=== PATIENT | female | born 1960 | race Caucasian/White ===

== ENCOUNTER 2020-09-03 08:39 | Outpatient (CLI) | payer OTHER, SELFPAY ==
--- NOTE | ~2020-09-03 | US_ITS ---
US retroperitoneal comp 09/03/2020 09:20 Procedure: Realtime transabdominal ultrasound of the kidneys and bladder. Indication: Chronic cystitis with hematuria Comparison: No prior studies for comparison. Findings: Renal echotexture is normal bilaterally without hydronephrosis, contour deforming mass or r enal calculus. The right kidney measures 11 cm and left kidney measures 10.8 cm. There is mild bladde r wall thickening measuring 4.5 mm. No focal bladder mass identified. Impression: 1: Mild bladder wall thickening, compatible with cystitis. Correlate clinically correlate. Reviewed, dictated and finalized at location B. Impression: 1: Mild bladder wall thickening, compatible with cystitis. Correlate clinically correlate.
== END 2020-09-03 08:40 | disposition home or self-care (01) ==
PROVIDERS: PCP Internal Medicine; Visit Provider Nurse Practitioner Family
DX: N30.21 Other chronic cystitis with hematuria (principal)
CPT/HCPCS: 76770

== ENCOUNTER 2020-09-30 10:07 | Outpatient (CLI) | payer OTHER, SELFPAY ==
--- NOTE | ~2020-09-30 | XR_ITS ---
XR chest 2V 09/30/2020 10:35 Indication: Rheumatoid arthritis Procedure: PA and lateral views of the chest Comparison: 01/20/2018 Findings: Heart size normal. There are coarse interstitial changes of the lung periphery with basilar predominance, likely pulmonary fibrosis. Heart size normal. No pleural effusion or pneumothorax. Impression: 1: Progression of coarse bilateral interstitial infiltrates peripherally, likely pulmonary fibrosis. Cannot exclude superimposed pneumonia. Reviewed, dictated and finalized at location B. Impression: 1: Progression of coarse bilateral interstitial infiltrates peripherally, likel y pulmonary fibrosis. Cannot exclude superimposed pneumonia.
--- NOTE | ~2020-09-30 | XR_ITS ---
EXAMINATION: XR foot LT 2V EXAM DATE: 09/30/2020 10:35 INDICATION: Seropositive rheumatoid arthritis. Bilateral foot pain. TECHNIQUE: Frontal and lateral projections of the left foot. Correlation is made to contralateral fo ot same date. FINDINGS: There are left foot no bony erosions identified. There is old 3rd proximal phalangeal frac ture. There are no acute small inferior calcaneal spur. fractures or dislocations identified. There is no subcutaneous gas. The soft tissue is unremarkable. There are no radiopaque foreign bodies. IMPRESSION: Chronic left foot findings as above. No erosions. Reviewed, dictated and finalized at location A.
--- NOTE | ~2020-09-30 | XR_ITS ---
EXAMINATION: XR hand LT 2V EXAM DATE: 09/30/2020 10:35 INDICATION: Seropositive rheumatoid arthritis. Bilateral hand pain. TECHNIQUE: Frontal and lateral projections of the left hand. Correlation is made to contralateral adamson nd same date FINDINGS: There are no bony erosions identified. There are no acute left hand fractures or dislocati ons identified. There is no subcutaneous gas. The soft tissue is unremarkable. There are no radio paque foreign bodies. Mild triscaphe and 1st carpometacarpal joint, and polyarticular interphalangea l arthritis most likely primary osteoarthritis. Sequela from prior ulnar styloid avulsion fractures. Ulnar minus variance. IMPRESSION: 1. No left hand erosions. 2. Polyarticular osteoarthritis. 3. Ulnar minus variance. 4. Old ulnar styloid avulsion. Reviewed, dictated and finalized at location A.
--- NOTE | ~2020-09-30 | XR_ITS ---
EXAMINATION: XR hand RT 2V EXAM DATE: 09/30/2020 10:35 INDICATION: Seropositive rheumatoid arthritis. Bilateral hand pain. TECHNIQUE: Frontal and lateral projections of the right hand. Correlation is made to contralateral h and same date. FINDINGS: There are no bony erosions identified. Mild scattered polyarticular interphalangeal arthri tis, most likely primary osteoarthritis. There are no acute right hand fractures or dislocations iden tified. There is no subcutaneous gas. The soft tissue is unremarkable. There are no radiopaque fo reign bodies. Ulnar minus variance. IMPRESSION: 1. No right hand erosions. 2. Mild osteoarthritis. 3. Ulnar minus variance. Reviewed, dictated and finalized at location A.
--- NOTE | ~2020-09-30 | XR_ITS ---
EXAMINATION: XR foot RT 2V EXAM DATE: 09/30/2020 10:35 INDICATION: Seropositive rheumatoid arthritis . Bilateral foot pain. TECHNIQUE: Frontal and lateral projections of the right foot. Correlation is made to contralateral f oot same date. FINDINGS: There are right foot no bony erosions identified. There are no acute fractures identified. Nonspecific soft tissue prominence over the 1st interphalangeal joint without any underlying pressur e erosion. Joint spaces appear uniform and symmetric to contralateral side. Small calcaneal spur infe riorly. No radiopaque foreign bodies identified. IMPRESSION: Nonspecific soft tissue prominence over right 1st interphalangeal joint without underlyin g erosion. Reviewed, dictated and finalized at location A. IMPRESSION: Nonspecific soft tissue prominence over right 1st interphalangeal j oint without underlying erosion.
== END 2020-09-30 10:08 ==
PROVIDERS: Visit Provider Physician Assistant
DX: M05.9 Rheumatoid arthritis with rheumatoid factor, unspecified (principal); M25.50 Pain in unspecified joint; R53.83 Other fatigue; M79.89 Other specified soft tissue disorders; M19.042 Primary osteoarthritis, left hand; M19.041 Primary osteoarthritis, right hand
CPT/HCPCS: 71046; 73120; 73620

== ENCOUNTER 2021-07-06 11:00 | Outpatient (RCR) | payer OTHER, SELFPAY ==
--- NOTE | 2021-06-11 12:27 | PTOPEVAL ---
Thank you for referring Kathya Murphy to [facility].? The patient is scheduled to be seen for therapy?2 x/week for 5 weeks. Please review, sign, date and return this plan of care VIOLET. I agree with and certify that the following plan of care is medically necessary. Referring Physician Date Attending Provider: Bennie Platt, PA Diagnosis right knee and hip pain Onset 1 month Subjective Information Report she has increased knee Query Text:As Reported By Patient/ and hip pain. Reports popping Family of the right knee with steps. She reports pain with squating, steps, prolonged standing or sitting, walking or content specialist. C/o ache pain of the right knee and hip region with a pulling in the post knee region. She does use a cane as needed. Does not perform a fitness program Pain Assessment Self Report Pain Assessment Right Knee(s) Reported Pain Level 9 Pain Description Aching,Pulling Pain Frequency Continuous Lowest Pain Intensity 6 Greatest Pain Intensity 10 Pain Aggravating Factors ADL's,Bending,Exercise/ Activity,Lifting,Prolonged Position,Stair Climbing, Walking,Weight Bearing/ Standing Right Hip(s) Reported Pain Level 8 Pain Description Aching Lowest Pain Intensity 5 Greatest Pain Intensity 10 Pain Aggravating Factors ADL's,Bending,Exercise/ Activity,Prolonged Position, Stair Climbing,Walking,Weight Bearing/Standing Lower Extremity Range of Motion Knee Range of Motion Left Knee Flexion Range of Motion - Active 120 Knee Extension Range of Motion - Active -6 Right Knee Flexion Range of Motion - Active 100 Knee Flexion Range of Motion - Passive 100 Knee Extension Range of Motion - Active -20 Knee Range of Motion Limitations Contracture,Pain,Soft Tissue Restriction Lower Extremity Muscle Strength Testing Hip Strength Left Hip Flexion Strength 4+ Good + Hip Extension Strength 4- Good - Hip Abduction Strength 3- Fair - Right Hip Flexion Strength 4- Good - Hip Extension Strength 3- Fair - Hip Abduction Strength 3- Fair - Knee Strength Left Knee Flexion Strength 4- Good - Knee Extension S
--- NOTE | 2021-06-25 11:05 | PCPTNOTE ---
Patient called & cancelled scheduled appointment this date, no reason given.
--- NOTE | 2021-07-14 07:43 | PCPTNOTE ---
Patient called & cancelled scheduled appointment this date due to does not feel therapy is helping. Will DC skilled therapy services.
--- NOTE | 2021-07-14 08:05 | PCPTNOTE ---
Admitting Provider: Attending Provider: Bennie Platt, PA Patient:Kathya Murphy Date of :1960 Physical Therapy Discharge Note Patient called to cancel her remaining therapy visits due to does not feel therapy services are helping her pain and symptoms. Patient?s initial visit was on 06/11/2021 and she had a total of 7 visits. The goals have been not met at this time. Thank you for referring this patient to [facility]. Please review, sign, date and return this discharge summary VIOLET. I have been updated about the patient's current status and I agree with discharge from the above service at this time. Referring Physician Date
== END 2021-07-14 09:20 | disposition home or self-care (01) ==
LOC: ANHPT 11:00
PROVIDERS: PCP Internal Medicine; Visit Provider Physician Assistant
DX: M25.561 Pain in right knee (principal); M25.559 Pain in unspecified hip; G89.29 Other chronic pain
CPT/HCPCS: 97014; 97110; 97140; 97162; G0283

== ENCOUNTER 2021-08-10 12:45 | Outpatient (CLI) | payer OTHER, SELFPAY ==
--- NOTE | ~2021-08-10 | MR_ITS ---
EXAMINATION: MR knee RT wo con DATE: 08/10/2021 13:45 INDICATION: Seropositive rheumatoid arthritis TECHNIQUE: Magnetic resonance imaging (MRI) of the right knee was performed without intravenous contr ast. Sequences included coronal PD-weighted FSE, coronal PD-weighted FS FSE, sagittal T2-weighted FS E, sagittal PD-weighted FS FSE and axial PD weighted fat saturated FSE. COMPARISON: None. FINDINGS: Evaluation is mildly limited by motion artifact or blurring to some degree on multiple sequences incl uding several repeated sequences. Medial compartment: Small tear of indeterminate morphology along the inner free edge of the posterior horn of the medial meniscus. Chondral ulceration involving greater than 50% the cartilage thickness pulmonary the centra l portion of the anterior and posterior weightbearing medial femoral condyle. Less severe partial thi ckness cartilage loss involving less than 50% the cartilage thickness at the anterior aspect of the m edial tibial plateau. Lateral compartment: Complex tear of the lateral meniscus extending from the anterior to posterior horn. Full/near full-th ickness chondral ulceration involving significant portion of the central to posterior weightbearing l ateral femoral condyle with subtle subchondral osteophyte at the central weightbearing lateral femora l condyle and more diffuse mild edema-like marrow signal changes. Additional full/near full-thickness chondral ulceration with both low signal intensity likely sclerotic eburnation along the central to posterior lateral tibial plateau. Patellofemoral compartment: Extensive partial-thickness partial-thickness cartilage loss with scattered chondral surface irregula rity throughout the patella and trochlea most prominent at the lateral facet and lateral margin of th e lateral trochlea where it involves greater than 50% the cartilage thickness. There is deep chondral fissuring without degenerative subchondral changes at the patellar apical ridge. Ligaments and tendons: Anterior cruciate ligament tear which follows a shallower coarse than Blumensaat line with amorphous increased signal at the proximal aspect of the ligament and small amount of heterotopic ossification at its femoral footplate. The posterior cruciate ligament is normal. The medial collateral ligament a nd fibular collateral ligament complex are normal. Mild tendinopathy without discrete tear at the dis taran quadriceps and distal patellar tendons. The visualized medial and lateral hamstring tendons as we ll as the iliotibial band are normal. Fluid: Moderate-sized right knee joint effusion. No loose osteochondral bodies identified. Osseous/other: No fracture or pathologic marrow replacing process. IMPRESSION: 1. Anterior cruciate ligament tear. 2. Extensive complex tear. The posterior horn of the lateral meniscus. 3. Small tear of indeterminate morphology along the inner free edge of the posterior horn of the medi al meniscus. 4. Lateral compartment predominant tricompartmental osteoarthritis which is of moderate severity with extensive high-grade chondromalacia. 5. Mild disc quadriceps and distal patellar tendinopathy without discrete tear. 5. Moderate-sized right knee joint effusion. Reviewed, dictated and finalized at location A. 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 Anterior cruciate ligament tear. 2. Extensive complex tear. The posterior horn of the lateral meniscus. 3. Small tear of indeterminate morphology along the inner free edge of the post erior horn of the medial meniscus. 4. Lateral compartment predominant tricompartmental osteoarthritis which is of moderate severity with extensive high-grade chondromalacia. 5. Mild disc quadriceps and distal patellar tendinopathy without discrete tear.
== END 2021-08-10 12:46 | disposition home or self-care (01) ==
LOC: ANHIMG 12:49
PROVIDERS: PCP Internal Medicine; Visit Provider Internal Medicine
DX: M25.461 Effusion, right knee (principal); M17.11 Unilateral primary osteoarthritis, right knee; S83.271A Complex tear of lateral meniscus, current injury, right knee, initial encounter; X58.XXXA Exposure to other specified factors, initial encounter
CPT/HCPCS: 73721

== ENCOUNTER 2021-09-15 08:41 | Outpatient (CLI) | payer OTHER, SELFPAY ==
--- NOTE | ~2021-09-15 | XR_ITS ---
EXAMINATION: XR knee RT min 4V DATE: 09/15/2021 09:18 INDICATION: Right knee pain TECHNIQUE: Four views of the right knee were obtained on five radiographs. COMPARISON: None. FINDINGS: There is no fracture. There is severe joint space narrowing in the lateral compartment and moderate narrowing in the patellofemoral and medial compartments. There is a small knee joint effusio n. Soft tissues are unremarkable. IMPRESSION: 1. Tricompartmental osteoarthritis, severe in the lateral compartment. Reviewed, dictated and finalized at location A.
== END 2021-09-15 08:42 | disposition home or self-care (01) ==
LOC: CHSIMG 08:43
PROVIDERS: PCP Internal Medicine; Visit Provider Orthopaedic Surgery
DX: M25.561 Pain in right knee (principal)
CPT/HCPCS: 73564

== ENCOUNTER 2021-11-03 07:47 | Outpatient (CLI) | payer OTHER, SELFPAY ==
[2021-11-03 08:46] LABS: Urine Cotinine NEGATIVE
[2021-11-03 09:45] LABS: Hemoglobin A1C 7.8 % (<5.7)
== END 2021-11-03 07:48 | disposition home or self-care (01) ==
PROVIDERS: PCP Internal Medicine; Visit Provider Orthopaedic Surgery
DX: Z01.818 Encounter for other preprocedural examination (principal)
CPT/HCPCS: 80307; 83036

== ENCOUNTER 2021-11-20 13:29 | Outpatient (CLI) | payer OTHER, SELFPAY ==
--- NOTE | 2021-11-20 14:44 | ECG_ITS ---
Measurements Intervals [place] Rate: 69 P: 18 MO: 153 QRS: -14 QRSD: 149 T: 30 QT: 423 QTc: 456 Interpretive Statements SINUS RHYTHM LEFT BUNDLE BRANCH BLOCK [120+ ms QRS DURATION, 80+ ms Q/S IN V1/V2, 85+ ms R IN I/aVL/V5/V6] ABNORMAL ECG NO PREVIOUS ECG AVAILABLE FOR COMPARISON Electronically Signed On 11-21-2021 11:16:08 CDT by Gary Hartmann M.D.
[2021-11-20 15:11] LABS: Basophils Absolute Auto 0.1 K/mm3 (0.0-0.1); Basophils Percent Auto 0.7 % (0.2-1.2); Eosinophils Absolute Auto 0.2 K/mm3 (0-0.3); Eosinophils Percent Auto 1.3 % (0-4.4); Hematocrit 39.6 % (37.0-47.0); Immature Granulocyte Absolute 0.08 K/mm3 (0.00-0.031); Immature Granulocyte Percent A 0.7 % (0-0.5); Lymphocytes Percent Auto 18.5 % (18.3-44.2); Mean Corpuscular HGB Conc 32.8 g/dl (32-36); Mean Corpuscular Hemoglobin 33.3 pg (26-34); Mean Corpuscular Volume 101.5 fl (80-100); Mean Platelet Volume 9.9 fl (7.4-10.4); Monocytes Absolute Auto 0.9 K/mm3 (0.1-0.6); Monocytes Percent Auto 7.8 % (2.6-8.5); Neutrophils Absolute Auto 8.5 K/mm3 (1.3-6.7); Nucleated Red Blood Cells Absolute Auto 0.1 K/mm3 (0.0-0.012); Nucleated Red Blood Cells Perc 0.5 % (0.0-0.2); Platelet Count Result 421 k/mm3 (150-375); Red Cell Distribution Width 16.3 % (11.5-14.5); White Blood Count 11.9 K/mm3 (4.5-10.0)
[2021-11-20 15:12] LABS: Add Urine Microscopic? YES; Appearance Urine Slightly Cloudy (Clear); Bilirubin Urine 1+ (Negative); Blood Urine Negative (Negative); Color Urine Yellow (Yellow); Glucose Urine UA Negative (Negative); Ketones Urine Trace mg/dL (Negative); Leukocyte Esterase Ur 2+ LEU/UL (Negative); Nitrate Urine Negative (Negative); Protein Urine Trace mg/dL (Negative); Specific Grav Ur 1.025 (1.001-1.035); Urobilinogen Urine 0.2 mg/dL (<2.0); pH Urine 5.5 (5.0-9.0)
[2021-11-20 15:18] LABS: Amorphous Sediment Urine Few; Bacteria Urine Trace /hpf; Mucus Urine Rare /lpf; RBC Urine 21-50 /hpf (0-2); Squamous Epithelial Cell Urine Moderate /hpf (Few); WBC Urine 31-50 /hpf
[2021-11-20 15:21] LABS: Prothrombin Time 13.2 Seconds (11.1-14.7)
[2021-11-20 15:22] LABS: Partial Thromboplastin Time 28.8 SECONDS (22.3-36.8)
[2021-11-20 15:39] LABS: Albumin Level 4.4 g/dL (3.5-5.1); Anion Gap 8 mmol/L (8-16); Blood Urea Nitrogen 29 mg/dL (7-17); Calcium 9.1 mg/dL (8.4-10.2); Carbon Dioxide 28 mmol/L (22-30); Chloride 101 mmol/L (98-107); Estimated Glomerular Filt Rate 41; Glucose 103 mg/dL (65-110); Potassium 5.3 mmol/L (3.4-5.0); Sodium 137 mmol/L (137-145)
== END 2021-11-20 13:30 | disposition home or self-care (01) ==
PROVIDERS: PCP Internal Medicine; Visit Provider Orthopaedic Surgery
DX: M17.11 Unilateral primary osteoarthritis, right knee (principal); Z01.818 Encounter for other preprocedural examination; I44.7 Left bundle-branch block, unspecified
CPT/HCPCS: 36415; 80048; 81001; 82040; 85025; 85610; 85730; 86850; 86900; 86901; 87081; 87086; 93005

== ENCOUNTER 2021-12-11 12:29 | Outpatient (CLI) | payer OTHER, SELFPAY ==
--- NOTE | 2021-12-11 12:43 | ECHO_ITS ---
Patient Info Name: Kathya Murphy Age: 61 years : 1960 Gender: Female Ht: 69 in Wt: 260 lbs BSA: 2.45 m2 HR: 69 bpm BP: 147 / 68 mmHg Technical Quality: Good Exam Date: 12/11/2021 1:16 PM Exam Location: [facility] Pulmonary Patient Status: Outpatient Admit Date: 12/11/2021 Staff Ordering Physician: Mahendra Ledesma DO Director Selection And Administration: Lavonne Galeana RDCS Attending Provider: Mahendra Ledesma DO Referring Physician: Baltazar DEY; Exam Type: CA echo doppler color flow Study Info Indications R06.00 - Dyspnea, unspecified Complete two-dimensional, color flow and Doppler transthoracic echocardiogram is performed. Summary 1. Complete two-dimensional, color flow and Doppler transthoracic echocardiogram is performed. 2. Left ventricular chamber dimension is normal. 3. Left ventricular systolic function is normal, estimated at 60-65%. 4. There is mildly increased left ventricular wall thickness. 5. The left ventricular diastolic function is grade I diastolic dysfunction. 6. E/e' 18 is elevated. 7. Moderate right ventricular hypertrophy. 8. Left atrial chamber dimension is mildly enlarged. 9. No pulmonary hypertension, estimated pulmonary arterial systolic pressure is 37 mmHg. Left Ventricle E/e' 18 is elevated. Left ventricular chamber dimension is normal. Left ventricular systolic function is normal, estimated at 60-65%. There is mildly increased left ventricular wall thickness. The left ventricular diastolic function is grade I diastolic dysfunction. Right Ventricle Right ventricular systolic function is normal and with normal TAPSE 2.1 cm. Moderate right ventricular hypertrophy. Right ventricular chamber dimension is normal. Left Atria Left atrial chamber dimension is mildly enlarged. Right Atria Right atrial chamber dimension is normal. Aortic Valve The aortic valve is trileaflet. There is no aortic valve stenosis. There is no aortic valve regurgitation. Pulmonic Valve There is no pulmonic regurgitation. Mitral Valve There is no mitral valve stenosis. There is no mitral valve regurgitation. Tricuspid Valve There is no tricuspid valve regurgitation. No pulmonary hypertension, estimated pulmonary arterial systolic pressure is 37 mmHg. Pericardium/Pleural There is no pericardial effusion. Inferior Vena Cava Normal inferior vena cava with >50% collapse upon inspiration consistent with normal right atrial pressure, 5 mmHg. Aorta The aortic root size at the sinus of Valsalva is normal. Left Ventricular Outflow Tract Name Value Normal LVOT 2D LVOT Diameter 2.0 cm LVOT Doppler LVOT Peak Gradient 7 mmHg LVOT Mean Gradient 4 mmHg LVOT VTI 23 cm LVOT VTI/AV VTI Ratio 0.8 LVOT Stroke Volume 69 ml LVOT CO 16.4 l/min LVOT CI 6.7 l/min/m2 Pulmonic Valve Name Value
== END 2021-12-11 12:30 | disposition home or self-care (01) ==
LOC: ANHCARD 12:31
PROVIDERS: PCP Internal Medicine; Visit Provider Internal Medicine Cardiovascular Disease
DX: R06.00 Dyspnea, unspecified (principal)
CPT/HCPCS: 93306

== ENCOUNTER 2021-12-16 10:08 | Outpatient (CLI) | payer OTHER, SELFPAY ==
--- NOTE | 2021-12-16 | EST_ITS ---
Patient Info Name: Kathya Murphy Age: 61 years : 1960 Gender: Female Ht: 69 in Wt: 260 lbs BSA: 2.45 m2 HR: 75 bpm BP: 181 / 83 mmHg Heart Rhythm: Left Bundle Branch Block Exam Date: 12/16/2021 10:55 AM Exam Location: [facility] Stress Patient Status: Outpatient Admit Date: 12/16/2021 Staff Ordering Physician: Mahendra Ledesma DO Attending Provider: Mahendra Ledesma DO Exercise Technologist: Venita Tariq CT Exam Type: CA stress justice w NM Study Info Indications Z01.810 - Encounter for preprocedural cardiovascular examination R06.09 - Other forms of dyspnea A regadenoson stress test was performed. Summary 1. 1. Inconclusive lexiscan stress test for ischemic ST changes by ECG criteria due to baseline LBBB. 2. 2. Baseline hypertension. 3. 3. Nuclear scan to follow and will be reported separately. Please correlate with it. 4. 4. Patient informed of the above results. Protocol: Lexiscan Stress ECG Details Stage: REST Duration (min): 9 min : 18 sec HR (bpm): 77 SBP (mmHg): 214 DBP (mmHg): 99 Stage: REST Duration (min): 11 min : 58 sec HR (bpm): 79 SBP (mmHg): 181 DBP (mmHg): 83 Stage: REST Duration (min): 13 min : 9 sec HR (bpm): 76 SBP (mmHg): 181 DBP (mmHg): 83 Stage: STAGE 1 Duration (min): 0 min : 59 sec HR (bpm): 113 SBP (mmHg): 181 DBP (mmHg): 83 Stage: RECOVERY Duration (min): 1 min : 0 sec HR (bpm): 103 SBP (mmHg): 147 DBP (mmHg): 103 Stage: RECOVERY Duration (min): 2 min : 0 sec HR (bpm): 92 SBP (mmHg): 147 DBP (mmHg): 103 Stage: RECOVERY Duration (min): 3 min : 0 sec HR (bpm): 92 SBP (mmHg): 147 DBP (mmHg): 103 Stage: RECOVERY Duration (min): 4 min : 0 sec HR (bpm): 92 SBP (mmHg): 147 DBP (mmHg): 103 Stage: RECOVERY Duration (min): 4 min : 19 sec HR (bpm): 87 SBP (mmHg): 198 DBP (mmHg): 87 Rest HR: 76 bpm Peak HR: 115 bpm Rest Sys BP: 181 mmHg Peak Sys BP: 198 mmHg Max Pred HR: 157 bpm % Max Pred HR: 73 % Target HR: 133 bpm Max RPP: 22,770 bpm*mmHg Termination Reason: Completed protocol Cardiac Symptoms: Shortness of breath Total Time: 1 min : 0 sec Rest Jj BP: 83 mmHg Peak Jj BP: 87 mmHg Total Dose: 0.4 mg Resting ECG Sinus rhythm, LBBB. Stress ECG No ST changes. Arrhythmias None. Report Signatures
--- NOTE | ~2021-12-16 | NM_ITS ---
EXAMINATION: NM justice stress w perfusion DATE: 12/16/2021 12:44 INDICATION: Dyspnea on exertion. TECHNIQUE: Rest images were obtained following intravenous administration of 10.3 mCi Tc99m tetrofosm in (Myoview). The patient was infused intravenously with Lexiscan (regadenoson). Then, 32.7 mCi Tc99m tetrofosmin (Myoview) was administered intravenously, and supine and prone stress images were obtain ed. Data was reconstructed into short axis and horizontal and vertical long axis SPECT images. Gated SPECT images were also obtained. COMPARISON: None. FINDINGS: There is no definite reversible or fixed perfusion abnormality to suggest ischemia or infar ction. There is global hypokinesis. Left ventricular ejection fraction measures 36%. IMPRESSION: 1. No definite ischemia or infarct. 2. Global hypokinesis with left ventricular ejection fraction measuring 36%. Reviewed, dictated and finalized at location A.
== END 2021-12-16 10:09 | disposition home or self-care (01) ==
LOC: ANHCARD 10:08
PROVIDERS: PCP Internal Medicine; Visit Provider Internal Medicine Cardiovascular Disease
DX: R06.00 Dyspnea, unspecified (principal); I51.89 Other ill-defined heart diseases
CPT/HCPCS: 78452; 93017; A9502; J2785

== ENCOUNTER 2021-12-23 00:37 | Day surgery (SDC) | payer OTHER, SELFPAY ==
[2021-11-20 14:03] VITALS: BMI 38.2
--- NOTE | 2021-11-20 14:26 | PC.NURSE ---
Addendum entered by Brenna Oneill RN 11/20/21 14:33: ASPIRIN PER DR GAINES-PATIENT TO CALL Original Note: Report to the Outpatient Waiting Room, entrance under the green pavilion located off [address], at time _0900 on date _12/02/21 . OR Time: __1100 . - You and your visitor will be asked a series of questions to screen for COVID 19 for your protection. - Only one visitor is allowed at this time. - The patient visitor is requested to leave or wait in car when not with patient. - A mask is required within the hospital. Patients may have clear liquids (water, carbonated beverages, clear teas, apple juice) until 3 hours prior to surgery with a maximum of 20 ounces. - No food from midnight until time of surgery - Infants may have breast milk until 4 hours before surgery, infant formula 6 hours prior to surgery. - Children will be allowed to drink immediately following surgery. If applicable, please bring a bottle or sippy cup to assist with drinking. Juice, water, soda, and popsicles are readily available. For infants on formula, please bring formula the day of surgery. Pacifiers are allowed. Take the following medications with a SIP of water the morning of surgery: __OXYCODONE IF NEEDED FOR PAIN Medications to discontinue per physician __PT STATES AZATHIOPRINE INST. TO HOLD 11/17/[address] GAINES Date to take last dose___11/17/21 Please no make-up, nail yi, hairspray, perfume, deodorant, or body powder the day of surgery. No jewelry (including any body piercings) or valuables the day of surgery, leave them at home. Please take a shower or bath the night before, or the morning of, surgery with an antibacterial soap. Wear comfortable, loose fitting clothing. Children are encouraged to wear pajamas. - Jewelry must be removed prior to entering the operating room. Rings and piercings that are not removed may be cut off. - The hospital will not accept responsibility for valuables. - Please leave all valuables, including medications, at home the day of surgery. If you are going home after surgery, a licensed charter and tour bus driver must drive you home. - NO public transportation without another adult. - We recommend that an adult stay with you for 24 hours following discharge. - We also recommend that you do not drive, make important decision, drink alcoholic beverages, or take any drugs that were not prescribed by your health care provider for at least 24 hours after your discharge time. For Pediatric surgeries, we recommend two adults accompany the child home (only one inside the building at this time). Follow any additional instructions given to you from your surgeon. If you or anyone in your household have experienced Covid symptoms in the past week, please notify your surgeon or the nurse liaison at the phone number below for possible testing. VERBAL AND WRITTEN instructions given to _PATIENT and asked if any additional questions and then verbalized understanding. Patient advised to call surgeon office or pre surgery nurse liaison [phone] if any additional questions.
[2021-11-20 14:43] VITALS: BP 110/57; PULSE 72; RESP 18; TEMP 36.5; O2SAT 98
--- NOTE | 2021-12-16 13:01 | PC.NURSE ---
Report to the Outpatient Waiting Room, entrance under the green pavilion located off [facility], at time _0830 on date _12/23/21 . OR Time: 1030 . - You and your visitor will be asked a series of questions to screen for COVID 19 for your protection. - Only one visitor is allowed at this time. - The patient visitor is requested to leave or wait in car when not with patient. - A mask is required within the hospital. Patients may have clear liquids (water, carbonated beverages, clear teas, apple juice) until 3 hours prior to surgery with a maximum of 20 ounces. - No food from midnight until time of surgery - Infants may have breast milk until 4 hours before surgery, infant formula 6 hours prior to surgery. - Children will be allowed to drink immediately following surgery. If applicable, please bring a bottle or sippy cup to assist with drinking. Juice, water, soda, and popsicles are readily available. For infants on formula, please bring formula the day of surgery. Pacifiers are allowed. Take the following medications with a SIP of water the morning of surgery: __OXYCODONE IF NEEDED FRO PAIN Medications to discontinue per physician __PT STATES AZATHIOPRINE INST. TO HOLD _7 DAYS PRE OP_PER DR GAINES Date to take last dose___12/15/21 Please no make-up, nail czech, hairspray, perfume, deodorant, or body powder the day of surgery. No jewelry (including any body piercings) or valuables the day of surgery, leave them at home. Please take a shower or bath the night before, or the morning of, surgery with an antibacterial soap. Wear comfortable, loose fitting clothing. Children are encouraged to wear pajamas. - Jewelry must be removed prior to entering the operating room. Rings and piercings that are not removed may be cut off. - The hospital will not accept responsibility for valuables. - Please leave all valuables, including medications, at home the day of surgery. If you are going home after surgery, a licensed boat driver must drive you home. - NO public transportation without another adult. - We recommend that an adult stay with you for 24 hours following discharge. - We also recommend that you do not drive, make important decision, drink alcoholic beverages, or take any drugs that were not prescribed by your health care provider for at least 24 hours after your discharge time. For Pediatric surgeries, we recommend two adults accompany the child home (only one inside the building at this time). Follow any additional instructions given to you from your surgeon. If you or anyone in your household have experienced Covid symptoms in the past week, please notify your surgeon or the nurse liaison at the phone number below for possible testing. Telephone instructions given to __PATIENT and asked if any additional questions and then verbalized understanding. Patient advised to call surgeon office or pre surgery nurse liaison [phone] if any additional questions.
--- NOTE | 2021-12-16 13:22 | PC.NURSE ---
11-20-21 EKG NEW LBBB.SAW DR RUBIO STRESS TEST 12/16/21 . CLEARED FOR SURGERY. STATES NO OTHER CHANGE IN HEALTH HX SINCE LAST INTERVIEW ON 11/20/21
--- NOTE | 2021-12-22 13:45 | WPDANESPNB ---
Anes - Peripheral Nerve Block Date/Time: 12/22/21 13:45 I have discussed with the patient/family/POA the placement of a peripheral nerve block for post-operative pain management, including associated risks, benefits, complications, and side effects. Alternative methods of post-operative analgesia were detailed. Questions were solicited and answers provided to the satisfaction of the patient/family/POA. Time-Out: A pre-procedural Time-Out was completed immediately before starting the procedure and confirmed: Patient Identification, Site, Procedure, Patient Position and the Availability of Requisite Equipment. Clinical Indications: Acute post-operative pain management requested by the operative surgeon. Nerve Block Insertion Note Anes-nerve block: adductor canal right Patient position: supine Skin prep: chlorhexidine Needle: 22 gauge, stimulating, insulated echogenic needle. Needle length: 80 mm Technique: ultrasound Technique comment: in plane Injectate: bupivacaine 0.5% with epi 5 mcg/ml (30cc) Observations: tolerated well Complications: none Procedure start time:: 940 Procedure end time:: 945
--- NOTE | 2021-12-22 13:45 | WPDANESEPPF ---
Anes - Initial Pre Proc Eval Procedure: Operation Date: 12/23/21 10:30 Proposed Procedures p Right Total Knee Arthroplasty - Edward Allison MD Date/Time: 12/22/21 13:45 Surgeon: Edward Allison MD Pre Op Diagnosis: Rt Knee DJD Patient Data Age: 61 Gender: F Height: 1.75 m Weight: 117.5 kg Last Vital Signs Temp 36.5 C 11/20/21 14:43 Pulse 72 11/20/21 14:43 Resp 18 11/20/21 14:43 BP 110/57 L 11/20/21 14:43 Pulse Ox 98 11/20/21 14:43 O2 Del Method Room Air 11/20/21 14:43 Allergies Allergy/AdvReac Type Severity Reaction Status Date / Time Sulfa (Sulfonamide Allergy Intermediate Hives Verified 12/23/21 09:01 Antibiotics) morphine AdvReac Intermediate Headache Verified 12/23/21 09:01 Home Medications Medication Instructions Recorded Confirmed Type acetaminophen 500 mg capsule 1,000 mg PO BID PRN Pain 09/25/21 12/23/21 History aspirin 81 mg capsule 81 mg PO DAILY 09/25/21 12/23/21 History atorvastatin 40 mg tablet 40 mg PO DAILY 09/25/21 12/23/21 History azathioprine 50 mg tablet 50 mg PO BID 09/25/21 12/23/21 History insulin glargine 100 unit/mL (3 32 unit subcut QPM 09/25/21 12/23/21 History mL) subcutaneous pen (Lantus Solostar U-100 Insulin) lisinopril 20 1 tablet PO DAILY 09/25/21 12/23/21 History mg-hydrochlorothiazide 25 mg tablet metformin 500 mg tablet,extended 1,500 mg PO DAILY 09/25/21 12/23/21 History release 24 hr oxycodone 5 mg tablet 5 mg PO Q8H PRN Pain 09/25/21 12/23/21 History pramipexole 0.25 mg tablet 0.25 mg PO TID RLS 09/25/21 12/23/21 History ropinirole 4 mg tablet 4 mg PO QHS RLS 09/25/21 12/23/21 History trimethoprim 100 mg tablet 100 mg PO DAILY 09/25/21 12/23/21 History insulin aspart U-100 100 unit/mL 10 ea subcut PRN PRN SLIDING SCALE 11/20/21 12/23/21 History (3 mL) subcutaneous pen (Novolog Flexpen U-100 Insulin aspart) Patient hx anesthesia problems: none Family hx anesthesia problems: none Results Review: All pre-operative results and documents have been reviewed as part of the pre-operative evaluation. [facility] Past Medical History Medical History (Updated 12/23/21 @ 09:18 by Sonny Martinez MD) Chronic narcotic use CKD (chronic kidney disease) stage 3, GFR 30-59 ml/min COPD (chronic obstructive pulmonary disease) Decreased GFR History of GFR of 42 Recent GFR of 62 Diabetes BALBUENA (dyspnea on exertion) Dyslipidemia Former smoker Hypertension Left bundle branch block Followed by cardiology Obesity PATO (obstructive sleep apnea) Preop cardiovascular exam Rheumatoid aortitis Right knee DJD TIA (transient ischemic attack) Surgical History Surgical History Hx of arthroscopy of left knee 2008 Social History Social History Smoking packs per day: 1.5 Smoking cigarettes per day: 30.0 Years smoked: 50 Smoking pack-years: 75.00 Smoking status: Former smoker Tobacco type: cigarettes Smoking end date: 10/02/21 Additional smoking assessment comments: DENIES ANY FORM OF TOBACCO USE Alcohol intake: never Substance use: never Living arrangements: with family Gender identity (if verbalized by the patient): Female Spiritual care concerns: No Anes - Eval Final PreProcedure Day of Procedure 12/22/21 13:45 Patient weight: obese Heart: regular rate and rhythm Lungs: clear to auscultation and normal air movement Airway: Mallampati scale class II Neurological: alert and oriented Last oral intake: >/= 8 hours ASA classification: III Emergent: no Anesthetic plan: proceed Anesthesia type and monitoring: general LMA Results Review: All pre-operative results and documents have been reviewed as part of the pre-operative evaluation. Informed Consent: The patient's anesthetic plan and its attendant risks and benefits were discussed with the patient/family/POA. Questions were solicited and
[2021-12-23] VITALS (15 sets, daily range): BP systolic 122–167; BP diastolic 57–85; PULSE 68–107; RESP 12–20; TEMP 36.4–36.7; O2SAT 95–99
--- NOTE | ~2021-12-23 | XR_ITS ---
EXAMINATION: XR knee RT 2V DATE: 12/23/2021 12:48 INDICATION: Right knee arthroplasty. Postop. TECHNIQUE: 2 views of right knee were obtained. COMPARISON: Right knee radiographs 09/15/2021 FINDINGS: There is a total right knee arthroplasty without patellar resurfacing in near-anatomic alig nment. No fracture. There is gas in the knee joint and soft tissues, consistent with recent surgery. Anterior skin iftikhar are noted. IMPRESSION: 1. Total right knee arthroplasty in near-anatomic alignment. Reviewed, dictated and finalized at location A.
--- NOTE | 2021-12-23 07:06 | WPDHPUPDATE1 ---
History and Physical Update Update Date/Time: 12/23/21 07:06 History and Physical has been reviewed, including an updated exam of the patient. There are NO changes in the patient's condition. Risks, benefits, and alternatives have been discussed and questions answered. Patient agrees to proceed with procedure.
[2021-12-23] MEDS: ACETAMINOPHEN 500 MG TABLET 1000 MG PO (08:59)
[2021-12-23] MEDS: LACTATED RINGERS 1,000 ML 30 ML IV CONT ×2 (09:14→12:37)
[2021-12-23 09:17] LABS: Glucose Point of Care 152 mg/dl (65-105)
[2021-12-23] MEDS: TRANEXAMIC ACID 1,000MG/ISO100 1,000 MG/100 ML BAG 200 MG IVPB (09:45)
[2021-12-23] MEDS: ceFAZolin 2 GM/D5W 50 ML 2 GM/50 ML BAG IVPB ×2 (09:59→17:22)
[2021-12-23] MEDS: TRANEXAMIC ACID 1,000 MG/10 ML AMPUL 1000 MG IV PUSH (11:48)
[2021-12-23] MEDS: fentaNYL CITRATE INJ (*CRX) 100 MCG/2 ML VIAL 25 MCG IV PUSH ×8 (12:48→13:16)
--- NOTE | 2021-12-23 12:53 | W.PM.PROC2 ---
Procedure Note - Detailed Date of Procedure 12/23/21 Pre-op Diagnosis Rt Knee DJD Post-op Diagnosis Same Procedure Performed R TKA Surgeon Edward Allison MD Anesthesia General Description of Procedure THE RIGHT KNEE WAS PREPPED AND DRAPED IN THE STERILE FASHION. THERE WAS A 15 DEGREE FLEXION CONTRACTURE WITH A VALGUS DEFORMITY. A MIDLINE SKIN INCISION WAS MADE. A MEDIAL PARAPATELLAR ARTHROTOMY WAS MADE. THE PATELLA WAS EVERTED. THERE WAS TRICOMPARTMENT DJD. THERE WAS MINIMAL PATELLA DJD. AN INTRAMEDULLARY JEANIE WAS PLACED IN THE FEMUR. A DISTAL FEMORAL CUT WAS MADE IN 5 DEGREES OF VALGUS REMOVING APPROXIMATELY 11 MM OF BONE FROM THE DISTAL FEMUR. THE FEMUR WAS SIZED TO 70. A 70 FEMORAL CUTTING BLOCK WAS PLACED IN 3 DEGREES OF EXTERNAL ROTATION AND IN ALIGNMENT WITH RACHEL'S LINE AND THE TRANSEPICONDYLAR AXIS. ANTERIOR POSTERIOR AND CHAMFER CUTS WERE MADE. THE CUTS WERE EXCELLENT. NEXT AN INTRAMEDULLARY CUTTING GUIDE WAS PLACED IN THE TIBIA. A TRANS TIBIAL CUT WAS MADE ALONG THE LONG AXIS OF THE TIBIA. APPROXIMATELY 10 MM OF BONE WAS REMOVED FROM THE HIGH SIDE OF THE TIBIA. THE TIBIA WAS THEN PLANED TO A SMOOTH SURFACE. POSTERIOR FEMORAL OSTEOPHYTES WERE REMOVED FROM THE FEMORAL CONDYLES. A 79 TIBIAL TRIAL WAS PLACED IN ALIGNMENT WITH THE 1/3 MEDIAL ASPECT OF THE TIBIAL TUBERCLE. THEN A 70 FEMORAL TRIAL COMPONENT WAS PLACED. BOTH HAD EXCELLENT FITS. EVENTUALLY A 10 MM POLYETHYLENE TRIAL COMPONENT WAS PLACED. THE KNEE WAS TAKEN THROUGH A RANGE OF MOTION. THE KNEE CAME OUT TO FULL EXTENSION. THERE WAS NO ABNORMAL TILT TO THE PATELLA. THERE WAS GOOD A/P AND VARUS/VALGUS STABILITY. THERE WAS NO EXCESSIVE ROLL BACK WITH FLEXION. THE TRIAL COMPONENTS WERE REMOVED. THEN A 70 FEMORAL COMPONENT AND 79 TIBIAL COMPONENT WITH A 10 POLYETHYLENE COMPONENT WERE CEMENTED INTO PLACE. ONCE THE CEMENT WAS HARD THE KNEE WAS TAKEN THROUGH A ROM AGAIN AND FOUND TO BE STABLE WITH NO PATELLA TILT NO EXCESSIVE ROLL BACK WITH FLEXION AND GOOD STABILITY WITH COMPLETE AND FULL EXTENSION. THE KNEE WAS IRRIGATED WITH STERILE BETADINE AND WATER FOR ABOUT 3 MINUTES. THE BLEEDERS WERE CAUTERIZED. THE ARTHROTOMY WAS REPAIRED WITH NUMBER 1 VICRYL. THE SUB CUTANEOUS LAYER WITH 2-0 VICRYL AND THE SKIN WITH APRYL. THE WOUND WAS WASHED AND A STERILE DRESSING WAS APPLIED. PATIENT WAS EXTUBATED. Estimated Blood Loss -100.0 Pathology None sent Complications No immediate complications Condition Stable Disposition PACU
[2021-12-23 13:17] LABS: Glucose Point of Care 157 mg/dl (65-105)
--- NOTE | 2021-12-23 14:05 | SUR.PHASEI ---
PATIENT IS STABLE FOR TRANSFER TO MEDICAL FLOOR. ROOM UNAVAILABLE AT THIS TIME. HOLDING PATIENT IN RECOVERY.
[2021-12-23] MEDS: oxyCODONE HCL (*CRX) 5 MG TAB IR PO (14:37)
--- NOTE | 2021-12-23 15:00 | ADMGEN ---
This patient, Kathya Murphy, was admitted to 2 Medical Room 240-. Patient/family oriented to hospital policies and general routines including ID bracelet, bed and alarms, visiting hours, pain management, procedures, bathroom and other care routines, personal items, smoking policy, room service/diet, and visiting hours. Information on how to activate the Rapid Response Team has been discussed. Patient/Family are encouraged to report perceived risks to care and to ask questions if they do not understand what they are told or what they should do.
[2021-12-23] MEDS: SODIUM CHLORIDE 0.9% IV 1,000 ML 125 ML IV CONT (15:27)
[2021-12-23] MEDS: oxyCODONE/ACETAMINOPHEN (*CRX) 5-325 MG TABLET 2 TABLET PO ×2 (16:27→22:43)
[2021-12-23] MEDS: SENNA/DOCUSATE SODIUM TABLET 2 TAB PO (16:38)
[2021-12-23] MEDS: KETOROLAC 15 MG/ML VIAL (*BKC) IV PUSH (17:12)
[2021-12-23] MEDS: INSULIN GLARGINE (*BKC) 100 UNITS/ML 32 UNITS SUB-Q (17:17)
[2021-12-23] MEDS: PRAMIPEXOLE 0.25 MG TABLET PO ×2 (17:21→21:29)
[2021-12-23 17:33] LABS: Glucose Point of Care 283 mg/dl (65-105)
[2021-12-23] MEDS: INSULIN ASPART (*BKC) 100 UNITS/ML SUB-Q (18:17)
--- NOTE | 2021-12-23 19:30 | PM.IMCN ---
Assessment and Plan Assessment and plan (1) Status post right knee replacement: Code(s): Z96.651 - Presence of right artificial knee joint Status: Acute Assessment and Plan: POD 0 Post op care per ortho Pain medications: Oxycodone 5/325mg 1 tab PO Q4H or 2 tabs Q6H PRN Cefazolin X3 bags Bowel: Miralax and Senna Ice pack DVT aspirin 650mg PO daily PT/OT (2) PATO (obstructive sleep apnea): Code(s): G47.33 - Obstructive sleep apnea (adult) (pediatric) Status: Acute Assessment and Plan: continue CPAP or BiPAP per home settings (3) Diabetes: Code(s): E11.9 - Type 2 diabetes mellitus without complications Status: Acute Assessment and Plan: current glucose 283 continue home insulin insulin sliding scale. A1c in the a.m. trend glucose adjust therapy as indicated hypoglycemia protocol Accu-Chek AC and HS (4) Hypertension: Code(s): I10 - Essential (primary) hypertension Status: Acute Assessment and Plan: Current BP 122/67 Continue Home lisinopril 20 mg, hydrochlorothiazide 25 mg Trend Blood pressure Adjust therapy as indicated (5) Dyslipidemia: Code(s): E78.5 - Hyperlipidemia, unspecified Status: Acute Assessment and Plan: continue home atorvastatin 40 mg p.o. daily Plan thank for allowing us to participate with this case please call with any questions HPI Data of Consult Consult date: 12/23/21 Requesting Physician: Edward Allison MD Primary Care Provider: Michelle Marin, Consult Narrative Reason for consult: Medical management Narrative: Kathya Murphy is a 61 year old female with a past medical history of DM, Restless leg syndrome, HTN who is here for an elective total knee surgery with Dr. Rodriguez on 12/23/21. She is doing ok today. She stated that she had been very hungry. She does have some current pain of a 3/10. She has been up one time to go to the bathroom. She denies any nausea, vomiting, chest pain, shortness of breath, diarrhea, constipation, visual changes, hearing changes, and numbness and tingling. She does take chronic pain medications for restless leg syndrome. Glucose is also a hot topic as she does not really check her glucose often nor does she know what her sliding scale is. Hospitalist is consulting for medical management Review of Systems Review of Systems: All systems reviewed & are unremarkable except as noted in HPI and below PMFSH Past Medical History Medical History Chronic narcotic use CKD (chronic kidney disease) stage 3, GFR 30-59 ml/min COPD (chronic obstructive pulmonary disease) Decreased GFR History of GFR of 42 Recent GFR of 62 Diabetes BALBUENA (dyspnea on exertion) Dyslipidemia Former smoker Hypertension Left bundle branch block Followed by cardiology Obesity PATO (obstructive sleep apnea) Preop cardiovascular exam Rheumatoid aortitis Right knee DJD TIA (transient ischemic attack) Surgical History Surgical History Hx of arthroscopy of left knee 2008 Social History Social History (Updated 12/23/21 @ 21:13 by JACQUELYN Castañeda) Social History: Polo her is her surrogate, she has 2 kids one daughter and one son. She does live in a house that is one story, however there are 5 steps to get into the house. 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
[2021-12-23] MEDS: oxyCODONE/ACETAMINOPHEN (*CRX) 5-325 MG TABLET 1 TABLET PO (21:15)
[2021-12-23] MEDS: rOPINIRole HCL 1 MG TABLET 4 MG PO (21:30)
[2021-12-23 21:55] LABS: Glucose Point of Care 263 mg/dl (65-105)
[2021-12-24 00:38] VITALS: BP 116/52; PULSE 80; RESP 16; TEMP 36.6; O2SAT 98
[2021-12-24] MEDS: KETOROLAC 15 MG/ML VIAL (*BKC) IV PUSH ×3 (01:08→11:43)
[2021-12-24] MEDS: ceFAZolin 2 GM/D5W 50 ML 2 GM/50 ML BAG IVPB ×2 (01:09→09:06)
[2021-12-24 04:38] VITALS: BP 101/50; PULSE 74; RESP 16; TEMP 36.5; O2SAT 97
[2021-12-24 05:28] LABS: Basophils Absolute Auto 0.1 K/mm3 (0.0-0.1); Basophils Percent Auto 0.4 % (0.2-1.2); Eosinophils Percent Auto 0.1 % (0-4.4); Hematocrit 29.7 % (37.0-47.0); Hemoglobin 9.7 g/dL (12.0-15.0); Immature Granulocyte Absolute 0.09 K/mm3 (0.00-0.031); Immature Granulocyte Percent A 0.6 % (0-0.5); Lymphocytes Absolute Auto 1.45 K/mm3 (0.9-3.2); Lymphocytes Percent Auto 9.1 % (18.3-44.2); Mean Corpuscular HGB Conc 32.7 g/dl (32-36); Mean Corpuscular Hemoglobin 32.7 pg (26-34); Mean Platelet Volume 10.6 fl (7.4-10.4); Monocytes Absolute Auto 1.4 K/mm3 (0.1-0.6); Monocytes Percent Auto 8.7 % (2.6-8.5); Neutrophils Absolute Auto 12.9 K/mm3 (1.3-6.7); Neutrophils Percent Auto 81.1 % (45.5-73.1); Platelet Count Result 286 k/mm3 (150-375); Red Blood Count 2.97 M/mm3 (4.2-5.4); Red Cell Distribution Width 15.4 % (11.5-14.5); White Blood Count 15.9 K/mm3 (4.5-10.0)
[2021-12-24 05:39] LABS: Anion Gap 4 mmol/L (8-16); Blood Urea Nitrogen 30 mg/dL (7-17); Calcium 8.1 mg/dL (8.4-10.2); Carbon Dioxide 28 mmol/L (22-30); Chloride 101 mmol/L (98-107); Estimated CRCL calculation 64 ml/min; Estimated Glomerular Filt Rate 50; Glucose 194 mg/dL (65-110); Potassium 4.7 mmol/L (3.4-5.0); Sodium 133 mmol/L (137-145)
[2021-12-24 05:53] LABS: Hemoglobin A1C 7.3 % (<5.7)
--- NOTE | 2021-12-24 06:47 | P.PNIM_ITS ---
Progress Note: A&P Assessment and Plan (1) Status post right knee replacement: Code(s): Z96.651 - Presence of right artificial knee joint <Verna Jansen PA-C - Last Filed: 12/24/21 14:30> Status: Acute <Verna Jansen PA-C - Last Filed: 12/24/21 14:30> Assessment and Plan: * POD 1 * WBC 15.9, likely postoperative will trend * Patient BUN up slightly, mildly hyponatremic. Will give 500mL IV fluids over 5 hrs, encourage oral rehydration upon discharge with repeat BMP in 2 days to re-check. * Post op care per ortho to include pain medication and DVT prophylaxis. * Pain medications: Oxycodone 5/325mg 1 tab PO Q4H or 2 tabs Q6H PRN * Cefazolin X3 bags * Bowel: Miralax and Senna * Ice pack * PT/OT <Verna Jansen PA-C - Last Filed: 12/24/21 14:30> (2) PATO (obstructive sleep apnea): Code(s): G47.33 - Obstructive sleep apnea (adult) (pediatric) <Verna Jansen PA-C - Last Filed: 12/24/21 14:30> Status: Acute <Verna Jansen PA-C - Last Filed: 12/24/21 14:30> Assessment and Plan: * continue CPAP or BiPAP per home settings <Verna Jansen PA-C - Last Filed: 12/24/21 14:30> (3) Diabetes: Code(s): E11.9 - Type 2 diabetes mellitus without complications <Verna Jansen PA-C - Last Filed: 12/24/21 14:30> Status: Acute <Verna Jansen PA-C - Last Filed: 12/24/21 14:30> Assessment and Plan: * current glucose 193 * A1C 7.3- pt likely subtherapeutic at home insulin dosing. * insulin sliding scale * adjust therapy as indicated * hypoglycemia protocol * Accu-Chek AC and HS * Will have patient follow up with PCP to adjust basal and mealtime insulin dosing for her blood sugars. <Venra Jansen PA-C - Last Filed: 12/24/21 14:30> (4) Hypertension: Code(s): I10 - Essential (primary) hypertension <Verna Jansen PA-C - Last Filed: 12/24/21 14:30> Status: Acute <Verna Jansen PA-C - Last Filed: 12/24/21 14:30> Assessment and Plan: * Current BP 101/50 * Continue Home lisinopril 20 mg, hydrochlorothiazide 25 mg * Trend Blood pressure * Adjust therapy as indicated <Verna Jansen PA-C - Last Filed: 12/24/21 14:30> (5) Dyslipidemia: Code(s): E78.5 - Hyperlipidemia, unspecified <Verna Jansen PA-C - Last Filed: 12/24/21 14:30> Status: Acute <Verna Jansen PA-C - Last Filed: 12/24/21 14:30> Assessment and Plan: * continue home atorvastatin 40 mg p.o. daily <Verna Jansen PA-C - Last Filed: 12/24/21 14:30> Assessment and Plan: thank for allowing us to participate with this case please call with any questions <Verna Jansen PA-C - Last Filed: 12/24/21 14:30> Subjective Date/time seen: 12/24/21 06:47 Patient feeling good today. She is tolerating her PT well and her pain is well controlled. She denies chest pain, shortness of breath, nausea, vomiting, loose stools. She is tolerating her meals and drinking. She denies calf pain or severe lower extremity swelling. She will be discharged today by orthopedics. <Verna Jansen PA-C - Last Filed: 12/24/21 14:30> Review of Systems Review of Systems: All systems reviewed & are unremarkable except as noted in HPI and below <Verna Jansen PA-C - Last Filed: 12/24/21 14:30> Exam Narrative: GENERAL APPEARANCE: Alert and oriented x 3, in no apparent distress. HEENT: PERRL, EOMI. Sclerae anicteric. Tommy
--- NOTE | 2021-12-24 06:47 | PM.IMPN ---
Progress Note: A&P Assessment and Plan (1) Status post right knee replacement: Code(s): Z96.651 - Presence of right artificial knee joint <Verna Jansen PA-C - Last Filed: 12/24/21 14:30> Status: Acute <Verna Jansen PA-C - Last Filed: 12/24/21 14:30> Assessment and Plan: POD 1 WBC 15.9, likely postoperative will trend Patient BUN up slightly, mildly hyponatremic. Will give 500mL IV fluids over 5 hrs, encourage oral rehydration upon discharge with repeat BMP in 2 days to re-check. Post op care per ortho to include pain medication and DVT prophylaxis. Pain medications: Oxycodone 5/325mg 1 tab PO Q4H or 2 tabs Q6H PRN Cefazolin X3 bags Bowel: Miralax and Senna Ice pack PT/OT <Verna Jansen PA-C - Last Filed: 12/24/21 14:30> (2) PATO (obstructive sleep apnea): Code(s): G47.33 - Obstructive sleep apnea (adult) (pediatric) <Verna Jansen PA-C - Last Filed: 12/24/21 14:30> Status: Acute <Verna Jansen PA-C - Last Filed: 12/24/21 14:30> Assessment and Plan: continue CPAP or BiPAP per home settings <Verna Jansen PA-C - Last Filed: 12/24/21 14:30> (3) Diabetes: Code(s): E11.9 - Type 2 diabetes mellitus without complications <Verna Jansen PA-C - Last Filed: 12/24/21 14:30> Status: Acute <Verna Jansen PA-C - Last Filed: 12/24/21 14:30> Assessment and Plan: current glucose 193 A1C 7.3- pt likely subtherapeutic at home insulin dosing. insulin sliding scale adjust therapy as indicated hypoglycemia protocol Accu-Chek AC and HS Will have patient follow up with PCP to adjust basal and mealtime insulin dosing for her blood sugars. <Verna Jansen PA-C - Last Filed: 12/24/21 14:30> (4) Hypertension: Code(s): I10 - Essential (primary) hypertension <Verna Carly Jansen PA-C - Last Filed: 12/24/21 14:30> Status: Acute <Verna Carroll PENNY Jansen - Last Filed: 12/24/21 14:30> Assessment and Plan: Current BP 101/50 Continue Home lisinopril 20 mg, hydrochlorothiazide 25 mg Trend Blood pressure Adjust therapy as indicated <Verna Jansen PA-C - Last Filed: 12/24/21 14:30> (5) Dyslipidemia: Code(s): E78.5 - Hyperlipidemia, unspecified <Verna Carly Jansen PA-C - Last Filed: 12/24/21 14:30> Status: Acute <Verna Carly Jansen PA-C - Last Filed: 12/24/21 14:30> Assessment and Plan: continue home atorvastatin 40 mg p.o. daily <Verna Carly Jansen PA-C - Last Filed: 12/24/21 14:30> Assessment and Plan: thank for allowing us to participate with this case please call with any questions <Verna Jansen PA-C - Last Filed: 12/24/21 14:30> Subjective Date/time seen: 12/24/21 06:47 Patient feeling good today. She is tolerating her PT well and her pain is well controlled. She denies chest pain, shortness of breath, nausea, vomiting, loose stools. She is tolerating her meals and drinking. She denies calf pain or severe lower extremity swelling. She will be discharged today by orthopedics. <Verna Jansen PA-C - Last Filed: 12/24/21 14:30> Review of Systems Review of Systems: All systems reviewed & are unremarkable except as noted in HPI and below <Verna Jansen PA-C - Last Filed: 12/24/21 14:30> Exam Narrative: GENERAL APPEARANCE: Alert and oriented x 3, in no apparent distress. HEENT: PERRL, EOMI. Sclerae anicteric. Moist mucous membranes. NECK: Supple. No JVD or obvious carotid bruits. RESPIRATORY: Respirations are nonlabored. Breath sounds are equal and clear bilaterally. No wheezes, Rhonchi, or rales. CARDIOVASCULAR: Regular rate and rhythm with normal S1-S2. No murmurs, gallops, or rubs. GASTROINTESTINAL: Soft, flat, and benign. No mass, tenderness, guarding, or rebound. No organomegaly or hernia. Bowel sounds are present. SKIN: Warm, dry, well perfused. Good turg
[2021-12-24 07:31] LABS: Glucose Point of Care 188 mg/dl (65-105)
[2021-12-24] MEDS: SODIUM CHLORIDE 0.9% IV 500 ML 100 ML IV CONT (07:55)
[2021-12-24] MEDS: metFORMIN HCL XR 500 MG TAB.SR.24H 1500 MG PO (08:00)
[2021-12-24] MEDS: hydroCHLOROthiazide 25 MG TABLET PO (08:01)
[2021-12-24] MEDS: ATORVASTATIN 40 MG TABLET PO (08:01)
[2021-12-24] MEDS: SENNA/DOCUSATE SODIUM TABLET 2 TAB PO (08:01)
[2021-12-24] MEDS: ASPIRIN 325 MG ENTERIC TABLET 650 MG PO (08:01)
[2021-12-24 08:10] LABS: Sodium Urine Random 23 meq/L
[2021-12-24] MEDS: polyethylene glycoL 3350 17 GM POWD.PACK PO (08:10)
[2021-12-24] MEDS: oxyCODONE/ACETAMINOPHEN (*CRX) 5-325 MG TABLET 1 TABLET PO (08:15)
[2021-12-24 08:38] VITALS: BP 121/47; PULSE 73; RESP 14; TEMP 36.7; O2SAT 100
[2021-12-24] MEDS: lisinopriL 20 MG TABLET PO (09:05)
[2021-12-24] MEDS: diazePAM (*CRX) 5 MG TABLET PO (09:56)
[2021-12-24 11:33] LABS: Glucose Point of Care 216 mg/dl (65-105)
[2021-12-24] MEDS: INSULIN ASPART (*BKC) 100 UNITS/ML SUB-Q (11:41)
[2021-12-24] MEDS: PRAMIPEXOLE 0.25 MG TABLET PO (11:44)
[2021-12-24] MEDS: oxyCODONE/ACETAMINOPHEN (*CRX) 5-325 MG TABLET 2 TABLET PO (11:48)
--- NOTE | 2021-12-24 12:32 | PM.PNORT ---
Progress Note: A&P Assessment and Plan (1) Status post right knee replacement: Code(s): Z96.651 - Presence of right artificial knee joint Status: Acute Assessment and Plan: POD #1 : Right TKA Continue PT/OT. WBAT. Walker. HIGH FALL RISK. Continue pain control. Ice Knee. Protect skin. DVT prophylaxis with Aspirin. SCDs. Incentive Spirometry Use reviewed. Monitor Dressing. Change prior to discharge. Bowel Regimen. Dispo: Home with Home Health pending progress with PT/OT (2) Chronic narcotic use: Code(s): F11.90 - Opioid use, unspecified, uncomplicated Status: Acute Assessment and Plan: Patient chronically on oxycodone 5mg PO Q8H. We have instructed patient to hold this medication. She will go home with Percocet Q4H. She may then transition back to home dose of oxycodone when pain allows. Subjective Subjective Date/Time Seen: 12/24/21 12:32 Post Op day: 1 Principal diagnosis: Right Knee DJD Interval history: POD #1: Right TKA Patient working well with PT/OT. Pain well controlled. Ready for discharge. Review of Systems Review of Systems: All systems reviewed & are unremarkable except as noted in HPI and below Constitutional: Constitutional: Denies fever(s) and Denies headache(s) ENT: Denies headache(s) Cardiovascular: Cardiovascular: Denies chest pain, Denies diaphoresis, Denies palpitations and Denies dyspnea Respiratory: Respiratory: Denies dyspnea Gastrointestinal: Gastrointestinal: Denies abdominal pain, Denies constipation, Denies nausea and Denies vomiting Genitourinary: Genitourinary: Reports nocturia and Denies dysuria Musculoskeletal: Musculoskeletal: Reports arthralgias (Right Knee ) and Reports joint swelling (Right Knee ) Neurologic: Denies headache(s) Endocrine: Endocrine: Denies palpitations Exam Const: General: comfortable and no acute distress Resp: Effort & Inspection: normal respiratory effort Cardio: Rate: regular rate Rhythm: regular rhythm GI: GI Palp: Yes Soft to palpation, No Tenderness to palpation present (GI) and No Guarding due to palpation present (GI) Skin: Wounds: wounds noted Other: Incision c/d/i. No surrounding redness/warmth. No hematoma. Mild ecchymosis. No wound dehiscence Neuro: Cognition (Neuro): normal cognition Other: NV intact aside from block. Moves toes. Sensation intact to light touch. +ankle dorsiflexion/plantarflexion. Extrem: Right lower extremity: normal to inspection, knee Details: tenderness (diffuse, mild ) Location: of the patella, swelling (diffuse, consistent with surgical intervention ), abnormal ROM Details: pain with active ROM during, pain with passive ROM during and with range as follows (limited due to recent surgical intervention ); able to extend lower leg actively and ecchymosis (mild ), lower leg (Negative Eliza's Sign ) Details: normal to inspection; no erythema and no tenderness, ankle (+ankle dorsiflexion/plantarflexion ) Details: normal to inspection, no edema and normal ROM; no tenderness, no swelling and no ecchymosis and foot Details: normal capillary refill, normal to inspection, vascular exam Details: dorsalis pedis pulse present and motor-sensory exam Details: light-touch normal; no tenderness Left lower extremity: normal to inspection Psych: Mental Status: mental status grossly normal Objective Data Vital Signs Vital Signs: Vital Signs - 24 hr 12/23/21 12:37 12/23/21 12:50 12/23/21 13:05 Temperature 36.7 C Pulse Rate 107 H 95 90 Respiratory Rate 14 16 12 Blood Pressure 155/85 H 167/75 H 158/71 H Pulse Oximetry 98 99 99 Oxygen Delivery Simple Face Mask Simple Face Mask Simple Face Mask Oxygen Flow Rate 10 10 10 12/23/21 13:20 12/23/21 13:35 12/23/21 13:50 Temperature Pulse Rate 94 92 92 Respiratory Rate 16 16 16 Blood Pressure 146/75 H 153/76 H 146/65 H Pulse Oximetry 96 95 95 Oxygen Delivery Room Air Room Air Room Air Oxygen Flow Rate 12/23/21
--- NOTE | 2021-12-24 12:44 | PM.DS ---
DS: Admitting Diagnosis Discharge Date 12/24/21 Admitting Diagnosis Right TKA DS: Discharge Diagnosis Discharge Diagnosis (1) Status post right knee replacement: Code(s): Z96.651 - Presence of right artificial knee joint Status: Acute Assessment and Plan: POD #1 : Right TKA Continue PT/OT. WBAT. Walker. HIGH FALL RISK. Continue pain control. Ice Knee. Protect skin. DVT prophylaxis with Aspirin. SCDs. Incentive Spirometry Use reviewed. Monitor Dressing. Change prior to discharge. Bowel Regimen. Dispo: Home with Home Health pending progress with PT/OT (2) Chronic narcotic use: Code(s): F11.90 - Opioid use, unspecified, uncomplicated Status: Acute Assessment and Plan: Patient chronically on oxycodone 5mg PO Q8H. We have instructed patient to hold this medication. She will go home with Percocet Q4H. She may then transition back to home dose of oxycodone when pain allows. DS: Summary Hospital Course Reason for hospitalization: Right TKA Hospital Course: 61 year old female admitted s/p right TKA for postoperative medical management, pain control and mobilization with physical and occupational therapy. Patient progressed well on POD #1. She was cleared by PT and OT to be discharged home. She will be discharged home with home health at this time. She will follow up in the outpatient orthopedic clinic in 3 weeks as scheduled. Status at Discharge Functional status at discharge: uses cane/walker Overall status at discharge: patient is progressing back to baseline Time Spent with Patient Time attestation: Total time spent providing and/or coordinating discharge services: Exam Const: General: comfortable and no acute distress Resp: Effort & Inspection: normal respiratory effort Cardio: Rate: regular rate Rhythm: regular rhythm Skin: Wounds: wounds noted Other: Incision c/d/i. No surrounding redness/warmth. No hematoma. Mild ecchymosis. No wound dehiscence Neuro: Cognition (Neuro): normal cognition Other: NV intact aside from block. Moves toes. Sensation intact to light touch. +ankle dorsiflexion/plantarflexion. Extrem: Right lower extremity: normal to inspection, knee Details: tenderness (diffuse, mild ) Location: of the patella, swelling (diffuse, consistent with surgical intervention ), abnormal ROM Details: pain with active ROM during, pain with passive ROM during and with range as follows (limited due to recent surgical intervention ); able to extend lower leg actively and ecchymosis (mild ), lower leg (Negative Eliza's Sign ) Details: normal to inspection; no erythema and no tenderness, ankle (+ankle dorsiflexion/plantarflexion ) Details: normal to inspection, no edema and normal ROM; no tenderness, no swelling and no ecchymosis and foot Details: normal capillary refill, normal to inspection, vascular exam Details: dorsalis pedis pulse present and motor-sensory exam Details: light-touch normal; no tenderness Left lower extremity: normal to inspection Psych: Mental Status: mental status grossly normal DS: Data Data Completed and Pending Labs on day of discharge: Labs from last 24 hours 12/24/21 12/24/21 12/24/21 11:23 07:47 07:27 WBC RBC Hgb Hct MCV MCH MCHC RDW Plt Count MPV Immature Gran % (Auto) Neut % (Auto) Lymph % (Auto) [place] % (Auto) Eos % (Auto) Baso % (Auto) Lymph # (Auto) [place] # (Auto) Eos # (Auto) Baso # (Auto) Abs Immat Gran (auto) Absolute Neuts (auto) Absolute Nucleated RBC Nucleated RBC % Sodium Potassium Chloride Carbon Dioxide Anion Gap BUN Creatinine Estim Creat Clear Calc Estimated GFR Glucose POC Capillary Glucose 216 H 188 H Hemoglobin A1c Calcium Ur Random Sodium 23 12/24/21 12/24/21 12/24/21 04:54 04:54 04:54 WBC 15.9 H RBC 2.97 L Hgb 9.7 L D Hct 29.7 L MCV 100.0 MCH 32.7 MCHC
[2021-12-24 13:23] LABS: Sodium 132 mmol/L (137-145)
== END 2021-12-24 14:55 | disposition home health service (06) ==
LOC: ANHSURGERY 08:28 → ANH2MED 15:04
PROVIDERS: Nurse Practitioner; Student in an Organized Health Care Education/Training Program; PCP Internal Medicine; Visit Provider Orthopaedic Surgery
PROC: (CPT 27447; principal; 2021-12-23 10:30)
DX: M17.11 Unilateral primary osteoarthritis, right knee (principal); G89.18 Other acute postprocedural pain; I12.9 Hypertensive chronic kidney disease with stage 1 through stage 4 chronic kidney disease, or unspecified chronic kidney disease; E11.22 Type 2 diabetes mellitus with diabetic chronic kidney disease; N18.30 Chronic kidney disease, stage 3 unspecified; J44.9 Chronic obstructive pulmonary disease, unspecified; E78.5 Hyperlipidemia, unspecified; G47.33 Obstructive sleep apnea (adult) (pediatric); I44.7 Left bundle-branch block, unspecified; M06.9 Rheumatoid arthritis, unspecified; F11.90 Opioid use, unspecified, uncomplicated; E66.9 Obesity, unspecified; Z68.38 Body mass index [BMI] 38.0-38.9, adult; Z86.73 Personal history of transient ischemic attack (TIA), and cerebral infarction without residual deficits; Z79.82 Long term (current) use of aspirin; Z79.4 Long term (current) use of insulin; Z79.84 Long term (current) use of oral hypoglycemic drugs; Z87.891 Personal history of nicotine dependence
CPT/HCPCS: 27447; 64447; 36415; 73560; 80048; 82948; 83036; 84295; 84300; 85025; 86850; 86900; 86901; 97110; 97161; 97165; A9270; C1713; C1776; J0171; J0690; J1100; J1170; J1815; J1885; J2250; J2405; J2704; J2795; J3010; J7030; J7040; J7120

== ENCOUNTER 2021-12-30 13:24 | Outpatient (NON) | payer OTHER, SELFPAY ==
[2021-12-30 13:54] LABS: Anion Gap 7 mmol/L (8-16); Blood Urea Nitrogen 24 mg/dL (7-17); Calcium 8.4 mg/dL (8.4-10.2); Carbon Dioxide 31 mmol/L (22-30); Chloride 99 mmol/L (98-107); Estimated Glomerular Filt Rate 50; Glucose 143 mg/dL (65-110); Potassium 5.6 mmol/L (3.4-5.0); Sodium 137 mmol/L (137-145)
== END 2021-12-30 13:25 | disposition home or self-care (01) ==
LOC: HOME HLTH 13:27
PROVIDERS: PCP Internal Medicine; Visit Provider Student in an Organized Health Care Education/Training Program
DX: Z96.651 Presence of right artificial knee joint (principal)
CPT/HCPCS: 80048

== ENCOUNTER 2022-02-09 17:00 | Outpatient (RCR) | payer OTHER, SELFPAY ==
--- NOTE | 2022-01-28 15:54 | PTOPEVAL ---
Thank you for referring Kathya Murphy to [facility], s/p R TKR.? She is scheduled to be seen for therapy? 1 x/week for 5 weeks. Please review, sign, date and return this plan of care VIOLET. I agree with and certify that the following plan of care is medically necessary. Referring Physician Date Attending Provider: Edward Allison MD Past Medical History Source of Past Medical History Recalled from Previous Visit, Confirmed with Patient/Family Neurological History Hx Other Neurological Disorders Yes: RESTLESS LEG SYNDROME Cardiovascular History Hx Hypercholesterolemia Yes: meds Respiratory History Hx Sleep Apnea Yes: USES CPAP Gastrointestinal History Hx Cholecystectomy Yes: 2000 Hx Other Gastrointestinal Disorders Yes: SPLENECTOMY 2003 Genitourinary History Hx Genitourinary Disorders No Significant History Musculoskeletal History Hx Arthritis Yes: RA- hands and all over Hx Back Pain Yes: CHRONIC BACK PAIN Hx Orthopedic Surgery Yes: LT KNEE SCOPE Hx Other Musculoskeletal Disorders Yes Hematological History Hx Hematological Disorders No Significant History Endocrine History Hx Diabetes Yes: meds control HEENT History Hx Cataracts Yes: BILAT REMOVED Hx Sinus Problems Yes: SINUS POLYPS REMOVED Hx Other HEENT Disorders Yes: READING GLASSES.DEAF LEFT EAR Integumentary History Hx Skin Disorders No Significant History Psychosocial History Hx Psychiatric Disorders No Significant History Pain History Has Past Pain Affected Your Daily Life Yes: BACK AND RLS History of Long-Term Prescription Pain Yes: OXYCODONE SINCE 2019 Medication Use (Opiates) Anesthesia History Hx Post-Op Nausea/Vomiting Yes Evaluation Information Diagnosis R TKR Onset 12-23-21 Subjective Information completed [facility]; have HEP of Query Text:As Reported By Patient/ supine and sitting exercises- Family continue to work on; Prior Level of Function Activity Level (Last 3 Months) Occupation not working outside home Home Setting Home Type House Environmental Barriers Stairs, Greater than 4 Mobility Assistive Devices (Used Last 3 None,Cane,Walker, Wheeled Months) Comments Additional Prior Level of Function 5 entry steps into home B rails; Comments indep with bathing, dressing, light home tasks; use cane or no device in home; cane when outside; Pain Assessment Pain Scale Pain Scale Used Numeric (1 - 10) Self Report Pain Assessment Right Knee(s) Pain Description Sharp,Soreness,Tightness Pain Frequency
--- NOTE | 2022-02-01 07:35 | PCPTNOTE ---
Patient called & rescheduled today's appointment due to fear of possible infection into surgery knee and wants to see MD for further evaluation.
--- NOTE | 2022-02-22 08:40 | PCPTNOTE ---
PHYSICAL THERAPY DISCHARGE 12-22-21 Attending Provider: Edward Allison MD Patient:Kathya Murphy Date of :1960 Kathya called today and canceled her therapy due to having other health things going on right now, therefore she will be discharged at this time. The goals were not addressed. Thank you for referring Ms. Murphy to [facility].
--- NOTE | 2022-02-22 10:33 | PCPTNOTE ---
Patient called & cancelled scheduled appointment this date due to health issues.
== END 2022-02-22 10:55 | disposition home or self-care (01) ==
LOC: ANHPT 17:00
PROVIDERS: PCP Internal Medicine; Visit Provider Orthopaedic Surgery
DX: Z47.1 Aftercare following joint replacement surgery (principal); Z96.651 Presence of right artificial knee joint
CPT/HCPCS: 97014; 97110; 97161; 97530; G0283

== ENCOUNTER 2022-10-21 15:15 | Emergency (ER) | payer OTHER, SELFPAY ==
--- NOTE | ~2022-10-21 | XR_ITS ---
EXAMINATION: XR foot LT min 3V DATE: 10/21/2022 16:17 INDICATION: Left foot pain. TECHNIQUE: 4 views of left foot were obtained. COMPARISON: Left foot radiographs 09/30/2020 FINDINGS: Bone alignment is normal. No fracture. There is moderate osteoarthritis of talonavicular joycelyn int. There is mild osteoarthritis of some of the midfoot joints and interphalangeal joints and first metatarsophalangeal joint. There are enthesophytes at the posterior and plantar aspects of calcaneal tuberosity. IMPRESSION: 1. Polyarticular osteoarthritis. Reviewed, dictated and finalized at location A.
--- NOTE | 2022-10-21 15:21 | ED.LOWEXIN ---
HPI - Extremity Injury (Lower) General Chief Complaint: Extremity Injury, Lower Stated Complaint: Left Foot Pain Time Seen by Provider: 10/21/22 15:21 Source: patient Mode of arrival: ambulatory Limitations: no limitations History of Present Illness HPI Narrative: Patient is a 62-year-old female who presents with left top of foot pain that started today. Patient states she had a Doppler on right leg this morning and left foot pain started after that. Denies any injury to foot. History of rheumatoid arthritis, diabetes. Denies any swelling or wound to foot. Denies any fever, chills, nausea, vomiting, diarrhea. Related Data Home Medications Medication Instructions Recorded Confirmed acetaminophen 500 mg capsule 1,000 mg PO BID PRN Pain 09/25/21 10/21/22 aspirin 81 mg capsule 81 mg PO DAILY 09/25/21 10/21/22 atorvastatin 40 mg tablet 40 mg PO DAILY 09/25/21 10/21/22 azathioprine 50 mg tablet 50 mg PO BID 09/25/21 10/21/22 insulin glargine 100 unit/mL (3 32 unit subcut QPM 09/25/21 10/21/22 mL) subcutaneous pen (Lantus Solostar U-100 Insulin) metformin 500 mg tablet,extended 1,500 mg PO DAILY 09/25/21 10/21/22 release 24 hr oxycodone 5 mg tablet 5 mg PO Q8H PRN Pain 09/25/21 10/21/22 ropinirole 4 mg tablet 4 mg PO QHS RLS 09/25/21 10/21/22 trimethoprim 100 mg tablet 100 mg PO DAILY 09/25/21 10/21/22 insulin aspart U-100 100 unit/mL 10 ea subcut PRN PRN SLIDING SCALE 11/20/21 10/21/22 (3 mL) subcutaneous pen (Novolog FlexPen U-100 Insulin aspart) hydrochlorothiazide 25 mg tablet 25 mg PO DAILY 05/21/22 10/21/22 pramipexole 0.75 mg tablet 0.75 mg PO TID 05/21/22 10/21/22 amoxicillin 875 mg-potassium 1 tablet PO BID 10/21/22 10/21/22 clavulanate 125 mg tablet insulin glargine U-300 conc 300 35 unit subcut BID 10/21/22 10/21/22 unit/mL (1.5 mL) subcutaneous pen (Toujeo SoloStar U-300 Insulin) Allergies Allergy/AdvReac Type Severity Reaction Status Date / Time Sulfa (Sulfonamide Allergy Intermediate Hives Verified 10/21/22 15:16 Antibiotics) morphine AdvReac Intermediate Headache Verified 10/21/22 15:16 Review of Systems Review of Systems: All systems reviewed & are unremarkable except as noted in HPI and below Constitutional: Constitutional: Denies body ache(s), Denies chills, Denies fatigue, Denies fever(s), Denies headache(s), Denies malaise and Denies weakness Eyes: Eyes: Denies blurry vision, Denies irritation and Denies loss of vision ENT: Denies otalgia, Denies headache(s), Denies nasal discharge, Denies sinus pain and Denies sore throat Cardiovascular: Cardiovascular: Denies chest pain, Denies irregular heart rhythm and Denies dyspnea Respiratory: Respiratory: Denies dyspnea Gastrointestinal: Gastrointestinal: Denies abdominal pain, Denies melena, Denies hematochezia, Denies diarrhea, Denies nausea and Denies vomiting Musculoskeletal: Musculoskeletal: Denies back pain, Denies myalgias and Reports arthralgias Integumentary/Breasts: Skin/Breast: Denies pruritus and Denies rash Neurologic: Denies headache(s), Denies loss of vision and Denies weakness Psychiatric: Psychiatric: Reports no additional psychiatric complaints Endocrine: Endocrine: Denies fatigue [facility] Past Medical History Medical History Chronic narcotic use CKD (chronic kidney disease) stage 3, GFR 30-59 ml/min COPD (chronic obstructive pulmonary disease) Decreased GFR History of GFR of 42 Recent GFR of 62 Diabetes [place] (dyspnea on exertion) Dyslipidemia Former smoker Hypertension Left bundle branch block Followed by cardiology Obesity PATO (obstructive sleep apnea) Preop cardiovascular exam Rheumatoid aortitis Right knee DJD TIA (transient ischemic attack) Surgical History Surgical History Hx of arthroscopy of left knee 2008 Social History Social History (Reviewed 08/19/22 @ 14:43 by Mili
[2022-10-21 15:26] VITALS: BP 141/65; PULSE 96; RESP 18; TEMP 36.9; O2SAT 96
== END 2022-10-21 16:36 | disposition home or self-care (01) ==
PROVIDERS: Emergency Provider Nurse Practitioner Family; PCP Internal Medicine
DX: M19.072 Primary osteoarthritis, left ankle and foot (principal); Z87.891 Personal history of nicotine dependence; I12.9 Hypertensive chronic kidney disease with stage 1 through stage 4 chronic kidney disease, or unspecified chronic kidney disease; E11.22 Type 2 diabetes mellitus with diabetic chronic kidney disease; N18.30 Chronic kidney disease, stage 3 unspecified; Z79.4 Long term (current) use of insulin; J44.9 Chronic obstructive pulmonary disease, unspecified; E78.5 Hyperlipidemia, unspecified; M06.9 Rheumatoid arthritis, unspecified; Z86.73 Personal history of transient ischemic attack (TIA), and cerebral infarction without residual deficits
CPT/HCPCS: 73630; 99213; G0463

== ENCOUNTER 2023-07-01 11:32 | Outpatient (CLI) | payer OTHER, SELFPAY ==
--- NOTE | ~2023-07-01 | XR_ITS ---
Right elbow Technique: AP and lateral views were obtained. Clinical History: Pain Findings: No acute fracture or dislocation is seen. Osseous alignment is anatomic. Joint spaces are p reserved. There is no displacement of the fat pads, and soft tissues are unremarkable. Impression: Unremarkable radiographs. Reviewed, dictated and finalized at location . RTAINMENT MUSICIAN Impression: Unremarkable radiographs.
--- NOTE | ~2023-07-01 | XR_ITS ---
AP and lateral views of the right hip Clinical history: Pain Findings: No acute fracture or dislocation is seen. Osseous alignment is anatomic. There is mild dege nerative change of the right hip joint. Soft tissues are unremarkable. Impression: Mild degenerative change of the right hip joint. Reviewed, dictated and finalized at location . TING SUPERVISOR Impression: Mild degenerative change of the right hip joint.
== END 2023-07-01 11:33 | disposition home or self-care (01) ==
PROVIDERS: PCP Internal Medicine; Visit Provider Physician Assistant
DX: M25.521 Pain in right elbow (principal); M16.11 Unilateral primary osteoarthritis, right hip
CPT/HCPCS: 73070; 73502

== ENCOUNTER 2023-10-18 08:15 | Outpatient (RCR) | payer OTHER, SELFPAY ==
[2023-09-29 08:08] VITALS: BMI 41.8
[2023-09-29 08:13] VITALS: BMI 41.8
== END 2023-11-07 09:25 | disposition home or self-care (01) ==
LOC: ANHDMC 08:15
PROVIDERS: PCP Internal Medicine; Visit Provider Internal Medicine
DX: E11.65 Type 2 diabetes mellitus with hyperglycemia (principal); E78.5 Hyperlipidemia, unspecified; E66.9 Obesity, unspecified; N18.30 Chronic kidney disease, stage 3 unspecified; I12.9 Hypertensive chronic kidney disease with stage 1 through stage 4 chronic kidney disease, or unspecified chronic kidney disease; I01.1 Acute rheumatic endocarditis; Z71.89 Other specified counseling; Z71.3 Dietary counseling and surveillance
CPT/HCPCS: 97802; G0108

== ENCOUNTER 2023-11-08 07:57 | Outpatient (RCR) | payer OTHER, SELFPAY ==
[2023-11-08 08:09] VITALS: BMI 41.5
[2023-11-08 09:03] VITALS: BMI 41.5
== END 2024-01-23 11:20 | disposition home or self-care (01) ==
LOC: ANHDMC 07:57
PROVIDERS: PCP Internal Medicine; Visit Provider Internal Medicine
DX: E11.65 Type 2 diabetes mellitus with hyperglycemia (principal); I10 Essential (primary) hypertension; I01.1 Acute rheumatic endocarditis; E78.5 Hyperlipidemia, unspecified; E66.9 Obesity, unspecified; Z71.3 Dietary counseling and surveillance
CPT/HCPCS: 97803

== ENCOUNTER 2024-07-10 15:09 | Inpatient (IN) | payer OTHER, SELFPAY ==
[2024-07-10] VITALS (61 sets, daily range): BP systolic 52–91; BP diastolic 39–70; PULSE 98–145; RESP 15–42; TEMP 36.4–37; O2SAT 94–100
--- NOTE | ~2024-07-10 | XR_ITS ---
1: Multi used to redirect the CHEST RADIOGRAPH CLINICAL HISTORY: line placement . COMPARISON: Dr. Caro TECHNIQUE: Single portable view of the chest. FINDINGS The cardiomediastinal silhouette is unremarkable. Interval placement of a central venous catheter extending cranially off the submitted image. Coarse interstitial lung markings are otherwise detected. Blunting of the left costophrenic sulcus suggesting a small left-sided pleural effusion. IMPRESSION: Central venous catheter extending cranially, off the submitted image. These findings were given to Amberly Kapoor at 6:45pm on 07/10/2024 Reviewed, dictated and finalized at location A. OPERATOR
--- NOTE | ~2024-07-10 | XR_ITS ---
Portable chest x-ray Comparison: 07/11/2024 Clinical History: Respiratory failure Findings: Endotracheal tube and NG tube are in satisfactory position. There is diffuse chronic inter stitial disease. There is retrocardiac airspace consolidation with mild central congestive change. C ardiomediastinal silhouette is stable. Bones and soft tissues are unremarkable. Impression: Diffuse chronic interstitial disease. Left basilar consolidation could represent atelectasis versus pneumonia. Support tubes, as above. Reviewed, dictated and finalized at location . DEADENER Impression: Diffuse chronic interstitial disease. Left basilar consolidation could represent atelectasis versus pneumonia. Support tubes, as above.
--- NOTE | ~2024-07-10 | XR_ITS ---
Upright portable view of the abdomen Clinical history: NG tube placement Findings: NG tube is in satisfactory position. Bowel gas pattern is nonspecific. No evidence for obst ruction or free air. No abnormal mass lesion or calcification is seen. Osseous structures are intact. Impression: NG tube in satisfactory position. Reviewed, dictated and finalized at [facility]. DING ADMIN Impression: NG tube in satisfactory position.
--- NOTE | ~2024-07-10 | CT_ITS ---
EXAMINATION: CTA abdomen pelvis DATE: 07/10/2024 16:20 INDICATION: Gastrointestinal bleed TECHNIQUE: Computed tomographic angiography (CTA) of the abdomen and pelvis was performed with 100 mL Omnipaque-350 intravenous contrast. Additional 3D reconstructions utilizing rotating maximum intensi ty projection (MIP) were performed. Automated exposure control and iterative reconstruction technique were employed. The dose-length product was 1534.99 mGy-cm. COMPARISON: None FINDINGS: Peripheral irregular septal line thickening with honeycombing in the lower lungs consistent with usua l interstitial pneumonia (UIP) pattern chronic interstitial lung disease. Incompletely visualized 1.3 cm nodular opacity in the right lower lobe. There a couple additional subcentimeter pulmonary nodule s along the pleura of the right lower lobe and in the lingula . Heart size is normal. There is lipoma tous hypertrophy atrial septum. No pericardial or pleural effusion. 1.6 x 1.3 cm right hilar lymph no de. Cholecystectomy clips the gallbladder fossa. 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 1.4 cm cystic lesion at the tail of the pancreas. Gas and minimal amount of de bris within a duodenal diverticulum along the posterior margin of the head of the pancreas. Liver, bi lateral adrenal glands and kidneys are normal. Supraumbilical midline surgical scar with a few small fat-containing ventral hernias. Bladder is normal. The uterus is not identified and has likely been s urgically resected. Normal appendix. No abnormal bowel wall thickening or obstruction. There is a sma ll focus of high attenuation a loop of likely jejunum in the left abdomen suspicious for active extra vasation. No free intraperitoneal gas or fluid. No pathologically enlarged abdominal or pelvic lympha denopathy. There is calcified atherosclerosis without hemodynamic significant stenosis of the normal caliber aorta and many of the other arteries. Severe lumbar and lower thoracic spondylosis. IMPRESSION: 1. Gastrointestinal bleed with small focus of active intraluminal contrast extravasation within a loo p of jejunum in the left abdomen. 2. UIP pattern chronic interstitial lung disease at the lung bases with a few nodular opacities in th e visualized lower lungs including incompletely visualized 1.3 cm nodule in the right lower lobe. Rec ommend further evaluation with dedicated chest CT when clinically appropriate. 3. Indeterminate 1.4 cm cystic lesion at the tail of the pancreas. The differential diagnosis include s pseudocyst, intraductal papillary mucinous neoplasm (IPMN), mucinous cystic neoplasm (MCN), and the less common serous cystadenoma and neuroendocrine tumor. Correlate for history of pancreatitis and r ecommend further evaluation with pre and postcontrast MRI. Reviewed, dictated and finalized at location A. CUP FILLER IMPRESSION: 1. Gastrointestinal bleed with small focus of active intraluminal contrast extr avasation within a loop of jejunum in the left abdomen. 2. UIP pattern chronic interstitial lung disease at the lung bases with a few n odular opacities in the visualized lower lungs including incompletely visualize d 1.3 cm nodule in the right lower lobe. Recommend further evaluation with dedi cated chest CT when clinically appropriate. 3. Indeterminate 1.4 cm cystic lesion at the tail of the pancreas. The differen tial diagnosis includes pseudocyst, intraductal papillary mucinous neoplasm (IP MN), mucinous cystic neoplasm (MCN), and the less common serous cystadenoma and neuroendocrine tumor. Correlate for history of pancreatitis and recommend furt her evaluation with pre and postcontrast MRI.
--- NOTE | ~2024-07-10 | XR_ITS ---
Portable chest x-ray Comparison: 07/11/2024 at 1:34 AM Clinical History: Tube placement Findings: Endotracheal tube and NG tube are in satisfactory positions. Probable diffuse chronic inte rstitial disease. Possible minimal centimeters change. There is mild bibasilar haziness. Cardiomedia stinal silhouette is stable. Bones and soft tissues are unremarkable. Impression: Support tubes in place, as above. Diffuse chronic interstitial disease. Mild left basilar haziness, nonspecific. Reviewed, dictated and finalized at location . 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 Diffuse chronic interstitial disease. Mild left basilar haziness, nonspecific.
--- NOTE | ~2024-07-10 | XR_ITS ---
Portable chest x-ray Comparison: 07/10/2024 Clinical History: Shortness of breath Findings: Chronic interstitial disease is present. No acute pulmonary abnormality seen. Cardiomedia stinal silhouette is stable. Bones and soft tissues are unremarkable. Impression: Chronic interstitial pulmonary disease. Reviewed, dictated and finalized at [facility]. AURANT SHIFT LEADER Impression: Chronic interstitial pulmonary disease.
[2024-07-10 15:17] LABS: Glucose Point of Care 354 mg/dl (65-105)
[2024-07-10] MEDS: SODIUM CHLORIDE 0.9% IV 1,000 ML 999 ML IV CONT ×2 (15:34→16:49)
[2024-07-10 15:36] LABS: Basophils Percent Auto 0.2 % (0.2-1.2); Eosinophils Absolute Auto 0.1 K/mm3 (0-0.3); Eosinophils Percent Auto 0.8 % (0-4.4); Hematocrit 21.7 % (37.0-47.0); Hemoglobin 7.4 g/dL (12.0-15.0); Immature Granulocyte Absolute 0.43 K/mm3 (0.00-0.031); Immature Granulocyte Percent A 4.8 % (0-0.5); Lymphocytes Absolute Auto 1.35 K/mm3 (0.9-3.2); Lymphocytes Percent Auto 15.1 % (18.3-44.2); Mean Corpuscular HGB Conc 34.1 g/dl (32-36); Mean Corpuscular Hemoglobin 39.2 pg (26-34); Mean Corpuscular Volume 114.8 fl (80-100); Mean Platelet Volume 11.5 fl (7.4-10.4); Monocytes Absolute Auto 0.3 K/mm3 (0.1-0.6); Monocytes Percent Auto 3.5 % (2.6-8.5); Neutrophils Absolute Auto 6.8 K/mm3 (1.3-6.7); Neutrophils Percent Auto 75.6 % (45.5-73.1); Nucleated Red Blood Cells Perc 0.8 % (0.0-0.2); Platelet Count Result 244 k/mm3 (150-375); Red Blood Count 1.89 M/mm3 (4.2-5.4); Red Cell Distribution Width 17.4 % (11.5-14.5); White Blood Count 8.9 K/mm3 (4.5-10.0)
[2024-07-10 15:48] LABS: INR 1.2; Prothrombin Time 15.5 Seconds (11.1-14.7)
[2024-07-10 15:49] LABS: Partial Thromboplastin Time 26.2 Seconds (22.3-36.8)
[2024-07-10 15:52] LABS: Alanine Aminotransferase 43 U/L (6-35); Albumin Level 2.1 g/dL (3.5-5.1); Alkaline Phosphatase 92 U/L (38-126); Anion Gap 8 mmol/L (4-12); Aspartate Amino Transferase 48 U/L (14-36); Bilirubin,Total 1.2 mg/dL (0.2-1.3); Blood Urea Nitrogen 23 mg/dL (7-17); Calcium 7.2 mg/dL (8.4-10.2); Carbon Dioxide 29 mmol/L (22-30); Chloride 93 mmol/L (98-107); Estimated CRCL calculation 84 ml/min; Estimated Glomerular Filt Rate > 60; Glucose 320 mg/dL (65-110); Potassium 3.9 mmol/L (3.4-5.0); Sodium 130 mmol/L (137-145)
[2024-07-10 15:57] LABS: Anisocytosis 1+; Hypochromasia 1+; Macrocytosis 1+ (NORMAL); Platelet Estimate Adequate (Adequate)
[2024-07-10 15:58] LABS: Burr Cells 1+; Schistocytes None Seen
[2024-07-10 16:00] LABS: Lactic Acid Reflex 6.7 mmol/L (0.7-2.0)
--- NOTE | 2024-07-10 16:00 | PC.NURSE ---
Pt recieved the entire 1L of normal saline started by EMS
--- OUTSIDE RECORDS SUMMARY | 2024-07-10 16:35 | XMS_ITS | Clinical Summary ---
Author Organization [facility] [address] [facility] Address [address] [place] [id number] Care Team Providers Care Knowledge Management Consultant Name Role Phone Karl Sung MD Unavailable [phone] Edward Allison MD Unavailable [phone] Kam Varghese MD Unavailable Kam Varghese MD Primary Care Provider [phone] Marjorie Jacobo MD Unavailable [phone] Allergies Active Allergy Reactions Criticality Noted Date Comments Canagliflozin Unknown,Stomach upset Low 05/04/2018 Morphine Morphine Headache Low 09/24/2020 Sitagliptin Other (See comments) Low 03/26/2022 pancreatitis Sitagliptin Phosphate Unknown 05/27/2020 Sulfa (Sulfonamide Antibiotics) Sulfa (Sulfonamide Antibiotics) Hives Medium 09/24/2020 Sulfamethoxazole-Trimethop rim Medications metFORMIN XR (GLUCOPHAGE XR) 500 mg 24 hr tablet TAKE 3 TABLETS BY MOUTH IN THE MORNING 07/24/19 21 Active trimethoprim (TRIMPEX) 100 mg tablet 09/19/19 21 Active BD Ultra-Fine Short Pen Needle 31 gauge x 16 needle 12/23/19 21 Active BD Insulin Syringe Ultra-Fine 1 mL 31 gauge x 10/19 syringe USE 1 SYRINGE TO INJECT UP TO FOUR TIMES DAILY 12/20/19 21 Active NovoLOG 100 unit/mL (3 mL) pen for injection INJECT THREE TIMES A DAY PER SCALE, MAX DAILY DOSE IS 40 UNITS 12/19/19 21 Active aspirin 81 mg enteric coated tablet Take 1 tablet (81 mg total) by mouth daily Active acetaminophen (TYLENOL) 500 mg tablet Take 1 tablet (500 mg total) by mouth every 6 (six) hours as needed for pain Active insulin syringe,safetyneed le (Easy Touch FlipLock Insulin) 1 mL 30 gauge x 5/16 syringe use 1 syringe to inject up to four times daily DX E11.65 12/17/19 21 Active rOPINIRole (REQUIP) 4 mg tabletIndications: Restless leg syndrome Take 1 tablet (4 mg total) by mouth nightly at bedtime 90 tablet 3 02/10/20 22 Active hydroCHLOROthiazid e (HYDRODIURIL) 25 mg tablet Take 1 tablet (25 mg total) by mouth daily Active FreeStyle Michael 2 Sensor kit APPLY 1 SENSOR TO BACK OF EITHER ARM ONCE EVERY 2 WEEKS TO CHECK BLOOD SUGAR 4 TIMES DAILY 04/01/20 22 Active fluticasone propionate (Flonase Allergy Relief) 50 mcg/actuation nasal spray Administer 1 spray into each nostril 2 (two) times a day 1 each 3 04/19/20 22 Active amLODIPine (NORVASC) 10 mg tablet 07/12/19 23 Active blood glucose diagnostic strip Use 1 strip three times daily 09/26/19 20 Active blood-glucose meter kit Glucose testing 3 times daily 05/24/20 19 Active pramipexole (MIRAPEX) 0.5 mg tablet Take 1 tablet (0.5 mg total) by mouth 3 (three) times a day 10/06/19 23 Active furosemide (LASIX) 20 mg tablet TAKE ONE TABLET ONCE DAILY FOR 7 DAYS 02/12/20 23 Active potassium chloride ER 10 mEq CR capsule TAKE ONE TABLET ONCE A DAY FOR 7 DAYS 02/12/20 23 Active Spiriva with HandiHaler 18 mcg per inhalation capsule Place 1 puff (1 capsule total) into inhaler and inhale daily 90 capsule 3 05/16/20 23 Active atorvastatin (LIPITOR) 20 mg tablet 07/07/19 24 Active albuterol HFA (Ventolin HFA) 90 mcg/actuation inhaler Inhale 2 puffs every 6 (six) hours as needed for wheezing 1 each 3 07/12/19 24 Active predniSONE (DELTASONE) 5 mg tablet Take 4 tabs PO daily x3 days, then taper by 1 tablet every 3 days till off 30 tablet 10/03/19 24 Active ondansetron ODT (ZOFRAN-ODT) 4 mg disintegrating tablet DISSOLVE 1 TABLET ON THE TONGUE EVERY 6 HOURS NEEDED 08/14/[address] (PROTONIX) 40 mg EC tablet Take 1 tablet (40 mg total) by mouth daily 11/01/19 24 Active TOUJEO 300 unit/mL (1.5 mL) pen for injection INJECT 45 UNITS SUBCUTANEOUSLY TWICE DAILY 10/26/19 24 Active upadacitinib (Rinvoq) 15 mg tablet extended release 24 hrIndications:Rheu matoid Arthritis Take 15 mg by mouth daily 90 tablet 03/12/20 24 Active folic acid (FOLVITE) 1 mg tablet Take 1 tablet (1 mg total) by mouth daily 30 tablet 3 04/10/20 24 025 Active azaTHIOprine (IMURAN) 50 mg tabletIndications: Rheumatoid arthritis of multiple sites without rheumatoid factor (CMS/HCC) (HCC) TAKE 3 TABLETS BY MOUTH EVERY MORNING TAKE 2 TABLETS EVERY EVENING 450 tablet 04/30/20 24 Active tiotropium (SPIRIVA) 18 mcg per inhalation capsule Place 1 puff (1 capsule total) into inhaler and inhale daily 90 capsule 3 05/21/20 24 Active Active Problems Problem Noted Date Diagnosed Date Elevated LFTs 12/23/2023 Assessment & Plan (12/23/2023 10:19 AM CDT): Previous labs have displayed elevated LFTs. Denies alcohol consumption. Concern for OVALLES. Would consider liver ultrasound if this progresses, although would follow this with PCP. Right elbow pain 07/20/2023 Assessment & Plan (09/23/2023 11:12 AM CDT): Right elbow x-ray 07/01/2023: WNL Since last visit, completed physical therapy for persistent right elbow pain locally over the antecubital fossa. Notes full resolution of elbow complaints with physical therapy. Denies significant joint complaints at today's visit. Assessment & Plan (07/20/2023 10:45 AM PRICING COORDINATOR): Right elbow x-ray 07/01/2023: WNL Since last visit, has continued to have discomfort over the right elbow. Denies significant benefit with the Kenalog IM injection. Localizes her pain over the antecubital fossa with TTP over this region. No discomfort over the medial or lateral epicondyle. Is scheduled to begin physical therapy. If pain persists, will need to obtain an in elbow MRI for further evaluation. Pain of right hip 06/22/2023 Assessment & Plan (07/20/2023 10:42 AM PRICING COORDINATOR): Right hip x-ray 07/01/2023: Mild right hip OA Right hip pain resolve with Kenalog IM injection given at last visit. Assessment & Plan (06/22/2023 10:35 AM PRICING COORDINATOR): While on prednisone taper 2 weeks ago, she developed pain in the right/groin that radiates into the right buttock. Symptoms have resolved. Given order for right hip x-ray to evaluate further, if symptoms recur. Has full range motion on exam without pain elicited. 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 01/24/2023 Assessment & Plan (12/23/2023 10:18 AM CDT): DEXA 03/28/2023: L-spine-0.2, left femoral neck-1.1, right total hip-0.3; FRAX 9.1/1.2 Assessment & Plan (09/23/2023 11:12 AM CDT): DEXA 03/28/2023: L-spine-0.2, left femoral neck-1.1, right total hip-0.3; FRAX 9.1/1.2 Assessment & Plan (07/20/2023 10:42 AM PRICING COORDINATOR): DEXA 03/28/2023: L-spine-0.2, left femoral neck-1.1, right total hip-0.3; FRAX 9.1/1.2 Assessment & Plan (06/22/2023 9:49 AM PRICING COORDINATOR): DEXA 03/28/2023: L-spine-0.2, left femoral neck-1.1, right total hip-0.3; FRAX 9.1/1.2 Assessment & Plan (03/21/2023 3:23 PM CDT): Given frequent steroid requirements along with her history of RA and recent distal fibula fracture, she was given orders for DEXA at last visit. Is scheduled for this in the next 2 weeks. Assessment & Plan (01/24/2023 9:58 AM CDT): Given frequent steroid requirements along with her history of RA and recent distal fibula fracture, would like to evaluate further with updated DEXA BMI 40.0-44.9, adult 07/27/2022 Primary osteoarthritis involving multiple joints 02/25/2022 Chronic left shoulder pain 02/25/2022 Assessment & Plan (02/25/2022 12:39 PM CDT): XR L shoulder 2018: irregularity involving the tip of the acromion, possibly representing fracture of the patient has point tenderness in this region. This could also represent summation artifact. Findings which can be seen with calcific tendinitis at the rotator cuff Since last visit, has noted increased shoulder pain. Has pain elicited with resisted shoulder abduction. Previous x-ray left shoulder 2018, as above, did display findings concerning for calcific tendinitis. She defers PT at this time. Will avoid NSAIDs due to renal insufficiency. Reconsider PT if symptoms worsen. Restrictive lung disease 09/29/2021 Obstructive sleep apnea 09/29/2021 BMI 39.0-39.9,adult 09/29/2021 Recurrent major depression in partial remission 09/08/2021 Type 2 diabetes mellitus wit hout complication, without long-term current use of insulin ([facility]) 08/25/2021 Urinary tract infection without hematuria 2021 Migraine without status migrainosus, not intract able 08/25/2021 Chronic pain of right knee 05/20/2021 Overview (08/25/2021): X-ray right knee 05/27/2021: Mild to moderate lateral predominant tricompartmental OA with a small effusion Right knee MRI without contrast 08/10/2021: Anterior cruciate ligament tear. Extensive complex tear of the posterior horn of the lateral meniscus. small tear of indeterminate morphology along the inner free edge of the posterior horn of the medial meniscus. Lateral compartment predominant tricompartmental OA with moderate severity with extensive high-grade chondromalacia. Mild disc quadriceps and distal patellar tendinopathy without discrete tear. Moderate sized right knee joint effusion Assessment & Plan (05/13/2022 10:20 AM PRICING COORDINATOR): X-ray right knee 05/27/2021: Mild to moderate lateral predominant tricompartmental OA with a small effusion Right knee MRI without contrast 08/10/2021: Anterior cruciate ligament tear. Extensive complex tear of the posterior horn of the lateral meniscus. small tear of indeterminate morphology along the inner free edge of the posterior horn of the medial meniscus. Lateral compartment predominant tricompartmental OA with moderate severity with extensive high-grade chondromalacia. Mild disc quadriceps and distal patellar tendinopathy without discrete tear. Moderate sized right knee joint effusion Status post right TKA. Knee is doing well at this time. Assessment & Plan (02/25/2022 10:21 AM CDT): X-ray right knee 05/27/2021: Mild to moderate lateral predominant tricompartmental OA with a small effusion Right knee MRI without contrast 08/10/2021: Anterior cruciate ligament tear. Extensive complex tear of the posterior horn of the lateral meniscus. small tear of indeterminate morphology along the inner free edge of the posterior horn of the medial meniscus. Lateral compartment predominant tricompartmental OA with moderate severity with extensive high-grade chondromalacia. Mild disc quadriceps and distal patellar tendinopathy without discrete tear. Moderate sized right knee joint effusion Status post right TKA. Knee is doing well at this time. Assessment & Plan (11/26/2021 10:25 AM CDT): X-ray right knee 05/27/2021: Mild to moderate lateral predominant tricompartmental OA with a small effusion Right knee MRI without contrast 08/10/2021: Anterior cruciate ligament tear. Extensive complex tear of the posterior horn of the lateral meniscus. small tear of indeterminate morphology along the inner free edge of the posterior horn of the medial meniscus. Lateral compartment predominant tricompartmental OA with moderate severity with extensive high-grade chondromalacia. Mild disc quadriceps and distal patellar tendinopathy without discrete tear. Moderate sized right knee joint effusion Minimal to no benefit with the Kenalog intra-articular right knee injection given at last visit. Previously went to PT which worsened symptoms. Is in the process of scheduling R TKA. Assessment & Plan (08/25/2021 9:46 AM CDT): X-ray right knee 05/27/2021: Mild to moderate lateral predominant tricompartmental OA with a small effusion Minimal to no benefit with the Kenalog intra-articular right knee injection given at last visit. One to PT which worsened symptoms. Had MRI of the right knee that displayed medial/lateral meniscal and ACL tear, per her report, although not available for review. Will track down these records. Is scheduled to see the Orthopedics. Assessment & Plan (07/13/2021 1:46 PM PRICING COORDINATOR): X-ray right knee 05/27/2021: Mild to moderate lateral predominant tricompartmental OA with a small effusion Primary complaint today is persistent right knee pain localized primarily over the lateral aspect. Suspect more likely osteoarthritis. No benefit and possibly worsened symptoms with physical therapy. After informed consent, Dr. Sung injected 40 mg of kenalog into the R knee joint. She tolerated the procedure well. If symptoms persist, would consider evaluation with orthopedics. Assessment & Plan (05/20/2021 2:08 PM PRICING COORDINATOR): XR R knee 2017: moderate multicompartment osteoarthritis Primary complaint today is significant right knee pain worsened with ambulating stairs. Suspect degenerative arthritis contributing significantly to her right knee complaints. Will obtain updated imaging and sent to physical therapy. Could consider a right knee intra-articular steroid injection under ultrasound if symptoms persist, which was discussed today. Greater trochanteric pain syndrome 05/20/2021 Assessment & Plan (05/20/2021 2:09 PM PRICING COORDINATOR): Has pain and tenderness over the right greater trochanter. Suspect that her antalgic gait secondary to right knee pain may be contributing to these symptoms. Will send PT. Other hypersomnia 05/18/2021 Multiple pulmonary nodules 05/18/2021 Mediastinal lymphadenopathy 05/18/2021 Encounter for long-term (current) use of medicat ions 03/04/2021 Assessment & Plan (06/22/2024 11:13 AM PRICING COORDINATOR): Negative QuantiFERON 09/2021 Hepatitis-B/C 09/2020 WNL Assessment & Plan (03/23/2024 3:53 PM CDT): Negative QuantiFERON 09/2021 Hepatitis-B/C 09/2020 WNL Assessment & Plan (12/23/2023 10:17 AM CDT): Negative QuantiFERON 09/2021 Hepatitis-B/C 09/2020 WNL Assessment & Plan (07/20/2023 10:42 AM PRICING COORDINATOR): Negative QuantiFERON 09/2021 Hepatitis-B/C 09/2020 WNL Assessment & Plan (06/22/2023 10:34 AM PRICING COORDINATOR): Negative QuantiFERON 09/2021 Hepatitis-B/C 09/2020 WNL Assessment & Plan (03/21/2023 3:24 PM CDT): Negative QuantiFERON 09/2021 Hepatitis-B/C 09/2020 WNL Assessment & Plan (01/24/2023 9:56 AM CDT): Negative QuantiFERON 09/29/2021 Negative hepatitis panel 09/25/2020 Assessment & Plan (11/19/2022 12:58 PM CDT): Negative QuantiFERON 09/29/2021 Negative hepatitis panel 09/25/2020 Assessment & Plan (10/21/2022 9:08 AM CDT): Negative QuantiFERON 09/29/2021 Negative hepatitis panel 09/25/2020 Assessment & Plan (07/22/2022 9:54 AM PRICING COORDINATOR): Negative QuantiFERON 09/29/2021 Negative hepatitis panel 09/25/2020 Assessment & Plan (05/13/2022 10:20 AM PRICING COORDINATOR): Negative QuantiFERON 09/29/2021 Negative hepatitis panel 09/25/2020 Assessment & Plan (02/25/2022 12:36 PM CDT): Negative QuantiFERON 09/29/2021 Negative hepatitis panel 09/25/2020 Assessment & Plan (08/25/2021 9:47 AM CDT): Recommended COVID-19 booster vaccine. Assessment & Plan (03/04/2021 1:25 PM CDT): Recommended COVID-19 booster vaccine. Restless leg syndrome 12/30/2020 Assessment & Plan (12/30/2020 3:20 PM CDT): Patient is a former patient at [facility] being treated for restless leg syndrome of combination ropinirole and pramipexole. She is in need of refill of medication at this time. Both medications have been refilled as previously prescribed and a formal medical request for medical records from [facility] will be placed. She will follow up with Neurology office in 1 year. Pulmonary fibrosis ([facility]) 12/19/2020 Chronic cough 12/19/2020 Shortness of breath 12/19/2020 Nicotine dependence 12/19/2020 Non-seasonal allergic rhinitis due to pollen Sleep disorder 12/19/2020 Overweight 12/19/2020 Rheumatoid arthritis involvi ng multiple sites with positive rheumatoid factor ([facility]) 09/25/2020 Overview (11/04/2020): [place]ise 10/02/2020: Positive rheumatoid factor IgM >200, positive rheumatoid factor IgA 140, positive CCP 36 1) US Right Hand/Wrist 10/03/20Effusion of the 4th extensor compartment 2) Grade 1 power Doppler of the mid carpal recess 3) Moderate synovial thickening of the 2nd MCPJ with grade 1 power Doppler and erosion of the 2nd metacarpal head 4) Moderate synovial thickening of the 4th MCPJ 5) Severe synovial thickening of the 3rd MCPJ and 2nd and 3rd PIPJ 6) Spurring of the 2nd and 5th proximal phalanx at the MCPJ X-ray 09/30/2020: Right foot: Nonspecific soft tissue prominence over right 1st IP joint without underlying erosion Left foot: old 3rd proximal phalangeal fracture, otherwise unremarkable Left hand: Polyarticular OA, ulnar minus variance, old ulnar styloid avulsion. No erosions right hand: Mild scattered polyarticular OA, ulnar minus variance. No right hand erosions CXR: Progression of course bilateral interstitial infiltrates peripherally, likely pulmonary fibrosis PMHx: HLD, RLS, Diabetes, Migraines, hearing loss, tobacco abuse (7-9 pks / week) TxHx: AZA, MTX (hairloss), HCQ (nightmares), Humira (UTI's but continued despite stoping), Mobic, Oxycodone, Flexeril, prednisone (tries to avoid) [place] [facility] rheum Dr. Edmondson 03/26/20: Seropositive RA w/ hx of splenectomy for ITP (2003); ongoing pain in her hands and hips, R shoulder discomfort. AM stiff 1-2 hours. Currently on AZA 150/100, Mobic 15 every few weeks, Tylenol 1g BID, and Tumeric which she feels helps. Seeing urology (Dr. Velez) and ID (Dr Pablo) for chronic UTI currently on PO antibiotics. 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 Fracture of the distal end of the third proximal phalanx there is slight displacement similar to the prior exam. No significant callus formation identified. No new fractures are seen. There is a plantar calcaneal spur. PFT 10/2019: FVC 79 %, FEV1 79 %, FEV1/FVC78 %. DLCO 73% CT Chest 10/2019: Unchanged scattered pulmonary nodules (6mm RML, 5mm RLL, 7 mm RLL, 6 mm RLL, 9 mm RLL, 7mm RLL, 9mm Lingula) Stable enlarged mediastinal lymphnodes largest 12mm unchanged since 2018. Resolution of the previously described groundglass opacities within the upper lobes. Fibrotic changes peripherally with a basilar prominence consistent with pulmonary fibrosis. Hepatic steatosis. US renal 2019: Normal kidneys, large post void residual Echo 2018: EF 60%, grade 1 DD, RA/LA normal, no shunt, PASP not able to be estimated XR L shoulder 2018: irregularity involving the tip of the acromion, possibly representing fracture of the patient has point tenderness in this region. This could also represent summation artifact. Findings which can be seen with calcific tendinitis at the rotator cuff XR R shoulder 2018: Normal XR hands 2018: Old un-united ulnar styloid process fracture otherwise unremarkable XR R knee 2017: moderate multicompartment osteoarthritis Assessment & Plan (06/22/2024 11:13 AM PRICING COORDINATOR): CDAI 7. Overall, Regina has done fairly well since last visit. Has some residual chronic discomfort and stiffness throughout the joints of the hands of the left ankle, as discussed above. A.m. stiffness in the left ankle for 30-60 minutes. Few tender and swollen joints, as above. Has remained low disease activity per CDAI. Recommended will OTC Voltaren gel and Tylenol Arthritis p.r.n. if and when joints are more bothersome. Otherwise, will continue Rinvoq 15 mg daily and azathioprine 150 mg q.a.m. with 100 mg q.p.m.. Routine labs today. Follow-up 3 months. Sooner if needed. Assessment & Plan (03/23/2024 3:53 PM CDT): CDAI 2. Overall, Regina has continued to do very well since last visit. Had elevated liver enzymes after last visit and had liver ultrasound and CT scan. Liver ultrasound noted findings consistent with OVALLES. Denies significant peripheral joint complaints at this time. At present, will continue Rinvoq 15 mg daily and azathioprine 150 mg q.a.m. 100 mg q.p.m.. Routine labs today. If LFTs remain elevated, may need to consider reducing/discontinuation of azathioprine. Follow up 3 months. Sooner if needed. Assessment & Plan (12/23/2023 10:17 AM CDT): CDAI 5. Overall, has done very well since last visit without significant joint complaints. No flares since last visit. Minimal synovitis. Appears well managed. Will continue Rinvoq 15 mg daily and azathioprine 150 mg Qa.m., 100 mg q.p.m.. Routine labs today. Follow-up 3 months. Sooner if needed. Assessment & Plan (09/23/2023 11:12 AM CDT): CDAI 7. Overall, Regina has done very well since last visit with minimal complaints. Denies significant peripheral joint pain and or prolonged a.m. stiffness. No flares last visit. Minimal synovitis on exam. Appears adequately managed. Will continue Rinvoq 15 mg daily and azathioprine 150 mg q.a.m./100 mg q.p.m.. Routine labs today. Follow-up 3 months. Sooner if needed. Assessment & Plan (07/20/2023 10:41 AM PRICING COORDINATOR): CDAI 12. At last visit, we did give Kash a Kenalog IM injection due to pain in the right elbow. Unfortunately, she had no benefit and we did obtain a right elbow x-ray that was unrevealing. She is scheduled to begin physical therapy for her right elbow. Given her lack of response to Kenalog IM injection, I am skeptical that her RA is the cause for elbow discomfort. Denies significant peripheral joint pain in the hands and/or feet. Denies prolonged a.m. stiffness. Minimal synovitis on exam. Recent labs reviewed. Given elevated LFTs, would like to recheck hepatic function panel along with inflammatory markers in 2-4 weeks. Otherwise, will continue Rinvoq 15 mg daily and azathioprine 150 mg q.a.m./100 mg q.p.m.. Routine labs today. Follow-up 2 months. Sooner if needed. Assessment & Plan (06/22/2023 10:35 AM PRICING COORDINATOR): CDAI 17. Regina had noted joint benefit since beginning the Rinvoq. Unfortunately, did experience a flare few weeks prior with increased discomfort and mild swelling predominantly in the left wrists. Had significant pain with movement of the wrist. She was prescribed a prednisone taper with improvement in the symptoms. Unfortunately, over the last month, has had a stabbing pain in the right anterior elbow, which can radiate up and down the arm intermittently. No significant benefit the elbow pain with the prednisone taper. Has TTP over the right anterior elbow. Has scattered swelling and tenderness, as above. Would like to trial a Kenalog IM injection for diagnostic and therapeutic purposes regarding her right elbow better assess if this may be related to her underlying RA. Due to burden of disease, will administer kenalog 100 mg IM injection, in office, today. Patient was advised of the potential side effects of the medication, including but not limited to increased blood sugar, weight gain, avascular necrosis, glaucoma, cataracts, and/or osteoporosis. Have advised to monitor carbohydrate intake closely over the next 2 weeks. If right elbow symptoms persist, will proceed with right elbow x-ray given today. Depending on findings, would consider a right elbow MRI at that point. Otherwise, will continue Rinvoq 15 mg daily and azathioprine 150 mg q.a.m./100 mg q.p.m.. Routine labs today. Follow-up 4 weeks. Sooner if needed. Discussed with Dr. Sung. Assessment & Plan (03/21/2023 3:22 PM CDT): CDAI 16. Since last visit, has begun Rinvoq x3 weeks and tolerated this well. Denies any flares since beginning Rinvoq. She did experience to flares prior to starting Rinvoq requiring prednisone tapers, which resolved her flares. Has mild residual discomfort in the right hand and right elbow with a.m. stiffness for 20-30 minutes. Will allow more time for Rinvoq to take effect. Will monitor patient on Rinvoq and azathioprine. At this time, will continue Rinvoq 15 mg daily and azathioprine 150 mg q.p.m./100 mg q.p.m.. Routine labs today. Follow-up 3 months. Sooner if needed. Discussed with Dr. Sung Assessment & Plan (01/24/2023 9:56 AM CDT): CDAI 15. Regina did not begin Orencia discussed at last, she did not complete patient assistance paperwork stating that she would not qualify. Has remained on Humira and azathioprine. Unfortunately, has had 2 additional flares requiring steroid tapers. At present, has some residual pain/stiffness in the hands with a.m. stiffness for 30-60 minutes. Scattered swelling and tenderness, as above. Given moderate CDAI and recurrent flares, does not appear adequately controlled. Will stop Humira and look into approval for Rinvoq. Discussed potential side effects of the medication, including but not limited to increased risk of infection, blood clots, headache, diarrhea, bowel perforation, and/or lymphoma risk. Denies any clotting history. Otherwise, will maintain on azathioprine 150 mg q.a.m./100 mg q.p.m.. Routine labs today. Follow-up 2 months. Sooner if needed. Discussed with Dr. Sung. Assessment & Plan (11/19/2022 12:58 PM CDT): CDAI 28. Returns due to flare of joint symptoms. Few weeks prior, developed a flare in the right hand 1st MCP joint requiring a prednisone taper with resolution of symptoms. Over the past few days, has developed flare in the right elbow with severe limitations in her elbow mobility at today's visit. Has begun prednisone 20 mg daily x2 days. Due to burden of disease, will administer kenalog 100 mg IM injection, in office, today. Will reduce prednisone to 15 mg daily x3 days, 10 mg daily x3 days, 5 mg daily x3 days and stop. Patient was advised of the potential side effects of the medication, including but not limited to increased blood sugar, weight gain, avascular necrosis, glaucoma, cataracts, and/or osteoporosis. Given her current flares, does not appear adequately controlled. Will stop Humira and look into approval for Orencia weekly subcutaneous injections. Otherwise, will continue azathioprine 150/100 mg daily. Routine labs today. Follow-up 3 months. Sooner if needed. Assessment & Plan (10/21/2022 9:08 AM CDT): CDAI 7. Overall, she has done very well since last visit. Has occasional flares with mild increased discomfort in the right 1st MCP joint that will last for 2 days and self resolve. No significant peripheral joint symptoms at present. Overall, she feels that symptoms are very well managed on current treatment regimen. Will continue azathioprine 150/100 mg daily and Humira. Have advised to hold these medications at this time until completed antibiotics and resolution of cellulitis. Otherwise, will obtain routine labs today. Follow-up 3 months. Sooner if needed. In the past, have discussed making a change from Humira to Orencia weekly subcutaneous injections. She has deferred, she felt that she was well managed on Humira. Could reconsider if symptoms progress. Given her ILD and smoking history, have reached out to Dr. Jacobo, pulmonology. He was okay with us using Orencia in her case. Assessment & Plan (07/22/2022 10:28 AM PRICING COORDINATOR): CDAI 16. With past 6 weeks, has developed episodic pain, stiffness, swelling in the hands/wrists predominantly and lesser degree in the elbows and shoulders. A.m. stiffness for 45-60 minutes. Symptoms have improved over the past 2 days and has fairly minimal joint complaints at today's visit. With that said, she continues to have scattered swelling and tenderness on exam with a moderate CDAI. Given these findings, I did recommend make a change from Humira to Orencia weekly subcutaneous injections. She defers at this time, as would like to maintain on Humira. Given her ILD and smoking history, have reached out to Dr. Jacobo, pulmonology. He was okay with us using Orencia in her case. Will reconsider Orencia injections, if symptoms persist or worsen. Otherwise, will continue azathioprine 150/100 mg daily and humira. Routine labs today. Follow-up 2 months. Sooner if needed. Seen with Dr. Sung. Assessment & Plan (05/13/2022 10:20 AM PRICING COORDINATOR): CDAI 32. Has begun Humira and tolerated this well. Has noted some improvement in her joint symptoms to this point. She did recently experienced a flare with increased pain in the left shoulder along with residual discomfort in the bilateral hands. Flare has resolved with some residual discomfort in these joints. Has active swelling and tenderness, as above. Not adequately controlled, although would like to allow Humira more time to take effect. Will continue azathioprine 150/100 mg daily with Humira q.2 weeks subcutaneous injections. Routine labs today. Follow-up 2 months. Sooner if needed. Assessment & Plan (02/25/2022 12:34 PM CDT): CDAI 34.Joints doing poorly at this time with chronic discomfort in the bilateral hands, left elbow, left shoulder. Scattered tender and swollen joints, as above. Had previously discussed switching her from Humira to Orencia due to chronic UTIs thought to be exacerbated by Humira. Does have a history of interstitial lung disease and is a current 50 pack-year smoker, so would like to avoid Orencia due to concerns for COPD. Regina is to speak with pulmonology at her next visit to determine if there is any concern for COPD in addition to ILD. Continues to have chronic UTI on daily antibiotics following with Urology. Difficult to say if UTIs were truly worsened while on Humira. She was willing to reconsider humira for this reason. Will continue azathioprine 150/100 mg daily. Will restart Humira q.2 weeks subcutaneous injections. Patient advised of the side effects of the medication, including but not limited to increase risk of infection, rash, injection site reaction. Routine labs today. Follow-up 2 months. Sooner if needed. Seen with Dr. Sung. Assessment & Plan (11/26/2021 10:24 AM CDT): CDAI 34. Has been off azathioprine since 11/17 in anticipation for right TKA that was scheduled for 629. Unfortunately, this is delayed due to recent abnormal EKG (LBB) and mild renal insufficiency. Has been advised that she needs to obtain clearance from Cardiology and Nephrology, so is scheduling this. Has had some increased discomfort with pain, stiffness in the bilateral hands. Active synovitis on exam, as above. Have noted that she can resume azathioprine depending on when surgery is rescheduled for, as will need to hold azathioprine for 2 weeks pre/post surgery. Otherwise, after surgery, can resume azathioprine 150/100 mg. Had previously discussed addition of Orencia, which deferred. Could reconsider in the future if peripheral joint complaints persist. Have advised to discuss with pulmonology to ensure that she has no history of COPD, which would inhibit our use of orencia in the future. Will track down recent labs from [facility]. Depending on results obtained, will obtain labs of our own. Follow-up 3 months. Sooner if needed. Assessment & Plan (08/25/2021 9:45 AM CDT): CDAI 18. Regina continues to experience chronic pain, stiffness bilateral hands with a.m. stiffness for 60 minutes. Synovitis persist on exam. Did not proceed with Orencia discussed at last visit, she notes she contacted her insurance and was advised that it was not covered under her insurance plan. Discussed looking into approval this and considering alternative biologics, which would up be offered through patient assistance programs. She continues to defer these options. For this reason, will need to maintain on azathioprine 150/100 mg. Has only required meloxicam on 2 separate occasions since last visit and anticipates stopping this. Obtain routine labs today. Follow-up 3 months. Sooner if needed. Seen with Dr. Sung. Assessment & Plan (07/13/2021 1:45 PM PRICING COORDINATOR): CDAI 39. Primary complaint today is right knee pain, suspect more likely osteoarthritis. With that said, continues to have pain in the bilateral hands with a.m. stiffness for 30-60 minutes. Synovitis does persist on exam. Not adequately controlled. We were avoiding biologics due to concerns for chronic UTI. With that said, she notes the most recent urinalysis did not display evidence for active UTI and is on chronic antibiotics. Given her poorly controlled RA, discussed additional treatment with Orencia. Gave her a handout discussing the medication and she is going to contact us if she is ready to begin. Patient advised of the side effects of the medication, including but not limited to increased risk of infection, injection site reaction, and/or new rash. Given her chronic smoking history and history of ILD, will need to monitor for exacerbation of cough/SOB symptoms on Orencia, although most recent studies did not show evidence for worsened COPD on orencia. Otherwise, will continue azathioprine 150/100 mg and meloxicam 15 mg daily p.r.n., which does require most days. Routine labs today. Follow-up 6 weeks. Sooner if needed. Seen with Dr. Sung. Assessment & Plan (05/20/2021 2:07 PM PRICING COORDINATOR): CDAI 19. Regina does continue to note some joint pain, stiffness, swelling in the bilateral hands, R knee, and lesser degree in the R shoulder, R elbow, ankles. She does feel that symptoms remain manageable and is not interested in in any additional medication options at this time. Does continue to have synovitis exam and moderate activity per cdai. With that said, given her chronic UTI history, do feel that is reasonable to maintain on current treatment regimen at present. Will need to be cautious with biologics. If symptoms do worsen, would consider Orencia due to lower infectious risk, which was again discussed today and she defers. At present, will continue azathioprine 150/100 mg and Mobic 15 mg daily p.r.n., which does require most days. Reviewed cbc. Will track down recent CMP. If received, she can hold on labs and recheck at next visit. Follow-up 3 months. Sooner if needed. Assessment & Plan (03/04/2021 3:30 PM CDT): CDAI 16. Regina does continue to note some joint pain, stiffness, swelling in the bilateral hands>>ankles. With that said, she does feel that symptoms are manageable and is not interested in in any additional medication options at this time. Does continue to have synovitis exam, although this is stable. Given her chronic UTI history, do feel that is reasonable to maintain on current treatment regimen at present. Will need to be cautious with biologics. If symptoms do worsen, would consider Orencia due to lower infectious risk, which has been previously discussed. At present, will continue azathioprine 150/100 mg and Mobic 15 mg daily p.r.n., which does require most days. Recent CMP reviewed. Obtain routine labs today. Follow- up 3 months. Sooner if needed. Assessment & Plan (11/04/2020 4:03 PM CDT): 60 yoF with a history of seropositive rheumatoid arthritis prior seen by Dr. Sung. Notes persistent joint pain, stiffness, swelling in the agnieszka hands and lesser degree ankles, which has worsened over the past two months. Currently treated with aza 150/100 and mobic 15 mg daily prn. She has been off biologic medications due to recurrent UTI's, which she is following with urology and remains on antibiotics. Notes chronic sob with history of ILD (current smoker). Synovitis is present on exam. Will further evaluate with appropriate serologies, radiographs, R hand US. Unfortunately, will need to use caution with biologics given her UTI history. She could not tolerate leflunomide began at last visit. Further labs 09/2020 displayed high positive rheumatoid factor and positive CCP antibody. Right hand/wrist ultrasound revealed power Doppler, effusion, synovial thickening across several joints. Chest x-ray 09/2020 displayed progression of course bilateral interstitial infiltrates peripherally. Symptoms serologies, ultrasound findings support seropositive rheumatoid arthritis diagnosis with ILD. Additional DMARD options have been exhausted and need to use caution with biologics due to on chronic antibiotics per Urology for recurrent UTIs. Ideally, would like to use Orencia due to lower infectious risk, although would likely avoid in the presence of COPD. Advised her follow-up with pulmonology to further evaluate her ILD and ensure no evidence for COPD. Depending on pulmonology workup, could consider Orencia at that point. Otherwise, would consider luke inhibitor. At present, will continue azathioprine 150/100 and Mobic 15 mg daily p.r.n.. Follow-up 3 months. Sooner if needed. Seen with Dr. Sung. Assessment & Plan (09/25/2020 3:00 PM CDT): 60 yoF with a history of seropositive rheumatoid arthritis prior seen by Dr. Sung. Notes persistent joint pain, stiffness, swelling in the agnieszka hands and lesser degree ankles, which has worsened over the past two months. Currently treated with aza 150/100 and mobic 15 mg daily prn. She has been off biologic medications due to recurrent UTI's, which she is following with urology and remains on antibiotics. Notes chronic sob with history of ILD (current smoker). Synovitis is present on exam. Will further evaluate with appropriate serologies, radiographs, R hand US. Unfortunately, will need to use caution with biologics given her UTI history. Will begin arava 10 mg daily. Discussed potential side effects including but not limited to increased infection, diarrhea, blood count abnormalities, and/or rash. Continue aza 150/100 and mobic 15 mg daily prn. Fu 2 weeks. Sooner if needed. Seen with Dr. Sung. Interstitial lung disease ([facility]) 09/25/2020 Assessment & Plan (06/22/2024 11:13 AM PRICING COORDINATOR): CXR 09/2020: Progression of course bilateral interstitial infiltrates peripherally, likely pulmonary fibrosis Discussed smoking cessation. Chronic smoker. Continue aza 150/100. Follows with pulmonology Dr. Jacobo. Has stable chronic cough and shortness of breath. Assessment & Plan (03/23/2024 3:55 PM CDT): CXR 09/2020: Progression of course bilateral interstitial infiltrates peripherally, likely pulmonary fibrosis Discussed smoking cessation. Chronic smoker. Continue aza 150/100. Follows with pulmonology Dr. Jacobo. Has stable chronic cough and shortness of breath. Assessment & Plan (12/23/2023 10:17 AM CDT): CXR 09/2020: Progression of course bilateral interstitial infiltrates peripherally, likely pulmonary fibrosis Discussed smoking cessation. Chronic smoker. Continue aza 150/100. Follows with pulmonology Dr. Jacobo. Has stable chronic cough and shortness of breath. Assessment & Plan (09/23/2023 11:12 AM CDT): CXR 09/2020: Progression of course bilateral interstitial infiltrates peripherally, likely pulmonary fibrosis Discussed smoking cessation. Chronic smoker. Continue aza 150/100. Follows with pulmonology Dr. Jacobo. Assessment & Plan (07/20/2023 10:42 AM PRICING COORDINATOR): CXR 09/2020: Progression of course bilateral interstitial infiltrates peripherally, likely pulmonary fibrosis Discussed smoking cessation. Chronic smoker. Continue aza 150/100. Follows with pulmonology Dr. Jacobo. Assessment & Plan (06/22/2023 10:34 AM PRICING COORDINATOR): CXR 09/2020: Progression of course bilateral interstitial infiltrates peripherally, likely pulmonary fibrosis Discussed smoking cessation. Chronic smoker. Continue aza 150/100. Follows with pulmonology Dr. Jacobo. Assessment & Plan (03/21/2023 3:22 PM CDT): CXR 09/2020: Progression of course bilateral interstitial infiltrates peripherally, likely pulmonary fibrosis Discussed smoking cessation. Chronic smoker. Continue aza 150/100. Follows with pulmonology Dr. Jacobo. Assessment & Plan (01/24/2023 9:56 AM CDT): CXR 09/2020: Progression of course bilateral interstitial infiltrates peripherally, likely pulmonary fibrosis Chronic smoker. Continue aza 150/100. Follows with pulmonology Dr. Jacobo. Assessment & Plan (11/19/2022 12:58 PM CDT): CXR 09/2020: Progression of course bilateral interstitial infiltrates peripherally, likely pulmonary fibrosis Chronic smoker. Continue aza 150/100. Follows with pulmonology Dr. Jacobo. Assessment & Plan (10/21/2022 9:08 AM CDT): CXR 09/2020: Progression of course bilateral interstitial infiltrates peripherally, likely pulmonary fibrosis Chronic smoker. Continue aza 150/100. Follows with pulmonology Dr. Jacobo. Assessment & Plan (07/22/2022 9:53 AM PRICING COORDINATOR): CXR 09/2020: Progression of course bilateral interstitial infiltrates peripherally, likely pulmonary fibrosis Chronic smoker. Continue aza 150/100. Follows with pulmonology Dr. Jacobo. Assessment & Plan (05/13/2022 10:20 AM PRICING COORDINATOR): CXR 09/2020: Progression of course bilateral interstitial infiltrates peripherally, likely pulmonary fibrosis Chronic smoker. Continue aza 150/100. Follows with pulmonology Dr. Jacobo. Assessment & Plan (02/25/2022 9:56 AM CDT): CXR 09/2020: Progression of course bilateral interstitial infiltrates peripherally, likely pulmonary fibrosis Chronic smoker. Continue aza 150/100. Follows with pulmonology Dr. Jacobo. Assessment & Plan (08/25/2021 9:47 AM CDT): CXR 09/2020: Progression of course bilateral interstitial infiltrates peripherally, likely pulmonary fibrosis Chronic smoker. Continue aza 150/100. Follows with pulmonology Dr. Jacobo. Assessment & Plan (07/13/2021 11:25 AM PRICING COORDINATOR): CXR 09/2020: Progression of course bilateral interstitial infiltrates peripherally, likely pulmonary fibrosis Chronic smoker. Continue aza 150/100. Follows with pulmonology Dr. Jacobo. Assessment & Plan (05/20/2021 2:07 PM PRICING COORDINATOR): CXR 09/2020: Progression of course bilateral interstitial infiltrates peripherally, likely pulmonary fibrosis Chronic smoker. Continue aza 150/100. Follows with pulmonology Dr. Jacobo. Assessment & Plan (03/04/2021 1:24 PM CDT): CXR 09/2020: Progression of course bilateral interstitial infiltrates peripherally, likely pulmonary fibrosis Chronic smoker. Continue aza 150/100. Follows with pulmonology Dr. Jacobo. Assessment & Plan (11/04/2020 4:04 PM CDT): CXR 09/2020: Progression of course bilateral interstitial infiltrates peripherally, likely pulmonary fibrosis Chronic smoker. As above, recommended fu with pulmonology. Continue aza 150/100. S/P splenectomy 09/25/2020 Thrombocythemia 08/27/2020 Morbid (severe) obesity due to excess calories 0 08/27/2020 Moderately severe major depression (CMS/HCC) Type 2 diabetes mellitus 05/27/2020 Restless legs 05/27/2020 Recurrent urinary tract infection 05/27/2020 Migraine 05/27/2020 Hyperlipidemia 05/27/2020 Gastroesophageal reflux disease 05/27/2020 Benign essential hypertension 05/27/2020 Type 2 diabetes mellitus 09/20/2018 Excess skin of abdominal wall 07/22/2016 Resolved Problems Problem Noted Date Diagnosed Date Resolved Date History of splenectomy 08/25/202104/19 Pulmonary nodule 08/25/2021 09/29/2021 Pulmonary fibrosis, unspecified 08/25/2021 09/29/2021 Pulmonary fibrosis (CMS/HCC) 03/03/2021 09/29/2021 H/O splenectomy 05/27/2020 04/19/2022 Pulmonary nodule 05/27/2020 09/29/2021 Encounters Date Type Department Care Team Description 06/22/2024 11:00 AM PRICING COORDINATOR Office Visit [facility] [address] [place] [phone] Bennie Platt PA Rheumatoid arthritis involving multiple sites with positive rheumatoid factor (CMS/HCC) (HCC) (Primary Dx); Interstitial lung disease (CMS/HCC) (HCC); Encounter for long-term (current) use of medications; Rheumatoid arthritis with rheumatoid factor of multiple sites without organ or systems involvement (HCC) 05/21/2024 Documentation [facility] [address] [place] [phone] Rosemarie Herbert RN 05/10/[address] [phone] Nathan Kurtz application 04/10/2024 Orders Only [address] [phone] Bennie Platt PA from Last 3 Months Immunizations Name Administration Dates Next Due Influenza, Quadrivalent, Spl it, Intramuscular 03/15/2016 Influenza, Quadrivalent, Spl it, Preservative Free, Intramuscular 03/26/2022,04/07/2020,05/02/2019,03/02,02/21/2017 Influenza, Trivalent, IM (MDV) 03/14/2015 Influenza, Unspecified 03/03/2021,2019,05/02/2019,03/02,02/21/2017,03/15/2016,03/14/2015 Pfizer SARS-CoV-2 Monovalent Vaccination (12+ Yrs) PURPLE 03/20/2022,09/15/2021,04/20/2021,08/27,08/05/2020 Pneumococcal Conjugate PCV 13 05/23/2013 Pneumococcal Polysaccharide PPV23 05/27/2020, Tdap 11/05/2013 Surgical History Surgery Date Site/Laterality Comments SPLENECTOMY 06/06/2003 - 06/05/2004 PARTIAL HYSTERECTOMY 06/06/1999 - 06/05/2000 CHOLECYSTECTOMY 06/06/2000 - 06/05/2001 SINUS SURGERY 06/06/2002 - 06/05/2003 CATARACT EXTRACTION REPLACEMENT TOTAL KNEE 12/04/2021 - 01/03/2022 Right ORAL SURGERY 09/05/2023 - 10/04/2023 Teeth Pulled Medical History Medical History Date Comments Diabetes (HCC) TIA (transient ischemic attack) Hypertension Family History Medical History Relation Name Comments No Known Problems Brother Heart disease Father Family history of heart disease - (Added by TW Conv) Diabetes Mother Hypertension Mother Meniere's disease Mother Pancreatic cancer Mother No Known Problems Sister 1 No Known Problems Sister 2 Relation Name Status Comments Brother Alive Father Alive Mother Sister 1 Alive Sister 2 Alive Social History Tobacco Use Types Packs/Day Years Used Date Smoking Tobacco: Every Day Cigarettes Passive Smoke Exposure: Current Smokeless Tobacco: Never Tobacco Cessation:Ready to Q uit: Not Asked; Counseling Given: Not Answered AUDIT-C Answer Date Recorded Q1: How often do you have a drink containing alcohol? Never 02/09/2022 Q2: How many drinks containi ng alcohol do you have on a typical day when you are drinking? Patient does not drink Q3: How often do you have si x or more drinks on one occasion? Never 02/09/2022 Comments Unknown Sex and Gender Information Value Date Recorded Sex Assigned at Not on file Legal Sex Female 9:18 AM PRICING COORDINATOR Gender Identity Female 02/25/2021 6:36 AM CDT Sexual Orientation Straight 02/25/2021 6: 36 AM CDT Obstetrics History Last Filed Vital Signs Vital Sign Reading Time Taken Comments Blood Pressure 140/68 06/22/2024 10:45 AM PRICING COORDINATOR Pulse 97 06/22/2024 10:45 AM PRICING COORDINATOR Temperature 36.2 ??C (97.2 ??F) 03/16/2024 8:36 AM CD T Respiratory Rate 20 03/16/2024 8:36 AM CDT Oxygen Saturation 90% 06/22/2024 10: 45 AM PRICING COORDINATOR Inhaled Oxygen Concentration - - Weight 116.3 kg (256 lb 6.4 oz) 025 10:45 AM PRICING COORDINATOR Height 172.7 cm (5' 8 ) 06/22/2024 10:4 5 AM PRICING COORDINATOR Body Mass Index 38.99 06/22/2024 10:45 AM PRICING COORDINATOR Plan of Treatment Health Maintenance Due Date Last Done Comments Albumin Creatinine Ratio, Urine 1958 Colon Cancer Screening-Colonoscopy 1958 Depression Screening 1958 Fall Risk Assessment 1958 Hemoglobin A1C 1958 Hepatitis C Screening 1958 Dilated Eye Exam 1958 Foot Exam 1958 Hepatitis B Screening 02/03/1976 Zoster Vaccine (1 of 2) 1977 Meningococcal B Vaccine (2 o f 4 - Increased Risk Bexsero 2-dose series) 12/08/2003 11/10/2003 Well Visit 65+ 2023 Covid-19 Vaccine (2023-2 5 season) 2024 03/14/2024, 03/20/2022, 09/15/2021, Additional history exists Lipid Panel 06/09/2024 06/09/2023, 03/07, 11/20/2019 Breast Cancer Screening-Mammogram 11/16/2024 11/17/2023, 11/17/2023, 05/05/2022, Additional history exists eGFR 03/23/2025 03/23/2024, 12/05, 02/08/2023, Additional history exists Osteoporosis Screening-Bone Density Scan 03/28/2025 03/28/2023, 08/11/2020, 08/11/2020 Pneumococcal vaccine 65+ (4 of 4 - PPSV23 or PCV20) 05/27/2025 05/27/2020, 05/02/2019, 05/23/2013, Additional history exists DTaP/Tdap/Td Vaccine (3 - Td or Tdap) 02/07/2034 02/08/2024, 11/05/2013 Influenza Vaccine Completed 05/08/2024, , 03/03/2021, Additional history exists Procedures Procedure Name Priority Date/Time Associated Diagnosis Comments CBC WITH AUTO DIFFERENTIAL Routine 04/09/2024 7:22 AM PRICING COORDINATOR VITAMIN B12 Routine 04/09/2024 7:22 AM PRICING COORDINATOR Elevated MCV FOLATE Routine 04/09/2024 7:22 AM PRICING COORDINATOR Elevated MCV COMPREHENSIVE METABOLIC PANEL Routine 03/23/2024 11:13 AM CDT Rheumatoid arthritis involving multiple sites with positive rheumatoid factor ([facility]/HCC) (HCC) Encounter for long-term (current) use of medications DEXA AXIAL SKELETON BONE DENSITY 1 OR MORE SITES 08/11/2020 3:00 PM PRICING COORDINATOR SCREENING MAMMOGRAM BILATERAL W SHAWN 08/11/2020 3:00 PM PRICING COORDINATOR from Last 3 Months or Most Recently Relevant to Health Maintenance Results * (ABNORMAL) CBC with auto differential (04/09/2024 7:22 AM PRICING COORDINATOR) WBC 8.9 3.8 - 10.8 Thousand/u L [facility] RBC, POC 3.67(L) 3.80 - 5.10 Million/uL [facility] Hgb 14.4 11.7 - 15.5 g/dL [facility] Hct 41.2 35.0 - 45.0 % [facility] MCV 112.3(H) 80.0 - 100.0 fL [facility] MCH 39.2(H) 27.0 - 33.0 pg [facility] MCHC 35.0 32.0 - 36.0 g/dL [facility] Comment: For adults, a slight decrease in the calculated MCHC value (in the range of 30 to 32 g/dL) is most likely not clinically significant; however, it should be interpreted with caution in correlation with other red cell parameters and the patient's clinical condition. Rdw 14.2 11.0 - 15.0 % [facility] Platelets 380 140 - 400 Thousand/u L [facility] MPV 11.4 7.5 - 12.5 fL [facility] Neutrophils, abs 7,076 1,500 - 7,800 cells/uL [facility] Lymphocytes, abs 854 850 - 3,900 cells/uL [facility] Monocyte abs 712 200 - 950 cells/uL [facility] Eosinophils, abs 169 15 - 500 cells/uL [facility] Basophils, abs 89 0 - 200 cells/uL [facility] Neutrophils 79.5 % [facility] Lymphocyte pct 9.6 % [facility] Monocytes 8.0 % [facility] Eosinophils 1.9 % [facility] Basophils 1.0 % [facility] 04/09/2024 7:22 AM PRICING COORDINATOR 04/09/2024 7:22 AM PRICING COORDINATOR Bennie SHARMA LAB BLOOD ORDERABLES nal Result Performing Organization Address City/State/[facility] Co de Phone Number QUEST [facility] [address] [place] [address] * (ABNORMAL) Folate (04/09/2024 7:22 AM PRICING COORDINATOR) Pathologist [facility] Folate, Serum 4.0(L) ng/mL [facility] Comment: ? Reference Range ? Low: ? <3.4 ? Borderline: ?3.4-5.4 ? Normal: ?>5.4 Blood 04/09/2024 7:22 AM PRICING COORDINATOR 04/09/2024 7:22 AM PRICING COORDINATOR Bennie SHARMA LAB BLOOD ORDERABLES Fi nal Result Performing Organization Address [facility] de Phone Number QUEST [facility] [address] [place] [address] * Vitamin B12 (04/09/2024 7:22 AM PRICING COORDINATOR) Pathologist [facility] Vitamin B12 460 200 - 1,100 pg/mL [facility] Blood 04/09/2024 7:22 AM PRICING COORDINATOR 04/09/2024 7:22 AM PRICING COORDINATOR Bennie SHARMA LAB BLOOD ORDERABLES Fi nal Result Performing Organization Address [facility] de Phone Number QUEST [facility] [address] [place] [address] * (ABNORMAL) Comprehensive metabolic panel (03/23/2024 11:13 AM CDT) Pathologist [facility] Glucose 311(H) 65 - 99 mg/dL [facility] Comment: ? Fasting reference interval For someone without known diabetes, a glucose value >125 mg/dL indicates that they may have diabetes and this should be confirmed with a follow-up test. BUN 18 7 - 25 mg/dL [facility] Creatinine 0.86 0.50 - 1.05 mg/dL [facility] eGFR 74 > OR = 60 mL/min/1.7 3m2 [facility] BUN/creat ratio SEE NOTE: (calc) [facility] Comment: ?? Not Reported: BUN and Creatinine are within ?? reference range. ? Sodium 135 135 - 146 mmol/L [facility] Potassium, pl 4.8 3.5 - 5.3 mmol/L [facility] Chloride 94(L) 98 - 110 mmol/L [facility] CO2 33(H) 20 - 32 mmol/L [facility] Calcium 9.2 8.6 - 10.4 mg/dL [facility] Protein, sr 6.6 6.1 - 8.1 g/dL [facility] Albumin 3.4(L) 3.6 - 5.1 g/dL [facility] GLOBULIN 3.2 1.9 - 3.7 g/dL (calc) [facility] Alb/glob ratio 1.1 1.0 - 2.5 (calc) [facility] Bilirubin, total 1.1 0.2 - 1.2 mg/dL [facility] Alk phos 136 37 - 153 U/L [facility] AST 30 10 - 35 U/L [facility] ALT (SGPT) 17 6 - 29 U/L [facility] Blood 03/23/2024 11:1 3 AM CDT 03/23/2024 11:14 AM CDT Bennie SHARMA LAB BLOOD ORDERABLES nal Result Performing Organization Address [facility]/State/ZIP Co de Phone Number QUEST [facility] [address] [place] [address] * Screening Mammogram Bilateral W Shawn (08/11/2020 3:00 PM PRICING COORDINATOR) Anatomical Region Laterality Modality Breast Bilateral Mammography 08/11/2020 3:27 PM PRICING COORDINATOR Narrative 08/19/2020 11:13 AM CDT Patient Name: REGINA HAHN ?Ordering Dr: Michelle Marin MD ?? D.O.B: 1960 ? Exam Date: // ?? 1500 ?? Age: 60 ?Sex: Female ? MR#: [id number] ?? Loc: ? RADIOLOGY REPORT ?? Order #[id number] ?? [facility] ? Gladys Bilat Screening 3D ? Signed ?- MG ?? BILATERAL DIGITAL SCREENING MAMMOGRAM 3D/2D WITH MEDIOLATERAL OBLIQUE ?? CRANIOCAUDAL: 08/11/2020 ?? The study was acquired using full field digital technology and interpreted from ?soft copy. ?2D digital mammographic views, as well as 3D digital tomosynthesis were ?? performed in the CC and MLO projections. ? CLINICAL: Routine mammogram. Patient denies any problems. Sister with breast ?? cancer. No personal history of breast cancer. ? COMPARISONS: Comparison is made to exams dated: ??12/27/2017 mammogram, 04/07/2016 ?mammogram, and 03/24/2016 mammogram - [facility]. ? BREAST TISSUE: There are scattered areas of fibroglandular density. ? FINDINGS: There are benign calcifications in both breasts. ??There also is a ?? biopsy clip in the right breast. ? No significant masses, calcifications, or other findings are seen in either ?? breast. ? There has been no significant interval change. ? IMPRESSION: BI-RAD 2 ??BENIGN ?? There is no mammographic evidence of malignancy. A 1 year screening mammogram ?? is recommended. ? The patient has been or will be contacted. ? We recommend annual screening mammography for women at average risk of breast ?? cancer beginning at age 40, based on guidelines of the [employer] ?? [employer] (ACR Practice Parameter for the Performance of Screening and ?? Diagnostic Mammography) and [employer] and ?? Gynecologists. For women with an elevated risk of breast cancer, please refer ?? to the ACR Practice Parameter for specific screening recommendations. ? The patient will be entered into a reminder system with a target due date of 1 ?? year for her next screening exam. ? Electronically signed by: ?Van Gomez ? rl/penrad:08/19/2020 11:13:15 ? Marine Electrician Helper: Samantha CHAHAL)(M), [facility] ?? letter sent: Normal Exam ? Reading location: ?? BI-RADS: 2 Benign ? REPORT ELECTRONICALLY SIGNED IN OTHER VENDOR SYSTEM ?? Resulting Agency Comment O Procedure Note Van Orona MD - 08/19/2020 Patient Name: Abhilash HAHN Dr: Michelle Marin MD D.O.B: 1960 Exam Date: 08/11/20 1500 Age: 60 Sex: Female MR#: [id number] Loc: RADIOLOGY REPORT Order #[id number] [facility] Gladys Bilat Screening 3D Signed - MG BILATERAL DIGITAL SCREENING MAMMOGRAM 3D/2D WITH MEDIOLATERAL OBLIQUE CRANIOCAUDAL: 08/11/2020 The study was acquired using full field digital technology andinterpreted from soft copy. 2D digital mammographic views, as well as 3D digital tomosynthesis were performed in the CC and MLO projections. CLINICAL: Routine mammogram. Patient denies any problems. Sister withbreast cancer. No personal history of breast cancer. COMPARISONS: Comparison is made to exams dated: 12/27/2017 mammogram,04/07/2016 mammogram, and 03/24/2016 mammogram - [facility]. BREAST TISSUE: There are scattered areas of fibroglandular density. FINDINGS: There are benign calcifications in both breasts. There also lacey biopsy clip in the right breast. No significant masses, calcifications, or other findings are seen ineither breast. There has been no significant interval change. IMPRESSION: BI-RAD 2 BENIGN There is no mammographic evidence of malignancy. A 1 year screeningmammogram is recommended. The patient has been or will be contacted. We recommend annual screening mammography for women at average risk ofbreast cancer beginning at age 40, based on guidelines of the [employer] (ACR Practice Parameter for the Performance of Screening and Diagnostic Mammography) and [employer]. For women with an elevated risk of breast cancer, pleaserefer to the ACR Practice Parameter for specific screening recommendations. The patient will be entered into a reminder system with a target due dateof 1 year for her next screening exam. Electronically signed by: Van Gomez rl/rosaura:08/19/2020 11:13:15 Marine Electrician Helper: Samantha SHERMAN(Michelle)(Chema), [facility] letter sent: Normal Exam Reading location: BI-RADS: 2 Benign REPORT ELECTRONICALLY SIGNED IN OTHER VENDOR SYSTEM us Michelle Marin MD IMG MAMMO PROCEDURES Fin al Result * Dexa Axial Skeleton Bone Density 1 or 2 Site (08/11/2020 3:00 PM PRICING COORDINATOR) Anatomical Region Laterality Modality Body N/A Radiographic Akosua ging 08/12/2020 8:19 PM PRICING COORDINATOR Narrative 08/12/2020 8:20 PM PRICING COORDINATOR Patient Name: REGINA HAHN ?Ordering Dr: Michelle Marin MD ?? D.O.B: 1960 ? Exam Date: 08/11/20 ?? 1500 ?? Age: 60 ?Sex: Female ? MR#: [id number] ?? Loc: ? RADIOLOGY REPORT ?? Order #[id number] ?? Bone Density ? Bone Density Hip/Spine (STD) ? Signed ? EXAM DESCRIPTION: ?? Bone Density Hip/Spine (STD) ? REASON FOR STUDY: ?? Post-menopausal female, screening for osteoporosis. ? Carpet Renovator/Model: ?? Yoovi Horizon A (S/N [id number]) ? CLINICAL INFORMATION: ??Current height: ??69 inches ? Maximum height: 70 inches ? Weight: 250 pounds ? Risk factors: Current tobacco use, rheumatoid arthritis ? COMPARISON: ??None available. ? FINDINGS: ? AP LUMBAR SPINE L1-L4: ? Total BMD is ??1.054 g/cm2 ? T-score is 0.1 ? LEFT HIP: ? Total BMD is 1.022 g/cm2 ? T-score is 0.7 ? Femoral neck BMD is 0.786 g/cm2 ? T-score is -0.6 ? IMPRESSION: ?? Normal bone mineral density. ? REFERENCE: ??Bone mineral density: ?Normal (T-score above or = -1.0) ?Low bone mass ??(T-score between -1.0 and -2.5) replaces the previously ?? used term osteopenia ?Osteoporosis (T-score = or below -2.5) ? Medical evaluation for secondary causes of low bone mineral density may be ?? appropriate. ? FRAX is a World Health Organization validated fracture risk assessment tool ?? that calculates a person's 10 year probability of a major osteoporosis related ?? fracture and hip fracture. ??According to the National Osteoporosis Foundation ?? guidelines, postmenopausal women and men age 50 or older with low bone mass ?? and a 10 year probability of a major osteoporosis related fracture = or ?? greater than 20% or a 10 year probability of a hip fracture = or greater than ?? 3% should be considered for treatment. ? For further information, including treatment recommendations, please refer to ?? the 2013 ISCD Official Positions (http://www.iscd.org) and the NOF's ?? Clinician's Guide to Prevention and Treatment of Osteoporosis ?? (http://www.nof.org/professionals/clinical-guidelines) ? THIS IS AN ELECTRONICALLY VERIFIED FINAL REPORT ?? 08/12/2020 8:20 PM - Electronically signed by Vladimir Ahmadi M.D. ?? Vladimir Ahmadi M.D. ? AB: AB ?? D: ??08/12/2020 8:20 PM ?? T: ??08/12/2020 8:20 PM ? Report ID: [id number] ?? Reading Location: ??[id number] ? REPORT ELECTRONICALLY SIGNED IN OTHER VENDOR SYSTEM ?? Resulting Agency Comment O Procedure Note Vladimir Ahmadi MD - 08/12/2020 Patient Name: Abhilash HAHN Dr: Michelle Marin MD D.O.B: 1960 Exam Date: 08/11/20 1500 Age: 60 Sex: Female MR#: [id number] Loc: RADIOLOGY REPORT Order #[id number] Bone Density Bone Density Hip/Spine (STD) Signed EXAM DESCRIPTION: Bone Density Hip/Spine (STD) REASON FOR STUDY: Post-menopausal female, screening for osteoporosis. Carpet Renovator/Model: MethylGene A (S/N [id number]) CLINICAL INFORMATION: Current height: 69 inches Maximum height: 70 inches Weight: 250 pounds Risk factors: Current tobacco use, rheumatoid arthritis COMPARISON: None available. FINDINGS: AP LUMBAR SPINE L1-L4: Total BMD is 1.054 g/cm2 T-score is 0.1 LEFT HIP: Total BMD is 1.022 g/cm2 T-score is 0.7 Femoral neck BMD is 0.786 g/cm2 T-score is -0.6 IMPRESSION: Normal bone mineral density. REFERENCE: Bone mineral density: Normal (T-score above or = -1.0) Low bone mass (T-score between -1.0 and -2.5) replaces thepreviously used term osteopenia Osteoporosis (T-score = or below -2.5) Medical evaluation for secondary causes of low bone mineral density maybe appropriate. FRAX is a World Health Organization validated fracture risk assessmenttool that calculates a person's 10 year probability of a major osteoporosisrelated fracture and hip fracture. According to the National OsteoporosisFoundation guidelines, postmenopausal women and men age 50 or older with low bonemass and a 10 year probability of a major osteoporosis related fracture = or greater than 20% or a 10 year probability of a hip fracture = or greaterthan 3% should be considered for treatment. For further information, including treatment recommendations, pleaserefer to the 2013 ISCD Official Positions (http://www.iscd.org) and the NOF's Clinician's Guide to Prevention and Treatment of Osteoporosis (http://www.nof.org/professionals/clinical-guidelines) THIS IS AN ELECTRONICALLY VERIFIED FINAL REPORT 08/12/2020 8:20 PM - Electronically signed by Vladimir Ahmadi M.D. AB: Report ID: [id number] Reading Location: [id number] REPORT ELECTRONICALLY SIGNED IN OTHER VENDOR SYSTEM Michelle Marin MD IMG DXA PROCEDURES Final Result from Last 3 Months or Most Recently Relevant to Health Maintenance Insurance [facility] Care Teams Knowledge Management Consultant Relationship Specialty Start Date End Date Kam Varghese MD [address] [place] [address] PCP - General Internal Medicine 03/30/22 Karl Sung MD [address] [facility] [place] [address] Consulting Physician Rheumatology 09/11/20 Edward Allison MD [address] [facility] [address] [place], [place] [id number] Referring Physician Orthopedic Surgery 11/26/21 Kam Varghese MD [address] [place], [place] [id number] Internal Medicine 03/30/22 Marjorie Jacobo MD [address] [place], [place] [id number] Consulting Physician Pulmonary Disease 07/27/22
--- OUTSIDE RECORDS SUMMARY | 2024-07-10 16:35 | XMS_ITS | Encounter Summary ---
Author Organization [facility] Address [address] [place] [address] Care Team Providers Care Ink Printer Name Role Phone Kam Varghese MD Primary Care Provider [phone] Minerva Reyes RN Unavailable [phone] Encounter Details Date Type Department Care Team (Late Contact Info) Description 11/02/2023 [facility] Message Enc [address] [address] [address] [place] [address] [facility] Provider lab results Social History Tobacco Use Types Packs/Day Years Used Date Smoking Tobacco: Every Day Cigarettes 0.8 50 Passive Smoke Exposure: Past Smokeless Tobacco: Never Comments:counseled by Dr Olya cota Alcohol Use Standard Drinks/Week Comments Not Currently 0 (1 standard drink = 0.6 oz pur e alcohol) rarely PHQ-2 Answer Date Recorded Patient Health Questionnaire-2 Score 1 07/04/2023 Comments No Sex and Gender Information Value Date Recorded Sex Assigned at Female 07/04/2024 10:42 PM STATEMENT SERVICES REPRESENTATIVE Legal Sex Female 9:48 AM STATEMENT SERVICES REPRESENTATIVE Gender Identity Not on file Sexual Orientation Not on file documented as of this encounter Plan of Treatment Upcoming Encounters Date Type Department Care Team (Latest Contact Info) Description 07/11/2024 10:40 AM STATEMENT SERVICES REPRESENTATIVE [facility] [address] [place] [address] Kam Varghese MD [address] [place] [address] 08/06/2024 10:40 AM STATEMENT SERVICES REPRESENTATIVE Office Visit [facility] - [address] [address] [address] [place] [address] Kam Varghese MD [address] [address] 04/15/2025 8:00 AM STATEMENT SERVICES REPRESENTATIVE Hospital Encounter [facility] [place] [address] Helder Willis MD [address] [address] 04/15/2025 8:00 AM STATEMENT SERVICES REPRESENTATIVE - 04/15/2025 8:30 AM STATEMENT SERVICES REPRESENTATIVE Surgery [facility] Endo/[place] [address] Helder Willis MD [address] [address] COLONOSCOPY Scheduled Procedures Name Priority Associated Diagnoses Date/Ti me COLONOSCOPY Family history of colon cancer Personal history of colon polyps, unspecified Encounter for screening colonoscopy 04/15/2025 8:00 AM STATEMENT SERVICES REPRESENTATIVE documented as of this encounter Visit Diagnoses Not on filedocumented in this encounter Additional Health Concerns Infection Onset Date Last Indicated Resolved Time COVID-19 Rule Out 07/05/2024 07/05/2024 07/05/2024 2:49 AM STATEMENT SERVICES REPRESENTATIVE Influenza - Seasonal 07/05/2024 07/05/2024 Assessment Noted Time PHQ-9 Depression Total Score: 6 07/04/19 24 11:06 AM STATEMENT SERVICES REPRESENTATIVE documented as of this encounter Care Teams Ink Printer Relationship Specialty [place] [address] [place] [address] PCP - General INTERNAL MEDICINE 03/26/22 Minerva Reyes, RN [address] [place] [address] Vegetable Loader (Ambulatory) REGISTERED NURSE 07/05/24 documented as of this encounter
--- OUTSIDE RECORDS SUMMARY | 2024-07-10 16:35 | XMS_ITS | Clinical Summary ---
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 Name Role Phone Kam Varghese MD Primary Care Provider [phone] Minerva Reyes RN Unavailable [phone] Allergies Active Allergy Reactions Criticality Noted Date Comments Canagliflozin GI Upset,Unknown Low 05/04/2018 Guanfacine Other (see comment) 01/02/2024 Had side effects -patient cannot recall Sitagliptin Other (see comment) 03/26/2022 pancreatitis Morphine Headache 06/09/2021 Sulfa Antibiotics Hives 06/09/2021 Topiramate Other (see comment) 09/05/2023 She recalls not feeling right Varenicline Other (see comment) 09/05/2023 depression Medications azaTHIOprine (IMURAN) 50 MG tablet Take 1 tablet (50 mg total) by mouth daily. 3TABS IN AM AND 2TABS IN PM Active aspirin EC (ECOTRIN) 81 MG tablet Take 1 tablet (81 mg total) by mouth daily. Active atorvastatin (LIPITOR) 20 MG tabletIndicatio ns:Hyperlipidem ia associated with type 2 diabetes mellitus (CMS/HCC HHS/HCC) Take 1 tablet (20 mg total) by mouth nightly at bedtime. 90 tablet 1 024 Active hydroCHLOROthia zide (HYDRODIURIL) 25 MG tabletIndicatio ns:Hypertension associated with type 2 diabetes mellitus (CMS/HCC HHS/HCC) Take 1 tablet (25 mg total) by mouth every morning. 90 tablet 1 024 Active pramipexole (MIRAPEX) 0.5 MG tabletIndicatio ns:RLS (restless legs syndrome) Take 1 tablet (0.5 mg total) by mouth daily. 270 tablet 1 Active rOPINIRole (REQUIP) 4 MG tabletIndicatio ns:RLS (restless legs syndrome) Take 1 tablet (4 mg total) by mouth nightly at bedtime. at bedtime 90 tablet 1 Active trimethoprim (TRIMPEX) 100 MG tabletIndicatio ns:Recurrent urinary tract infection Take 1 tablet (100 mg total) by mouth nightly at bedtime. at bedtime. 90 tablet Active vitamin D2, ergocalciferol, (DRISDOL) 1.25 mg capsuleIndicati ons:Vitamin D deficiency Take 1 capsule (1.25 mg total) by mouth once a week. 12 capsule 3 Active Additional Information Patient taking differently:1.25 mg Oral Weekly,Fridays, Reported on 07/05/2024 insulin aspart (NOVOLOG) 100 UNIT/ML injection (PEN)Indication s:Type 2 diabetes mellitus with hyperglycemia, with long-term current use of insulin ([facility]) Use three times daily 30 minutes before main meals. If blood sugars 60-150= 0 units 151-200= 3 units 201-250= 5 units 251-300= 8 units 301-350= 10 units 351-400= 12 units >400 call provider. Max for day: 36 units in 24 hours. 15 mL 11 Active Additional Information Patient taking differently: 0-12 Units Subcutaneous 3 times daily before meals, Use three times daily 30 minutes before main meals. If blood sugars 60-150= 0 units 151-200= 3 units 201-250= 5 units 251-300= 8 units 301-350= 10 units 351-400= 12 units >400 call provider. Max for day: 36 units in 24 hours., Reported on 07/05/2024 albuterol sulfate HFA 108 (90 Base) MCG/ACT inhaler Inhale 2 puffs into the lungs every 6 (six) hours as needed for Wheezing. Active folic acid (FOLVITE) 1 MG tablet Take 1 tablet (1 mg total) by mouth daily. 2024 Active Insulin Glargine, 1 Unit Dial, (TRAVONJIN TANYAOSTAR) 300 UNIT/ML Solution Pen-injectorInd ications:Type 2 diabetes mellitus with hyperglycemia, with long-term current use of insulin ([facility] HHS/[facility]) Inject 57 Units into the skin 2 (two) times a day. 12 mL 11 024 Active metFORMIN ER (GLUCOPHAGE-XR) 500 MG 24 hr tabletIndicatio ns:Type 2 diabetes mellitus with hyperglycemia, with long-term current use of insulin ([facility] HHS/[facility]) Take 3 tablets (1,500 mg total) by mouth daily with breakfast. 270 tablet 1 024 Active amLODIPine (NORVASC) 10 MG tabletIndicatio ns:Hypertension associated with type 2 diabetes mellitus ([facility]) Take 0.5 tablets (5 mg total) by mouth daily. 30 tablet 025 Active Continuous Blood Gluc Electric Shovel Operator (FREESTYLE DANNIELLE 2 READER) Device USE READER TO CHECK BLOOD SUGAR 4 TIMES DAILY 022 2024 Discontinued(E rror) B-D ULTRAFINE III SHORT PEN 31G X 8 MM Misc USE DIRECTED WITH NOVLOLG 4 TIMES A DAY 022 2024 Discontinued(E rror) Pirfenidone 801 MG Tab 022 2024 Discontinued(E rror) clobetasol (TEMOVATE) 0.05 % creamIndication s:Dermatitis Apply topically 2 (two) times daily. Use for 7 days then stop. 60 g 023 2024 Discontinued(E rror) WALKING BOOT, DME,Indications :Acute right ankle pain Apply 1 Device topically daily. RIGHT FOOT SIZE 12 1 Device 023 2024 Discontinued(E rror) Upadacitinib (RINVOQ OR) Once daily 2024 Discontinued(E rror) furosemide (LASIX) 20 MG tabletIndicatio ns:Leg edema,Benign essential hypertension Take 1 tablet (20 mg total) by mouth daily as needed. Take potassium supplements while on Lasix. 20 tablet 024 2024 Discontinued(E rror) Continuous Glucose Sensor (FREESTYLE DANNIELLE 2 SENSOR) MiscIndications :Type 2 diabetes mellitus without complication, without long-term current use of insulin ([facility] HHS/HCC) APPLY ONE SENSOR TO BACK OF EITHER ARM ONCE EVERY 2 WEEKS TO CHECK BLOOD SUGAR 4 TIMES DAILY 2 each 024 2024 Discontinued(E rror) lidocaine viscous-mylanta -benadryl (GI COCKTAIL) suspensionIndic ations:Right upper quadrant abdominal pain,Epigastric pain Take 10 mLs by mouth every 6 (six) hours as needed. Prepare in ratio of 1:1:1 200 mL 024 2024 Discontinued(E rror) amLODIPine (NORVASC) 10 MG tabletIndicatio ns:Hypertension associated with type 2 diabetes mellitus ([facility] HHS/HCC) Take 1 tablet (10 mg total) by mouth daily. 90 tablet 1 024 2024 Discontinued esomeprazole (NEXIUM) 40 MG capsuleIndicati ons:Epigastric pain Take 1 capsule (40 mg total) by mouth 2 (two) times a day. 180 capsule 1 024 2024 Discontinued(E rror) tiotropium (SPIRIVA) [address] 1 capsule (18 mcg total) into inhaler and inhale daily. 024 2024 Discontinued(E rror) oseltamivir (TAMIFLU) 30 MG capsule Take 1 capsule (30 mg total) by mouth 2 (two) times daily for 3 days. 6 capsule 025 2024 Discontinued predniSONE (DELTASONE) 20 MG tablet Take 2 tablets (40 mg total) by mouth daily for 2 days. 4 tablet 025 2024 amoxicillin-cla vulanate (AUGMENTIN) 875-125 MG tablet Take 1 tablet (875 mg total) by mouth 2 (two) times daily for 3 days. 6 tablet 025 2024 Discontinued amoxicillin-cla vulanate (AUGMENTIN) 875-125 MG tablet Take 1 tablet (875 mg total) by mouth 2 (two) times daily for 2 days. 4 tablet 025 2024 oseltamivir (TAMIFLU) 30 MG capsule Take 1 capsule (30 mg total) by mouth 2 (two) times daily for 2 days. 4 capsule 025 2024 Active Problems Problem Noted Date Diagnosed Date Acute respiratory failure with hypoxemia ([facility]) 07/05/2024 Family history of colon cancer 05/17/2024 Personal history of colon polyps, unspecified Hypertensive heart disease w ith heart failure ([facility] HHS/[facility]) 08/29/2023 Thrombocytosis 03/26/2022 Elevated serum alkaline phosphatase level 2021 Chronic left shoulder pain 02/25/2022 Overview (03/26/2022): Last Assessment & Plan: XR L shoulder 2018: irregularity involving the [...] renal insufficiency. Reconsider PT if symptoms worsen. Primary osteoarthritis involving multiple joints 02/25/2022 Restrictive lung disease 09/29/2021 Obstructive sleep apnea 09/29/2021 Chronic pain of right knee 05/20/2021 Overview (03/26/2022): X-ray right knee 05/27/2021: Mild to moderate [...] tear. Moderate sized right knee joint effusion Last Assessment & Plan: X-ray right knee 05/27/2021: Mild to moderate [...] Knee is doing well at this time. Mediastinal lymphadenopathy 05/18/2021 Pulmonary fibrosis ([facility]) 12/19/2020 Interstitial lung disease ([facility]) 09/05 Overview (03/26/2022): Last Assessment & Plan: CXR 09/2020: Progression of course bilateral interstitial infiltrates peripherally, likely pulmonary fibrosis Chronic smoker. Continue aza 150/100. Follows with pulmonology Dr. Jacobo. Morbid (severe) obesity due to excess calories ([facility]) 08/27/2020 Acquired absence of spleen 05/27/2020 Gastroesophageal reflux disease 05/27/2020 Hyperlipidemia 05/27/2020 Recurrent urinary tract infection 03/03/2020 Benign essential hypertension 05/24/2019 Overview (06/11/2022): BP Readings from Last 3 Encounters: 04/10/20 (!) 140/70 04/10/20 (!) 145/68 03/31/20 110/65 04/10/2020 Increase lisinopril to 20 mg No side effects. Does not check home blood pressures. Given a loaner blood pressure cuff today. 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 Seen with Dr. Sung. Dr. Sung Still in pain. meloxicam 15mg Oxycodone 5mg Prednisone as needed for flares Azathioprine Last Assessment & Plan: stable. Continue with rheumatology Chronic midline low back pain without sciatica 0 09/08/2017 Dry eye 09/08/2017 Dry mouth 09/08/2017 Fatty liver 09/08/2017 Multiple pulmonary nodules 07/16/2016 Tobacco dependency 07/16/2015 Overview (03/26/2022): Last Assessment & Plan: Now trying patches. Encouraged cessation Restless legs syndrome 07/27/2013 Overview (03/26/2022): Last Assessment & Plan: Patient is a former patient at [facility] being treated for restless leg syndrome of combination ropinirole and pramipexole. She is in need of refill of medication at this time. Both medications have been refilled as previously prescribed and a formal medical request for medical records from [facility] will be placed. She will follow up with Neurology office in 1 year. Neuro: Dr. Andrei pacheco Oxycodone Ropinirole Last Assessment & Plan: Improving. Continue current plan of care.. Attention deficit hyperactiv ity disorder (ADHD), predominantly inattentive type 07/27/2013 Overview (03/26/2022): Had been on Adderall for 3 years Currently lifestyle management Type 2 diabetes mellitus wit hout complication, without long-term current use of insulin ([facility]) 07/27/2013 Overview (03/26/2022): Onset -. On insulin since 201006/28/2019 Increase humalog to 7 units TID lantus 26units daily Metformin Has some symptoms consistent with diabetes gastroparesis. Declines imaging. Lab Results Component Value Date/Time HGBA1C 8.3 (H) 11/20/2019 10:04 AM [id number] 8.8 (A) 03/31/2020 01:32 PM Reports she gets pancreatitis on some diabetes drugs. Intolerant of Invokana 04/10/2020 Home numbers improving, but reported as not controlled. Follows with Dahiana Rodríguez 11/20/2019 Last Assessment & Plan: Diabetes: Stable. Continue current plan of care. Medications reviewed and refilled/adjusted as indicated. See medication orders. Labs ordered/reviewed. Reminded to get yearly retinal exam. Hold insulin. Send me weekly updates on home glucose. Resolved Problems Problem Noted Date Diagnosed Date Resolved Date Screening for colon cancer 05/17/2024 1 07/22/2023 Encounter for screening colonoscopy 05/17/2024 05/21/2024 Moderately severe major depr ession ([facility]) 08/27/2020 06/11/2022 Intractable migraine without aura and with status migrainosus 06/13/2017 06/11/2022 Overview (03/26/2022): Dr. Forbes Encounters Date Type Department Care Team Description 07/10/2024 Telephone [facility] Medical [facility] Multispecialty Care - [address] [place] [address] Kam Varghese MD Blood Pressure; Rectal Problem 07/09/2024 Telephone [place] [address] [address] [address] [place] [address] Kam Varghese MD Follow Up Call; Appointment Request 07/09/2024 Hospital Follow-up Call [facility] [place] [address] Susan Scott LPN Follow Up Call (LAY 07/04-07/07/24) 07/09/2024 Patient Outreach [place] [address] [address] [address] [place] [address] Minerva Reyes, RN TCM (LAY 07/04-07/07) 07/05/2024 Scan [facility] INFO SRVCS Scanned, Doc Med Group 07/05/2024 Patient Outreach [place] [address] [address] [address] [place] [address] Minerva Ryees RN Hospital Follow Up (Admission notification to LAY.) 07/04/2024 11:12 PM DATA ARCHITECT - 07/07/2024 10:06 AM DATA ARCHITECT Hospital Encounter [facility] [place] [address] Fredrick Sharma, PENNY Archuleta, MD [place] Dominique C, MD Shortness Of Breath Discharge Disposition: Home or Self Care (Routine Discharge) 07/04/2024 Scan [facility] INFO SRVCS Scanned, Doc Med Group 07/04/2024 Telephone [place] [address] [address] [address] [place] [address] Kam Varghese MD Medication Information 07/04/2024 Travel 06/19/2024 Telephone [place] [address] [address] [address] [place] [address] Kam Varghese MD Referral 06/19/2024 MyChart Message Enc [facility] [place] - [place] [address] [place] [address] Kam Varghese MD Referral 06/18/2024 Scan [facility] SRVCS Scanned, Doc Med Group 05/17/2024 8:20 AM DATA ARCHITECT Office Visit [facility] [address] [facility] [address] [place] [id number] Tamar Hoyt NP Follow Up (F/u pt denies any sx's today ) 05/17/2024 Orders Only [facility] - [address] [place] [address] Helder Willis MD 05/17/2024 Travel 05/08/2024 8:20 AM DATA ARCHITECT Office Visit [facility] - [place] [address] [place] [address] Kam Varghese MD Follow Up; Diabetes 05/08/2024 Travel 04/09/2024 Scan [facility] INFO SRVCS Scanned, Doc Med Group Lab (SCAN) from Last 3 Months Immunizations Name Administration Dates Next Due Fluzone 6 Months+ Quad (0.5 mL Prefilled Syringe) 03/26/2022 Fluzone High Dose (IIV, triv alent, 0.5mL) 05/08/2024 Fluzone High Dose - >Age 65 (Prefilled Syringe) 03/01/2023 Hib (Generic) 11/10/2003 Influenza (Generic) 03/03/2021,03/14/2015 Influenza Adult (Generic) 04/10/2020,07/2019,05/02/2019,03/02,02/21/2017,03/15/2016 Meningcoccal Group B (Bexser o)(aka Meningitis) 11/10/2003 Meningococcal (MenQuadfi) 02/08/2024,11/24/2022 PFIZER COVID-19 (SAMUELS CAP), MRNA, LNP-S, PF, 30 MCG/0.3 ML ANDREA-SUCROSE, IM 03/20/2022,09/15/2021 PFIZER COVID-19 (ORIGINAL FO RMULATION, PURPLE CAP) mRNA, LNP-S, PF, 30 MCG/0.3 ML DOSE 03/14/2024,04/20/2021,08/27/2020,08/05 PFIZER COVID-19 BIVALENT (12 +) mRNA, LNP-S, PF, 30 MCG/0.3 ML DOSE 01/12/2023,03/20/2022 Pneumococcal (Generic) 11/10/2003 Pneumococcal (Pneumovax 23) 05/27/2020, 9 Pneumococcal (Prevnar 13) 05/23/2013 Tdap (Adacel) 02/08/2024 Tdap (Generic) 11/05/2013 Family History Medical History Relation Comments Heart Disease Father Colon Cancer Maternal Uncle Arthritis Mother Cancer Mother Diabetes Mother Pancreatic cancer Mother pancreatic cancer Mother Breast Cancer Sister Relation Status Comments Father Maternal Uncle Alive Mother Sister Social History Tobacco Use Types Packs/Day Years Used Date Smoking Tobacco: Every Day Cigarettes 0.8 50 Passive Smoke Exposure: Past Smokeless Tobacco: Never Tobacco Cessation:Ready to Q uit: Yes; Counseling Given: Yes Comments:counseled by Dr Varghese Alcohol Use Standard Drinks/Week Comments Not Currently 0 (1 standard drink = 0.6 oz pur e alcohol) rarely [facility] Or[employer] Answer Date Recorded In the past 12 months has [facility] [employer], [employer], or water Parents R People threatened to shut off services in your home? No 07/05/2024 Humiliation, Afraid, Rape, and Kick questionnair e Answer Date Recorded Within the last year, have y ou been afraid of your partner or ex-partner? No 07/05/2024 Within the last year, have y ou been humiliated or emotionally abused in other ways by your partner or ex-partner? No Within the last year, have y ou been kicked, hit, slapped, or otherwise physically hurt by your partner or ex-partner? No 07/05/2024 Within the last year, have y ou been raped or forced to have any kind of sexual activity by your partner or ex-partner? No 07/05/2024 Overall Financial Resource Strain (CARDIA) Answe r Date Recorded How hard is it for you to pa y for the very basics like food, housing, medical care, and heating? Not hard at all 07/05/2024 PHQ-2 Answer Date Recorded Patient Health Questionnaire-2 Score 0 05/17/2024 Hunger Vital Sign Answer Date Recorded Within the past 12 months, y ou worried that your food would run out before you got the money to buy more. Never true 07/05/19 25 Within the past 12 months, t he food you bought just didn't last and you didn't have money to get more. Never true 07/05/2024 PRAPARE - Transportation Answer Date Re corded In the past 12 months, has l ack of transportation kept you from medical appointments or from getting medications? No 06/08 In the past 12 months, has l ack of transportation kept you from meetings, work, or from getting things needed for daily living? No 07/05/2024 Housing Stability Vital Sign Answer Troy e Recorded In the last 12 months, was t here a time when you were not able to pay the mortgage or rent on time? No 07/05/2024 In the past 12 months, how m any times have you moved where you were living? 0 07/05/2024 At any time in the past 12 m [facility], were you homeless or living in a [place] health care facility (including now)? No 07/05/2024 Comments No Sex and Gender Information Value Date Recorded Sex Assigned at Female 07/04/2024 10:42 PM DATA ARCHITECT Legal Sex Female 9:48 AM DATA ARCHITECT Gender Identity Not on file Sexual Orientation Not on file Last Filed Vital Signs Vital Sign Reading Time Taken Comments Blood Pressure 108/55 07/07/2024 8:10 AM DATA ARCHITECT Pulse 61 07/07/2024 8:10 AM DATA ARCHITECT Temperature 36.2 ??C (97.2 ??F) 07/07/2024 8:10 AM CS T Respiratory Rate 20 07/07/2024 8:10 AM DATA ARCHITECT Oxygen Saturation 96% 07/07/2024 9:37 AM DATA ARCHITECT Inhaled Oxygen Concentration - - Weight 112 kg (246 lb 14.6 oz) 07/07/2024 5:00 A M DATA ARCHITECT Height 172.7 cm (5' 8 ) 07/04/2024 10:20 PM DATA ARCHITECT Body Mass Index 37.54 07/04/2024 10:20 PM DATA ARCHITECT Plan of Treatment Upcoming Encounters Date Type Department Care Team (Latest Contact Info) Description 07/11/2024 10:40 AM DATA ARCHITECT Office Visit [facility] Medical [facility] - [address] [address] [address] [place] [address] Kam Varghese MD [facility] [address] [address] 08/06/2024 10:40 AM DATA ARCHITECT [facility] [place] [facility] - [address] [address] Kam Varghese MD [facility] [address] [address] 04/15/2025 8:00 AM DATA ARCHITECT Hospital Encounter [facility] [place] [address] Heldre Willis MD [address] [address] 04/15/2025 8:00 AM DATA ARCHITECT - 04/15/2025 8:30 AM DATA ARCHITECT Surgery [facility] [place] Endo/[place] [address] Helder Willis MD [address] [address] COLONOSCOPY Scheduled Procedures Name Priority Associated Diagnoses Date/Ti me COLONOSCOPY Family history of colon cancer Personal history of colon polyps, unspecified Encounter for screening colonoscopy 04/15/2025 8:00 AM DATA ARCHITECT Health Maintenance Due Date Last Done Comments Kidney Health Evaluation 1960 Zoster Vaccines (1 of 2) 1977 Meningococcal B Vaccine (2 of 5 - Increased Risk Bexsero 3-dose series) 12/08/2003 11/10/2003 RSV Immunization or 60+ Years (1 - Risk 60-74 years 1-dose series) 2018 Annual Medicare Wellness Visit 2023 COVID-19 Vaccine ( season) 2024 03/14/2024, 01/12/2023, 03/20/2022, Additional history exists PHQ-2 (Physician Dougherty) 06/06/2024 05/17/2024 Lipid Panel 06/09/2024 06/09/2023, 03/07, 11/20/2019 Diabetes: Retinopathy Eye Exam 06/23/2024 06/23/2023, 03/08/2022 Hemoglobin A1C 11/06/2024 05/08/2024, 12/05, 11/01/2023, Additional history exists Lung Cancer Screening 04/02/2025 04/02/2024 , 03/25/2023, 12/10/2022, Additional history exists Pneumococcal Vaccine: 65+ Years (4 of 4 - PPSV23 or PCV20) 05/27/2025 05/27/2020, 05/02/2019, 05/23/2013 Mammogram Screening 11/16/2025 11/17/2023, 05/05/2022, 08/11/2020, Additional history exists Meningococcal Vaccine (3 - Risk 2-dose series) 02/07/2029 02/08/2024, 11/24/2022 Colorectal Cancer Screening Colonoscopy (10 Years) 04/07/2032 04/07/2022, 04/07/2022 DTaP, Tdap and Td Vaccines (3 - Td or Tdap) 02/07/2034 02/08/2024, 11/05/2013 Hepatitis C Completed 03/26/2022 Dexa Scan (General) Completed 03/28/2023, 08/11/2020, 08/11/2020 Influenza Adult Completed 05/08/2024, 02/05, 03/26/2022, Additional history exists RSV Immunizations Under 20 Months Aged Out No longer eligible based on patient's age to complete this topic Medical Devices Implanted Type Area Mobile Home Lot Utility Worker Device Identifier Shelf Expiration Date Model / Serial / Lot Clip Clip Implant Breast Clip Resolution 2.8mm 360 235cm 11mm Open - [id number] Implanted:Qty: 1 on 04/07/2022 by Kristopher Escamilla DO at [facility] Clip Implant [employer] [facility] [id number] 10/28/2024 [id number] / / [id number] Description:Cecal Procedures Procedure Name Priority Date/Time Associated Diagnosis Comments POCT GLUCOSE - ANDRADE DOCKED DEVICE Routine 07/07/2024 6:20 AM DATA ARCHITECT PHOSPHORUS, INORGANIC PHOSPHATE Routine 07/07/2024 5:13 AM DATA ARCHITECT COMPREHENSIVE METABOLIC PANEL Routine 07/07/2024 5:13 AM DATA ARCHITECT CBC W/DIFF AUTOMATED Routine 07/07/2024 5:13 AM DATA ARCHITECT POCT GLUCOSE - ANDRADE DOCKED DEVICE Routine 07/06/2024 8:35 PM DATA ARCHITECT POCT GLUCOSE - ANDRADE DOCKED DEVICE Routine 07/06/2024 3:34 PM DATA ARCHITECT BASIC METABOLIC PANEL TIMED 07/06/2024 11:32 AM DATA ARCHITECT POCT GLUCOSE - ANDRADE DOCKED DEVICE Routine 07/06/2024 10:59 AM DATA ARCHITECT PROCALCITONIN (PCT) Routine 07/06/2024 7 :06 AM DATA ARCHITECT COMPREHENSIVE METABOLIC PANEL Routine 07/06/2024 7:06 AM DATA ARCHITECT CBC W/DIFF AUTOMATED Routine 07/06/2024 7:06 AM DATA ARCHITECT PHOSPHORUS, INORGANIC PHOSPHATE Routine 07/06/2024 7:06 AM DATA ARCHITECT POCT GLUCOSE - ANDRADE DOCKED DEVICE Routine 07/05/2024 4:45 PM DATA ARCHITECT POCT GLUCOSE - ANDRADE DOCKED DEVICE Routine 07/05/2024 1:18 PM DATA ARCHITECT LEGIONELLA AG URINE STAT 07/05/2024 1 2:03 PM DATA ARCHITECT HC INFECT AGENT DETECT OPTICAL STAT 07/05/2024 12:03 PM DATA ARCHITECT HC URINALYSIS AUTO W/O MICRO STAT 07/05/2024 12:03 PM DATA ARCHITECT SODIUM URINE RANDOM STAT 07/05/2024 1 2:03 PM DATA ARCHITECT OSMOLALITY, URINE STAT 07/05/2024 12: 03 PM DATA ARCHITECT POCT GLUCOSE - ANDRADE DOCKED DEVICE Routine 07/05/2024 11:59 AM DATA ARCHITECT ECG 12-LEAD Routine 07/05/2024 10:50 AM DATA ARCHITECT HC MYCOPLASMA AB-90 STAT 07/05/2024 8 :37 AM DATA ARCHITECT OSMOLALITY, BLOOD STAT 07/05/2024 8:3 7 AM DATA ARCHITECT POCT GLUCOSE - ANDRADE DOCKED DEVICE Routine 07/05/2024 8:32 AM DATA ARCHITECT COMPREHENSIVE METABOLIC PANEL STAT 07/05/2024 4:30 AM DATA ARCHITECT RESPIRATORY PCR PANEL 2 STAT 07/05/2024 1:44 AM DATA ARCHITECT POCT GLUCOSE - ANDRADE DOCKED DEVICE Routine 07/05/2024 1:34 AM DATA ARCHITECT CRITICAL CARE Routine 07/05/2024 12:50 AM DATA ARCHITECT XR CHEST PORTABLE STAT 07/04/2024 11: 18 PM DATA ARCHITECT PRO-BRAIN NATRIURETIC PEPTIDE Routine 07/04/2024 10:38 PM DATA ARCHITECT PHOSPHORUS, INORGANIC PHOSPHATE Routine 07/04/2024 10:38 PM DATA ARCHITECT MAGNESIUM Routine 07/04/2024 10:38 PM DATA ARCHITECT PROCALCITONIN (PCT) Routine 07/04/2024 1 0:38 PM DATA ARCHITECT COMPREHENSIVE METABOLIC PANEL STAT 07/04/2024 10:38 PM DATA ARCHITECT CBC W/DIFF AUTOMATED STAT 07/04/2024 10:38 PM DATA ARCHITECT COLLECT.CAPILLARY (FNGR,HEEL,EAR) Routine 05/08/2024 8:15 AM DATA ARCHITECT Type 2 diabetes mellitus with hyperglycemia, with long-term current use of insulin (CMS/HCC HHS/HCC) HEMOGLOBIN, GLYCOSYLATED Routine 05/08/2024 Type 2 diabetes mellitus with hyperglycemia, with long-term current use of insulin (CMS/HCC HHS/HCC) OUTSIDE LAB (SCAN ORDER) 04/09/2024 OUTSIDE LAB (SCAN ORDER) 04/09/2024 OUTSIDE LAB (SCAN ORDER) 04/09/2024 CT LUNG SCREENING Routine 04/02/2024 8:2 3 AM CDT Tobacco use disorder Personal history of nicotine dependence MG SCREENING W ROSIO SAIMA DIGI Routine 11/17/2023 9:27 AM CDT Encounter for screening mammogram for malignant neoplasm of breast DIABETIC RETINOPATHY EXAM (NEGATIVE)(SCAN ORDER) Routine 06/23/2023 LIPID PANEL Routine 06/09/2023 7:11 AM DATA ARCHITECT Hyperlipidemia associated with type 2 diabetes mellitus ([facility]/HCC HHS/HCC) BONE DENSITY/DEXA Routine 03/28/2023 9:1 2 AM CDT Postmenopausal COLONOSCOPY Routine 04/07/2022 6:40 AM CDT HEPATITIS C ANTIBODY Routine 03/26/2022 3:33 PM CDT Annual physical exam General medical exam Encounter for medical examination to establish care Encounter for hepatitis C screening test for low risk patient from Last 3 Months or Most Recently Relevant to Health Maintenance Results * (ABNORMAL) POCT glucose (07/07/2024 6:20 AM DATA ARCHITECT) Only the most recent of9 resultswithin the time period is included. GLUCOSE POC 190(H) 70 - 99 mg/dL 07/07/2024 6:23 AM DATA ARCHITECT [facility] 07/07/2024 6:20 AM DATA ARCHITECT Karmen Nicole MD POCT ORDERABLES - DEVICE Final Result [facility] [address] [place] [address], [place] [phone] * (ABNORMAL) COMPREHENSIVE METABOLIC PANEL (07/07/2024 5:13 AM DATA ARCHITECT) Only the most recent of4 resultswithin the time period is included. GLUCOSE 193(H) 70 - 99 MG/DL 07/07/2024 6:19 AM [facility] BUN 26(H) 7 - 18 MG/DL 07/07/2024 6:19 AM [facility] CREATININE S/P/B 0.98 0.55 - 1.02 MG/DL 07/07/2024 6:19 AM [facility] SODIUM S/P/B 132(L) 136 - 145 MMOL/L 07/07/2024 6:19 AM [facility] POTASSIUM S/P/B 3.6 3.5 - 5.1 MMOL/L 07/07/2024 6:19 AM [facility] CHLORIDE S/P/B 100 97 - 115 MMOL/L 07/07/2024 6:19 AM [facility] CO2 30.9 21 - 32 MMOL/L 07/07/2024 6:19 AM [facility] CALCIUM S/P/B 7.9(L) 8.5 - 10.1 MG/DL 07/07/2024 6:19 AM [facility] BILIRUBIN TOTAL S/P/B 0.9 0.2 - 1.2 MG/DL 07/07/2024 6:19 AM [facility] Comment: THIS ASSAY IS NOT RECOMMENDED FOR PATIENTS UNDERGOING TREATMENT WITH ELTROMBOPAG DUE TO THE POTENTIAL FOR FALSELY ELEVATED RESULTS. TOTAL PROTEIN S/P/B 6.2(L) 6.4 - 8.2 G/DL 07/07/2024 6:19 AM [facility] ALBUMIN S/P/B 2.4(L) 3.4 - 5.0 G/DL 07/07/2024 6:19 AM [facility] AST 115(H) 15 - 37 U/L 07/07/2024 6:19 AM [facility] ALT 65(H) 14 - 55 U/L 07/07/2024 6:19 AM [facility] ALKALINE PHOSPHATASE S/P/B 101 50 - 136 U/L 07/07/2024 6:19 AM [facility] ANION GAP 1.1(L) 2 - 10 MMOL/L 07/07/2024 6:19 AM [facility] BUN CREATININE RATIO 26.6(H) 6 - 26 07/07/2024 6:19 AM [facility] A/G RATIO 0.6(L) 1.0 - 2.0 RATIO 07/07/2024 6:19 AM [facility] GFR ESTIMATE 64(L) >90 ML/MIN/1.7 3 M2 07/07/2024 6:19 AM [facility] Comment: NOTE: eGFR is not calculated for patients <18 years of age or gender unknown. This is an estimated GFR calculation using the new CKD EPI creatinine equation without race and so does not require a correction factor for race. This estimated GFR should not be used for calculating drug doses. 07/07/2024 5:13 AM DATA ARCHITECT Karmen Nicole MD LABORATORY Final Res ult [facility] [address] [place] [address], [place] [phone] * (ABNORMAL) CBC W/DIFF AUTOMATED (07/07/2024 5:13 AM DATA ARCHITECT) Only the most recent of3 resultswithin the time period is included. WBC 6.45 4.5 - 11.0 x10'3/uL 07/07/2024 5:56 AM [facility] RBC 3.04(L) 4.20 - 5.40 x10'6/uL 07/07/2024 5:56 AM DATA ARCHITECT [facility] HGB 11.8(L) 12.0 - 16.0 G/DL 07/07/2024 5:56 AM [facility] HCT 33.4(L) 38.0 - 48.0 % 07/07/2024 5:56 AM [facility] MCV 109.9(H) 81.0 - 99.0 FL 07/07/2024 5:56 AM DATA ARCHITECT [facility] MCH 38.8(H) 27.0 - 31.0 PG 07/07/2024 5:56 AM [facility] MCHC 35.3 32.0 - 36.0 G/DL 07/07/2024 5:56 AM [facility] RDW 17.8(H) 11.5 - 14.5 % 07/07/2024 5:56 AM [facility] PLT 278 130 - 400 x10'3/uL 07/07/2024 5:56 AM [facility] MPV 11.3 9.3 - 12.2 FL 07/07/2024 5:56 AM [facility] DIFFERENTIAL TYPE MANUAL DIFFERENTIAL 07/07/2024 6:40 AM [facility] SEG NEUTROPHILS 89 % 6:40 AM [facility] LYMPHOCYTES 4 % 07/07/2024 6:40 AM [facility] MONOCYTES 7 % 07/07/2024 6:40 AM [facility] NRBC 3(H) 0 /100 WBC 07/07/2024 6:40 AM [facility] ABS. NEUTROPHILS 5.74 1.80 - 7.70 x10'3/uL 07/07/2024 6:40 AM [facility] ABS. LYMPHOCYTES 0.26(L) 1.00 - 4.80 x10'3/uL 07/07/2024 6:40 AM [facility] ABS. MONOCYTES 0.45 0.24 - 0.86 x10'3/uL 07/07/2024 6:40 AM [facility] ABS. NUCLEATED RBC'S 0.19(H) 0.00 - 0.01 x10'3/uL 07/07/2024 6:40 AM [facility] RBC MORPHOLOGY SLIDE REVIEWED 2024 6:40 AM [facility] MACRO 1+ 07/07/2024 6:40 AM [facility] BASOPHIIC STIPPLING 1+ 07/07/2024 6:40 AM [facility] ROTH JOLLY BODIES 1+ 07/07/2024 6:40 AM DATA ARCHITECT [facility] PLT EST. ADEQUATE 07/07/2024 6:40 AM DATA ARCHITECT [facility] 07/07/2024 5:13 AM DATA ARCHITECT Karmen Nicole MD LABORATORY Final Res ult Performing Organization Address City/[facility]/ZIP Co de Phone Number [facility] [address] [place] [address], [place] [phone] * (ABNORMAL) PHOSPHORUS, INORGANIC PHOSPHATE (07/07/2024 5:13 AM DATA ARCHITECT) Only the most recent of3 resultswithin the time period is included. PHOSPHORUS 2.3(L) 2.5 - 4.9 MG/DL 07/07/2024 6:19 AM DATA ARCHITECT [facility] 07/07/2024 5:13 AM DATA ARCHITECT Karmen Nicole MD LABORATORY Final Res ult Performing Organization Address City/[facility]/ZIP Co de Phone Number [facility] [address] [place] [address], [place] [phone] * (ABNORMAL) BASIC METABOLIC PANEL (07/06/2024 11:32 AM DATA ARCHITECT) GLUCOSE 220(H) 70 - 99 MG/DL 07/06/2024 12:02 PM DATA ARCHITECT [facility] BUN 41(H) 7 - 18 MG/DL 07/06/2024 12:02 PM [facility] CREATININE S/P/B 1.57(H) 0.55 - 1.02 MG/DL 07/06/2024 12:02 PM DATA ARCHITECT [facility] SODIUM S/P/B 124(L) 136 - 145 MMOL/L 07/06/2024 12:02 PM [facility] POTASSIUM S/P/B 3.7 3.5 - 5.1 MMOL/L 07/06/2024 12:02 PM [facility] CHLORIDE S/P/B 90(L) 97 - 115 MMOL/L 07/06/2024 12:02 PM [facility] CO2 28.7 21 - 32 MMOL/L 07/06/2024 12:02 PM [facility] CALCIUM S/P/B 7.8(L) 8.5 - 10.1 MG/DL 07/06/2024 12:02 PM [facility] ANION GAP 5.3 2 - 10 MMOL/L 07/06/2024 12:02 PM [facility] BUN CREATININE RATIO 26.1(H) 6 - 26 07/06/2024 12:02 PM [facility] GFR ESTIMATE 36(L) >90 ML/MIN/1.7 3 M2 07/06/2024 12:02 PM [facility] Comment: NOTE: eGFR is not calculated for patients <18 years of age or gender unknown. This is an estimated GFR calculation using the new CKD EPI creatinine equation without race and so does not require a correction factor for race. This estimated GFR should not be used for calculating drug doses. 07/06/2024 11:3 2 AM DATA ARCHITECT us Karmen Nicole MD LABORATORY Final Res ult [facility] [address] [place] [address], * PROCALCITONIN (PCT) (07/06/2024 7:06 AM DATA ARCHITECT) Only the most recent of2 resultswithin the time period is included. Procalcitonin 0.30 0.00 - 0.49 NG/ML 07/06/2024 8:48 AM DATA ARCHITECT [facility] 07/06/2024 7:06 AM DATA ARCHITECT Karmen Nicole MD LABORATORY Final Res ult Performing Organization Address City/[facility]/ZIP Co de Phone Number [facility] [address] [place] [address], [place] [phone] * STREP PNEUMO AG URINE (07/05/2024 12:03 PM DATA ARCHITECT) S. PNEUMONIAE URINARY AG NEGATIVE NEGATIVE 07/05/2024 5:26 PM DATA ARCHITECT [facility] URINE SPECIMEN OBTAINED BY CLEAN CATCH PROCEDURE / Unknown 07/05/2024 12:03 PM DATA ARCHITECT Sabrina Márquez APRN MICROBIOLOGY - GENERAL ORDE RABLES Final Result Performing Organization Address [facility]/ZIP Co de Phone Number [facility] [address] [place] [address], [place] [phone] * SODIUM URINE RANDOM (07/05/2024 12:03 PM DATA ARCHITECT) NA RANDOM (U) 8 MMOL/L 07/05/2024 5:52 PM DATA ARCHITECT [facility] Comment:REFERENCE RANGE NOT ESTABLISHED URINE SPECIMEN / Unknown 07/05/2024 12:03 PM DATA ARCHITECT us Sabrina Márquez CHIP SEPARATOR URINE ORDERABLES Final Resu lt Performing Organization Address City/[facility]/ZIP Co de Phone Number [facility] [address] [place] [address], [place] [phone] * LEGIONELLA AG URINE (07/05/2024 12:03 PM DATA ARCHITECT) LEGIONELLA ANTIGEN (URINE) NEGATIVE NEGATIVE 07/05/2024 5:26 PM DATA ARCHITECT [facility] URINE SPECIMEN / Unknown 07/05/2024 12:03 PM DATA ARCHITECT Sabrina Márquez CHIP SEPARATOR MICROBIOLOGY - GENERAL [place] JAVED Final Result [facility] [address] [place] [address], [place] [phone] * (ABNORMAL) URINALYSIS (07/05/2024 12:03 PM DATA ARCHITECT) Pathologist [facility] SPECIMEN TYPE URINE CLEAN CATCH 07/05/2024 3:03 PM DATA ARCHITECT [facility] COLOR (U) YELLOW 07/05/2024 3:35 PM DATA ARCHITECT [facility] TRANSPARENCY CLEAR 07/05/2024 3:35 PM DATA ARCHITECT [facility] SPECIFIC GRAVITY (U) 1.009 1.001 - 1.030 07/05/2024 3:35 PM DATA ARCHITECT [facility] U PH 5.0 5.0 - 9.0 07/05/2024 3:35 PM DATA ARCHITECT [facility] LEUKOCYTES (U) 250(A) NEGATIVE 07/05/2024 3:35 PM DATA ARCHITECT [facility] NITRITES NEGATIVE NEGATIVE 07/05/2024 3:35 PM DATA ARCHITECT [facility] PROTEIN RANDOM (U) NEGATIVE <30 MG/DL 07/05/2024 3:35 PM DATA ARCHITECT [facility] GLUCOSE (U) NORMAL NORMAL MG/DL 07/05/2024 3:35 PM DATA ARCHITECT [facility] KETONES MG/DL (U) NEGATIVE NEGATIVE MG/DL 07/05/2024 3:35 PM DATA ARCHITECT [facility] UROBILINOGEN NORMAL NORMAL MG/DL 07/05/2024 3:35 PM DATA ARCHITECT [facility] BILIRUBIN (U) NEGATIVE NEGATIVE MG/DL 07/05/2024 3:35 PM DATA ARCHITECT [facility] BLOOD (U) 1+(A) NEGATIVE 07/05/2024 3:35 PM DATA ARCHITECT [facility] MUCUS RARE /LPF 07/05/2024 3:35 PM DATA ARCHITECT [facility] WBC/HPF 12(H) <6 /HPF 07/05/2024 3:35 PM DATA ARCHITECT [facility] RBC/HPF 7(H) <6 /HPF 07/05/2024 3:35 PM DATA ARCHITECT [facility] BACTERIA (U) MANY(A) NONE /HPF 07/05/2024 3:35 PM DATA ARCHITECT [facility] SQUAMOUS EPITHELIALS RARE /HPF 07/05/2024 3:35 PM DATA ARCHITECT [facility] URINE SPECIMEN OBTAINED BY CLEAN CATCH PROCEDURE / Unknown 07/05/2024 12:03 PM DATA ARCHITECT us Sabrina Márquez APRN URINE ORDERABLES Final Resu lt [address] [address], [place] [phone] * OSMOLALITY, URINE (07/05/2024 12:03 PM DATA ARCHITECT) OSMOLALITY (U) 273 50 - 1,200 MOSM/KG 07/05/2024 3:50 PM DATA ARCHITECT [facility] URINE SPECIMEN / Unknown 07/05/2024 12:03 PM DATA ARCHITECT us Sabrina Márquez CHIP SEPARATOR URINE ORDERABLES Final Resu lt [facility] [address] [facility] [place] [address], * ECG 12 lead (07/05/2024 10:50 AM DATA ARCHITECT) 07/05/2024 10:5 0 AM DATA ARCHITECT Narrative [facility] - 07/06/2024 1:05 PM DATA ARCHITECT ?[facility] ? [address] [place] ? Test Date: ?2024-07-05 Pat Name: ? REGINA HAHN ? Department: ?? 41 ? Room: ? A427 Gender: ? Female ? Director Of Nurses Registry: ?? [id number] : ?1960 ? Requested By: SABRINA MÁRQUEZ Order Number: [id number] ? Reading MD: ?? Cherie Kitchen ? Measurements Intervals ?Datil ? Rate: ? 76 ? P: ?5 ND: ? 153 ?QRS: ?-41 QRSD: ? 147 ?T: ?54 QT: ? 438 ? QTc: ?493 ? Interpretive Statements SINUS RHYTHM MARKED LEFT AXIS DEVIATION [QRS AXIS < -30] LEFT BUNDLE BRANCH BLOCK [120+ ms QRS DURATION, 80+ ms Q/S IN V1/V2, 85+ ms R IN I/aVL/V5/V6] No previous ECG available for comparison ARCHITECT Procedure Note Cherie Kitchen MD - 07/06/[address] Test Date: 2024-07-05 Pat Name: REGINA HAHN Department: 41 Room: [facility] Gender: Female Director Of Nurses Registry: [id number] : 1960 Requested By: SABRINA MÁRQUEZ Order Number: [id number] Reading MD: Cherie Kitchen Measurements Intervals Datil Rate: 76 P: 5 ND: 153 QRS: -41 QRSD: 147 T: 54 QT: 438 QTc: 493 Interpretive Statements SINUS RHYTHM MARKED LEFT AXIS DEVIATION [QRS AXIS < -30] LEFT BUNDLE BRANCH BLOCK [120+ ms QRS DURATION, 80+ ms Q/S IN V1/V2, 85+ms R IN I/aVL/V5/V6] No previous ECG available for comparison ARCHITECT Sabrina Márquez CHIP SEPARATOR ECG ORDERABLES Final Resul t [facility] * MYCOPLASMA PNEUMONIAE AB (07/05/2024 8:37 AM DATA ARCHITECT) M. PNEUMONIAE AB IGG <=0.90 <=0.90 07/09/2024 4:47 PM DATA ARCHITECT [email or web address] [facility] Comment: Reference Range: ?<=0.90 ? Negative ? 0.91-1.09 ? Equivocal ?>=1.10 ? Positive A positive IgG result indicates that the patient has antibody to Mycoplasma. It does not differentiate between an active or past infection. The clinical diagnosis must be interpreted in conjunction with the clinical signs and symptoms of the patient. M. PNEUMONIAE AB IGM 220 <770 U/mL 07/09/2024 4:47 PM DATA ARCHITECT [email or web address] [facility] Comment: Reference Range: ?? <770 U/ml ?Negative 770-950 U/mL ?Low positive ?? >950 U/mL ?Positive A positive IgM antibody result is consistent with recent infection. However, a negative result does not necessarily rule out recent infection as some individuals may not mount another IgM response, if previously infected. A positive IgM antibody result with or without a positive IgG antibody result, is consistent with recent infection. However, a negative result does not necessarily rule out recent infection as some individuals may not mount another IgM response, if previously infected. A positive IgG antibody result in the absence of a positive IgM antibody result, indicates that the patient has antibody to Mycoplasma. It does not differentiate between an active or past infection. The clinical diagnosis must be interpreted in conjunction with the clinical signs and symptoms of the patient. Test Performed by [employer] [facility], [address] [place] [address] Devyn Clark M.D., Ph.D., Director of Laboratories , [facility] [id number] 07/05/2024 8:37 AM DATA ARCHITECT Sabrina Márquez APRN LABORATORY Final Resul t [email or web address] [place] [id number] [place], [place] , [place] [phone] * (ABNORMAL) OSMOLALITY, BLOOD (07/05/2024 8:37 AM DATA ARCHITECT) Pathologist [facility] OSMOLALITY (S/P/B) 296(H) 270 - 290 MOSM/KG 07/05/2024 9:27 AM DATA ARCHITECT [facility] 07/05/2024 8:37 AM DATA ARCHITECT Sabrina Márquez APRN LABORATORY Final Resul t Performing Organization Address City/[facility]/ZIP Co de Phone Number [facility] [address] [place] [address], [place] [phone] * (ABNORMAL) RESPIRATORY PCR PANEL 2 (07/05/2024 1:44 AM DATA ARCHITECT) [facility] ADENOVIRUS PCR (RESP) NOT DETECTED NOT DETECTED 07/05/2024 2:49 AM DATA ARCHITECT [facility] CORONAVIRUS 229E PCR (RESP) NOT DETECTED NOT DETECTED 07/05/2024 2:49 AM DATA ARCHITECT [facility] CORONAVIRUS HKU1 PCR (RESP) NOT DETECTED NOT DETECTED 07/05/2024 2:49 AM DATA ARCHITECT [facility] CORONAVIRUS NL63 PCR (RESP) NOT DETECTED NOT DETECTED 07/05/2024 2:49 AM DATA ARCHITECT [facility] CORONAVIRUS OC43 PCR (RESP) NOT DETECTED NOT DETECTED 07/05/2024 2:49 AM DATA ARCHITECT [facility] METAPNEUMOVIRUS PCR (RESP) NOT DETECTED NOT DETECTED 07/05/2024 2:49 AM DATA ARCHITECT [facility] RHINOVIRUS/ENTEROV IRUS PCR (RESP) NOT DETECTED NOT DETECTED 07/05/2024 2:49 AM [facility] INFLUENZA A/H1-2009 PCR (RESP) DETECTED(A) NOT DETECTED 07/05/2024 2:49 AM [facility] INFLUENZA B PCR (RESP) NOT DETECTED NOT DETECTED 07/05/2024 2:49 AM [facility] PARAINFLUENZA 1 PCR (RESP) NOT DETECTED NOT DETECTED 07/05/2024 2:49 AM [facility] PARAINFLUENZA 2 PCR (RESP) NOT DETECTED NOT DETECTED 07/05/2024 2:49 AM [facility] PARAINFLUENZA 3 PCR (RESP) NOT DETECTED NOT DETECTED 07/05/2024 2:49 AM [facility] PARAINFLUENZA 4 PCR (RESP) NOT DETECTED NOT DETECTED 07/05/2024 2:49 AM [facility] RSV PCR (RESP) NOT DETECTED NOT DETECTED 07/05/2024 2:49 AM [facility] B PARAPERTUSIS PCR (RESP) NOT DETECTED NOT DETECTED 07/05/2024 2:49 AM [facility] BORDETELLA PERTUSSIS PCR (RESP) NOT DETECTED NOT DETECTED 07/05/2024 2:49 AM [facility] CHLAMYDOPHILA PNEUMONIAE PCR (RESP) NOT DETECTED NOT DETECTED 07/05/2024 2:49 AM DATA ARCHITECT [facility] MYCOPLASMA PNEUMONIAE PCR (RESP) NOT DETECTED NOT DETECTED 07/05/2024 2:49 AM [facility] CORONAVIRUS SARS COV 2 PCR (RESP) NOT DETECTED NOT DETECTED 07/05/2024 2:49 AM [facility] NASOPHARYNGEAL SWAB / Unknown 07/05/2024 1:44 AM DATA ARCHITECT us Sabrina Márquez APRN MICROBIOLOGY - GENERAL ORDShmuel JAVED Final Result [facility] [address] [place] [address], * Critical Care (07/05/2024 12:50 AM DATA ARCHITECT) Narrative Jesu Dent DO - 07/05/2024 12:50 AM DATA ARCHITECT Fredrick Sharma PA-C ? 07/05/2024 12:58 AM Critical Care Performed by: Fredrick Sharma PA-C Authorized by: Love Archuleta MD ?? Critical care provider statement: ??Critical care time (minutes): ??60 ??Critical care start time: ??07/05/2024 11:54 PM ??Critical care end time: ??07/05/2024 12:54 AM ??Critical care time was exclusive of: ??Separately billable procedures and treating other patients and teaching time ??Critical care was necessary to treat or prevent imminent or life-threatening deterioration of the following conditions: ??Renal failure, respiratory failure and dehydration ??Critical care was time spent personally by me on the following activities: ??Blood draw for specimens, development of treatment plan with patient or surrogate, evaluation of patient's response to treatment, examination of patient, obtaining history from patient or surrogate, ordering and performing treatments and interventions, ordering and review of laboratory studies, ordering and review of radiographic studies, pulse oximetry, re-evaluation of patient's condition and review of old charts ??I assumed direction of critical care for this patient from another provider in my specialty: no ?Care discussed with: admitting provider ?? us Love Archuleta MD PROCEDURE/MINOR SURGICAL ORDERABLES Final Result * XR CHEST PORTABLE (07/04/2024 11:18 PM DATA ARCHITECT) Anatomical Region Laterality Modality Chest Radiographic [place] ging 07/04/2024 11:1 9 PM DATA ARCHITECT Impressions 07/04/2024 11:27 PM DATA ARCHITECT IMPRESSION: 1. ??Prominence of the pulmonary vascular pattern which may be seen with pulmonary vascular congestion and/or pneumonia. 2. ??Peripheral reticular opacities within the upper lung [place] as well as the periphery of the left lung base that may be seen with pneumonia and/or chronic peripheral reticular opacities that may indicate presence of chronic fibrosis, possibly with superimposed acute parenchymal thickening. Referred By: ?? Interpreted By: Carson Orozco MD, 07/04/2024 11:19 PM Narrative 07/04/2024 11:27 PM DATA ARCHITECT [place] [id number] EXAMINATION: XR CHEST PORTABLE, 07/04/2024 11:19 PM TECHNIQUE: Upright AP portable radiograph of the chest HISTORY: Dyspnea, diarrhea, headache, neck pain, weakness, altered mental status COMPARISON: CT chest 04/02/2024 FINDINGS: Heart size is normal. ??Arteriosclerotic calcification and tortuosity of the thoracic aorta. ??The pulmonary vascular pattern appears prominent. ??Peripheral reticular opacity seen within the upper lung [place] as well as the periphery of the left lung base. ??Findings suggestive of bronchiectasis and/or ??No focal pulmonary consolidation. ??No pleural effusion. ??No pneumothorax. ??Surgical clips seen within the left upper abdominal quadrant. Procedure Note Carson Orozco MD - 07/04/[address] [id number] EXAMINATION: XR CHEST PORTABLE, 07/04/2024 11:19 PM TECHNIQUE: Upright AP portable radiograph of the chest HISTORY: Dyspnea, diarrhea, headache, neck pain, weakness, altered mentalstatus COMPARISON: CT chest 04/02/2024 FINDINGS: Heart size is normal. Arteriosclerotic calcification andtortuosity of the thoracic aorta. The pulmonary vascular pattern appearsprominent. Peripheral reticular opacity seen within the upper lung fieldsas well as the periphery of the left lung base. Findings suggestive ofbronchiectasis and/or No focal pulmonary consolidation. No pleuraleffusion. No pneumothorax. Surgical clips seen within the left upperabdominal quadrant. IMPRESSION: 1. Prominence of the pulmonary vascular pattern which may be seen withpulmonary vascular congestion and/or pneumonia. 2. Peripheral reticular opacities within the upper lung mcgowan as well asthe periphery of the left lung base that may be seen with pneumonia and/orchronic peripheral reticular opacities that may indicate presence ofchronic fibrosis, possibly with superimposed acute parenchymalthickening. Referred By: Interpreted By: Carson Orozco MD, 07/04/2024 11:19 PM Fredrick Sharma PA-C GENERAL IMAGING Final Resul t * (ABNORMAL) PRO-BRAIN NATRIURETIC PEPTIDE (07/04/2024 10:38 PM DATA ARCHITECT) PRO-B TYPE NATRIURETIC PEPTIDE 200(H) <125 PG/ML 07/05/2024 1:52 AM DATA ARCHITECT [facility] Comment: CUT POINTS ESTABLISHED BY INTERNATIONAL COLLAB[employer] ON NT PROBNP (ICON) STUDY (2006). AGE INDEPENDENT: <300 PG/ML HAS A 99% NEGATIVE PREDICTIVE VALUE FOR EXCLUDING ACUTE CHF <50 YEARS: >450 PG/ML IS CONSISTENT WITH ACUTE CHF 50-75 YEARS: >900 PG/ML IS CONSISTENT WITH ACUTE CHF >75 YEARS: >1800 PG/ML IS CONSISTENT WITH ACUTE CHF IN PATIENTS WITH RENAL INSUFFICIENCY (GFR <60), >1200 PG/ML YIELDS A DIAGNOSTIC SENSITIVITY AND SPECIFICITY OF 89% AND 72% FOR ACUTE CHF. 07/04/2024 10:3 8 PM DATA ARCHITECT us Sabrina Márquez CHIP SEPARATOR LABORATORY Final Resul t [facility] [address] [place] [address], [place] [phone] * (ABNORMAL) MAGNESIUM (07/04/2024 10:38 PM DATA ARCHITECT) MAGNESIUM 2.5(H) 1.8 - 2.4 MG/DL 07/05/2024 1:52 AM DATA ARCHITECT [facility] 07/04/2024 10:3 8 PM DATA ARCHITECT Sabrina Márquez CHIP SEPARATOR LABORATORY Final Resul t [facility] [address] [place] [address], [place] [phone] * HEMOGLOBIN, GLYCOSYLATED (05/08/2024) Pathologist [facility] HGB A1C 7.2 % [id number], [place] 05/08/2024 Kam Varghese MD LABORATORY Final Result Performing Organization Address City/[facility]/ZIP Co de Phone Number [id number] [place] [address] [place] [address], [place] [phone] * OUTSIDE LAB (SCAN ORDER) (04/09/2024) Only the most recent of3 resultswithin the time period is included. 04/09/2024 [facility] Scanned SCANNING Final Resu lt * CT LUNG SCREENING (04/02/2024 8:23 AM CDT) Anatomical Region Laterality Modality Chest Computed Tomogra phy 04/05/2024 3:32 PM CDT Impressions 04/05/2024 3:40 PM CDT IMPRESSION: 1. Stable pulmonary nodules. Follow-up in 6 months is recommended. Lung RADS category 3 - probably benign findings - short-term follow-up suggested; includes nodules with a low likelihood of becoming a clinically active cancer. 2. LUNG-RADS category S: Negative, no new/unknown potentially significant incidental findings requiring urgent additional evaluation. 3. Other incidental findings as above. RECOMMENDATIONS: Follow-up LDCT Chest in 6 months (on or around 10/02/2024). Referred By: KAM VARGHESE Interpreted By: Garo Milian MD, 04/05/2024 3:32 PM Narrative 04/05/2024 3:[address] PM CDT [address] [address] EXAM: LUNG SCREENING LOW-DOSE CT THORAX WITHOUT CONTRAST DATE: 04/02/2024 HISTORY: Asymptomatic patient meeting NCCN high-risk criteria for lung screening. COMPARISON: CT lung screening 12/10/2022. TECHNIQUE: Noncontrast, helical, low-dose CT (LDCT) chest per standard departmental protocol. Automated exposure control was utilized for dose reduction. FINDINGS: Lung Screening Specific (LUNG-RADS): Multiple pulmonary nodules are redemonstrated. Farmer General dominant nodules as follows: 8 mm solid nodule left upper lobe axial image 70. ??Stable. ??Lung RADS 3. 7 mm solid nodule left upper lobe axial image 78. ??Stable. ??Lung RADS 3. 6 mm solid nodule left upper lobe axial image 61. ??Stable. ??Lung RADS 3. Subpleural 6 mm solid nodule right lower lobe axial image 94. ??Stable. ??Lung RADS 2. Subpleural 9 mm solid nodule right lower lobe axial image 101. ??Stable. ??Lung RADS 2. Potentially Significant Incidentals (LUNG-RADS category S): None. Pulmonary Incidentals: There is moderate to severe upper lobe predominant centrilobular and paraseptal emphysema. ??Bibasilar atelectasis and scarring. ??Peripheral reticular opacities likely reflecting pulmonary fibrosis. ??Honeycombing at the lung bases. Other Incidentals: Moderate to severe multilevel thoracic spondylosis. ??Prominent pretracheal lymph node measuring 0.9 cm, slightly decreased in size previously 1.2 cm. ??No new or enlarging mediastinal or hilar lymph nodes. ??Moderate atherosclerotic plaque of the thoracic aorta and coronary arteries. ??Prominent main pulmonary artery measuring 3.5 cm suggesting pulmonary hypertension. ??Status post cholecystectomy. ??Postsurgical changes of splenectomy. Procedure Note Garo Milian MD - 04/05/2024 [address] [place] [address] EXAM: LUNG SCREENING LOW-DOSE CT THORAX WITHOUT CONTRAST DATE: 04/02/2024 HISTORY: Asymptomatic patient meeting NCCN high-risk criteria for lungscreening. COMPARISON: CT lung screening 12/10/2022. TECHNIQUE: Noncontrast, helical, low-dose CT (LDCT) chest per standarddepartmental protocol. Automated exposure control was utilized for dosereduction. FINDINGS: Lung Screening Specific (LUNG-RADS): Multiple pulmonary nodules are redemonstrated. Farmer General dominantnodules as follows: 8 mm solid nodule left upper lobe axial image 70. Stable. Lung RADS 3. 7 mm solid nodule left upper lobe axial image 78. Stable. Lung RADS 3. 6 mm solid nodule left upper lobe axial image 61. Stable. Lung RADS 3. Subpleural 6 mm solid nodule right lower lobe axial image 94. Stable.Lung RADS 2. Subpleural 9 mm solid nodule right lower lobe axial image 101. Stable.Lung RADS 2. Potentially Significant Incidentals (LUNG-RADS category S): None. Pulmonary Incidentals: There is moderate to severe upper lobe predominantcentrilobular and paraseptal emphysema. Bibasilar atelectasis andscarring. 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 Honeycombing at the lung bases. Other Incidentals: Moderate to severe multilevel thoracic spondylosis.Prominent pretracheal lymph node measuring 0.9 cm, slightly decreased insize previously 1.2 cm. No new or enlarging mediastinal or hilar lymphnodes. Moderate atherosclerotic plaque of the thoracic aorta and coronaryarteries. Prominent main pulmonary artery measuring 3.5 cm suggestingpulmonary hypertension. Status post cholecystectomy. Postsurgicalchanges of splenectomy. IMPRESSION: 1. Stable pulmonary nodules. Follow-up in 6 months is recommended. LungRADS category 3 - probably benign findings - short-term follow-upsuggested; includes nodules with a low likelihood of becoming a clinicallyactive cancer. 2. LUNG-RADS category S: Negative, no new/unknown potentially significantincidental findings requiring urgent additional evaluation. 3. Other incidental findings as above. RECOMMENDATIONS: Follow-up LDCT Chest in 6 months (on or around10/02/2024). Referred By: KAM VARGHESE Interpreted By: Garo Milian MD, 04/05/2024 3:32 PM us Kam Varghese MD CT Final Result * MG SCREENING W ROSIO SAIMA DIGI (11/17/2023 9:27 AM CDT) Anatomical Region Laterality Modality Breast Bilateral Mammography 11/17/2023 9:55 AM CDT Impressions 11/17/2023 9:57 AM CDT ===== IMPRESSION: ===== 1. ??Stable mammographic appearance with no new findings to suggest malignancy in either breast. Assessment: ACR BI-RADS 2 - BENIGN FINDING(S) Recommendation: 1:Routine Screening Bilateral Comments: Ordered By: KAM VARGHESE Interpreted By: Dennis Paredes MD, 11/17/2023 9:55 AM Narrative 11/17/2023 9:57 AM CDT Examination: Digital bilateral screening mammogram with 3D Tomosynthesis Exam Date/Time: 11/17/2023 9:12 AM Reason For Exam: ??screening ? Benign right biopsy at unknown date. Breast cancer in a sister at age 45. No personal history of breast cancer. No current complaints. Comparison: Mammograms from 05/05/2022 08/11/2020 Technique: Digital screening mammography of both breasts was performed in addition to 3-D Tomosynthesis technique. This study was read with the assistance of a computer-aided detection system. Tissue density: The breast tissue is heterogeneously dense, which may obscure small masses. Findings: Biopsy marker again seen on the right. Stable interval appearance to scattered bilateral secretory, round, and vascular calcifications. No suspicious interval change in appearance of breast parenchymal pattern bilaterally from prior studies. There is no new focal asymmetry, dominant mass lesion, area of skin thickening, or cluster of suspicious appearing calcifications in either breast to suggest malignancy. Kam Varghese MD MAMMO Final Result * DIABETIC RETINOPATHY EXAM (NEGATIVE) (06/23/2023) [facility] Scanned SCANNING Final Resu lt [facility] * LIPID PANEL (06/09/2023 7:11 AM DATA ARCHITECT) CHOLESTEROL 153 <200 mg/dL [place] HDL 72 > OR = 50 mg/dL [place] TRIGLYCERIDES 72 <150 mg/dL [place] LDL (CALCULATED) 66 mg/dL (calc) [place] Comment: Reference range: <100 Desirable range <100 mg/dL for primary prevention; ?? <70 mg/dL for patients with CHD or diabetic patients with > or = 2 CHD risk factors. LDL-C is now calculated using the Festus-Nohemy calculation, which is a validated novel method providing better accuracy than the Friedewald equation in the estimation of LDL-C. Festus SS et al. MARCO A. 2013;310(19): 0217-8668 (http://education.OYE!.[employer]/faq/ONJ106) CHOL/HDL RATIO 2.1 <5.0 (calc) [place] NON HDL CHOLESTEROL 81 <130 mg/dL (calc) [place] Comment: For patients with diabetes plus 1 major ASCVD risk factor, treating to a non-HDL-C goal of <100 mg/dL (LDL-C of <70 mg/dL) is considered a therapeutic option. 06/09/2023 7:11 AM DATA ARCHITECT 06/09/2023 7:12 AM DATA ARCHITECT Narrative [facility] [place] - 06/09/2023 11:38 PM DATA ARCHITECT FASTING:YES FASTING: YES Resulting Agency Comment Performing Organization Information: ?Site ID: [id number] ?Name[facility] ?Address: [facility] [place] [address] ?Director: Mathieu Horn Kam Varghese MD LABORATORY Final Result [facility] [place] [facility] [address] [place] [address], * BONE DENSITY/DEXA (03/28/2023 9:12 AM CDT) Anatomical Region Laterality Modality Bone Mammography 03/28/2023 11:5 7 AM CDT Impressions 03/28/2023 11:59 AM CDT IMPRESSION:===== ?? The patient bone mineral density is osteopenic according to the World Health Organization (WHO) criteria. ?? Referred By: KAM VARGHESE Interpreted By: Fredrick Desai MD, 03/28/2023 11:57 AM Narrative 03/28/2023 11:59 AM CDT EXAMINATION: Bone Density Axial EXAM DATE/TIME: 03/28/2023 8:54 AM REASON FOR EXAM: ??Postmenopausal state ?? COMPARISON: None FINDINGS: ??DEXA bone densitometry ?The bone mineral density (BMD) was determined by dual-energy x-ray absorptiometry, the results are as follows: AP Lumbar Spine L1 through L4 ?BMD Patient (GM/SQCM): 1.022 ?T-Score (Standard deviations from young adult peak bone density): -0.2 and a Z-Score of ??1.5. ??osteoarthritis may falsely increase bone mineral density measured in the lumbar spine. Left femoral neck: ?BMD Patient (GM/SQCM): 0.727 ?T-Score (Standard deviations from young adult peak bone density): -1.1 and a Z-Score of ??0 point. Total right ??hip: ?BMD Patient (GM/SQCM): 0.906 ?T-Score (Standard deviations from young adult peak bone density): -0.3 and a Z-Score of ??0.9. 10 year fracture risk using FRAX, fracture risk assessment tool: Major osteoporotic fracture: ??9.1 % Hip fracture: ??1.2 % ===== Procedure Note Fredrick Desai MD - 03/28/2023 EXAMINATION: Bone Density Axial EXAM DATE/TIME: 03/28/2023 8:54 AM REASON FOR EXAM: Postmenopausal state COMPARISON: None FINDINGS: DEXA bone densitometry The bone mineral density (BMD) was determined bydual-energy x-ray absorptiometry, the results are as follows: AP Lumbar Spine L1 through L4 BMD Patient (GM/SQCM): 1.022 T-Score (Standard deviations from young adult peak bonedensity): -0.2 and a Z- Score of 1.5. osteoarthritis may falsely increasebone mineral density measured in the lumbar spine. Left femoral neck: BMD Patient (GM/SQCM): 0.727 T-Score (Standard deviations from young adult peak bonedensity): -1.1 and a Z- Score of 0 point. Total right hip: BMD Patient (GM/SQCM): 0.906 T-Score (Standard deviations from young adult peak bonedensity): -0.3 and a Z- Score of 0.9. 10 year fracture risk using FRAX, fracture risk assessment tool: Major osteoporotic fracture: 9.1 % Hip fracture: 1.2 % ===== IMPRESSION:===== The patient bone mineral density is osteopenic according to the WorldHealth Organization (WHO) criteria. Referred By: KAM VARGHESE Interpreted By: Fredrick Desai MD, 03/28/2023 11:57 AM us Kam Varghese MD DEXA Final Result * HEPATITIS C ANTIBODY (03/26/2022 3:33 PM CDT) HEPATITIS C AB NON-REACTI VE NON-REACT JOSE 03/26/2022 9:40 PM CDT [facility] Comment: ANTIBODIES TO HCV NOT DETECTED. DOES NOT EXCLUDE THE POSSIBILITY OF EXPOSURE TO HCV. 03/26/2022 3:33 PM CDT Kam Varghese MD LABORATORY Final Result [facility] [address] [place] [address], [id number] from Last 3 Months or Most Recently Relevant to Health Maintenance Additional Health Concerns Infection Onset Date Last Indicated Influenza - Seasonal 07/05/2024 07/05/2024 Insurance [employer] Advance Directives * Full Code (Latest Code Status on File) Date Activated Date Inactivated Comments 07/07/2024 8:47 AM 07/07/2024 12:21 PM Care Teams Grounds Maintenance Supervisor Relationship Specialty Start Date End Date Kam Varghese MD [address] [place] [address] PCP - General INTERNAL MEDICINE 03/26/22 Minerva Reyes RN [address] [place] [address] Dishwasher Preparer (Ambulatory) REGISTERED NURSE 07/05/24
--- OUTSIDE RECORDS SUMMARY | 2024-07-10 16:35 | XMS_ITS | Clinical Summary ---
Author Organization [facility] [employer] Address [address] [place] [address] Care Team Providers Care Manager Medical Device Name Role Phone Kam Varghese MD Primary Care Provider [phone] Source Comments [facility],non-owned Affiliates and Associated Physician Practices is amultiple site organization consisting of ambulatory clinics and hospital sitesin [place], [place], [place] and [place]. This disclosure is being madepursuant to the Care Everywhere program and may not contain all information available regarding this patient. Last updated 18.[facility] [employer] Allergies Active Allergy Reactions Criticality Noted Date Comments Morphine Headache 01/14/2023 Sulfacetamide Rash Medium 01/14/2023 Active Problems Problem Noted Date Diagnosed Date Closed low lateral malleolus fracture, right, initial encounter 01/14/2023 Social History Tobacco Use Types Packs/Day Years Used Date Smoking Tobacco: Never Assessed Sex and Gender Information Value Date Recorded Sex Assigned at Female 01/15/2023 7:19 AM CDT Gender Identity Female 01/15/2023 7:19 AM CDT Sexual Orientation Straight 01/15/2023 7: 19 AM CDT Last Filed Vital Signs Vital Sign Reading Time Taken Comments Blood Pressure - - Pulse - - Temperature - - Respiratory Rate - - Oxygen Saturation - - Inhaled Oxygen Concentration - - Weight 122.5 kg (270 lb) 01/14/2023 2:25 PM CDT Height 172.7 cm (5' 8 ) 01/14/2023 2:25 PM CDT Body Mass Index 41.05 01/14/2023 2:25 PM CDT Plan of Treatment Health Maintenance Due Date Last Done Comments BONE DENSITY TESTING 1960 COLOGUARD (AGES 45-75) - COLON CA SCREENING 1958 COLON MONITORING 1958 COLONOSCOPY - COLON CA SCREENING 1958 CT COLONOGRAPHY - COLON CA SCREENING 1960 Colorectal Cancer Screening 1958 FIT - COLON CA SCREENING 1958 FLEX SIG - COLON CA SCREENING 1958 LIPID TESTING 1960 MAMMOGRAM 1960 HEPATITIS C SCREENING 01/29/1976 DTAP/TDAP/TD VACCINES (1 - Tdap) 1977 PNEUMOCOCCAL VACCINE 50+ (1 of 1 - PCV) 02/03/2008 ZOSTER VACCINE (1 of 2) 02/03/2008 Respiratory Syncytial Virus (RSV) Vaccine Pt: or over 60 yrs (1 - Risk 60-74 years 1-dose series) 2018 SCREENING FOR DIABETES 01/14/2023 COVID-19 VACCINE ( season) 2024 03/20/2022, 03/20/2022, 09/15/2021, Additional history exists INFLUENZA VACCINE (#1) 2024 2, 03/03/2021, 04/10/2020, Additional history exists DEPRESSION SCREENING 06/06/2024 MEDICARE AWV ? CALENDAR YEAR 2024 HEPATITIS B VACCINE Aged Out No longe r eligible based on patient's age to complete this topic HIB VACCINE Aged Out No longer eligi ble based on patient's age to complete this topic HPV VACCINE Aged Out No longer eligi ble based on patient's age to complete this topic MENINGOCOCCAL (Group B) VACCINE Aged Out No longer eligible based on patient's age to complete this topic MENINGOCOCCAL VACCINE Aged Out No criselda rishi eligible based on patient's age to complete this topic Care Teams Manager Medical Device Relationship Specialty Start Date End Date Kam Varghese MD [address] [place] [address] PCP - General Internal Medicine 01/12/23
--- OUTSIDE RECORDS SUMMARY | 2024-07-10 16:35 | XMS_ITS | Encounter Summary ---
Author Organization [facility] Address [address] [place] [address] Care Team Providers Care Public Health Training Assistant Name Role Phone Kam Varghese MD Primary Care Provider [phone] Minerva Reyes RN Unavailable [phone] Encounter Details Date Type Department Care Team (Late st Contact Info) Description 01/13/2023 MyChart Message Enc [address] [place] [address] Kam Varghese MD [address] [place] [address] [id number] Ankle Social History Tobacco Use Types Packs/Day Years Used Date Smoking Tobacco: Every Day Cigarettes 0.8 50 Passive Smoke Exposure: Past Smokeless Tobacco: Never Comments:counseled by Dr Olya cota Alcohol Use Standard Drinks/Week Comments Not Currently 0 (1 standard drink = 0.6 oz pur e alcohol) rarely PHQ-2 Answer Date Recorded Patient Health Questionnaire-2 Score 0 11/24/2022 Comments No Sex and Gender Information Value Date Recorded Sex Assigned at Female 07/04/2024 10:42 PM SIDEWALK INSPECTOR Legal Sex Female 9:48 AM SIDEWALK INSPECTOR Gender Identity Not on file Sexual Orientation Not on file documented as of this encounter Plan of Treatment Upcoming Encounters Date Type Department Care Team (Latest Contact Info) Description 07/11/2024 10:40 AM SIDEWALK INSPECTOR [facility] [address] [place] [address] Kam Varghese MD [address] [facility] [address] [place] [address] 08/06/2024 10:40 AM SIDEWALK INSPECTOR Office Visit [facility] - [place] [address] [address] [address] [place] [address] Kam Varghese MD [address] [facility] [address] [place] [address] 04/15/2025 8:00 AM SIDEWALK INSPECTOR Hospital Encounter [facility] [place] [address] Helder Willis MD [address] [address] 04/15/2025 8:00 AM SIDEWALK INSPECTOR - 04/15/2025 8:30 AM SIDEWALK INSPECTOR Surgery [facility] Endo/[place] [address] Helder Willis MD [address] [address] COLONOSCOPY Scheduled Procedures Name Priority Associated Diagnoses Date/Ti me COLONOSCOPY Family history of colon cancer Personal history of colon polyps, unspecified Encounter for screening colonoscopy 04/15/2025 8:00 AM SIDEWALK INSPECTOR documented as of this encounter Visit Diagnoses Not on filedocumented in this encounter Additional Health Concerns Infection Onset Date Last Indicated Resolved Time COVID-19 Rule Out 07/05/2024 07/05/2024 07/05/2024 2:49 AM SIDEWALK INSPECTOR Influenza - Seasonal 07/05/2024 07/05/2024 Assessment Noted Time PHQ-9 Depression Total Score: 1 11/25/19 23 11:21 AM CDT documented as of this encounter Care Teams Public Health Training Assistant Relationship Specialty Start Date End Date Kam Varghese MD [address] [facility] [address] [place] [address] PCP - General INTERNAL MEDICINE 03/26/22 Minerva Reyes, RN [address] [place] [address] Golf Club Manager (Ambulatory) REGISTERED NURSE 07/05/24 documented as of this encounter
--- OUTSIDE RECORDS SUMMARY | 2024-07-10 16:35 | XMS_ITS | Encounter Summary ---
Author Organization [facility] Address [address] [place] [address] Care Team Providers Care Shaper Machine Hand Name Role Phone Kam Varghese MD Primary Care Provider [phone] Minerva Reyes RN Unavailable [phone] Encounter Details Date Type Department Care Team (Late Contact Info) Description 04/05/2024 [facility] Message Enc [address] [address] [address] [place] [address] [facility] Provider test results Social History Tobacco Use Types Packs/Day Years Used Date Smoking Tobacco: Every Day Cigarettes 0.8 50 Passive Smoke Exposure: Past Smokeless Tobacco: Never Comments:counseled by Dr Olya cota Alcohol Use Standard Drinks/Week Comments Not Currently 0 (1 standard drink = 0.6 oz pur e alcohol) rarely PHQ-2 Answer Date Recorded Patient Health Questionnaire-2 Score 0 02/16/2024 Comments No Sex and Gender Information Value Date Recorded Sex Assigned at Female 07/04/2024 10:42 PM CREW LEADER/CONTROL ROOM OPERATOR Legal Sex Female 9:48 AM CREW LEADER/CONTROL ROOM OPERATOR Gender Identity Not on file Sexual Orientation Not on file documented as of this encounter Plan of Treatment Upcoming Encounters Date Type Department Care Team (Latest Contact Info) Description 07/11/2024 10:40 AM CREW LEADER/CONTROL ROOM OPERATOR [facility] [address] [place] [address] Kam Varghese MD [address] [place] [address] 08/06/2024 10:40 AM CREW LEADER/CONTROL ROOM OPERATOR Office Visit [facility] Mult[facility]ty Care - [place] [address] [address] [place] [address] Kam Varghese MD [address] [facility] [address] [place] [address] 04/15/2025 8:00 AM CREW LEADER/CONTROL ROOM OPERATOR Hospital Encounter [facility] [address] Helder Willis MD [address] [address] 04/15/2025 8:00 AM CREW LEADER/CONTROL ROOM OPERATOR - 04/15/2025 8:30 AM CREW LEADER/CONTROL ROOM OPERATOR Surgery [facility] [place] [address] Helder Willis MD [address] [address] COLONOSCOPY Scheduled Procedures Name Priority Associated Diagnoses Date/Ti me COLONOSCOPY Family history of colon cancer Personal history of colon polyps, unspecified Encounter for screening colonoscopy 04/15/2025 8:00 AM CREW LEADER/CONTROL ROOM OPERATOR documented as of this encounter Visit Diagnoses Not on filedocumented in this encounter Additional Health Concerns Infection Onset Date Last Indicated Resolved Time COVID-19 Rule Out 07/05/2024 07/05/2024 07/05/2024 2:49 AM CREW LEADER/CONTROL ROOM OPERATOR Influenza - Seasonal 07/05/2024 07/05/2024 Assessment Noted Time PHQ-9 Depression Total Score: 1 02/07/20 24 9:26 AM CDT documented as of this encounter Care Teams Shaper Machine Hand Relationship Specialty [place] [address] [place] [address] [address] [place] [address] PCP - General INTERNAL MEDICINE 03/26/22 Minerva Reyes, RN [address] [place] [address] Communications Professional (Ambulatory) REGISTERED NURSE 07/05/24 documented as of this encounter
--- OUTSIDE RECORDS SUMMARY | 2024-07-10 16:35 | XMS_ITS | Patient Health Summary ---
Author Organization [facility] Address [address] [place] [address] Care Team Providers Care Line Dancer Name Role Phone Kam Varghese MD Primary Care Provider [phone] Note from [facility],non-owned Affiliates and Associated Physician Practices is amultiple site organization consisting of ambulatory clinics and hospital sitesin [place], [place], [place] and [place]. This disclosure is being madepursuant to the Care Everywhere program and may not contain all information available regarding this patient. Last updated 18.[facility] Allergies * Morphine(Headache) * Sulfacetamide(Rash) -Medium Criticality Active Problems Problem Noted Date Diagnosed Date [...] Mass Index 41.05 01/14/2023 2:25 PM CDT Procedures * DERMATOPATHOLOGY(Performed 02/21/2024) Performed for Neoplasm of uncertain behavior of skin * XR ANKLE RIGHT 3VW OR MORE(Performed 01/14/2023) Performed for Arthralgia of right ankle Results * DERMATOPATHOLOGY (02/21/2024 12:00 AM CDT) Case Report Dermatopathology Report ? Case: [id number] ? Authorizing Provider: ??Leonila Shay PA-C ? Collected: ? 02/21/2024 12:00 AM ? Ordering Location: ? [facility] - ??Received: ?02/21/2024 12:44 PM ? DermPath Lab ? Pathologist: ? Yvonne Cid MD ? Specimens: ?? A) - Skin, left superior lateral malar cheek ? B) - Skin, right distal posterior thigh ? 4 12:07 PM [facility] DERMATOPATHOLOGY [facility]ORAT[facility] Final Diagnosis Specimen A. SKIN, left superior lateral malar cheek: ACTINIC KERATOSIS (L57.0) SOLAR ELASTOSIS (L57.8) Specimen B. SKIN, right distal posterior thigh: POROKERATOSIS (Q82.8) 4 12:07 PM [facility] DERMATOPATHOLOGY [facility]ORATORY Clinical History A: BCC vs Sebaceous Hyperplasia B: SCC 4 12:07 PM [facility] DERMATOPATHOLOGY [facility]ORATORY Gross Description Specimen A: Received is one formalin filled container labeled with the patient's name and designated left superior lateral malar cheek. The specimen consists of a shave biopsy measuring 4x3x1 mm. Jar 0. Specimen B: Received is one formalin filled container labeled with the patient's name and designated right distal posterior thigh. The specimen consists of a shave biopsy measuring 5x5x1 mm. Jar 0. 4 12:07 PM [facility] DERMATOPATHOLOGY [facility]ORATORY Microscopic Description Specimen A. SKIN, left superior lateral malar cheek: There is focal parakeratosis. The lower half of the epidermis shows disorderly maturation of keratinocytes with nuclear pleomorphism. The dermis shows a proliferation of elastic fibers in the superficial dermis that are increased in thickness. Specimen B. SKIN, right distal posterior thigh: There is a sparse to moderately dense lichenoid lymphohistiocytic infiltrate, a thinned epidermis, and cornoid lamella formation. 4 12:07 PM [facility] DERMATOPATHOLOGY LABORATORY Disclaimer An external and internal positive and negative controls are appropriate for the histochemical, immunohistochemical and immunofluorescence stain(s) in this case (if any), except where stated explicitly. The performance characteristics of the stain(s) cited in this report were developed and its performance characteristic determined by the Dermatopathology Laboratory at [facility], directed by Dr. Oz Mercedes. These tests need not be, and therefore are not, approved by the [place] Food and Drug Administration. The tests are used for clinical purposes. Billing Codes Specimen Charges Stain Charges 47694 10632 1 1 4 12:07 PM CDT DERMATOPATHOLOGY LABORATORY Embedded Images 12:07 PM CDT DERMATOPATHOLOGY LABORATORY Pathology/Cytology TISSUE SPECIMEN FROM SKIN / Unknown 02/21/2024 02/21/2024 12:44 PM CDT Miscellaneous samples (specimen) TISSUE SPECIMEN FROM SKIN / Unknown 02/21/2024 02/21/2024 12:44 PM CDT Leonila Shay PA-C LAB - PATHOLOGY/CYTO LOGY ORDERABLES DERMATOPATHOLOGY LABORATORY [facility] - Department of Dermatology [address], [address] [phone] * XR ANKLE RIGHT 3VW OR MORE (01/14/2023 2:23 PM CDT) Anatomical Region Laterality Modality Lower Extremity Radiographic Akosua ging 01/14/2023 2:22 PM CDT Impressions 01/14/2023 2:28 PM CDT IMPRESSION: Nondisplaced distal fibular fracture. Report drafted by Francisco Choi MD (vice president mission integration) I, Chris Jean-Baptiste MD have personally reviewed and interpreted this examination/study. > Interpreting Provider: Chris Jean-Baptiste MD on 01/14/2023 2:28 PM Narrative 01/14/2023 2:28 PM CDT EXAMINATION: XR ANKLE RIGHT 3VW OR MORE HISTORY: M25.571: Arthralgia of right ankle COMPARISON: None. FINDINGS: Lucency and periosteal reaction at the distal fibula compatible with a nondisplaced fracture, likely subacute and healing. Small posterior and moderate plantar calcaneal spurs. Soft tissue swelling. Several soft tissue calcifications in the distal leg. Joint spaces are maintained. Procedure Note Chris Jean-Baptiste MD - 01/14/2023 EXAMINATION: XR ANKLE RIGHT 3VW OR MORE HISTORY: M25.571: Arthralgia of right ankle COMPARISON: None. FINDINGS: Lucency and periosteal reaction at the distal fibula compatible with a nondisplaced fracture, likely subacute and healing. Small posterior and moderate plantar calcaneal spurs. Soft tissue swelling. Several softtissue calcifications in the distal leg. Joint spaces are maintained. IMPRESSION: Nondisplaced distal fibular fracture. Report drafted by Francisco Choi MD (vice president mission integration) I, Chris Jean-Baptiste MD have personally reviewed and interpreted this examination/study. > Interpreting Provider: Chris Jean-Baptiste MD on 01/14/2023 2:28 PM Darius Gould MD DIAGNOSTIC IMAGING [facility] Care Teams Line Dancer Relationship Specialty Start Date End Date Kam Varghese MD [address] [facility] [address] [place] [address] PCP - General Internal Medicine 01/12/23
--- OUTSIDE RECORDS SUMMARY | 2024-07-10 16:35 | XMS_ITS | Encounter Summary ---
Author Organization [facility] Address [address] [place] [address] Care Team Providers Care Color Repairer Name Role Phone Kam Varghese MD Primary Care Provider [phone] Minerva Reyes RN Unavailable [phone] Encounter Details Date Type Department Care Team (Late st Contact Info) Description 06/19/2024 MyChart Message Enc [address] [place] [address] Kam Varghese MD [address] [place] [address] [phone] Referral Social History Tobacco Use Types Packs/Day Years Used Date Smoking Tobacco: Every Day Cigarettes 0.8 50 Passive Smoke Exposure: Past Smokeless Tobacco: Never Comments:counseled by Dr Olya cota Alcohol Use Standard Drinks/Week Comments Not Currently 0 (1 standard drink = 0.6 oz pur e alcohol) rarely PHQ-2 Answer Date Recorded Patient Health Questionnaire-2 Score 0 05/17/2024 Comments No Sex and Gender Information Value Date Recorded Sex Assigned at Female 07/04/2024 10:42 PM OUTSIDE SALES ACCOUNT REPRESENTATIVE Legal Sex Female 9:48 AM OUTSIDE SALES ACCOUNT REPRESENTATIVE Gender Identity Not on file Sexual Orientation Not on file documented as of this encounter Plan of Treatment Upcoming Encounters Date Type Department Care Team (Latest Contact Info) Description 07/11/2024 10:40 AM OUTSIDE SALES ACCOUNT REPRESENTATIVE [facility] [place] [address] Kam Varghese MD [address] [facility] [address] [place] [address] 08/06/2024 10:40 AM OUTSIDE SALES ACCOUNT REPRESENTATIVE Office Visit [facility] Medical [facility] Multispecialty Care - [place] [address] [address] [address] [address] [place] [address] Kam Varghese MD [address] [facility] [address] [place] [address] 04/15/2025 8:00 AM OUTSIDE SALES ACCOUNT REPRESENTATIVE Hospital Encounter [facility] [place] [address] Helder Willis MD [address] [address] 04/15/2025 8:00 AM OUTSIDE SALES ACCOUNT REPRESENTATIVE - 04/15/2025 8:30 AM OUTSIDE SALES ACCOUNT REPRESENTATIVE Surgery [facility] Endo/[place] [address] Helder Willis MD [address] [address] COLONOSCOPY Scheduled Procedures Name Priority Associated Diagnoses Date/Ti me COLONOSCOPY Family history of colon cancer Personal history of colon polyps, unspecified Encounter for screening colonoscopy 04/15/2025 8:00 AM OUTSIDE SALES ACCOUNT REPRESENTATIVE documented as of this encounter Visit Diagnoses Not on filedocumented in this encounter Additional Health Concerns Infection Onset Date Last Indicated Resolved Time COVID-19 Rule Out 07/05/2024 07/05/2024 07/05/2024 2:49 AM OUTSIDE SALES ACCOUNT REPRESENTATIVE Influenza - Seasonal 07/05/2024 07/05/2024 Assessment Noted Time PHQ-9 Depression Total Score: 1 02/07/20 24 9:26 AM CDT documented as of this encounter Care Teams Color Repairer Relationship Specialty Start Date End Date Kam Varghese MD [address] [facility] [address] [place] [address] PCP - General INTERNAL MEDICINE 03/26/22 Minerva Reyes, RN [address] [place] [address] Beef Cattle Farmer (Ambulatory) REGISTERED NURSE 07/05/24 documented as of this encounter
--- OUTSIDE RECORDS SUMMARY | 2024-07-10 16:35 | XMS_ITS | Encounter Summary ---
Author Organization [facility] Address [address] [place] [address] Care Team Providers Care Gas Main Fitter Name Role Phone Kam Varghese MD Primary Care Provider [phone] Minerva Reyes RN Unavailable [phone] Encounter Details Date Type Department Care Team (Late st Contact Info) Description 12/16/2022 MyChart Message Enc [address] [address] [address] [place] [address] Kam Varghese MD [address] [place] [phone] scan Social History Tobacco Use Types Packs/Day Years [...] Sex Assigned at Female 07/04/2024 10:42 PM CUSTOMER SERVICE COORDINATOR Legal Sex Female 9:48 AM CUSTOMER SERVICE COORDINATOR Gender Identity Not on file Sexual Orientation Not on file documented as of this encounter Plan of Treatment Upcoming Encounters Date Type Department Care Team (Latest Contact Info) Description 07/11/2024 10:40 AM CUSTOMER SERVICE COORDINATOR [facility] [address] [place], [place] [id number] Kam Varghese MD [address] [facility] [address] [place] [address] 08/06/2024 10:40 AM CUSTOMER SERVICE COORDINATOR Office Visit [facility] Medical Group Multispecialty Care - [place] [address] [address] [place] [address] Kam Varghese MD [address] [facility] [address] [place] [address] 04/15/2025 8:00 AM CUSTOMER SERVICE COORDINATOR Hospital Encounter [facility] [place] [address] Helder Willis MD [address] [address] 04/15/2025 8:00 AM CUSTOMER SERVICE COORDINATOR - 04/15/2025 8:30 AM CUSTOMER SERVICE COORDINATOR Surgery [facility] [place]o/[place] [address] Helder Willis MD [address] [address] COLONOSCOPY Scheduled Procedures Name Priority Associated Diagnoses Date/Ti me COLONOSCOPY Family history of colon cancer Personal history of colon polyps, unspecified Encounter for screening colonoscopy 04/15/2025 8:00 AM CUSTOMER SERVICE COORDINATOR documented as of this encounter Visit Diagnoses Not on filedocumented in this encounter Additional Health Concerns Infection Onset Date Last Indicated Resolved Time COVID-19 Rule Out 07/05/2024 07/05/2024 07/05/2024 2:49 AM CUSTOMER SERVICE COORDINATOR Influenza - Seasonal 07/05/2024 07/05/2024 Assessment Noted Time PHQ-9 Depression Total Score: 1 11/25/19 23 11:21 AM CDT documented as of this encounter Care Teams Gas Main Fitter Relationship Specialty Start Date End Date Kam Varghese MD [address] [facility] [address] [place] [address] PCP - General INTERNAL MEDICINE 03/26/22 Minerva Reyes, RN [address] [place] [address] Media Theorist And Author Of (Ambulatory) REGISTERED NURSE 07/05/24 documented as of this encounter
--- OUTSIDE RECORDS SUMMARY | 2024-07-10 16:35 | XMS_ITS | Encounter Summary ---
Author Organization [facility] Address [address] [place] [address] Care Team Providers Care Visitor Services Technician Name Role Phone Kam Varghese MD Primary Care Provider [phone] Minerva Reyes RN Unavailable [phone] Encounter Details Date Type Department Care Team (Late st Contact Info) Description 01/10/2023 MyChart Message Enc [address] [place] [address] Kam Varghese MD [address] [place] [address] [phone] Ankle Social History Tobacco Use Types Packs/Day [...] Sex Assigned at Female 07/04/2024 10:42 PM MANAGER COMMUNITY OUTREACH Legal Sex Female 9:48 AM MANAGER COMMUNITY OUTREACH Gender Identity Not on file Sexual Orientation Not on file documented as of this encounter Plan of Treatment Upcoming Encounters Date Type Department Care Team (Latest Contact Info) Description 07/11/2024 10:40 AM MANAGER COMMUNITY OUTREACH [facility] [place] [address] Kam Varghese MD [address] [facility] 157 [place] [address] 08/06/2024 10:40 AM MANAGER COMMUNITY OUTREACH Office Visit [facility] Medical Group Multispecialty Care - [place] [address] [address] [address] [address] [place] [address] Kam Varghese MD [address] [facility] 157 [place] [address] 04/15/2025 8:00 AM MANAGER COMMUNITY OUTREACH Hospital Encounter [facility] [place] [address] Helder Willis MD [address] [address] 04/15/2025 8:00 AM MANAGER COMMUNITY OUTREACH - 04/15/2025 8:30 AM MANAGER COMMUNITY OUTREACH Surgery [facility] [place]o/[place] [address] Helder Willis MD [address] [address] COLONOSCOPY Scheduled Procedures Name Priority Associated Diagnoses Date/Ti me COLONOSCOPY Family history of colon cancer Personal history of colon polyps, unspecified Encounter for screening colonoscopy 04/15/2025 8:00 AM MANAGER COMMUNITY OUTREACH documented as of this encounter Visit Diagnoses Not on filedocumented in this encounter Additional Health Concerns Infection Onset Date Last Indicated Resolved Time COVID-19 Rule Out 07/05/2024 07/05/2024 07/05/2024 2:49 AM MANAGER COMMUNITY OUTREACH Influenza - Seasonal 07/05/2024 07/05/2024 Assessment Noted Time PHQ-9 Depression Total Score: 1 11/25/19 23 11:21 AM CDT documented as of this encounter Care Teams Visitor Services Technician Relationship Specialty Start Date End Date Kam Varghese MD [address] [facility] [address] [place] [address] PCP - General INTERNAL MEDICINE 03/26/22 Minerva Reyes, RN [address] [place] [address] Snuff Maker (Ambulatory) REGISTERED NURSE 07/05/24 documented as of this encounter
--- OUTSIDE RECORDS SUMMARY | 2024-07-10 16:35 | XMS_ITS | Encounter Summary ---
Author Organization [facility] Address [address] [place] [address] Care Team Providers Care Covering Machine Operator Helper Name Role Phone Kam Varghese MD Primary Care Provider [phone] Minerva Reyes RN Unavailable [phone] Encounter Details Date Type Department Care Team (Late st Contact Info) Description 07/07/2023 [employer] Message Enc [address] [address] [address] [place] [address] [facility] Provider Lab results Social History Tobacco Use Types Packs/Day [...] Sex Assigned at Female 07/04/2024 10:42 PM GRADUATE RESEARCH ASSISTANT Legal Sex Female 9:48 AM GRADUATE RESEARCH ASSISTANT Gender Identity Not on file Sexual Orientation Not on file documented as of this encounter Plan of Treatment Upcoming Encounters Date Type Department Care Team (Latest Contact Info) Description 07/11/2024 10:40 AM GRADUATE RESEARCH ASSISTANT [facility] [address] [place] [address] Kam Varghese MD [address] [place] [address] 08/06/2024 10:40 AM GRADUATE RESEARCH ASSISTANT Office Visit [facility] Medical Group Multispecialty Care - [place] [address] [address] [place] [address] Kam Varghese MD [address] [address] 04/15/2025 8:00 AM GRADUATE RESEARCH ASSISTANT Hospital Encounter [facility] [place] [address] Helder Willis MD [address] [address] 04/15/2025 8:00 AM GRADUATE RESEARCH ASSISTANT - 04/15/2025 8:30 AM GRADUATE RESEARCH ASSISTANT Surgery [facility] Endo/[place] [address] Helder Willis MD [address] [address] COLONOSCOPY Scheduled Procedures Name Priority Associated Diagnoses Date/Ti me COLONOSCOPY Family history of colon cancer Personal history of colon polyps, unspecified Encounter for screening colonoscopy 04/15/2025 8:00 AM GRADUATE RESEARCH ASSISTANT documented as of this encounter Visit Diagnoses Not on filedocumented in this encounter Additional Health Concerns Infection Onset Date Last Indicated Resolved Time COVID-19 Rule Out 07/05/2024 07/05/2024 07/05/2024 2:49 AM GRADUATE RESEARCH ASSISTANT Influenza - Seasonal 07/05/2024 07/05/2024 Assessment Noted Time PHQ-9 Depression Total Score: 6 07/04/19 24 11:06 AM GRADUATE RESEARCH ASSISTANT documented as of this encounter Care Teams Covering Machine Operator Helper Relationship Specialty [place] [address] [place] [address] PCP - General INTERNAL MEDICINE 03/26/22 Minerva Reyes, RN [address] [place] [address] Prosthetic Assistant (Ambulatory) REGISTERED NURSE 07/05/24 documented as of this encounter
--- OUTSIDE RECORDS SUMMARY | 2024-07-10 16:35 | XMS_ITS | Encounter Summary ---
Author Organization [facility] Address [address] [place] [address] Care Team Providers Care Pensionholder Information Clerk Name Role Phone Kam Varghese MD Primary Care Provider [phone] Minerva Reyes RN Unavailable [phone] Encounter Details Date Type Department Care Team (Late st Contact Info) Description 02/23/2024 MyChart Message Enc [place] [address] [address] [address] [place] [address] Kam Varghese MD [address] [place] [address] [phone] Lung scan Social History Tobacco Use Types Packs/Day [...] Sex Assigned at Female 07/04/2024 10:42 PM TARGET PROTECTION SPECIALIST Legal Sex Female 9:48 AM TARGET PROTECTION SPECIALIST Gender Identity Not on file Sexual Orientation Not on file documented as of this encounter Plan of Treatment Upcoming Encounters Date Type Department Care Team (Latest Contact Info) Description 07/11/2024 10:40 AM TARGET PROTECTION SPECIALIST [facility] [place], [place] [address] Kam Varghese MD [address] [facility] 157 [place] [address] 08/06/2024 10:40 AM TARGET PROTECTION SPECIALIST Office Visit [facility] Medical Group Multispecialty Care - [place] [address] [address] [place] [address] Kam Varghese MD [address] [facility] 157 [place] [address] 04/15/2025 8:00 AM TARGET PROTECTION SPECIALIST Hospital Encounter [facility] [place] [address] Helder Willis MD [address] [address] 04/15/2025 8:00 AM TARGET PROTECTION SPECIALIST - 04/15/2025 8:30 AM TARGET PROTECTION SPECIALIST Surgery [facility] [place]o/[place] [address] Helder Willis MD [address] [address] COLONOSCOPY Scheduled Procedures Name Priority Associated Diagnoses Date/Ti me COLONOSCOPY Family history of colon cancer Personal history of colon polyps, unspecified Encounter for screening colonoscopy 04/15/2025 8:00 AM TARGET PROTECTION SPECIALIST documented as of this encounter Visit Diagnoses Not on filedocumented in this encounter Additional Health Concerns Infection Onset Date Last Indicated Resolved Time COVID-19 Rule Out 07/05/2024 07/05/2024 07/05/2024 2:49 AM TARGET PROTECTION SPECIALIST Influenza - Seasonal 07/05/2024 07/05/2024 Assessment Noted Time PHQ-9 Depression Total Score: 1 02/07/20 24 9:26 AM CDT documented as of this encounter Care Teams Pensionholder Information Clerk Relationship Specialty Start Date End Date Kam Varghese MD [address] [facility] 157 [place] [address] PCP - General INTERNAL MEDICINE 03/26/22 Minerva Reyes, RN [address] [place] [address] Eating Disorder Psychologist (Ambulatory) REGISTERED NURSE 07/05/24 documented as of this encounter
--- OUTSIDE RECORDS SUMMARY | 2024-07-10 16:35 | XMS_ITS | Referral Summary ---
Author Organization [facility] [email or web address] Address [address] [place] [address] Care Team Providers Care Software Product Specialist Name Role Phone Kam Varghese MD Primary Care Provider [phone] [facility],non-owned Affiliates and Associated Physician Practices is amultiple site organization consisting of ambulatory clinics and hospital sitesin [place], [place], [place] and [place]. This disclosure is being madepursuant to the Care Everywhere program and may not contain all information available regarding this patient. Last updated 18.[facility] [email or web address] Allergies Active Allergy Reactions Criticality Noted Date [...] 01/14/2023 2:25 PM CDT Plan of Treatment Not on file Care Teams Software Product Specialist Relationship Specialty Start Date End Date Kam Varghese MD [address] [facility] 157 [place] [address] PCP - General Internal Medicine 01/12/23
--- OUTSIDE RECORDS SUMMARY | 2024-07-10 16:35 | XMS_ITS | Encounter Summary ---
Author Organization [facility] Address [address] [place] [address] Care Team Providers Care Snowboarder Name Role Phone Kam Varghese MD Primary Care Provider [phone] Minerva Reyes RN Unavailable [phone] Encounter Details Date Type Department Care Team (Latest Contact Info) Description 08/11/2023 [facility]Chart Message [facility] [address] [address] Kam Varghese MD [address] [place] [address] [phone] [employer] 2 Social History Tobacco Use Types Packs/Day Years [...] Sex Assigned at Female 07/04/2024 10:42 PM COPPER PLATE PRINTER Legal Sex Female 9:48 AM COPPER PLATE PRINTER Gender Identity Not on file Sexual Orientation Not on file documented as of this encounter Plan of Treatment Upcoming Encounters Date Type Department Care Team (Latest Contact Info) Description 07/11/2024 10:40 AM COPPER PLATE PRINTER Office Visit [facility] Multispecialty [facility] - [address] [place] [address] Kam Varghese MD [address] [facility] 157 [place] [address] 08/06/2024 10:40 AM COPPER PLATE PRINTER Office Visit [facility] Multispecialty Care - [address] [address] [address] [place] [address] Kam Varghese MD [address] [facility] 157 [place] [address] 04/15/2025 8:00 AM COPPER PLATE PRINTER Hospital Encounter [facility] [place] [address] Helder Willis MD [address] [address] 04/15/2025 8:00 AM COPPER PLATE PRINTER - 04/15/2025 8:30 AM COPPER PLATE PRINTER Surgery [facility] Endo/[place] [address] Helder Willis MD [address] [address] COLONOSCOPY Scheduled Procedures Name Priority Associated Diagnoses Date/Ti me COLONOSCOPY Family history of colon cancer Personal history of colon polyps, unspecified Encounter for screening colonoscopy 04/15/2025 8:00 AM COPPER PLATE PRINTER documented as of this encounter Visit Diagnoses Not on filedocumented in this encounter Additional Health Concerns Infection Onset Date Last Indicated Resolved Time COVID-19 Rule Out 07/05/2024 07/05/2024 07/05/2024 2:49 AM COPPER PLATE PRINTER Influenza - Seasonal 07/05/2024 07/05/2024 Assessment Noted Time PHQ-9 Depression Total Score: 6 07/04/19 24 11:06 AM COPPER PLATE PRINTER documented as of this encounter Care Teams Snowboarder Relationship Specialty Start Date End Date Kam Varghese MD [address] [facility] [address] [place] [address] PCP - General INTERNAL MEDICINE 03/26/22 Minerva Reyes, RN 305[address] [place] [address] Geothermal Powerplant Mechanic Helper (Ambulatory) REGISTERED NURSE 07/05/24 documented as of this encounter
--- OUTSIDE RECORDS SUMMARY | 2024-07-10 16:35 | XMS_ITS | Encounter Summary ---
Author Organization [facility] Address [address] [place] [address] Care Team Providers Care Database Admin Name Role Phone Kam Varghese MD Primary Care Provider [phone] Minerva Reyes RN Unavailable [phone] Encounter Details Date Type Department Care Team (Late st Contact Info) Description 01/02/2024 MyChart Message Enc [address] [place] [address] Kam Varghese MD [address] [place] [address] [phone] Mylanta Social History Tobacco Use Types Packs/Day Years Used Date Smoking Tobacco: Every Day Cigarettes 0.8 50 Passive Smoke Exposure: Past Smokeless Tobacco: Never Comments:counseled by Dr Olya cota Alcohol Use Standard Drinks/Week Comments Not Currently 0 (1 standard drink = 0.6 oz pur e alcohol) rarely PHQ-2 Answer Date Recorded Patient Health Questionnaire-2 Score 0 01/02/2024 Comments No Sex and Gender Information Value Date Recorded Sex Assigned at Female 07/04/2024 10:42 PM TELECOMMUNICATIONS ENGINEER Legal Sex Female 9:48 AM TELECOMMUNICATIONS ENGINEER Gender Identity Not on file Sexual Orientation Not on file documented as of this encounter Plan of Treatment Upcoming Encounters Date Type Department Care Team (Latest Contact Info) Description 07/11/2024 10:40 AM TELECOMMUNICATIONS ENGINEER [facility] [address] [place], [place] [phone] Kam Varghese MD 118[address] [facility] 157 [place] [address] 08/06/2024 10:40 AM TELECOMMUNICATIONS ENGINEER Office Visit [facility] Medical Group Multispecialty Care - [place] [address] [address] [address] [place] [address] Kam Varghese MD 118[address] [facility] 157 [place] [address] 04/15/2025 8:00 AM TELECOMMUNICATIONS ENGINEER Hospital Encounter [facility] [place] [address] Helder Willis MD [address] [address] 04/15/2025 8:00 AM TELECOMMUNICATIONS ENGINEER - 04/15/2025 8:30 AM TELECOMMUNICATIONS ENGINEER Surgery [facility] Endo/[place] [address] Helder Willis MD [address] [address] COLONOSCOPY Scheduled Procedures Name Priority Associated Diagnoses Date/Ti me COLONOSCOPY Family history of colon cancer Personal history of colon polyps, unspecified Encounter for screening colonoscopy 04/15/2025 8:00 AM TELECOMMUNICATIONS ENGINEER documented as of this encounter Visit Diagnoses Not on filedocumented in this encounter Additional Health Concerns Infection Onset Date Last Indicated Resolved Time COVID-19 Rule Out 07/05/2024 07/05/2024 07/05/2024 2:49 AM TELECOMMUNICATIONS ENGINEER Influenza - Seasonal 07/05/2024 07/05/2024 Assessment Noted Time PHQ-9 Depression Total Score: 3 01/02/20 24 9:45 AM CDT documented as of this encounter Care Teams Database Admin Relationship Specialty Start Date End Date Kam Varghese MD 118[address] [facility] 157 [place] [address] PCP - General INTERNAL MEDICINE 03/26/22 Minerva Reyes, RN [address] [place] [address] News Director (Ambulatory) REGISTERED NURSE 07/05/24 documented as of this encounter
--- OUTSIDE RECORDS SUMMARY | 2024-07-10 16:35 | XMS_ITS | Encounter Summary ---
Author Organization [facility] Address [address] [place] [address] Care Team Providers Care Stunt Performer Name Role Phone Kam Varghese MD Primary Care Provider [phone] Encounter Details Date Type Department Care Team (Late st Contact Info) Description 02/21/2024 Lab Requisition [facility] - DermPath Lab [address] [facility] [place] [id number] Leonila Shay PA-C [address] [place] [address] Neoplasm of uncertain behavior of skin Social History Tobacco Use Types Packs/Day Years Used Date Smoking Tobacco: Never Assessed Sex and Gender Information Value Date Recorded Sex Assigned at Female 01/15/2023 7:19 AM CDT Gender Identity Female 01/15/2023 7:19 AM CDT Sexual Orientation Straight 01/15/2023 7: 19 AM CDT documented as of this encounter Plan of Treatment Not on file documented as of this encounter Procedures Procedure Name Priority Date/Time Associated Diagnosis Comments DERMATOPATHOLOGY Routine 02/21/2024 12:0 0 AM CDT Neoplasm of uncertain behavior of skin documented in this encounter Results * DERMATOPATHOLOGY (02/21/2024 12:00 AM CDT) Case Report Dermatopathology Report ? Case: [id number] ? Authorizing Provider: ??Leonila Shay PA-C ? Collected: ? 02/21/2024 12:00 AM ? [facility] ??Received: ?02/21/2024 12:44 PM ? DermPath Lab ? Pathologist: ? Yvonne Cid, ? Specimens: ?? A) - Skin, left superior lateral malar cheek ? B) - Skin, right distal posterior thigh ? 4 12:07 PM CDT DERMATOPATHOLOGY LABORATORY Final Diagnosis Specimen A. SKIN, left superior lateral malar cheek: ACTINIC KERATOSIS (L57.0) SOLAR ELASTOSIS (L57.8) Specimen B. SKIN, right distal posterior thigh: POROKERATOSIS (Q82.8) 4 12:07 PM T DERMATOPATHOLOGY LABORATORY Clinical History A: BCC vs Sebaceous Hyperplasia B: SCC 12:07 PM CDT DERMATOPATHOLOGY LABORATORY Gross Description Specimen A: Received [...] shave biopsy measuring 5x5x1 mm. Jar 0. 12:07 PM T DERMATOPATHOLOGY LABORATORY Microscopic Description Specimen A. SKIN, [...] a thinned epidermis, and cornoid lamella formation. 12:07 PM T DERMATOPATHOLOGY LABORATORY Disclaimer An external and internal positive and negative controls are appropriate for the histochemical, immunohistochemical and immunofluorescence stain(s) in this case (if any), except where stated explicitly. The performance characteristics of the stain(s) cited in this report were developed and its performance characteristic determined by the Dermatopathology Laboratory at [facility], directed by Dr. Oz Mercedes. These tests need not be, and therefore are not, approved by the [place] Food and Drug Administration. The tests are used for clinical purposes. Billing Codes Specimen Charges Stain Charges 57682 62338 1 1 12:07 PM CDT DERMATOPATHOLOGY LABORATORY Embedded Images 12:07 PM CDT DERMATOPATHOLOGY LABORATORY Pathology/Cytology TISSUE SPECIMEN FROM SKIN / Unknown 02/21/2024 02/21/2024 12:44 PM CDT Miscellaneous samples (specimen) TISSUE SPECIMEN FROM SKIN / Unknown 02/21/2024 02/21/2024 12:44 PM CDT Leonila Shay PA-C LAB - PATHOLOGY/CYTO LOGY ORDERABLES DERMATOPATHOLOGY LABORATORY [facility] - Department of Dermatology [facility] [address] [place] [address], [address] Floor [address] [phone] documented in this encounter Visit Diagnoses Diagnosis Neoplasm of uncertain behavior of skin documented in this encounter Care Teams Stunt Performer Relationship Specialty Start Date End Date Kam Varghese MD [address] [facility] 157 [place] [address] PCP - General Internal Medicine 01/12/23 documented as of this encounter
--- OUTSIDE RECORDS SUMMARY | 2024-07-10 16:35 | XMS_ITS | Encounter Summary ---
Author Organization [facility] Address [address] [place] [address] Care Team Providers Care Bdc Manager Name Role Phone Kam Varghese MD Primary Care Provider [phone] Minerva Reyes RN Unavailable [phone] Encounter Details Date Type Department Care Team (Late Contact Info) Description 01/10/2023 Thumbplay Message Enc [address] [address] [address] [place] [address] [facility] Provider CSA form Social History Tobacco Use Types Packs/Day Years [...] Sex Assigned at Female 07/04/2024 10:42 PM GAS TORCH BRAZIER Legal Sex Female 9:48 AM GAS TORCH BRAZIER Gender Identity Not on file Sexual Orientation Not on file documented as of this encounter Plan of Treatment Upcoming Encounters Date Type Department Care Team (Latest Contact Info) Description 07/11/2024 10:40 AM GAS TORCH BRAZIER [facility] [address] [place] [address] Kam Varghese MD [address] [place] [address] 08/06/2024 10:40 AM GAS TORCH BRAZIER Office Visit [facility] Medical Group Multispecialty Care - [place] [address] [address] [address] [place] [address] Kam Varghese MD 118[address] [facility] 157 [place] [address] 04/15/2025 8:00 AM GAS TORCH BRAZIER Hospital Encounter [facility] [place] [address] Helder Willis MD [address] [address] 04/15/2025 8:00 AM GAS TORCH BRAZIER - 04/15/2025 8:30 AM GAS TORCH BRAZIER Surgery [facility] [place]o/[place] [address] Helder Willis MD [address] [address] COLONOSCOPY Scheduled Procedures Name Priority Associated Diagnoses Date/Ti me COLONOSCOPY Family history of colon cancer Personal history of colon polyps, unspecified Encounter for screening colonoscopy 04/15/2025 8:00 AM GAS TORCH BRAZIER documented as of this encounter Visit Diagnoses Not on filedocumented in this encounter Additional Health Concerns Infection Onset Date Last Indicated Resolved Time COVID-19 Rule Out 07/05/2024 07/05/2024 07/05/2024 2:49 AM GAS TORCH BRAZIER Influenza - Seasonal 07/05/2024 07/05/2024 Assessment Noted Time PHQ-9 Depression Total Score: 1 11/25/19 23 11:21 AM CDT documented as of this encounter Care Teams Bdc Manager Relationship Specialty [place] [address] [place] [address] 157 [place] [address] PCP - General INTERNAL MEDICINE 03/26/22 Minerva Reyes, RN [address] [place] [address] Slag Mixer (Ambulatory) REGISTERED NURSE 07/05/24 documented as of this encounter
--- OUTSIDE RECORDS SUMMARY | 2024-07-10 16:35 | XMS_ITS | Encounter Summary ---
Author Organization [facility] Address [address] [place] [address] Care Team Providers Care Trades Helper Name Role Phone Kam Varghese MD Primary Care Provider [phone] Minerva Reyes RN Unavailable [phone] Encounter Details Date Type Department Care Team (Late st Contact Info) Description 01/04/2024 MyChart Message Enc [address] [place] [address] Kam Varghese MD [address] [place] [phone] Jardiance Social History Tobacco Use Types Packs/Day Years [...] Sex Assigned at Female 07/04/2024 10:42 PM CHARGE MASTER COORDINATOR Legal Sex Female 9:48 AM CHARGE MASTER COORDINATOR Gender Identity Not on file Sexual Orientation Not on file documented as of this encounter Plan of Treatment Upcoming Encounters Date Type Department Care Team (Latest Contact Info) Description 07/11/2024 10:40 AM CHARGE MASTER COORDINATOR Office Visit [address] [place], [place] [phone] Kam Varghese MD [address] [facility] 157 [place] [address] 08/06/2024 10:40 AM CHARGE MASTER COORDINATOR Office Visit [facility] Medical Group Multispecialty Care - [address] [address] [address] [place] [address] Kam Varghese MD [address] [facility] 157 [place] [address] 04/15/2025 8:00 AM CHARGE MASTER COORDINATOR Hospital Encounter [facility] [place] [address] Helder Willis MD [address] [address] 04/15/2025 8:00 AM CHARGE MASTER COORDINATOR - 04/15/2025 8:30 AM CHARGE MASTER COORDINATOR Surgery [facility] Endo/[place] [address] Helder Willis MD [address] [address] COLONOSCOPY Scheduled Procedures Name Priority Associated Diagnoses Date/Ti me COLONOSCOPY Family history of colon cancer Personal history of colon polyps, unspecified Encounter for screening colonoscopy 04/15/2025 8:00 AM CHARGE MASTER COORDINATOR documented as of this encounter Visit Diagnoses Not on filedocumented in this encounter Additional Health Concerns Infection Onset Date Last Indicated Resolved Time COVID-19 Rule Out 07/05/2024 07/05/2024 07/05/2024 2:49 AM CHARGE MASTER COORDINATOR Influenza - Seasonal 07/05/2024 07/05/2024 Assessment Noted Time PHQ-9 Depression Total Score: 3 01/02/20 24 9:45 AM CDT documented as of this encounter Care Teams Trades Helper Relationship Specialty Start Date End Date Kam Varghese MD 118[address] [facility] 157 [place] [address] PCP - General INTERNAL MEDICINE 03/26/22 Minerva Reyes, RN [address] [place] [address] Fixture Maker (Ambulatory) REGISTERED NURSE 07/05/24 documented as of this encounter
--- OUTSIDE RECORDS SUMMARY | 2024-07-10 16:35 | XMS_ITS | Encounter Summary ---
Author Organization [facility] Address [address] [place] [address] Care Team Providers Care Usability Strategist Name Role Phone Kam Varghese MD Primary Care Provider [phone] Minerva Reyes RN Unavailable [phone] Encounter Details Date Type Department Care Team (Late st Contact Info) Description 01/05/2024 MyChart Message Enc [address] [place] [address] Kam Varghese MD [address] [place] [address] [phone] Customer Greeter Social History Tobacco Use Types Packs/Day Years [...] Sex Assigned at Female 07/04/2024 10:42 PM CUSHION INSTALLER Legal Sex Female 9:48 AM CUSHION INSTALLER Gender Identity Not on file Sexual Orientation Not on file documented as of this encounter Plan of Treatment Upcoming Encounters Date Type Department Care Team (Latest Contact Info) Description 07/11/2024 10:40 AM CUSHION INSTALLER [facility] [place], [place] [phone] Kam Varghese MD [address] [facility] 157 [place] [address] 08/06/2024 10:40 AM CUSHION INSTALLER Office Visit [facility] Medical Group Multispecialty Care - [address] [address] [address] [place] [address] Kam Varghese MD [address] [facility] [address] [place] [address] 04/15/2025 8:00 AM CUSHION INSTALLER Hospital Encounter [facility] [place] [address] Helder Willis MD [address] [address] 04/15/2025 8:00 AM CUSHION INSTALLER - 04/15/2025 8:30 AM CUSHION INSTALLER Surgery [facility] [place]o/[place] [address] Helder Willis MD [address] [address] COLONOSCOPY Scheduled Procedures Name Priority Associated Diagnoses Date/Ti me COLONOSCOPY Family history of colon cancer Personal history of colon polyps, unspecified Encounter for screening colonoscopy 04/15/2025 8:00 AM CUSHION INSTALLER documented as of this encounter Visit Diagnoses Not on filedocumented in this encounter Additional Health Concerns Infection Onset Date Last Indicated Resolved Time COVID-19 Rule Out 07/05/2024 07/05/2024 07/05/2024 2:49 AM CUSHION INSTALLER Influenza - Seasonal 07/05/2024 07/05/2024 Assessment Noted Time PHQ-9 Depression Total Score: 3 01/02/20 24 9:45 AM CDT documented as of this encounter Care Teams Usability Strategist Relationship Specialty Start Date End Date Kam Varghese MD [address] [facility] [address] [place] [address] PCP - General INTERNAL MEDICINE 03/26/22 Minerva Reyes, RN [address] [place] [address] Contact Lens Manufacturer (Ambulatory) REGISTERED NURSE 07/05/24 documented as of this encounter
--- OUTSIDE RECORDS SUMMARY | 2024-07-10 16:35 | XMS_ITS | Encounter Summary ---
Author Organization [facility] Address [address] [place] [address] Care Team Providers Care Bias Cutting Machine Operator Name Role Phone Kam Varghese MD Primary Care Provider [phone] Minerva Reyes RN Unavailable [phone] Encounter Details Date Type Department Care Team (Late st Contact Info) Description 05/06/2023 Insightfulinchart Message Enc [address] [address] [address] [place] [address] Kam Varghese MD [address] [place] [phone] chest Social History Tobacco Use Types Packs/Day Years [...] Sex Assigned at Female 07/04/2024 10:42 PM DAM OPERATOR Legal Sex Female 9:48 AM DAM OPERATOR Gender Identity Not on file Sexual Orientation Not on file documented as of this encounter Plan of Treatment Upcoming Encounters Date Type Department Care Team (Latest Contact Info) Description 07/11/2024 10:40 AM DAM OPERATOR [facility] [place] [address] Kam Varghese MD 1188 [facility] 157 [place] [address] 08/06/2024 10:40 AM DAM OPERATOR Office Visit [facility] Medical Group Multispecialty Care - [place] [address] [address] [address] [place] [address] Kam Varghese MD 1188 [facility] 157 [place] [address] 04/15/2025 8:00 AM DAM OPERATOR Hospital Encounter [facility] [place] [address] Helder Willis MD [address] [address] 04/15/2025 8:00 AM DAM OPERATOR - 04/15/2025 8:30 AM DAM OPERATOR Surgery [facility] Endo/[place] [address] Helder Willis MD [address] [address] COLONOSCOPY Scheduled Procedures Name Priority Associated Diagnoses Date/Ti me COLONOSCOPY Family history of colon cancer Personal history of colon polyps, unspecified Encounter for screening colonoscopy 04/15/2025 8:00 AM DAM OPERATOR documented as of this encounter Visit Diagnoses Not on filedocumented in this encounter Additional Health Concerns Infection Onset Date Last Indicated Resolved Time COVID-19 Rule Out 07/05/2024 07/05/2024 07/05/2024 2:49 AM DAM OPERATOR Influenza - Seasonal 07/05/2024 07/05/2024 Assessment Noted Time PHQ-9 Depression Total Score: 1 11/25/19 23 11:21 AM CDT documented as of this encounter Care Teams Bias Cutting Machine Operator Relationship Specialty Start Date End Date Kam Varghese MD 1188 [facility] 157 [place] [address] PCP - General INTERNAL MEDICINE 03/26/22 Minerva Reyes, RN [address] [place] [address] Lead Based Paint Technician (Ambulatory) REGISTERED NURSE 07/05/24 documented as of this encounter
--- OUTSIDE RECORDS SUMMARY | 2024-07-10 16:35 | XMS_ITS | Encounter Summary ---
Author Organization [facility] Address [address] [place] [address] Care Team Providers Care Lime Spreader Name Role Phone Kam Varghese MD Primary Care Provider [phone] Minerva Reyes RN Unavailable [phone] Encounter Details Date Type Department Care Team (Late st Contact Info) Description 03/03/2023 MyChart Message Enc [address] [place] [address] Kam Varghese MD [address] [place] [address] [phone] [employer] Social History Tobacco Use Types Packs/Day Years [...] Sex Assigned at Female 07/04/2024 10:42 PM CONTENT ADMINISTRATOR Legal Sex Female 9:48 AM CONTENT ADMINISTRATOR Gender Identity Not on file Sexual Orientation Not on file documented as of this encounter Plan of Treatment Upcoming Encounters Date Type Department Care Team (Latest Contact Info) Description 07/11/2024 10:40 AM CONTENT ADMINISTRATOR [facility] [place], [place] [phone] Kam Varghese MD 1188 [facility] 157 [place] [address] 08/06/2024 10:40 AM CONTENT ADMINISTRATOR Office Visit [facility] Medical Group Multispecialty Care - [place] [address] [address] [address] [place] [address] Kam Varghese MD 1188 [facility] 157 [place] [address] 04/15/2025 8:00 AM CONTENT ADMINISTRATOR Hospital Encounter [facility] [place] [address] Helder Willis MD [address] [address] 04/15/2025 8:00 AM CONTENT ADMINISTRATOR - 04/15/2025 8:30 AM CONTENT ADMINISTRATOR Surgery [facility] [place]o/[place] [address] Helder Willis MD [address] [address] COLONOSCOPY Scheduled Procedures Name Priority Associated Diagnoses Date/Ti me COLONOSCOPY Family history of colon cancer Personal history of colon polyps, unspecified Encounter for screening colonoscopy 04/15/2025 8:00 AM CONTENT ADMINISTRATOR documented as of this encounter Visit Diagnoses Not on filedocumented in this encounter Additional Health Concerns Infection Onset Date Last Indicated Resolved Time COVID-19 Rule Out 07/05/2024 07/05/2024 07/05/2024 2:49 AM CONTENT ADMINISTRATOR Influenza - Seasonal 07/05/2024 07/05/2024 Assessment Noted Time PHQ-9 Depression Total Score: 1 11/25/19 23 11:21 AM CDT documented as of this encounter Care Teams Lime Spreader Relationship Specialty Start Date End Date Kam Varghese MD 1188 [facility] 157 [place] [address] PCP - General INTERNAL MEDICINE 03/26/22 Minerva Reyes, RN [address] [place] [address] Fan Mail Editor (Ambulatory) REGISTERED NURSE 07/05/24 documented as of this encounter
--- OUTSIDE RECORDS SUMMARY | 2024-07-10 16:35 | XMS_ITS | Encounter Summary ---
Author Organization [facility] Address [address] [place] [address] Care Team Providers Care Watch Hairspring Assembler Name Role Phone Kam Varghese MD Primary Care Provider [phone] Minerva Reyes RN Unavailable [phone] Encounter Details Date Type Department Care Team (Late st Contact Info) Description 07/07/2023 MyChart Message Enc [address] [place] [address] Kam Varghese MD [address] [place] [address] [phone] Atorvastatin Social History Tobacco Use Types Packs/Day Years [...] Sex Assigned at Female 07/04/2024 10:42 PM DIVISION LEADER Legal Sex Female 9:48 AM DIVISION LEADER Gender Identity Not on file Sexual Orientation Not on file documented as of this encounter Plan of Treatment Upcoming Encounters Date Type Department Care Team (Latest Contact Info) Description 07/11/2024 10:40 AM DIVISION LEADER Office Visit [address] [place] [address] [place] [address] [place] [address] 157 [place] [address] 08/06/2024 10:40 AM DIVISION LEADER Office Visit [facility] Medical Group Multispecialty Care - [place] [address] [address] [place] [address] Kam Varghese MD 1188 [facility] 157 [place] [address] 04/15/2025 8:00 AM DIVISION LEADER Hospital Encounter [facility] [place] [address] Helder Willis MD [address] [address] 04/15/2025 8:00 AM DIVISION LEADER - 04/15/2025 8:30 AM DIVISION LEADER Surgery [facility] [place] [address] Helder Willis MD [address] [address] COLONOSCOPY Scheduled Procedures Name Priority Associated Diagnoses Date/Ti me COLONOSCOPY Family history of colon cancer Personal history of colon polyps, unspecified Encounter for screening colonoscopy 04/15/2025 8:00 AM DIVISION LEADER documented as of this encounter Visit Diagnoses Not on filedocumented in this encounter Additional Health Concerns Infection Onset Date Last Indicated Resolved Time COVID-19 Rule Out 07/05/2024 07/05/2024 07/05/2024 2:49 AM DIVISION LEADER Influenza - Seasonal 07/05/2024 07/05/2024 Assessment Noted Time PHQ-9 Depression Total Score: 6 07/04/19 24 11:06 AM DIVISION LEADER documented as of this encounter Care Teams Watch Hairspring Assembler Relationship Specialty Start Date End Date Kam Varghese MD [address] [facility] [address] [place] [address] PCP - General INTERNAL MEDICINE 03/26/22 Minerva Reyes, RN [address] [place] [address] Development And Housing Director (Ambulatory) REGISTERED NURSE 07/05/24 documented as of this encounter
--- OUTSIDE RECORDS SUMMARY | 2024-07-10 16:35 | XMS_ITS | Encounter Summary ---
Author Organization [facility] Address [address] [place] [address] Care Team Providers Care Assistant Family Teacher Name Role Phone Kam Varghese MD Primary Care Provider [phone] Minerva Reyes RN Unavailable [phone] Encounter Details Date Type Department Care Team (Late st Contact Info) Description 06/17/2023 MyChart Message Enc [address] [place] [address] Kam Varghese MD [address] [place] [address] [phone] Referral Social History Tobacco Use Types Packs/Day [...] Sex Assigned at Female 07/04/2024 10:42 PM MATERIAL REPROCESSING ASSOCIATE Legal Sex Female 9:48 AM MATERIAL REPROCESSING ASSOCIATE Gender Identity Not on file Sexual Orientation Not on file documented as of this encounter Plan of Treatment Upcoming Encounters Date Type Department Care Team (Latest Contact Info) Description 07/11/2024 10:40 AM MATERIAL REPROCESSING ASSOCIATE [facility] [address] [place] [address] Kam Varghese MD 1188 [facility] 157 [place] [address] 08/06/2024 10:40 AM MATERIAL REPROCESSING ASSOCIATE Office Visit [facility] Multispecialty Care - [place] [address] [place] [address] [address] [address] [place] [address] Kam Varghese MD 1188 [facility] 157 [place] [address] 04/15/2025 8:00 AM MATERIAL REPROCESSING ASSOCIATE Hospital Encounter [facility] [place] [address] Helder Willis MD [address] [address] 04/15/2025 8:00 AM MATERIAL REPROCESSING ASSOCIATE - 04/15/2025 8:30 AM MATERIAL REPROCESSING ASSOCIATE Surgery [facility] [place]o/[place] [address] Helder Willis MD [address] [address] COLONOSCOPY Scheduled Procedures Name Priority Associated Diagnoses Date/Ti me COLONOSCOPY Family history of colon cancer Personal history of colon polyps, unspecified Encounter for screening colonoscopy 04/15/2025 8:00 AM MATERIAL REPROCESSING ASSOCIATE documented as of this encounter Visit Diagnoses Not on filedocumented in this encounter Additional Health Concerns Infection Onset Date Last Indicated Resolved Time COVID-19 Rule Out 07/05/2024 07/05/2024 07/05/2024 2:49 AM MATERIAL REPROCESSING ASSOCIATE Influenza - Seasonal 07/05/2024 07/05/2024 Assessment Noted Time PHQ-9 Depression Total Score: 1 11/25/19 23 11:21 AM CDT documented as of this encounter Care Teams Assistant Family Teacher Relationship Specialty Start Date End Date Kam Varghese MD [address] [facility] [address] [place] [address] PCP - General INTERNAL MEDICINE 03/26/22 Minerva Reyes, RN [address] [place] [address] Rn Training (Ambulatory) REGISTERED NURSE 07/05/24 documented as of this encounter
--- OUTSIDE RECORDS SUMMARY | 2024-07-10 16:35 | XMS_ITS | Encounter Summary ---
Author Organization [facility] Address [address] [place] [address] Care Team Providers Care Bias Binding Folder Name Role Phone Kam Varghese MD Primary Care Provider [phone] Minerva Reyes RN Unavailable [phone] Encounter Details Date Type Department Care Team (Late Contact Info) Description 01/10/2023 Pastry Group Message Enc [facility] Medical [place] [address] [address] [address] [place] [address] [facility] Social History Tobacco Use Types Packs/Day Years [...] Sex Assigned at Female 07/04/2024 10:42 PM VEHICLE DETAILER Legal Sex Female 9:48 AM VEHICLE DETAILER Gender Identity Not on file Sexual Orientation Not on file documented as of this encounter Plan of Treatment Upcoming Encounters Date Type Department Care Team (Latest Contact Info) Description 07/11/2024 10:40 AM VEHICLE DETAILER [facility] [place] [address] [address] [place] [address] Kam Varghese MD [address] [place] [address] 08/06/2024 10:40 AM VEHICLE DETAILER Office Visit [facility] Medical Group Multispecialty Care - [place] [address] [address] [place] [address] Kam Varghese MD 1188 [facility] 157 [place] [address] 04/15/2025 8:00 AM VEHICLE DETAILER Hospital Encounter [facility] [place] [address] Helder Willis MD [address] [address] 04/15/2025 8:00 AM VEHICLE DETAILER - 04/15/2025 8:30 AM VEHICLE DETAILER Surgery [facility] [place] [address] Helder Willis MD [address] [address] COLONOSCOPY Scheduled Procedures Name Priority Associated Diagnoses Date/Ti me COLONOSCOPY Family history of colon cancer Personal history of colon polyps, unspecified Encounter for screening colonoscopy 04/15/2025 8:00 AM VEHICLE DETAILER documented as of this encounter Visit Diagnoses Not on filedocumented in this encounter Additional Health Concerns Infection Onset Date Last Indicated Resolved Time COVID-19 Rule Out 07/05/2024 07/05/2024 07/05/2024 2:49 AM VEHICLE DETAILER Influenza - Seasonal 07/05/2024 07/05/2024 Assessment Noted Time PHQ-9 Depression Total Score: 1 11/25/19 23 11:21 AM CDT documented as of this encounter Care Teams Bias Binding Folder Relationship Specialty [place] [address] [place] [address] PCP - General INTERNAL MEDICINE 03/26/22 Minerva Reyes, RN [address] [place] [address] Practicing Urologist (Ambulatory) REGISTERED NURSE 07/05/24 documented as of this encounter
--- OUTSIDE RECORDS SUMMARY | 2024-07-10 16:35 | XMS_ITS | Encounter Summary ---
Author Organization [facility] Address [address] [place] [address] Care Team Providers Care Final Cleaner Name Role Phone Kam Varghese MD Primary Care Provider [phone] Minerva Reyes RN Unavailable [phone] Encounter Details Date Type Department Care Team (Latest Contact Info) Description 07/04/2024 Scan [facility] Scanned, Doc Med Group Social History Tobacco Use Types Packs/Day Years Used Date Smoking Tobacco: Every Day Cigarettes 0.8 50 Passive Smoke Exposure: Past Smokeless Tobacco: Never Comments:counseled by Dr Olya cota Alcohol Use Standard Drinks/Week Comments Not Currently 0 (1 standard drink = 0.6 oz pur e alcohol) rarely [facility] Utilities Answer Date Recorded In the past 12 months has e [employer], gas, oil, or water [employer] threatened to shut off services in your [...] No 07/05/2024 Overall Financial Resource Strain (CARDIA) Agustin r Date Recorded How hard is it [...] any time in the past 12 m [facility], were you homeless or living in a half-way (including now)? No 07/05/2024 Comments No Sex and Gender Information Value Date Recorded Sex Assigned at Female 07/04/2024 10:42 PM ELECTION JUDGE Legal Sex Female 9:48 AM ELECTION JUDGE Gender Identity Not on file Sexual Orientation Not on file documented as of this encounter Functional Status documented as of this encounter Mental Status * Question Answer Entry Date Author Status Because of a physical, mental, or emotional condition, do you have serious difficulty concentrating, remembering, or making decisions? No 07/05/2024 1:26 PM ELECTION JUDGE Kath Chapman RN Active documented in this encounter Plan of Treatment Upcoming Encounters Date Type Department Care Team (Latest Contact Info) Description 07/11/2024 10:40 AM ELECTION JUDGE Office Visit [facility] Medical Group Multispecialty Care - [place] [address] [address] [place], [place] [address] Kam Varghese MD [address] [place] [address] 08/06/2024 10:40 AM ELECTION JUDGE Office Visit [facility] Medical Group Multispecialty Care - [place] [address] [address] [place] [address] Kam Varghese MD [address] [place] [address] 04/15/2025 8:00 AM ELECTION JUDGE Hospital Encounter [facility] [place] [address] Helder Willis MD [address] [address] 04/15/2025 8:00 AM ELECTION JUDGE - 04/15/2025 8:30 AM ELECTION JUDGE Surgery [facility] [place] [address] Helder Willis MD [address] [address] COLONOSCOPY Scheduled Procedures Name Priority Associated Diagnoses Date/Ti me COLONOSCOPY Family history of colon cancer Personal history of colon polyps, unspecified Encounter for screening colonoscopy 04/15/2025 8:00 AM ELECTION JUDGE documented as of this encounter Visit Diagnoses Not on filedocumented in this encounter Additional Health Concerns Infection Onset Date Last Indicated Resolved Time COVID-19 Rule Out 07/05/2024 07/05/2024 07/05/2024 2:49 AM ELECTION JUDGE Influenza - Seasonal 07/05/2024 07/05/2024 Assessment Noted Time PHQ-9 Depression Total Score: 1 02/07/20 24 9:26 AM CDT documented as of this encounter Care Teams Final Cleaner Relationship Specialty Start Date End Date Kam Varghese MD [address] [place] [address] PCP - General INTERNAL MEDICINE 03/26/22 Minerva Reyes, RN [address] [place] [address] Log Handler (Ambulatory) REGISTERED NURSE 07/05/24 documented as of this encounter
--- OUTSIDE RECORDS SUMMARY | 2024-07-10 16:35 | XMS_ITS | Encounter Summary ---
Author Organization [facility] Address [address] [place] [address] Care Team Providers Care Res Counselor Name Role Phone Kam Varghese MD Primary Care Provider [phone] Minerva Reyes RN Unavailable [phone] Reason for Visit * Reason Onset Date Comments Medication Information 07/04/2024 Encounter Details Date Type Department Care Team (Late Contact Info) Description 07/04/2024 Telephone [facility] Medical Group Multispecialty Care - [place] [address] [address] [place] [address] [place] [address] [place] [address] 157 [place] [address] Medication Information Social History Tobacco Use Types Packs/Day Years Used Date Smoking Tobacco: Every Day Cigarettes 0.8 50 Passive Smoke Exposure: Past Smokeless Tobacco: Never Comments:counseled by Dr Olya cota Alcohol Use Standard Drinks/Week Comments Not Currently 0 (1 standard drink = 0.6 oz pur e alcohol) rarely [facility] Utilities Answer Date Recorded In the past 12 months has e electric, gas, oil, or water company threatened to shut off services in your [...] any time in the past 12 m [facility], were you homeless or living in a custodial (including now)? No 07/05/2024 Comments No Sex and Gender Information Value Date Recorded Sex Assigned at Female 07/04/2024 10:42 PM POLICE JUSTICE Legal Sex Female 9:48 AM POLICE JUSTICE Gender Identity Not on file Sexual Orientation Not on file documented as of this encounter Functional Status documented as of this encounter Mental Status * Question Answer Entry Date Author Status Because of a physical, mental, or emotional condition, do you have serious difficulty concentrating, remembering, or making decisions? No 07/05/2024 1:26 PM POLICE JUSTICE Kath Chapman RN Active documented in this encounter Progress Notes * Tova Garcia MA - 07/04/2024 3:59 PM CST Pt was here for an acute visit with for Dr. Varghese 07/04/2024. With a complaint of diarrhea and fatigue and not eating for two days. When pt arrived her oxygen was at 82 and went to 87 with deep breaths. Pt appeared to be very yellow toned. Pt was also not able to walk alone. After speaking to Dr. Varghese about pts vitals she advised pt to go to the ER. Polo who is pts emergency contact stated he wo uld go to [facility] in [place]. I called [place] and informed pt is on her way and per Dr. Varghese to tell them she is concerned for respiratory distress. September From [place] stated they willkeep an eye for when she comes into the ER. I informed Polo to call after discharge and He v/u. 07/04/2024. Gladys appointment was cancelled, as she Is going to the Emergency room. CE JUSTICE documented in this encounter Plan of Treatment Upcoming Encounters Date Type Department Care Team (Latest Contact Info) Description 07/11/2024 10:40 AM POLICE JUSTICE Office Visit [facility] [address] [address] Kam Varghese MD [facility] [address] [address] 08/06/2024 10:40 AM POLICE JUSTICE [facility] [place] [address] [address] [place] [address] Kam Varghese MD [facility] [address] [address] 04/15/2025 8:00 AM POLICE JUSTICE Hospital Encounter [facility] [place] [address] Helder Willis MD 3 [facility] [address] [place] [address] 04/15/2025 8:00 AM POLICE JUSTICE - 04/15/2025 8:30 AM POLICE JUSTICE Surgery [facility] [place] [address] Helder Willis MD 3 [facility] [address] [place] [address] COLONOSCOPY Scheduled Procedures Name Priority Associated Diagnoses Date/Ti me COLONOSCOPY Family history of colon cancer Personal history of colon polyps, unspecified Encounter for screening colonoscopy 04/15/2025 8:00 AM POLICE JUSTICE documented as of this encounter Visit Diagnoses Not on filedocumented in this encounter Additional Health Concerns Infection Onset Date Last Indicated Resolved Time COVID-19 Rule Out 07/05/2024 07/05/2024 07/05/2024 2:49 AM POLICE JUSTICE Influenza - Seasonal 07/05/2024 07/05/2024 Assessment Noted Time PHQ-9 Depression Total Score: 1 02/07/20 24 9:26 AM CDT documented as of this encounter Care Teams Res Counselor Relationship Specialty Start Date End Date Kam Varghese MD 1188 [facility] 157 [place] [address] PCP - General INTERNAL MEDICINE 03/26/22 Minerva Reyes, RN [address] [place] [address] Casting Cleaner (Ambulatory) REGISTERED NURSE 07/05/24 documented as of this encounter
--- OUTSIDE RECORDS SUMMARY | 2024-07-10 16:35 | XMS_ITS | Encounter Summary ---
Author Organization [facility] Address [address] [place] [address] Care Team Providers Care Nozzle Operator Name Role Phone Kam Varghese MD Primary Care Provider [phone] Minerva Reyes RN Unavailable [phone] Encounter Details Date Type Department Care Team (Latest Contact Info) Description 07/05/2024 Scan [facility] Scanned, Doc Med Group Social History Tobacco Use Types Packs/Day Years Used Date Smoking Tobacco: Every Day Cigarettes 0.8 50 Passive Smoke Exposure: Past Smokeless Tobacco: Never Comments:counseled by Dr Olya cota Alcohol Use Standard Drinks/Week Comments Not Currently 0 (1 standard drink = 0.6 oz pur e alcohol) rarely [facility] Utilities Answer Date Recorded In the past 12 months has e [employer], gas, oil, or water [employer] threatened to shut off services in your [...] any time in the past 12 m [facility], were you homeless or living in a alf (including now)? No 07/05/2024 Comments No Sex and Gender Information Value Date Recorded Sex Assigned at Female 07/04/2024 10:42 PM PLANIMETER OPERATOR Legal Sex Female 9:48 AM PLANIMETER OPERATOR Gender Identity Not on file Sexual Orientation Not on file documented as of this encounter Functional Status * Question Answer Date of Assessment Author Status Do you have serious difficulty walking or climbing stairs? Yes 07/05/2024 1:26 PM Kath Parkinson RN A ctive * Question Answer Date of Assessment Author Status Do you have difficulty dressing or bathing? No 07/05/2024 1:26 PM Kath Parkinson RN Active Because of a physical, mental, or emotional condition, do you have difficulty doing errands alone such as visiting a doctor's office or shopping? No 07/05/2024 1:26 PM Kath Parkinson RN Ac tive * Are you deaf or do you have serious difficulty hearing Answer Date of Assessment Author Status No 07/05/2024 1:26 PM Kath Parkinson RN Active * Are you blind or do you have serious difficulty seeing, even when wearing glasses? Answer Date of Assessment Author Status No 07/05/2024 1:26 PM Kath Parkinson RN Active * Do you have serious difficulty walking or climbing stairs? Answer Date of Assessment Author Status Yes 07/05/2024 1:26 PM Kath Parkinson RN Active * Do you have difficulty dressing or bathing? Answer Date of Assessment Author Status No 07/05/2024 1:26 PM Kath Parkinson RN Active * Because of a physical, mental, or emotional condition, do you have difficulty doing errands alone such as visiting a doctor's office or shopping? Answer Date of Assessment Author Status No 07/05/2024 1:26 PM Kath Parkinson RN Active documented as of this encounter Mental Status * Question Answer Entry Date Author Status Because of a physical, mental, or emotional condition, do you have serious difficulty concentrating, remembering, or making decisions? No 07/05/2024 1:26 PM Kath Parkinson RN Active * Because of a physical, mental, or emotional condition, do you have serious difficulty concentrating, remembering, or making decisions? Answer Entry Date Author Status No 07/05/2024 1:26 PM Kath Parkinson RN Active documented in this encounter Plan of Treatment Upcoming Encounters Date Type Department Care Team (Latest Contact Info) Description 07/11/2024 10:40 AM PLANIMETER OPERATOR Office Visit [facility] [place] [address] [address] [place] [address] Kam Varghese MD [facility] [address] [address] 08/06/2024 10:40 AM PLANIMETER OPERATOR [facility] [place] [address] [address] [place] [address] Kam Varghese MD [address] [place] [address] [place] [address] 04/15/2025 8:00 AM PLANIMETER OPERATOR Hospital En[facility] [place] [address] Helder Willis MD [address] [address] 04/15/2025 8:00 AM PLANIMETER OPERATOR - 04/15/2025 8:30 AM PLANIMETER OPERATOR Surgery [facility] [address] Helder Willis MD [address] [facility] [address] COLONOSCOPY Scheduled Procedures Name Priority Associated Diagnoses Date/Ti me COLONOSCOPY Family history of colon cancer Personal history of colon polyps, unspecified Encounter for screening colonoscopy 04/15/2025 8:00 AM PLANIMETER OPERATOR documented as of this encounter Visit Diagnoses Not on filedocumented in this encounter Additional Health Concerns Infection Onset Date Last Indicated Resolved Time COVID-19 Rule Out 07/05/2024 07/05/2024 07/05/2024 2:49 AM PLANIMETER OPERATOR Influenza - Seasonal 07/05/2024 07/05/2024 Assessment Noted Time PHQ-9 Depression Total Score: 1 02/07/20 24 9:26 AM CDT documented as of this encounter Care Teams Nozzle Operator Relationship Specialty Start Date End Date Kam Varghese MD 1188 [facility] 157 [place] [address] PCP - General INTERNAL MEDICINE 03/26/22 Minerva Reyes, RN [address] [place] [address] Junior High Math Teacher (Ambulatory) REGISTERED NURSE 07/05/24 documented as of this encounter
--- OUTSIDE RECORDS SUMMARY | 2024-07-10 16:35 | XMS_ITS | Data Portability ---
Author Organization [facility], [facility] Address [address] [place] [address] Assessment No assessment recorded. Plan of Treatment Reminders Order Date Submit Date Provider Last Modified By Organization Details Last Modified Time Details Appointments None recorded . Lab biopsy, tissue 024 03/06/20 [place], [address] [place], [address], 14:28:02 biopsy, tissue 024 03/06/20 [place] [address] [facility], [address] [place], [address], 4 15:46:14 Referral None recorded . Procedures None recorded . Surgeries None recorded . Imaging None recorded . Medication Orders None recorded . Patient TargetsNo targets recorded. Patient InstructionsNo instructions recorded. Reason for Referral None Reported. Results Created Date Observation Date Name Description Value Unit Range Abnormal Flag Note LastModifiedBy Organization Detail LastModifiedTime 03/06/2003/12/2024 TISSU E PATHO LOGY clinical information Lesio n Not Available [facility] [employer] [facility] [address] [address], [place], [address], 03/12/2024 14:28:01 03/06/2003/12/2024 TISSU E PATHO LOGY pathologist Frances carreno M.D., Board Certi fimariya in Anato michelle Patho logy and Clini giselle Patho logy( elect buffy jim) Not Available [facility] [address] [place], [address], 03/12/2024 14:28:03/06/20 24 03/12/2024 TISSU E PATHO LOGY report notes In each insta nce, the diffe renti al diagn osis inclu nehemias condy sidney. Pleas e corre late and follo w clini andrey . Not Available [address] [address] [address], [place], [address], 03/12/2024 14:28:03/06/2003/12/2024 TISSU E PATHO LOGY A clinical impression Ureth ral disor levon, unspe cifie d Not Available [facility] [address] [address] [address] , [place], [address], 03/12/2024 14:28:03/06/2003/12/2024 TISSU E PATHO LOGY A source Supra ureth ra, biops y Not Available [address] [address] [address] , [place], [address], 03/12/2024 14:28:03/06/2003/12/2024 TISSU E PATHO LOGY A gross description Speci men is recei edita in 10% neutr al buffe red forma darby, label ed with multi ple patie nt ident ifier s and consi sts of one fragm ent of tissu e measu ring 0.3 x 0.3 x 0.2 cm, irreg ular in shape and yello w-whi te in color . The speci men is entir abdirahman submi tted in one casse tte. Gross exam( s) perfo rmed at: [facility] [place] [address], [place] [address] Labor atory Direc tor: GENESIS Carreno MD Not Available [facility] [address] [address] [address] , [place], [address], 03/12/2024 14:28:01 03/06/20 24 03/12/2024 TISSU E PATHO LOGY A diagnosis Consi stent with verru ca. 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 Not Available [facility] [address] [address] [address], [place], [address], 03/12/2024 14:28:01 03/06/2003/12/2024 TISSU E PATHO LOGY B source Right labia , biops y Not Available [facility] [address] [address] [address], [place], [address], 03/12/2024 14:28:03/06/2003/12/2024 TISSU E PATHO LOGY B gross description Speci men is recei edita in 10% neutr al buffe red forma darby, label ed with multi ple patie nt ident ifier (s) and consi sts of one piece from a skin biops y measu ring 0.7 x 0.2 x 0.2 cm, irreg ular in shape and mercer-g ray in color . The dara ns are inked green . The speci men is bisec ailyn and entir abdirahman submi tted in one casse tte(s ). Not Available [facility] [address] [address] [address], [place], [address], 03/12/2024 14:28:01 03/06/2003/12/2024 TISSU E PATHO LOGY B diagnosis Consi stent with verru ca (poly poid) . Not Available [facility] [address] [address] [address], [place], [address], 03/12/2024 14:28:01 Result Notes None recorded. Procedures Surgical History Date Name Laterality Status Provider Name and Address Organization Details Recorded Time 03/06/20 Vulvar Biopsy completed Bennie Chin, DO [address] [facility], [place], [address], [place] eeden IV 03/07/2024 10:34:52 05/06/20 23 Most Recent Mammogram completed [facility] eeden IV 03/06/2024 15:01:14 06/06/19 23 Most Recent Bone Density completed [facility] eeden IV 03/06/2024 15:01:29 06/06/19 22 Date of Last Colonoscopy completed Dahiana [facility]ush [facility] 03/06/2024 15:01:20 arthroplasty of knee completed Dahiana Ayush eeden IV 03/06/2024 15:02:25 splenectomy completed [facility] eeden IV 03/06/2024 15:02:46 cholecystectomy completed Dahiana Ayush eeden IV 03/06/2024 15:02:53 partial hysterectomy completed Dahiana Ayush eeden IV 03/06/2024 15:09:16 nasal polypectomy completed [facility] eeden IV 03/06/2024 15:09:32 extraction of cataract completed Dahiana Ayush eeden IV 03/06/2024 15:09:44 Imaging Results None recorded. Procedure Notes None recorded. Medical Equipment None Reported. Allergies Allergen ID Allergen Name Allergen Category Reaction Reaction Severity Criticality Documentation Date Start Date Code Code System Note Provider Name and Address Organization Details Recorded Time 494520 morphine medicatio n Not available Not available Not available 03/06/2024 7052 RxNorm Not Available Not Available Not Available 012974 Substance with sulfonami de structure and antibacte rial mechanism of action (substanc e) medicatio n Not available Not available Not available 03/06/2024 22557 8003 SNOMED Not Available Not Available Not Available Medications Name Sig Start Date Stop Date Status Note LastModified by Organization Details LastModified Time pramipexole 1 mg tablet TAKE 1 TABLET BY MOUTH THREE TIMES A DAY 03/06 completed Not Available Not Available Not Available atorvastati n 40 mg tablet TAKE 1 TABLET BY MOUTH NIGHTLY AT BEDTIME 03/06 completed Not Available Not Available Not Available atorvastati n 20 mg tablet TAKE 1 TABLET BY MOUTH NIGHTLY AT BEDTIME active Not Available Not Available No t Available triazolam 0.25 mg tablet TAKE 1/2(HALF) TABLET ONE HOUR PRIOR TO DENTAL PROCEDURE . BRING SECOND HALF TO DENTAL APPOINTME NT. 03/06 completed Not Available Not Available Not Available hydrocodone 5 mg-acetamin ophen 325 mg tablet TAKE 1 TO 2 TABLETS BY MOUTH EVERY 6 HOURS NEEDED FOR PAIN 03/06 completed Not Available Not Available Not Available prednisone 5 mg tablet TAKE 4 TABS BY MOUTH DAILY FOR 3 DAYS, THEN TAPER BY 1 TABLET EVERY 3 DAYS TILL OFF 03/06 completed Not Available Not Available Not Available azathioprin e 50 mg tablet TAKE 3 TABLETS BY MOUTH EVERY MORNING TAKE 2 TABLETS EVERY EVENING active Not Available Not Available No t Available trimethopri m 100 mg tablet TAKE 1 TABLET BY MOUTH AT BEDTIME active Not Available Not Available No t Available aspirin 81 mg tablet,hossein yed release Take 1 tablet every day by oral route. active Not Available Not Available No t Available amoxicillin 500 mg tablet TAKE 1 TABLET BY MOUTH THREE TIMES DAILY UNTIL GONE 03/06 completed Not Available Not Available Not Available pramipexole 0.5 mg tablet TAKE 1 TABLET BY MOUTH ONCE DAILY active Not Available Not Available No t Available amlodipine 10 mg tablet TAKE 1 TABLET BY MOUTH ONCE DAILY active Not Available Not Available No t Available pantoprazol e 40 mg tablet,hossein yed release TAKE 1 TABLET BY MOUTH ONCE DAILY 03/06 completed Not Available Not Available Not Available esomeprazol e magnesium 40 mg capsule,del ayed release TAKE 1 CAPSULE BY MOUTH TWICE DAILY 03/06 completed Not Available Not Available Not Available hydrochloro thiazide 25 mg tablet TAKE 1 TABLET BY MOUTH ONCE DAILY IN THE MORNING 2023 active Not Available Not Available Not Avai lable furosemide 20 mg tablet TAKE 1 TABLET (20 MG TOTAL) BY MOUTH DAILY NEEDED. TAKE POTASSIUM SUPPLEMEN TS WHILE ON LASIX. 03/06 completed Not Available Not Available Not Available ergocalcife rol (vitamin D2) 1,250 mcg (50,000 unit) capsule TAKE 1 CAPSULE BY MOUTH ONCE A WEEK 03/06 completed Not Available Not Available Not Available albuterol sulfate HFA 90 mcg/actuati on aerosol inhaler INHALE 2 PUFFS BY MOUTH EVERY 6 HOURS NEEDED FOR WHEEZING 03/06 completed Not Available Not Available Not Available ondansetron 4 mg disintegrat ing tablet DISSOLVE 1 TABLET ON THE TONGUE EVERY 6 HOURS NEEDED 03/06 completed Not Available Not Available Not Available metformin ER 500 mg tablet,exte nded release 24 hr TAKE 3 TABLETS BY MOUTH ONCE DAILY WITH BREAKFAST active Not Available Not Available No t Available ropinirole 4 mg tablet TAKE 1 TABLET BY MOUTH NIGHTLY AT BEDTIME active Not Available Not Available No t Available insulin aspart (U-100) 100 unit/mL (3 mL) subcutaneou s pen USE DIRECTED PER SLIDING SCALE. MAX DAILY DOSE OF 100 active Not Available Not Available No t Available Klor-Con M10 mEq tablet,exte nded release TAKE 1 TABLET (10 MEQ TOTAL) BY MOUTH DAILY NEEDED. TAKE POTASSIUM SUPPLEMEN T WHILE ON LASIX. 03/06 completed Not Available Not Available Not Available topiramate 50 mg tablet TAKE 1 TABLET BY MOUTH EVERY DAY 03/06 completed Not Available Not Available Not Available varenicline tartrate 1 mg tablet TAKE 0.5 TABLETS BY MOUTH 2 TIMES DAILY. 03/06 completed Not Available Not Available Not Available guanfacine ER 1 mg tablet,exte nded release 24 hr TAKE 1 TABLET BY MOUTH NIGHTLY AT BEDTIME. 03/06 completed Not Available Not Available Not Available Violetta Viramontes U-300 Insulin 300 unit/mL (1.5 mL) subcutaneou s pen INJECT 55 UNITS SUBCUTANE OUSLY TWICE DAILY active Not Available Not Available No t Available Rinvoq 15 mg tablet,exte nded release Take 1 tablet every day by oral route. active Not Available Not Available No t Available FreeStyle Michael 2 Sensor kit APPLY ONE SENSOR TO BACK OF EITHER ARM ONCE EVERY 2 WEEKS TO CHECK BLOOD SUGAR FOUR TIMES DAILY 03/06 completed Not Available Not Available Not Available Lagevrio 200 mg capsule (EUA) TAKE 4 CAPSULES BY MOUTH EVERY 12 HOURS FOR 5 DAYS 03/06 completed Not Available Not Available Not Available Vitals Date Recorded Body weight Body mass index (BMI) Body height Systolic blood pressure Diastolic blood pressure Provider Name and Address Organization Details Last Updated DateTime 03/06/2024 003424.0 2 g 39.5 kg/m2 172.72 cm 138 mm[Hg] 70 mm[Hg] Dahiana Peacock [facility] [employer] 15:00:43 Social History Question Answer Notes LastModified by Organizat ion Details LastModified Time Tobacco Smoking Status Current Every Day Smoker Dahiana Peacock [facility], [facility] 03/06/2024 15:09:02 What Is Your Level Of Alcohol Consumption? None Information not available 03/06/2024 Are You Blind Or Do You Have Difficulty Seeing? No Information not available 03/06/2024 Are You Deaf Or Do You Have Serious Difficulty Hearing? No Information not available 03/06/2024 What Type Of Diet Are You Following? DIABETIC Information not available 03/06/2024 How Many Children Do You Have? 2 Information not available 03/06/2024 What Is Your Relationship Status? Information not available 03/06/2024 Are You Sexually Active? No Information not available 03/06/2024 At What Age Did You Start Smoking Tobacco? 13 Information not available 03/06/2024 How Much Tobacco Do You Smoke? 1 PPD Information not available 03/06/2024 Do You Use Any Illicit Or Recreational Drugs? No Information not available 03/06/2024 Do You Or Have You Ever Used Any Other Forms Of Tobacco Or Nicotine? No Information not available 03/06/2024 Sex: Unknown Functional Status Question Answer Note LastModified by Organization D etails LastModified Time What is your exercise level? None Information not available 03/06/2024 Mental Status None recorded. Family History Relationship Description Onset Age of this Age Resolved Age Notes LastModified by Organization Details LastModified Time Sister Malignant tumor of breast Not available 06/2023 15:08:04 Mother Malignant tumor of pancreas Not available 06/2023 15:08:23 Medical History Condition Response High Blood Pressure Y Arthritis Y Diabetes (insulin dependent) Y Gynecological History Statement/Question Response If Post Menopausal, Age at Menopause 48 Date of Last Colonoscopy 06/06/2021 Most Recent Bone Density 06/06/2022 Date of Last Pap Smear Most Recent Mammogram 05/06/2023 Current Control Method Hysterectom y Obstetrics History GPAL:G 2 P 2 0 0 2 Type Value Full Term 2 Living 2 Total 2 Past Encounters Encounter ID Performer Location Encounter Start Date Encounter Closed Date Diagnosis/Indication Diagnosis SNOMED-CT Code Diagnosis ICD10 Code Diagnosis Note [id number] Bennie Chin DO [facility] [address] [place] [address] 03/06/2024 14:52:46 03/08/2024 16:22:10 Lesion of urethra 7513875092 N36.9 1. Biopsy of the lesions on the right labia and upper side of urethra was performed and samples sent for pathology. Patient tolerated the procedure well.2. Await biopsy results and then treat with TCA.3. I have placed a little gauze and advised to put in her underwear and apply pressure on that for an hour.4. Advised to place a dry washcloth and close her legs if the lesions start bleeding. Lesion of labia 21862759 5 N90.89 Health Concerns Section Related Observation LastModified by Organization Detai ls LastModified Time None Recorded Concern Status LastModified by Organization Details LastModified Time None Recorded Advance Directives Directive None Recorded Payers Encounter Date Sequence Insurance Name Policy Number Policy Blanchard Covered Member ID Blanchard Member ID Guarantor Name 03/06/2024 1 [employer] (MEDICARE REPLACEMENT HMO) [id number] Kathya Murphy [id number] Kathya Murphy Notes Date Note Type Note Provider Name and Address Organization Details Recorded Time 03/06/2024 text/html Vaginal/Vulvar ProblemReported bypatient.Location:[facility] labia Quality:multiple lesions/sores Context:not sexually activeNotes:The patient presents with multiple lesions on the right labia. She states she noticed it on her own but does not know since how long she has had them but wants them biopsied. The patient verbally consented to documentation via virtual scribe for this encounter. Bennie Chin DO [address] [facility], [place], [address], [facility] [place] IV 03/07/2024 10:35:12 OBGyn Episode No OBEpisode recorded.
--- OUTSIDE RECORDS SUMMARY | 2024-07-10 16:35 | XMS_ITS | Encounter Summary ---
Author Organization [facility] Address [address] [place] [address] Care Team Providers Care Nut Roaster Name Role Phone Kam Varghese MD Primary Care Provider [phone] Minerva Reyes RN Unavailable [phone] Encounter Details Date Type Department Care Team (Latest Contact Info) Description 01/03/2024 [place] Socialt Message Enc [address] [address] Kam Varghese MD [address] [place] [address] [id number] Referral gastroenterology Social History Tobacco Use Types Packs/Day Years [...] Sex Assigned at Female 07/04/2024 10:42 PM DIRECTOR OF SUSTAINABLE DESIGN Legal Sex Female 9:48 AM DIRECTOR OF SUSTAINABLE DESIGN Gender Identity Not on file Sexual Orientation Not on file documented as of this encounter Plan of Treatment Upcoming Encounters Date Type Department Care Team (Latest Contact Info) Description 07/11/2024 10:40 AM DIRECTOR OF SUSTAINABLE DESIGN [facility] [address] [address] [place] [address] Kam Varghese MD [address] [facility] [address] [place] [address] 08/06/2024 10:40 AM DIRECTOR OF SUSTAINABLE DESIGN Office Visit [facility] - [address] [address] [address] [place] [address] Kam Varghese MD [address] [facility] [address] [place] [address] 04/15/2025 8:00 AM DIRECTOR OF SUSTAINABLE DESIGN Hospital Encounter [facility] [place] [address] Helder Willis MD [address] [address] 04/15/2025 8:00 AM DIRECTOR OF SUSTAINABLE DESIGN - 04/15/2025 8:30 AM DIRECTOR OF SUSTAINABLE DESIGN Surgery [facility] Endo/[place] [address] Helder Willis MD [address] [address] COLONOSCOPY Scheduled Procedures Name Priority Associated Diagnoses Date/Ti me COLONOSCOPY Family history of colon cancer Personal history of colon polyps, unspecified Encounter for screening colonoscopy 04/15/2025 8:00 AM DIRECTOR OF SUSTAINABLE DESIGN documented as of this encounter Visit Diagnoses Not on filedocumented in this encounter Additional Health Concerns Infection Onset Date Last Indicated Resolved Time COVID-19 Rule Out 07/05/2024 07/05/2024 07/05/2024 2:49 AM DIRECTOR OF SUSTAINABLE DESIGN Influenza - Seasonal 07/05/2024 07/05/2024 Assessment Noted Time PHQ-9 Depression Total Score: 3 01/02/20 24 9:45 AM CDT documented as of this encounter Care Teams Nut Roaster Relationship Specialty Start Date End Date Kam Varghese MD [address] [facility] [address] [place] [address] PCP - General INTERNAL MEDICINE 03/26/22 Minerva Reyes, RN [address] [place] [address] Cupola Liner (Ambulatory) REGISTERED NURSE 07/05/24 documented as of this encounter
--- OUTSIDE RECORDS SUMMARY | 2024-07-10 16:35 | XMS_ITS | Encounter Summary ---
Author Organization [facility] Address [address] [place] [address] Care Team Providers Care Architectural Engineering Teacher Name Role Phone Kam Varghese MD Primary Care Provider [phone] Minerva Reyes RN Unavailable [phone] Encounter Details Date Type Department Care Team (Latest Contact Info) Description 02/16/2023 dit[place]ohart [facility] [address] Kam Varghese MD [address] [place] [address] Chiropractic referral Social History Tobacco Use Types Packs/Day Years [...] Sex Assigned at Female 07/04/2024 10:42 PM HOT KNIFE FOXING CUTTER Legal Sex Female 9:48 AM HOT KNIFE FOXING CUTTER Gender Identity Not on file Sexual Orientation Not on file documented as of this encounter Plan of Treatment Upcoming Encounters Date Type Department Care Team (Latest Contact Info) Description 07/11/2024 10:40 AM HOT KNIFE FOXING CUTTER Office Visit [facility] Multispecialty [facility] - [address] [place], [place] [id number] Kam Varghese MD [address] [facility] [address] [place] [address] 08/06/2024 10:40 AM HOT KNIFE FOXING CUTTER Office Visit [facility] - [address] [address] [address] [place] [address] Kam Varghese MD [address] [facility] [address] [place] [address] 04/15/2025 8:00 AM HOT KNIFE FOXING CUTTER Hospital Encounter [facility] [place] [address] Helder Willis MD [address] [address] 04/15/2025 8:00 AM HOT KNIFE FOXING CUTTER - 04/15/2025 8:30 AM HOT KNIFE FOXING CUTTER Surgery [facility] [place]o/[place] [address] Helder Willis MD [address] [address] COLONOSCOPY Scheduled Procedures Name Priority Associated Diagnoses Date/Ti me COLONOSCOPY Family history of colon cancer Personal history of colon polyps, unspecified Encounter for screening colonoscopy 04/15/2025 8:00 AM HOT KNIFE FOXING CUTTER documented as of this encounter Visit Diagnoses Not on filedocumented in this encounter Additional Health Concerns Infection Onset Date Last Indicated Resolved Time COVID-19 Rule Out 07/05/2024 07/05/2024 07/05/2024 2:49 AM HOT KNIFE FOXING CUTTER Influenza - Seasonal 07/05/2024 07/05/2024 Assessment Noted Time PHQ-9 Depression Total Score: 1 11/25/19 23 11:21 AM CDT documented as of this encounter Care Teams Architectural Engineering Teacher Relationship Specialty Start Date End Date Kam Varghese MD [address] [facility] [address] [place] [address] PCP - General INTERNAL MEDICINE 03/26/22 Minerva Reyes, RN [address] [place] [address] Tool Maker (Ambulatory) REGISTERED NURSE 07/05/24 documented as of this encounter
--- OUTSIDE RECORDS SUMMARY | 2024-07-10 16:35 | XMS_ITS | Encounter Summary ---
Author Organization [facility] Address [address] [place] [address] Care Team Providers Care Resident Care Aid Name Role Phone Vladimir [place] MD Primary Care Provider [phone] Reason for Visit * Reason Onset Date Comments Reschedule and Cancel Appt 07/28/2020 Encounter Details Date Type Department Care Team (Late st Contact Info) Description 07/28/2020 Telephone [facility] NEUROLOGY - [facility] [address] [place] [address] Leana Vizacino MD [address] [facility] [address] [place] [address] Reschedule and Cancel Appt Social History Tobacco Use Types Packs/Day Years Used Date Smoking Tobacco: Every Day Cigarettes 1 40 Smokeless Tobacco: Never Comments:nicotine gum Alcohol Use Standard Drinks/Week Comments Not Currently 0 (1 standard drink = 0.6 oz pur e alcohol) Rarely Comments No Sex and Gender Information Value Date Recorded Sex Assigned at Not on file Legal Sex Female 1:10 PM AIR TABLE OPERATOR Gender Identity Not on file Sexual Orientation Not on file 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 Vizcaino. During the rescheduling process, patient informed our office that insurance has changed to [employer]. Informed patient that Neurology Office no longer accepts [employer] insurance. TABLE OPERATOR documented in this encounter Plan of Treatment Not on file documented as of this encounter Visit Diagnoses Not on filedocumented in this encounter Additional Health Concerns Assessment Noted Time PHQ-9 Depression Total Score: 1 06/28/19 20 2:00 PM AIR TABLE OPERATOR documented as of this encounter Care Teams Resident Care Aid Relationship Specialty Start Date End Date Vladimir Colorado MD [address] [place] [address] PCP - General Family Practice 07/15/16 documented as of this encounter
--- OUTSIDE RECORDS SUMMARY | 2024-07-10 16:35 | XMS_ITS | Encounter Summary ---
Author Organization [facility] Address [address] [place] [address] Care Team Providers Care Furniture Assembler Name Role Phone Kam Varghese MD Primary Care Provider [phone] Minerva Reyes RN Unavailable [phone] Encounter Details Date Type Department Care Team (Latest Contact Info) Description 02/21/2024 [employer] Message Enc [address] [address] Kam Varghese MD [address] [place] [address] [id number] Lesions on vagina Social History Tobacco Use Types Packs/Day Years [...] Sex Assigned at Female 07/04/2024 10:42 PM MEDIA MANAGER Legal Sex Female 9:48 AM MEDIA MANAGER Gender Identity Not on file Sexual Orientation Not on file documented as of this encounter Plan of Treatment Upcoming Encounters Date Type Department Care Team (Latest Contact Info) Description 07/11/2024 10:40 AM MEDIA MANAGER Office Visit [place] [address] [address] [address] [place] [address] Kam Varghese MD 1188 [facility] 157 [place] [address] 08/06/2024 10:40 AM MEDIA MANAGER Office Visit [facility] Medical Group Multispecialty Care - [place] [address] [address] [place] [address] Kam Varghese MD 1188 [facility] 157 [place] [address] 04/15/2025 8:00 AM MEDIA MANAGER Hospital Encounter [facility] [place] [address] Helder Willis MD [address] [address] 04/15/2025 8:00 AM MEDIA MANAGER - 04/15/2025 8:30 AM MEDIA MANAGER Surgery [facility] [place] [address] Helder Willis MD [address] [address] COLONOSCOPY Scheduled Procedures Name Priority Associated Diagnoses Date/Ti me COLONOSCOPY Family history of colon cancer Personal history of colon polyps, unspecified Encounter for screening colonoscopy 04/15/2025 8:00 AM MEDIA MANAGER documented as of this encounter Visit Diagnoses Not on filedocumented in this encounter Additional Health Concerns Infection Onset Date Last Indicated Resolved Time COVID-19 Rule Out 07/05/2024 07/05/2024 07/05/2024 2:49 AM MEDIA MANAGER Influenza - Seasonal 07/05/2024 07/05/2024 Assessment Noted Time PHQ-9 Depression Total Score: 1 02/07/20 24 9:26 AM CDT documented as of this encounter Care Teams Furniture Assembler Relationship Specialty Start Date End Date Kam Varghese MD 1188 [facility] 157 [place] [address] PCP - General INTERNAL MEDICINE 03/26/22 Minerva Reyes, RN [address] [place] [address] Seasonal Greenery Bundler (Ambulatory) REGISTERED NURSE 07/05/24 documented as of this encounter
--- OUTSIDE RECORDS SUMMARY | 2024-07-10 16:35 | XMS_ITS | Encounter Summary ---
Author Organization [facility] Address [address] [place] [address] Care Team Providers Care Pipe Layer Name Role Phone Kam Varghese MD Primary Care Provider [phone] Minerva Reyes RN Unavailable [phone] Encounter Details Date Type Department Care Team (Late st Contact Info) Description 12/29/2022 MyChart Message Enc [place] [address] [address] [address] [place] [address] Kam Varghese MD [address] [place] [address] Boot for ankle Social History Tobacco Use Types Packs/Day Years [...] Sex Assigned at Female 07/04/2024 10:42 PM ARTIFICIAL FLOWERS DYER Legal Sex Female 9:48 AM ARTIFICIAL FLOWERS DYER Gender Identity Not on file Sexual Orientation Not on file documented as of this encounter Plan of Treatment Upcoming Encounters Date Type Department Care Team (Latest Contact Info) Description 07/11/2024 10:40 AM ARTIFICIAL FLOWERS DYER [facility] [address] [place] [address] Kam Varghese MD 1188 [facility] 157 [place] [address] 08/06/2024 10:40 AM ARTIFICIAL FLOWERS DYER Office Visit [facility] Medical Group Multispecialty Care - [place] [address] [address] [address] [place] [address] Kam Varghese MD 1188 [facility] 157 [place] [address] 04/15/2025 8:00 AM ARTIFICIAL FLOWERS DYER Hospital Encounter [facility] [place] [address] Helder Willis MD [address] [address] 04/15/2025 8:00 AM ARTIFICIAL FLOWERS DYER - 04/15/2025 8:30 AM ARTIFICIAL FLOWERS DYER Surgery [facility] [place]o/[place] [address] Helder Willis MD [address] [address] COLONOSCOPY Scheduled Procedures Name Priority Associated Diagnoses Date/Ti me COLONOSCOPY Family history of colon cancer Personal history of colon polyps, unspecified Encounter for screening colonoscopy 04/15/2025 8:00 AM ARTIFICIAL FLOWERS DYER documented as of this encounter Visit Diagnoses Not on filedocumented in this encounter Additional Health Concerns Infection Onset Date Last Indicated Resolved Time COVID-19 Rule Out 07/05/2024 07/05/2024 07/05/2024 2:49 AM ARTIFICIAL FLOWERS DYER Influenza - Seasonal 07/05/2024 07/05/2024 Assessment Noted Time PHQ-9 Depression Total Score: 1 11/25/19 23 11:21 AM CDT documented as of this encounter Care Teams Pipe Layer Relationship Specialty Start Date End Date Kam Varghese MD 1188 [facility] [address] [place] [address] PCP - General INTERNAL MEDICINE 03/26/22 Minerva Reyes, RN [address] [place] [address] Cv Rn (Ambulatory) REGISTERED NURSE 07/05/24 documented as of this encounter
--- OUTSIDE RECORDS SUMMARY | 2024-07-10 16:35 | XMS_ITS | Encounter Summary ---
Author Organization [facility] Address [address] [place] [address] Care Team Providers Care Office Runner Name Role Phone Kam Varghese MD Primary Care Provider [phone] Minerva Reyes RN Unavailable [phone] Encounter Details Date Type Department Care Team (Late st Contact Info) Description 09/05/2023 MyChart Message Enc [address] [place] [address] Kam Varghese MD [address] [place] [address] [id number] Blood pressure Social History Tobacco Use Types Packs/Day Years [...] Sex Assigned at Female 07/04/2024 10:42 PM MUCK MINER Legal Sex Female 9:48 AM MUCK MINER Gender Identity Not on file Sexual Orientation Not on file documented as of this encounter Plan of Treatment Upcoming Encounters Date Type Department Care Team (Latest Contact Info) Description 07/11/2024 10:40 AM MUCK MINER [facility] [address] [place] [address] Kam Varhgese MD 1188 [facility] 157 [place] [address] 08/06/2024 10:40 AM MUCK MINER Office Visit [facility] Medical Group Multispecialty Care - [place] [address] [place] [address] [address] [address] [place] [address] Kam Varghese MD 1188 [facility] 157 [place] [address] 04/15/2025 8:00 AM MUCK MINER Hospital Encounter [facility] [place] [address] Helder Willis MD [address] [address] 04/15/2025 8:00 AM MUCK MINER - 04/15/2025 8:30 AM MUCK MINER Surgery [facility] [place] [address] Helder Willis MD [address] [address] COLONOSCOPY Scheduled Procedures Name Priority Associated Diagnoses Date/Ti me COLONOSCOPY Family history of colon cancer Personal history of colon polyps, unspecified Encounter for screening colonoscopy 04/15/2025 8:00 AM MUCK MINER documented as of this encounter Visit Diagnoses Not on filedocumented in this encounter Additional Health Concerns Infection Onset Date Last Indicated Resolved Time COVID-19 Rule Out 07/05/2024 07/05/2024 07/05/2024 2:49 AM MUCK MINER Influenza - Seasonal 07/05/2024 07/05/2024 Assessment Noted Time PHQ-9 Depression Total Score: 6 07/04/19 24 11:06 AM MUCK MINER documented as of this encounter Care Teams Office Runner Relationship Specialty Start Date End Date Kam Varghese MD 1188 [facility] [address] [place] [address] PCP - General INTERNAL MEDICINE 03/26/22 Minerva Reyes, RN [address] [place] [address] Production Mechanic (Ambulatory) REGISTERED NURSE 07/05/24 documented as of this encounter
--- OUTSIDE RECORDS SUMMARY | 2024-07-10 16:35 | XMS_ITS | Encounter Summary ---
Author Organization [facility] Address [facility] [place] [address] Care Team Providers Care Manager Implementation Name Role Phone Kam Varghese MD Primary Care Provider Minerva Reyes RN Unavailable [phone] Encounter Details Date Type Department Care Team (Late st Contact Info) Description 02/25/2023 Therapy Plan [facility] Physical Therapy [address] [facility] [address] [place] [address] Tabatha Cottrell, PT One [facility] [place], [place] [id number] Social History Tobacco Use Types Packs/Day Years [...] Sex Assigned at Female 07/04/2024 10:42 PM HEALTH CARE ADMINISTRATOR Legal Sex Female 9:48 AM HEALTH CARE ADMINISTRATOR Gender Identity Not on file Sexual Orientation Not on file documented as of this encounter Plan of Treatment Upcoming Encounters Date Type Department Care Team (Latest Contact Info) Description 07/11/2024 10:40 AM HEALTH CARE ADMINISTRATOR Office Visit [facility] Medical Group Multispecialty Care - [place] [facility] [address] [place] [address] Kam Varghese MD 1188 [facility] 157 [place] [address] 08/06/2024 10:40 AM HEALTH CARE ADMINISTRATOR Office Visit [facility] Medical Group Multispecialty Care - [place] [address] [address] [address] [place] [address] Kam Varghese MD 1188 [facility] 157 [place] [address] 04/15/2025 8:00 AM HEALTH CARE ADMINISTRATOR Hospital Encounter [facility] [place] [address] Helder Willis MD [address] [address] 04/15/2025 8:00 AM HEALTH CARE ADMINISTRATOR - 04/15/2025 8:30 AM HEALTH CARE ADMINISTRATOR Surgery [facility] Endo/[place] [address] Helder Willis MD [address] [address] COLONOSCOPY Scheduled Procedures Name Priority Associated Diagnoses Date/Ti me COLONOSCOPY Family history of colon cancer Personal history of colon polyps, unspecified Encounter for screening colonoscopy 04/15/2025 8:00 AM HEALTH CARE ADMINISTRATOR documented as of this encounter Visit Diagnoses Not on filedocumented in this encounter Additional Health Concerns Infection Onset Date Last Indicated Resolved Time COVID-19 Rule Out 07/05/2024 07/05/2024 07/05/2024 2:49 AM HEALTH CARE ADMINISTRATOR Influenza - Seasonal 07/05/2024 07/05/2024 Assessment Noted Time PHQ-9 Depression Total Score: 1 11/25/19 23 11:21 AM CDT documented as of this encounter Care Teams Manager Implementation Relationship Specialty Start Date End Date Kam Varghese MD [address] [facility] [address] [place] [address] PCP - General INTERNAL MEDICINE 03/26/22 Minerva Reyes, RN [address]1 [place] [address] Admissions Representative (Ambulatory) REGISTERED NURSE 07/05/24 documented as of this encounter
--- OUTSIDE RECORDS SUMMARY | 2024-07-10 16:36 | XMS_ITS | Encounter Summary ---
Author Organization [facility] Address [address] [place] [address] Care Team Providers Care Remote Sensing Specialist Name Role Phone Kam Varghese MD Primary Care Provider [phone] Minerva Reyes RN Unavailable [phone] Encounter Details Date Type Department Care Team (Late st Contact Info) Description 06/14/2022 MyChart Message Enc [facility] Medical Group Multispecialty Care - [place] [address] [address] [address] [place] [address] [place] [address] [place] [address] 157 [place] [address] Finger Social History Tobacco Use Types Packs/Day Years Used Date Smoking Tobacco: Every Day Cigarettes 1 50 Smokeless Tobacco: Never Comments:counseled by Dr Olya cota Alcohol Use Standard Drinks/Week Comments Not Currently 0 (1 standard drink = 0.6 oz pur e alcohol) rarely PHQ-2 Answer Date Recorded PHQ-2 Score - If the patient scores above 3, please move on to questions 3-9 0 03/26/2022 Comments No Sex and Gender Information Value Date Recorded Sex Assigned at Female 07/04/2024 10:42 PM CONTRACTS ADMINISTRATOR Legal Sex Female 9:48 AM CONTRACTS ADMINISTRATOR Gender Identity Not on file Sexual Orientation Not on file COVID-19 Exposure Response Date Recorded In the last 10 days, have yo u been in contact with someone who was confirmed or suspected to have Coronavirus/COVID-19? No / Unsure 06/11/2022 8:38 AM CONTRACTS ADMINISTRATOR documented as of this encounter Plan of Treatment Upcoming Encounters Date Type Department Care Team (Latest Contact Info) Description 07/11/2024 10:40 AM CONTRACTS ADMINISTRATOR Office Visit [facility] Medical [facility] Multispecialty Care - [place] [address] [address] [address] [place] [address] Kam Varghese MD [address] [address] 08/06/2024 10:40 AM CONTRACTS ADMINISTRATOR Office Visit [facility] [address] [address] Kam Varghese MD [address] [address] 04/15/2025 8:00 AM CONTRACTS ADMINISTRATOR Hospital Encounter [facility] [place] [address] Helder Willis MD [address] [address] 04/15/2025 8:00 AM CONTRACTS ADMINISTRATOR - 04/15/2025 8:30 AM CONTRACTS ADMINISTRATOR Surgery [facility] [place]o/[place] [address] Helder Willis MD [address] [address] COLONOSCOPY Scheduled Procedures Name Priority Associated Diagnoses Date/Ti me COLONOSCOPY Family history of colon cancer Personal history of colon polyps, unspecified Encounter for screening colonoscopy 04/15/2025 8:00 AM CONTRACTS ADMINISTRATOR documented as of this encounter Visit Diagnoses Not on filedocumented in this encounter Additional Health Concerns Infection Onset Date Last Indicated Resolved Time COVID-19 Rule Out 07/05/2024 07/05/2024 07/05/2024 2:49 AM CONTRACTS ADMINISTRATOR Influenza - Seasonal 07/05/2024 07/05/2024 documented as of this encounter Care Teams Remote Sensing Specialist Relationship Specialty Start Date End Date Kam Varghese MD 1188 [facility] 157 [place] [address] PCP - General INTERNAL MEDICINE 03/26/22 Minerva Reyes RN 305[address] [place], [place] [address] Medicinal Chemist (Ambulatory) REGISTERED NURSE 07/05/24 documented as of this encounter
--- OUTSIDE RECORDS SUMMARY | 2024-07-10 16:36 | XMS_ITS | Encounter Summary ---
Author Organization [facility] Address [address] [place] [address] Care Team Providers Care Java Groovy Developer Name Role Phone Kam Varghese MD Primary Care Provider [phone] Minerva Reyes RN Unavailable [phone] Encounter Details Date Type Department Care Team (Latest Contact Info) Description 09/27/2022 [employer] Message Enc [facility] Medical Group Multispecialty Care - [place] [address] [address] [address] [place] [address] Kam Varghese MD [address] [place] [address] 157 [place] [address] Referral to neurology Social History Tobacco Use Types Packs/Day Years [...] Sex Assigned at Female 07/04/2024 10:42 PM FARM FORESTRY AND GARDEN WORKERS Legal Sex Female 9:48 AM FARM FORESTRY AND GARDEN WORKERS Gender Identity Not on file Sexual Orientation Not on file COVID-19 Exposure Response Date Recorded In the last 10 days, have yo u been in contact with someone who was confirmed or suspected to have Coronavirus/COVID-19? No / Unsure 09/24/2022 7:35 AM CDT documented as of this encounter Plan of Treatment Upcoming Encounters Date Type Department Care Team (Latest Contact Info) Description 07/11/2024 10:40 AM FARM FORESTRY AND GARDEN WORKERS Office Visit [facility] Medical [facility] Multispecialty Care - [place] [address] [address] [place] [address] Kam Varghese MD [address] [address] 08/06/2024 10:40 AM FARM FORESTRY AND GARDEN WORKERS [facility] [place] [address] [address] [place] [address] Kam Varghese MD [address] [address] 04/15/2025 8:00 AM FARM FORESTRY AND GARDEN WORKERS Hospital Encounter [facility] [place] [address] Helder Willis MD [address] [address] 04/15/2025 8:00 AM FARM FORESTRY AND GARDEN WORKERS - 04/15/2025 8:30 AM FARM FORESTRY AND GARDEN WORKERS Surgery [facility] [place]o/[place] [address] Helder Willis MD [address] [address] COLONOSCOPY Scheduled Procedures Name Priority Associated Diagnoses Date/Ti me COLONOSCOPY Family history of colon cancer Personal history of colon polyps, unspecified Encounter for screening colonoscopy 04/15/2025 8:00 AM FARM FORESTRY AND GARDEN WORKERS documented as of this encounter Visit Diagnoses Not on filedocumented in this encounter Additional Health Concerns Infection Onset Date Last Indicated Resolved Time COVID-19 Rule Out 07/05/2024 07/05/2024 07/05/2024 2:49 AM FARM FORESTRY AND GARDEN WORKERS Influenza - Seasonal 07/05/2024 07/05/2024 documented as of this encounter Care Teams Java Groovy Developer Relationship Specialty Start Date End Date Kam Varghese MD 1188 [facility] 157 [place] [address] PCP - General INTERNAL MEDICINE 03/26/22 Minerva Reyes, RN [address] [place] [address] Ground Worker (Ambulatory) REGISTERED NURSE 07/05/24 documented as of this encounter
--- OUTSIDE RECORDS SUMMARY | 2024-07-10 16:36 | XMS_ITS | Encounter Summary ---
Author Organization [facility] Address [address] [place] [address] Care Team Providers Care Camera Operator Name Role Phone Kam Varghese MD Primary Care Provider [phone] Minerva Reyes RN Unavailable [phone] Encounter Details Date Type Department Care Team (Late st Contact Info) Description 10/20/2022 [employer] Message Enc [address] [place] [address] Dial a Dealert, [facility] Provider US results Social History Tobacco Use Types Packs/Day [...] Sex Assigned at Female 07/04/2024 10:42 PM INOCULATOR Legal Sex Female 9:48 AM INOCULATOR Gender Identity Not on file Sexual Orientation Not on file COVID-19 Exposure Response Date Recorded In the last 10 days, have yo u been in contact with someone who was confirmed or suspected to have Coronavirus/COVID-19? No / Unsure 10/20/2022 9:35 AM CDT documented as of this encounter Plan of Treatment Upcoming Encounters Date Type Department Care Team (Latest Contact Info) Description 07/11/2024 10:40 AM INOCULATOR Office Visit [facility] Multispecialty Care - [place] [address] [address] [place] [address] Kam Varghese MD [facility] [address] [address] 08/06/2024 10:40 AM INOCULATOR [facility] Department - [place] [address] [address] [place] [address] Kam Varghese MD [address] [address] 04/15/2025 8:00 AM INOCULATOR Hospital Encounter [facility] [place] [address] Helder Willis MD [address] [address] 04/15/2025 8:00 AM INOCULATOR - 04/15/2025 8:30 AM INOCULATOR Surgery [facility] [place] [address] Helder Willis MD [address] [address] COLONOSCOPY Scheduled Procedures Name Priority Associated Diagnoses Date/Ti me COLONOSCOPY Family history of colon cancer Personal history of colon polyps, unspecified Encounter for screening colonoscopy 04/15/2025 8:00 AM INOCULATOR documented as of this encounter Visit Diagnoses Not on filedocumented in this encounter Additional Health Concerns Infection Onset Date Last Indicated Resolved Time COVID-19 Rule Out 07/05/2024 07/05/2024 07/05/2024 2:49 AM INOCULATOR Influenza - Seasonal 07/05/2024 07/05/2024 documented as of this encounter Care Teams Camera Operator Relationship Specialty Start Date End Date Kam Varghese MD 1188 [facility] [address] [place] [address] PCP - General INTERNAL MEDICINE 03/26/22 Minerva Reyes, RN 305[address] [place] [address] Director Of Rotc (Ambulatory) REGISTERED NURSE 07/05/24 documented as of this encounter
--- OUTSIDE RECORDS SUMMARY | 2024-07-10 16:36 | XMS_ITS | Encounter Summary ---
Author Organization [facility] Address [address] [place] [address] Care Team Providers Care Medical Office Scheduler Name Role Phone Kam Varghese MD Primary Care Provider [phone] Minerva Reyes RN Unavailable [phone] Encounter Details Date Type Department Care Team (Latest Contact Info) Description 09/23/2022 MyChart Message Enc [facility] Medical Group Multispecialty Care - [place] [address] [address] [place] [address] Kam Varghese MD [address] [place] [address] 157 [place] [address] Meningococcal vaccine Social History Tobacco Use Types Packs/Day Years [...] Sex Assigned at Female 07/04/2024 10:42 PM TEA PLANTATION WORKER Legal Sex Female 9:48 AM TEA PLANTATION WORKER Gender Identity Not on file Sexual Orientation [...] (Latest Contact Info) Description 07/11/2024 10:40 AM TEA PLANTATION WORKER Office Visit [facility] Medical [facility] Multispecialty Care - [address] [place] [address] Kam Varghese MD [address] [address] 08/06/2024 10:40 AM TEA PLANTATION WORKER [facility] [address] [place] [address] Kam Varghese MD [address] [address] 04/15/2025 8:00 AM TEA PLANTATION WORKER Hospital Encounter [facility] [place] [address] Helder Willis MD [address] [address] 04/15/2025 8:00 AM TEA PLANTATION WORKER - 04/15/2025 8:30 AM TEA PLANTATION WORKER Surgery [facility] Endo/[place] [address] Helder Willis MD [address] [address] COLONOSCOPY Scheduled Procedures Name Priority Associated Diagnoses Date/Ti me COLONOSCOPY Family history of colon cancer Personal history of colon polyps, unspecified Encounter for screening colonoscopy 04/15/2025 8:00 AM TEA PLANTATION WORKER documented as of this encounter Visit Diagnoses Not on filedocumented in this encounter Additional Health Concerns Infection Onset Date Last Indicated Resolved Time COVID-19 Rule Out 07/05/2024 07/05/2024 07/05/2024 2:49 AM TEA PLANTATION WORKER Influenza - Seasonal 07/05/2024 07/05/2024 documented as of this encounter Care Teams Medical Office Scheduler Relationship Specialty Start Date End Date Kam Varghese MD 1188 [facility] 157 [place] [address] PCP - General INTERNAL MEDICINE 03/26/22 Minerva Reyes RN [address] [place] [address] Csr (Ambulatory) REGISTERED NURSE 07/05/24 documented as of this encounter
--- OUTSIDE RECORDS SUMMARY | 2024-07-10 16:36 | XMS_ITS | Encounter Summary ---
Author Organization [facility] Address [address] [place] [address] Care Team Providers Care It Support Manager Name Role Phone Kam Varghese MD Primary Care Provider [phone] Minerva Reyes RN Unavailable [phone] Encounter Details Date Type Department Care Team (Late st Contact Info) Description 09/06/2022 Arav Message Enc [address] [place] [address] [facility] Provider biopsy result Social History Tobacco Use Types Packs/Day Years [...] Sex Assigned at Female 07/04/2024 10:42 PM SUPERVISOR CURED MEATS Legal Sex Female 9:48 AM SUPERVISOR CURED MEATS Gender Identity Not on file Sexual Orientation Not on file COVID-19 Exposure Response Date Recorded In the last 10 days, have yo u been in contact with someone who was confirmed or suspected to have Coronavirus/COVID-19? No / Unsure 09/01/2022 9:41 AM CDT documented as of this encounter Plan of Treatment Upcoming Encounters Date Type Department Care Team (Latest Contact Info) Description 07/11/2024 10:40 AM SUPERVISOR CURED MEATS Office Visit [address] [place] [address] Kam Varghese MD [address] [address] 08/06/2024 10:40 AM SUPERVISOR CURED MEATS Office Visit [facility] Medical Group Multispecialty Care - [address] [place] [address] Kam Varghese MD [address] [address] 04/15/2025 8:00 AM SUPERVISOR CURED MEATS Hospital Encounter [facility] [place] [address] Helder Willis MD [address] [address] 04/15/2025 8:00 AM SUPERVISOR CURED MEATS - 04/15/2025 8:30 AM SUPERVISOR CURED MEATS Surgery [facility] Endo/[place] [address] Helder Willis MD [address] [address] COLONOSCOPY Scheduled Procedures Name Priority Associated Diagnoses Date/Ti me COLONOSCOPY Family history of colon cancer Personal history of colon polyps, unspecified Encounter for screening colonoscopy 04/15/2025 8:00 AM SUPERVISOR CURED MEATS documented as of this encounter Visit Diagnoses Not on filedocumented in this encounter Additional Health Concerns Infection Onset Date Last Indicated Resolved Time COVID-19 Rule Out 07/05/2024 07/05/2024 07/05/2024 2:49 AM SUPERVISOR CURED MEATS Influenza - Seasonal 07/05/2024 07/05/2024 documented as of this encounter Care Teams It Support Manager Relationship Specialty Start Date End Date Kam Varghese MD 1188 [facility] 157 [place] [address] PCP - General INTERNAL MEDICINE 03/26/22 Minerva Reyes, RN [address] [place] [address] Cosmetology Teacher (Ambulatory) REGISTERED NURSE 07/05/24 documented as of this encounter
--- OUTSIDE RECORDS SUMMARY | 2024-07-10 16:36 | XMS_ITS | Encounter Summary ---
Author Organization [facility] Address [address] [place] [address] Care Team Providers Care Manager Video Name Role Phone Kam Varghese MD Primary Care Provider [phone] Minerva Reyes RN Unavailable [phone] Encounter Details Date Type Department Care Team (Latest Contact Info) Description 06/24/2022 MyChart Message Enc [facility] Medical Group Multispecialty Care - [address] [address] [address] [place] [address] Kam Varghese MD [address] [place] [address] 157 [place] [address] Insulin and naltrexone Social History Tobacco Use Types Packs/Day Years [...] Sex Assigned at Female 07/04/2024 10:42 PM REFINERY OPERATOR [employer] Legal Sex Female 9:48 AM REFINERY OPERATOR [employer] Gender Identity Not on file Sexual Orientation Not on file COVID-19 Exposure Response Date Recorded In the last 10 days, have yo u been in contact with someone who was confirmed or suspected to have Coronavirus/COVID-19? No / Unsure 06/11/2022 8:38 AM REFINERY OPERATOR [employer] documented as of this encounter Plan of Treatment Upcoming Encounters Date Type Department Care Team (Latest Contact Info) Description 07/11/2024 10:40 AM REFINERY OPERATOR [employer] Office Visit [facility] Medical [facility] Multispecialty Care - [address] [place] [address] Kam Varghese MD [address] [address] 08/06/2024 10:40 AM REFINERY OPERATOR [employer] [facility] [address] [place] [address] Kam Varghese MD [address] [address] 04/15/2025 8:00 AM REFINERY OPERATOR [employer] Hospital Encounter [facility] [place] [address] Helder Willis MD [address] [address] 04/15/2025 8:00 AM REFINERY OPERATOR [employer] - 04/15/2025 8:30 AM REFINERY OPERATOR [employer] Surgery [facility] [place]o/[place] [address] Helder Willis MD [address] [address] COLONOSCOPY Scheduled Procedures Name Priority Associated Diagnoses Date/Ti me COLONOSCOPY Family history of colon cancer Personal history of colon polyps, unspecified Encounter for screening colonoscopy 04/15/2025 8:00 AM REFINERY OPERATOR [employer] documented as of this encounter Visit Diagnoses Not on filedocumented in this encounter Additional Health Concerns Infection Onset Date Last Indicated Resolved Time COVID-19 Rule Out 07/05/2024 07/05/2024 07/05/2024 2:49 AM REFINERY OPERATOR [employer] Influenza - Seasonal 07/05/2024 07/05/2024 documented as of this encounter Care Teams Manager Video Relationship Specialty Start Date End Date Kam Varghese MD 1188 [facility] 157 [place] [address] PCP - General INTERNAL MEDICINE 03/26/22 Minerva Reyes RN 305[address] [place], [place] [address] Light Rail Signal Technician (Ambulatory) REGISTERED NURSE 07/05/24 documented as of this encounter
--- OUTSIDE RECORDS SUMMARY | 2024-07-10 16:36 | XMS_ITS | Encounter Summary ---
Author Organization [facility] Address [address] [place] [address] Care Team Providers Care Irrigation District Manager Name Role Phone Kam Varghese MD Primary Care Provider [phone] Minerva Reyes RN Unavailable [phone] Encounter Details Date Type Department Care Team (Latest Contact Info) Description 05/12/2022 [employer]ex Therapeuticst Message Enc [facility] Medical Group Multispecialty Care - [place] [address] [address] [address] [place] [address] Kam Varghese MD [address] [place] [address] 157 [place] [address] Referral to media clerk Social History Tobacco Use Types Packs/Day Years Used Date Smoking Tobacco: Every Day Smokeless Tobacco: Never Comments:counseled by Dr Olya cota Alcohol Use Standard Drinks/Week Comments Not Currently 0 (1 standard drink = 0.6 oz pur e alcohol) rarely PHQ-2 Answer Date Recorded PHQ-2 Score - If the patient scores above 3, please move on to questions 3-9 0 03/26/2022 Comments No Sex and Gender Information Value Date Recorded Sex Assigned at Female 07/04/2024 10:42 PM CORPORATE DIRECTOR OF HUMAN RESOURCES Legal Sex Female 9:48 AM CORPORATE DIRECTOR OF HUMAN RESOURCES Gender Identity Not on file Sexual Orientation Not on file COVID-19 Exposure Response Date Recorded In the last 10 days, have yo u been in contact with someone who was confirmed or suspected to have Coronavirus/COVID-19? No / Unsure 05/05/2022 7:28 AM CORPORATE DIRECTOR OF HUMAN RESOURCES documented as of this encounter Plan of Treatment Upcoming Encounters Date Type Department Care Team (Latest Contact Info) Description 07/11/2024 10:40 AM CORPORATE DIRECTOR OF HUMAN RESOURCES Office Visit [facility] Medical [facility] Multispecialty Care - [place] [address] [address] [address] [place] [address] Kam Varghese MD [address] [address] 08/06/2024 10:40 AM CORPORATE DIRECTOR OF HUMAN RESOURCES Office Visit [facility] [address] [place] [address] Kam Varghese MD [address] [address] 04/15/2025 8:00 AM CORPORATE DIRECTOR OF HUMAN RESOURCES Hospital Encounter [facility] [place] [address] Helder Willis MD [address] [address] 04/15/2025 8:00 AM CORPORATE DIRECTOR OF HUMAN RESOURCES - 04/15/2025 8:30 AM CORPORATE DIRECTOR OF HUMAN RESOURCES Surgery [facility] Endo/[place] [address] Helder Willis MD [address] [address] COLONOSCOPY Scheduled Procedures Name Priority Associated Diagnoses Date/Ti me COLONOSCOPY Family history of colon cancer Personal history of colon polyps, unspecified Encounter for screening colonoscopy 04/15/2025 8:00 AM CORPORATE DIRECTOR OF HUMAN RESOURCES documented as of this encounter Visit Diagnoses Not on filedocumented in this encounter Additional Health Concerns Infection Onset Date Last Indicated Resolved Time COVID-19 Rule Out 07/05/2024 07/05/2024 07/05/2024 2:49 AM CORPORATE DIRECTOR OF HUMAN RESOURCES Influenza - Seasonal 07/05/2024 07/05/2024 documented as of this encounter Care Teams Irrigation District Manager Relationship Specialty Start Date End Date Kam Varghese MD 1188 [facility] 157 [place] [address] PCP - General INTERNAL MEDICINE 03/26/22 Minerva Reyes, RN [address] [place] [address] Cork Painter And Grader (Ambulatory) REGISTERED NURSE 07/05/24 documented as of this encounter
--- OUTSIDE RECORDS SUMMARY | 2024-07-10 16:36 | XMS_ITS | Encounter Summary ---
Author Organization [facility] Address [address] [place] [address] Care Team Providers Care Carbide Tool Maker Name Role Phone Kam Varghese MD Primary Care Provider [phone] Minerva Reyes RN Unavailable [phone] Encounter Details Date Type Department Care Team (Latest Contact Info) Description 05/28/2022 iiyumat Message Enc [facility] Medical Group Multispecialty Care - [address] [address] [address] [place] [address] Kam Varghese MD [address] [place] [address] 157 [place] [address] Fasting blood sugar Social History Tobacco Use Types Packs/Day Years [...] Sex Assigned at Female 07/04/2024 10:42 PM BATH TESTER Legal Sex Female 9:48 AM BATH TESTER Gender Identity Not on file Sexual Orientation Not on file COVID-19 Exposure Response Date Recorded In the last 10 days, have yo u been in contact with someone who was confirmed or suspected to have Coronavirus/COVID-19? No / Unsure 05/26/2022 7:28 AM BATH TESTER documented as of this encounter Plan of Treatment Upcoming Encounters Date Type Department Care Team (Latest Contact Info) Description 07/11/2024 10:40 AM BATH TESTER Office Visit [facility] Medical [facility] Multispecialty Care - [address] [place] [address] Kam Varghese MD [address] [address] 08/06/2024 10:40 AM BATH TESTER [facility] [address] [place] [address] Kam Varghese MD [address] [address] 04/15/2025 8:00 AM BATH TESTER Hospital Encounter [facility] [place] [address] Helder Willis MD [address] [address] 04/15/2025 8:00 AM BATH TESTER - 04/15/2025 8:30 AM BATH TESTER Surgery [facility] [place] [address] Helder Willis MD [address] [address] COLONOSCOPY Scheduled Procedures Name Priority Associated Diagnoses Date/Ti me COLONOSCOPY Family history of colon cancer Personal history of colon polyps, unspecified Encounter for screening colonoscopy 04/15/2025 8:00 AM BATH TESTER documented as of this encounter Visit Diagnoses Not on filedocumented in this encounter Additional Health Concerns Infection Onset Date Last Indicated Resolved Time COVID-19 Rule Out 07/05/2024 07/05/2024 07/05/2024 2:49 AM BATH TESTER Influenza - Seasonal 07/05/2024 07/05/2024 documented as of this encounter Care Teams Carbide Tool Maker Relationship Specialty Start Date End Date Kam Varghese MD 1188 [facility] 157 [place] [address] PCP - General INTERNAL MEDICINE 03/26/22 Minerva Reyes RN [address] [place], [place] [address] Slot Service Specialist (Ambulatory) REGISTERED NURSE 07/05/24 documented as of this encounter
--- OUTSIDE RECORDS SUMMARY | 2024-07-10 16:36 | XMS_ITS | Referral Summary ---
Author Organization [facility] [address] [facility] Address [address] [place] [address] Care Team Providers Care Com Writer Name Role Phone Karl Sung MD Unavailable [phone] Edward Allison MD Unavailable [phone] Kam Varghese MD Unavailable Kam Varghese MD Primary Care Provider [phone] Marjorie Jacobo MD Unavailable [phone] Encounters Date Type Department Care Team Description 06/22/2024 11:00 AM ARTS AND HUMANITIES COUNCIL DIRECTOR Office Visit [address] [address] Bennie Platt PA Rheumatoid arthritis involving multiple sites with positive rheumatoid factor (CMS/HCC) (HCC) (Primary Dx); Interstitial lung disease (CMS/HCC) (HCC); Encounter for long-term (current) use of medications; Rheumatoid arthritis with rheumatoid factor of multiple sites without organ or systems involvement (HCC) 05/21/2024 Documentation [facility] Pulmonology [address] [facility] [address] [place] [phone] oRsemarie Herbert RN 05/10/[address] [address] Nathan Kurtz application 04/10/2024 Orders Only [address] [address] Bennie Platt PA from Last 3 Months Allergies Active Allergy Reactions Criticality Noted Date [...] Ultra-Fine Short Pen Needle 31 gauge x 5/16 needle 12/23/19 21 Active BD Insulin Syringe Ultra-Fine 1 mL 31 gauge x 5/16 syringe USE 1 SYRINGE TO INJECT UP [...] visit. Assessment & Plan (07/20/2023 10:45 AM ARTS AND HUMANITIES COUNCIL DIRECTOR): Right elbow x-ray 07/01/2023: WNL Since last [...] 06/22/2023 Assessment & Plan (07/20/2023 10:42 AM ARTS AND HUMANITIES COUNCIL DIRECTOR): Right hip x-ray 07/01/2023: Mild right hip OA Right hip pain resolve with Kenalog IM injection given at last visit. Assessment & Plan (06/22/2023 10:35 AM ARTS AND HUMANITIES COUNCIL DIRECTOR): While on prednisone taper 2 weeks ago, she developed pain in the right/groin that radiates into the right buttock. Symptoms have resolved. Given order for right hip x-ray to evaluate further, if symptoms recur. Has full range motion on exam without pain elicited. 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 Assessment & Plan (12/23/2023 10:18 AM CDT): DEXA 03/28/2023: L-spine-0.2, left femoral neck-1.1, right total hip-0.3; FRAX 9.1/1.2 Assessment & Plan (09/23/2023 11:12 AM CDT): DEXA 03/28/2023: L-spine-0.2, left femoral neck-1.1, right total hip-0.3; FRAX 9.1/1.2 Assessment & Plan (07/20/2023 10:42 AM ARTS AND HUMANITIES COUNCIL DIRECTOR): DEXA 03/28/2023: L-spine-0.2, left femoral neck-1.1, right total hip-0.3; FRAX 9.1/1.2 Assessment & Plan (06/22/2023 9:49 AM ARTS AND HUMANITIES COUNCIL DIRECTOR): DEXA 03/28/2023: L-spine-0.2, left femoral neck-1.1, right [...] complication, without long-term current use of insulin ([facility]) 08/25/2021 Urinary tract infection without hematuria [...] effusion Assessment & Plan (05/13/2022 10:20 AM ARTS AND HUMANITIES COUNCIL DIRECTOR): X-ray right knee 05/27/2021: Mild to moderate [...] Orthopedics. Assessment & Plan (07/13/2021 1:46 PM ARTS AND HUMANITIES COUNCIL DIRECTOR): X-ray right knee 05/27/2021: Mild to moderate [...] orthopedics. Assessment & Plan (05/20/2021 2:08 PM ARTS AND HUMANITIES COUNCIL DIRECTOR): XR R knee 2017: moderate multicompartment osteoarthritis [...] 05/20/2021 Assessment & Plan (05/20/2021 2:09 PM ARTS AND HUMANITIES COUNCIL DIRECTOR): Has pain and tenderness over the right greater trochanter. Suspect that her antalgic gait secondary to right knee pain may be contributing to these symptoms. Will send PT. Other hypersomnia 05/18/2021 Multiple pulmonary nodules 05/18/2021 Mediastinal lymphadenopathy 05/18/2021 Encounter for long-term (current) use of medicat ions 03/04/2021 Assessment & Plan (06/22/2024 11:13 AM ARTS AND HUMANITIES COUNCIL DIRECTOR): Negative QuantiFERON 09/2021 Hepatitis-B/C 09/2020 WNL Assessment & Plan (03/23/2024 3:53 PM CDT): Negative QuantiFERON 09/2021 Hepatitis-B/C 09/2020 WNL Assessment & Plan (12/23/2023 10:17 AM CDT): Negative QuantiFERON 09/2021 Hepatitis-B/C 09/2020 WNL Assessment & Plan (07/20/2023 10:42 AM ARTS AND HUMANITIES COUNCIL DIRECTOR): Negative QuantiFERON 09/2021 Hepatitis-B/C 09/2020 WNL Assessment & Plan (06/22/2023 10:34 AM ARTS AND HUMANITIES COUNCIL DIRECTOR): Negative QuantiFERON 09/2021 Hepatitis-B/C 09/2020 WNL Assessment [...] 09/25/2020 Assessment & Plan (07/22/2022 9:54 AM ARTS AND HUMANITIES COUNCIL DIRECTOR): Negative QuantiFERON 09/29/2021 Negative hepatitis panel 09/25/2020 Assessment & Plan (05/13/2022 10:20 AM ARTS AND HUMANITIES COUNCIL DIRECTOR): Negative QuantiFERON 09/29/2021 Negative hepatitis panel 09/25/2020 Assessment & Plan (02/25/2022 12:36 PM CDT): Negative QuantiFERON 09/29/2021 Negative hepatitis panel 09/25/2020 Assessment & Plan (08/25/2021 9:47 AM CDT): Recommended COVID-19 booster vaccine. Assessment & Plan (03/04/2021 1:25 PM CDT): Recommended COVID-19 booster vaccine. Restless leg syndrome 12/30/2020 Assessment & Plan (12/30/2020 3:20 PM CDT): Patient is a former patient at [facility] being treated for restless leg syndrome of combination ropinirole and pramipexole. She is in need of refill of medication at this time. Both medications have been refilled as previously prescribed and a formal medical request for medical records from [facility] Neurology will be placed. She will follow up with Neurology office in 1 year. 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 Overall, Regina has done fairly [...] needed. Assessment & Plan (07/20/2023 10:41 AM ARTS AND HUMANITIES COUNCIL DIRECTOR): CDAI 12. At last visit, we did [...] needed. Assessment & Plan (06/22/2023 10:35 AM ARTS AND HUMANITIES COUNCIL DIRECTOR): CDAI 17. Regina had noted joint benefit [...] case. Assessment & Plan (07/22/2022 10:28 AM ARTS AND HUMANITIES COUNCIL DIRECTOR): CDAI 16. With past 6 weeks, has [...] Sung. Assessment & Plan (05/13/2022 10:20 AM ARTS AND HUMANITIES COUNCIL DIRECTOR): CDAI 32. Has begun Humira and tolerated [...] future. Will track down recent labs from [facility]. Depending on results obtained, will obtain labs [...] Sung. Assessment & Plan (07/13/2021 1:45 PM ARTS AND HUMANITIES COUNCIL DIRECTOR): CDAI 39. Primary complaint today is right [...] Sung. Assessment & Plan (05/20/2021 2:07 PM ARTS AND HUMANITIES COUNCIL DIRECTOR): CDAI 19. Regina does continue to note [...] Seen with Dr. Sung. Interstitial lung disease ([facility]/HCC) 09/25/2020 Assessment & Plan (06/22/2024 11:13 AM ARTS AND HUMANITIES COUNCIL DIRECTOR): CXR 09/2020: Progression of course bilateral interstitial [...] Jacobo. Assessment & Plan (07/20/2023 10:42 AM ARTS AND HUMANITIES COUNCIL DIRECTOR): CXR 09/2020: Progression of course bilateral interstitial infiltrates peripherally, likely pulmonary fibrosis Discussed smoking cessation. Chronic smoker. Continue aza 150/100. Follows with pulmonology Dr. Jacobo. Assessment & Plan (06/22/2023 10:34 AM ARTS AND HUMANITIES COUNCIL DIRECTOR): CXR 09/2020: Progression of course bilateral interstitial [...] Jacobo. Assessment & Plan (07/22/2022 9:53 AM ARTS AND HUMANITIES COUNCIL DIRECTOR): CXR 09/2020: Progression of course bilateral interstitial infiltrates peripherally, likely pulmonary fibrosis Chronic smoker. Continue aza 150/100. Follows with pulmonology Dr. Jacobo. Assessment & Plan (05/13/2022 10:20 AM ARTS AND HUMANITIES COUNCIL DIRECTOR): CXR 09/2020: Progression of course bilateral interstitial [...] Jacobo. Assessment & Plan (07/13/2021 11:25 AM ARTS AND HUMANITIES COUNCIL DIRECTOR): CXR 09/2020: Progression of course bilateral interstitial infiltrates peripherally, likely pulmonary fibrosis Chronic smoker. Continue aza 150/100. Follows with pulmonology Dr. Jacobo. 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 04/19/2022 Pulmonary nodule 05/27/2020 09/29/2021 Immunizations Name Administration Dates Next Due Influenza, Quadrivalent, Spl it, Intramuscular 03/15/2016 Influenza, Quadrivalent, Spl it, Preservative Free, Intramuscular 03/26/2022,04/07/2020,05/02/2019,03/02,02/21/2017 Influenza, Trivalent, IM (MDV) 03/14/2015 Influenza, Unspecified 03/03/2021,2019,05/02/2019,03/02,02/21/2017,03/15/2016,03/14/2015 Pfizer SARS-CoV-2 Monovalent Vaccination (12+ Yrs) PURPLE 03/20/2022,09/15/2021,04/20/2021,08/27,08/05/2020 Pneumococcal Conjugate PCV 13 05/23/2013 Pneumococcal Polysaccharide PPV23 05/27/2020, Tdap 11/05/2013 Social History Tobacco Use Types Packs/Day Years [...] on file Legal Sex Female 9:18 AM ARTS AND HUMANITIES COUNCIL DIRECTOR Gender Identity Female 02/25/2021 6:36 AM CDT Sexual Orientation Straight 02/25/2021 6: 36 AM CDT Last Filed Vital Signs Vital Sign Reading Time Taken Comments Blood Pressure 140/68 06/22/2024 10:45 AM ARTS AND HUMANITIES COUNCIL DIRECTOR Pulse 97 06/22/2024 10:45 AM ARTS AND HUMANITIES COUNCIL DIRECTOR Temperature 36.2 ??C (97.2 ??F) 03/16/2024 8:36 AM CD T Respiratory Rate 20 03/16/2024 8:36 AM CDT Oxygen Saturation 90% 06/22/2024 10: 45 AM ARTS AND HUMANITIES COUNCIL DIRECTOR Inhaled Oxygen Concentration - - Weight 116.3 kg (256 lb 6.4 oz) 025 10:45 AM ARTS AND HUMANITIES COUNCIL DIRECTOR Height 172.7 cm (5' 8 ) 06/22/2024 10:4 5 AM ARTS AND HUMANITIES COUNCIL DIRECTOR Body Mass Index 38.99 06/22/2024 10:45 AM ARTS AND HUMANITIES COUNCIL DIRECTOR Plan of Treatment Not on file Procedures Procedure Name Priority Date/Time Associated Diagnosis Comments CBC WITH AUTO DIFFERENTIAL Routine 04/09/2024 7:22 AM ARTS AND HUMANITIES COUNCIL DIRECTOR VITAMIN B12 Routine 04/09/2024 7:22 AM ARTS AND HUMANITIES COUNCIL DIRECTOR Elevated MCV FOLATE Routine 04/09/2024 7:22 AM ARTS AND HUMANITIES COUNCIL DIRECTOR Elevated MCV COMPREHENSIVE METABOLIC PANEL Routine 03/23/2024 11:13 AM CDT Rheumatoid arthritis involving multiple sites with positive rheumatoid factor (CMS/HCC) (HCC) Encounter for long-term (current) use of medications DEXA AXIAL SKELETON BONE DENSITY 1 OR MORE SITES 08/11/2020 3:00 PM ARTS AND HUMANITIES COUNCIL DIRECTOR SCREENING MAMMOGRAM BILATERAL W SHAWN 08/11/2020 3:00 PM ARTS AND HUMANITIES COUNCIL DIRECTOR from Last 3 Months or Most Recently Relevant to Health Maintenance Results * (ABNORMAL) CBC with auto differential (04/09/2024 7:22 AM ARTS AND HUMANITIES COUNCIL DIRECTOR) Pathologist [facility] WBC 8.9 3.8 - 10.8 Thousand/u L [...] MPV 11.4 7.5 - 12.5 fL [facility] Neutrophils, abs 7,076 1,500 - 7,800 cells/uL [facility] Lymphocytes, abs 854 850 - 3,900 cells/uL [facility] Monocyte abs 712 200 - 950 cells/uL [facility] Eosinophils, abs 169 15 - 500 cells/uL [facility] Basophils, abs 89 0 - 200 cells/uL [facility] Neutrophils 79.5 % [facility] Lymphocyte pct 9.6 % [facility] Monocytes 8.0 % [facility] Eosinophils 1.9 % [facility] Basophils 1.0 % [facility] 04/09/2024 7:22 AM ARTS AND HUMANITIES COUNCIL DIRECTOR 04/09/2024 7:22 AM ARTS AND HUMANITIES COUNCIL DIRECTOR Bennie SHARMA LAB BLOOD ORDERABLES Fi nal Result Performing Organization Address City/State/[facility] Co de Phone Number [facility] [address] [place] [address] * (ABNORMAL) Folate (04/09/2024 7:22 AM ARTS AND HUMANITIES COUNCIL DIRECTOR) Folate, Serum 4.0(L) ng/mL [facility] Comment: ? Reference Range ? Low: ? <3.4 ? Borderline: ?3.4-5.4 ? Normal: ?>5.4 Blood 04/09/2024 7:22 AM ARTS AND HUMANITIES COUNCIL DIRECTOR 04/09/2024 7:22 AM ARTS AND HUMANITIES COUNCIL DIRECTOR Bennie SHARMA LAB BLOOD ORDERABLES Fi nal Result [facility] [address] [facility] [place] [address] * Vitamin B12 (04/09/2024 7:22 AM ARTS AND HUMANITIES COUNCIL DIRECTOR) Pathologist [facility] Vitamin B12 460 200 - 1,100 pg/mL [facility] Blood 04/09/2024 7:22 AM ARTS AND HUMANITIES COUNCIL DIRECTOR 04/09/2024 7:22 AM ARTS AND HUMANITIES COUNCIL DIRECTOR Bennie SHARMA LAB BLOOD ORDERABLES Fi nal Result Performing Organization Address [facility] Co de Phone Number [facility] [address] [place] [address] * (ABNORMAL) Comprehensive metabolic panel (03/23/2024 11:13 AM CDT) Pathologist [facility] Glucose 311(H) 65 - 99 mg/dL [facility] [...] [facility] BUN/creat ratio SEE NOTE: 6 - 22 (calc) [facility] Comment: ?? Not [...] AM CDT Bennie SHARMA LAB BLOOD ORDERABLES Fi nal Result [facility] [address] [place] [address] * Screening Mammogram Bilateral W Shawn (08/11/2020 3:00 PM ARTS AND HUMANITIES COUNCIL DIRECTOR) Anatomical Region Laterality Modality Breast Bilateral Mammography 08/11/2020 3:27 PM ARTS AND HUMANITIES COUNCIL DIRECTOR Narrative 08/19/2020 11:13 AM CDT Patient Name: REGINA HAHN ?Ordering Dr: Michelle Marin MD ?? D.O.B: 1960 ? Exam Date: 08/11/20 ?? 1500 ?? Age: 60 ?Sex: Female ? MR#: [id number] ?? Loc: ? RADIOLOGY REPORT ?? Order #[id number] ?? Breast [facility] ? Gladys Bilat Screening 3D ? [...] mammogram, 04/07/2016 ?mammogram, and 03/24/2016 mammogram - [facility]. ? BREAST TISSUE: There are scattered areas [...] age 40, based on guidelines of the [employer] ?? Radiology (ACR Practice Parameter for the Performance of Screening and ?? Diagnostic Mammography) and [employer] Obstetricians and ?? Gynecologists. For women with an elevated risk of breast cancer, please refer ?? to the ACR Practice Parameter for specific screening recommendations. ? The patient will be entered into a reminder system with a target due date of 1 ?? year for her next screening exam. ? Electronically signed by: ?Van Gomez ? [email or web address]/[email or web address]:08/19/2020 11:13:15 ? Neuropsychology Director: Samantha SHERMAN(Michelle)(M), [facility] ?? letter sent: Normal Exam ? Reading location: ?? BI-RADS: 2 Benign ? REPORT ELECTRONICALLY SIGNED IN OTHER VENDOR SYSTEM ?? Resulting Agency Comment O Procedure Note Van Orona MD - 08/19/2020 Patient Name: SELMAAbhilash Dr: Michelle Marin MD D.O.B: 1960 Exam Date: 08/11/20 1500 Age: 60 Sex: Female MR#: [id number] Loc: RADIOLOGY REPORT Order #[id number] [facility] Gladys Bilat Screening 3D Signed - MG [...] 12/27/2017 mammogram,04/07/2016 mammogram, and 03/24/2016 mammogram - [facility]. BREAST TISSUE: There are scattered areas of [...] age 40, based on guidelines of the [employer] (ACR Practice Parameter for the Performance of Screening and Diagnostic Mammography) and [employer]ians and Gynecologists. For women with an elevated risk of breast cancer, pleaserefer to the ACR Practice Parameter for specific screening recommendations. The patient will be entered into a reminder system with a target due dateof 1 year for her next screening exam. Electronically signed by: Van Gomez rl/[email or web address]:08/19/2020 11:13:15 Neuropsychology Director: Samantha Dobbs RT(R)(M), [facility] letter sent: Normal Exam Reading location: BI-RADS: 2 Benign REPORT ELECTRONICALLY SIGNED IN OTHER VENDOR SYSTEM us Michelle Marin MD IMG MAMMO PROCEDURES Fin al Result * Dexa Axial Skeleton Bone Density 1 or 2 Site (08/11/2020 3:00 PM ARTS AND HUMANITIES COUNCIL DIRECTOR) Anatomical Region Laterality Modality Body N/A Radiographic [place] ging 08/12/2020 8:19 PM ARTS AND HUMANITIES COUNCIL DIRECTOR Narrative 08/12/2020 8:20 PM ARTS AND HUMANITIES COUNCIL DIRECTOR Patient Name: REGINA HAHN ?Ordering Dr: Michelle Marin MD ?? D.O.B: 1960 ? Exam Date: 08/11/20 ?? 1500 ?? Age: 60 ?Sex: Female ? MR#: [id number] ?? Loc: ? RADIOLOGY REPORT ?? Order #[id number] ?? Bone Density ? Bone Density Hip/Spine (STD) ? Signed ? EXAM DESCRIPTION: ?? Bone Density Hip/Spine (STD) ? REASON FOR STUDY: ?? Post-menopausal female, screening for osteoporosis. ? Pneumatic Tube Operator/Model: ?? Habeas A (S/N [id number]) ? CLINICAL INFORMATION: ??Current height: ??69 inches [...] T: ??08/12/2020 8:20 PM ? Report ID: [id number] ?? Reading Location: ??[id number] ? REPORT ELECTRONICALLY SIGNED IN OTHER VENDOR SYSTEM ?? Resulting Agency Comment O Procedure Note Vladimir Ahmadi MD - 08/12/2020 Patient Name: Abhilash HAHN Dr: Michelle Marin MD D.O.B: 1960 Exam Date: 08/11/20 1500 Age: 60 Sex: Female MR#: [id number] Loc: RADIOLOGY REPORT Order #[id number] Bone Density Bone Density Hip/Spine (STD) Signed EXAM DESCRIPTION: Bone Density Hip/Spine (STD) REASON FOR STUDY: Post-menopausal female, screening for osteoporosis. Pneumatic Tube Operator/Model: [employer] A (S/N [id number]) CLINICAL INFORMATION: Current height: 69 inches Maximum [...] by Vladimir Ahmadi M.D. AB: Report ID: [id number] Reading Location: [id number] REPORT ELECTRONICALLY SIGNED IN OTHER VENDOR SYSTEM Michelle Marin MD IMG DXA PROCEDURES Final Result from Last 3 Months or Most Recently Relevant to Health Maintenance Insurance [facility] Care Teams Com Writer Relationship Specialty Start Date End Date Kam Varghese MD [address] [place] [address] PCP - General Internal Medicine 03/30/22 Kalr Sung MD [address] [place] [address] Consulting Physician Rheumatology 09/11/20 Edward Allison MD [address] [facility] [address] [place], [place] [id number] Referring Physician Orthopedic Surgery 11/26/21 Kam Varghese MD [address] [place] [address] Internal Medicine 03/30/22 Marjorie Jacobo MD [address] [place] [address] Consulting Physician Pulmonary Disease 07/27/22
--- OUTSIDE RECORDS SUMMARY | 2024-07-10 16:36 | XMS_ITS | Encounter Summary ---
Author Organization [facility] Address [address] [place] [address] Care Team Providers Care Chief Nurse Anesthetist Name Role Phone Kam Varghese MD Primary Care Provider [phone] Minerva Reyes RN Unavailable [phone] Encounter Details Date Type Department Care Team (Late st Contact Info) Description 07/23/2022 MyChart Message Enc [facility] Mult[facility]ialty Care - [place] [address] [address] [place] [address] Kam Varghese MD [address] [place] [address] [address] [place] [address] Referral Social History Tobacco Use Types Packs/Day [...] Sex Assigned at Female 07/04/2024 10:42 PM JOB MOLDER Legal Sex Female 9:48 AM JOB MOLDER Gender Identity Not on file Sexual Orientation Not on file COVID-19 Exposure Response Date Recorded In the last 10 days, have yo u been in contact with someone who was confirmed or suspected to have Coronavirus/COVID-19? No / Unsure 07/13/2022 6:46 AM JOB MOLDER documented as of this encounter Plan of Treatment Upcoming Encounters Date Type Department Care Team (Latest Contact Info) Description 07/11/2024 10:40 AM JOB MOLDER Office Visit [facility] Medical [facility] Multispecialty Care - [place] [address] [address] [place] [address] Kam Varghese MD [address] [address] 08/06/2024 10:40 AM JOB MOLDER Office Visit [facility] [address] [address] Kam Varghese MD [address] [address] 04/15/2025 8:00 AM JOB MOLDER Hospital Encounter [facility] [place] [address] Helder Willis MD [address] [address] 04/15/2025 8:00 AM JOB MOLDER - 04/15/2025 8:30 AM JOB MOLDER Surgery [facility] End[place] [address] Helder Willis MD [address] [address] COLONOSCOPY Scheduled Procedures Name Priority Associated Diagnoses Date/Ti me COLONOSCOPY Family history of colon cancer Personal history of colon polyps, unspecified Encounter for screening colonoscopy 04/15/2025 8:00 AM JOB MOLDER documented as of this encounter Visit Diagnoses Not on filedocumented in this encounter Additional Health Concerns Infection Onset Date Last Indicated Resolved Time COVID-19 Rule Out 07/05/2024 07/05/2024 07/05/2024 2:49 AM JOB MOLDER Influenza - Seasonal 07/05/2024 07/05/2024 documented as of this encounter Care Teams Chief Nurse Anesthetist Relationship Specialty Start Date End Date Kam Varghese MD [address] [facility] [address] [place] [address] PCP - General INTERNAL MEDICINE 03/26/22 Minerva Reyes RN [address] [place], [place] [address] Remarketing Manager (Ambulatory) REGISTERED NURSE 07/05/24 documented as of this encounter
--- OUTSIDE RECORDS SUMMARY | 2024-07-10 16:37 | XMS_ITS | Encounter Summary ---
Author Organization [facility] - [facility] Address [address] [place] [address] Care Team Providers Care Civil Preparedness Officer Name Role Phone Kam Varghese MD Primary Care Provider [phone] Minerva Reyes RN Unavailable [phone] Reason for Visit * Reason Onset Date Comments Follow Up Call 07/09/2024 Appointment Request 07/09/2024 Encounter Details Date Type Department Care Team (Late st Contact Info) Description 07/09/2024 Telephone [facility] Medical Group Multispecialty Care - [place] [address] [address] [place] [address] [place] [address] [place] [address] [address] [place] [address] Follow Up Call; Appointment Request Social History Tobacco Use Types Packs/Day Years Used Date Smoking Tobacco: Every Day Cigarettes 0.8 50 Passive Smoke Exposure: Past Smokeless Tobacco: Never Comments:counseled by Dr Olya cota Alcohol Use Standard Drinks/Week Comments Not Currently 0 (1 standard drink = 0.6 oz pur e alcohol) rarely [facility] Utilities Answer Date Recorded In the past [...] any time in the past 12 m [facility], were you homeless or living in a custodial (including now)? No 07/05/2024 Comments No Sex and Gender Information Value Date Recorded Sex Assigned at Female 07/04/2024 10:42 PM GIS PROGRAMMER Legal Sex Female 9:48 AM GIS PROGRAMMER Gender Identity Not on file Sexual Orientation Not on file documented as of this encounter Functional Status * Are you deaf or do you have serious difficulty hearing Answer Date of Assessment Author Status No 07/05/2024 1:26 PM GIS PROGRAMMER Kath Chapman RN Active * Are you blind or [...] as of this encounter Mental Status * Because of a physical, mental, or emotional condition, do you have serious difficulty concentrating, remembering, or making decisions? Answer Entry Date Author Status No 07/05/2024 1:26 PM Kath Parkinson RN Active documented in this encounter Progress Notes * Minerva Reyes RN - 07/09/2024 10:27 AM CST D/C from [facility] on 07/07/24. TCM call completed today. See note for details. Please address the following: TCM appointment: Scheduled on 07/11/24 for ER f/u. Can this be changed to a TCM appointment? 2. According to D/C summary it states the following: Improved. Na up to 132 at discharge Patient appears to be on chronic trimethoprim (UTI PPx) which might be contributing to hyponatremia. Recommend repeat BMP in 1 week. Consider alternative agent if sodium is not stable or improving. Discontinue HCTZ upon discharge. Patient doesn't have an order for BMP. Will defer to PCP. Thank you. PROGRAMMER documented in this encounter Plan of Treatment Upcoming Encounters Date Type Department Care Team (Latest Contact Info) Description 07/11/2024 10:40 AM GIS PROGRAMMER Office Visit [facility] Medical [facility] Multispecialty Care - [address] [place] [address] Kam Varghese MD [address] [address] 08/06/2024 10:40 AM GIS PROGRAMMER Office Visit [facility] Medical Group Multispecialty Care - [place] [address] [address] [address] [place] [address] Kam Vraghese MD 1188 [facility] [address] [place] [address] 04/15/2025 8:00 AM GIS PROGRAMMER Hospital Encounter [facility] [place] [address] Helder Willis MD [address] [address] 04/15/2025 8:00 AM GIS PROGRAMMER - 04/15/2025 8:30 AM GIS PROGRAMMER Surgery [facility] Endo/[place] [address] Helder Willis MD [address] [address] COLONOSCOPY Scheduled Procedures Name Priority Associated Diagnoses Date/Ti me COLONOSCOPY Family history of colon cancer Personal history of colon polyps, unspecified Encounter for screening colonoscopy 04/15/2025 8:00 AM GIS PROGRAMMER documented as of this encounter Visit Diagnoses Not on filedocumented in this encounter Additional Health Concerns Infection Onset Date Last Indicated Resolved Time Influenza - Seasonal 07/05/2024 07/05/2024 Assessment Noted Time PHQ-9 Depression Total Score: 1 02/07/20 24 9:26 AM CDT documented as of this encounter Care Teams Civil Preparedness Officer Relationship Specialty Start Date End Date Kam Varghese MD [address] [place] [address] PCP - General INTERNAL MEDICINE 03/26/22 Minerva Reyes, RN [address] [place] [address] Cardiopulmonary Supervisor (Ambulatory) REGISTERED NURSE 07/05/24 documented as of this encounter
--- OUTSIDE RECORDS SUMMARY | 2024-07-10 16:37 | XMS_ITS | Encounter Summary ---
Author Organization [facility] - [facility] Address [address] [place] [address] Care Team Providers Care Sexologist Name Role Phone Kam Varghese MD Primary Care Provider [phone] Minerva Reyes RN Unavailable [phone] Reason for Visit * Reason Onset Date Comments Blood Pressure 07/10/2024 Rectal Problem 07/10/2024 Encounter Details Date Type Department Care Team (Late st Contact Info) Description 07/10/2024 Telephone [facility] Medical Group Multispecialty Care - [place] [address] [address] [address] [place], [place] [address] [place] [address] [place] [address] [address] [place] [address] Blood Pressure; Rectal Problem Social History Tobacco Use Types Packs/Day Years Used Date Smoking Tobacco: Every Day Cigarettes 0.8 50 Passive Smoke Exposure: Past Smokeless Tobacco: Never Comments:counseled by Dr Olya cota Alcohol Use Standard Drinks/Week Comments Not Currently 0 (1 standard drink = 0.6 oz pur e alcohol) rarely [facility] Utilities Answer Date Recorded In the past 12 months has [employer] electric, gas, oil, or water company threatened [...] any time in the past 12 m [facility], were you homeless or living in a intermediate (including now)? No 07/05/2024 Comments No Sex and Gender Information Value Date Recorded Sex Assigned at Female 07/04/2024 10:42 PM APPLICATION TECHNICIAN Legal Sex Female 9:48 AM APPLICATION TECHNICIAN Gender Identity Not on file Sexual Orientation Not on file documented as of this encounter Functional Status * Are you deaf or do you have serious difficulty hearing Answer Date of Assessment Author Status No 07/05/2024 1:26 PM APPLICATION TECHNICIAN Kath Chapman RN Active * Are you [...] documented in this encounter Progress Notes * Madi Rod - 07/10/2024 2:19 PM CST Patient called and stated that she wasn't feeling well and that her BP was low at 85/48 and that she was have blood in her stool. It was advised by Dr. Varghese that she go to ER and patient v/u and went to ER. ICATION TECHNICIAN documented in this encounter Plan of Treatment Upcoming Encounters Date Type Department Care Team (Latest Contact Info) Description 07/11/2024 10:40 AM APPLICATION TECHNICIAN Office Visit [facility] Medical [facility] Multispecialty Care - [place] [address] [address] [address] [place] [address] Kam Varghese MD [address] [place] [address] 08/06/2024 10:40 AM APPLICATION TECHNICIAN Office Visit [facility] Multispecialty Care - [place] [address] [address] [address] [place] [address] Kam Varghese MD 1188 [facility] 157 [place] [address] 04/15/2025 8:00 AM APPLICATION TECHNICIAN Hospital Encounter [facility] [place] [address] Helder Willis MD [address] [address] 04/15/2025 8:00 AM APPLICATION TECHNICIAN - 04/15/2025 8:30 AM APPLICATION TECHNICIAN Surgery [facility] End[place] [address] Helder Willis MD [address] [address] COLONOSCOPY Scheduled Procedures Name Priority Associated Diagnoses Date/Ti me COLONOSCOPY Family history of colon cancer Personal history of colon polyps, unspecified Encounter for screening colonoscopy 04/15/2025 8:00 AM APPLICATION TECHNICIAN documented as of this encounter Visit Diagnoses Not on filedocumented in this encounter Additional Health Concerns Infection Onset Date Last Indicated Resolved Time Influenza - Seasonal 07/05/2024 07/05/2024 Assessment Noted Time PHQ-9 Depression Total Score: 1 02/07/20 24 9:26 AM CDT documented as of this encounter Care Teams Sexologist Relationship Specialty Start Date End Date Kam Varghese MD [address] [address] PCP - General INTERNAL MEDICINE 03/26/22 Minreva Reyes, RN [address] [place] [address] Retail Bakery Manager (Ambulatory) REGISTERED NURSE 07/05/24 documented as of this encounter
--- OUTSIDE RECORDS SUMMARY | 2024-07-10 16:37 | XMS_ITS | Encounter Summary ---
Author Organization [facility] Address [address] [place] [address] Care Team Providers Care Vehicle Delivery Worker Name Role Phone Kam Varghese MD Primary Care Provider [phone] Minerva Reyes RN Unavailable [phone] Encounter Details Date Type Department Care Team (Late st Contact Info) Description 04/28/2022 UP Online Message Enc [place] [address] [facility] [address] [place] [address] [employer], [facility] Provider US result Social History Tobacco Use Types Packs/Day [...] Sex Assigned at Female 07/04/2024 10:42 PM WIRELINE SUPERVISOR Legal Sex Female 9:48 AM WIRELINE SUPERVISOR Gender Identity Not on file Sexual Orientation Not on file COVID-19 Exposure Response Date Recorded In the last 10 days, have yo u been in contact with someone who was confirmed or suspected to have Coronavirus/COVID-19? No / Unsure 04/27/2022 7:55 AM WIRELINE SUPERVISOR documented as of this encounter Plan of Treatment Upcoming Encounters Date Type Department Care Team (Latest Contact Info) Description 07/11/2024 10:40 AM WIRELINE SUPERVISOR [facility] [address] [facility] [address] [place] [address] Kam Varghese MD [address] [place] [address] 08/06/2024 10:40 AM WIRELINE SUPERVISOR Office Visit [facility] Medical Group Multispecialty Care - [place] [address] [address] [place] [address] Kam Varghese MD [facility] [address] 04/15/2025 8:00 AM WIRELINE SUPERVISOR Hospital Encounter [facility] One [place] [address] Helder Willis MD [address] [address] 04/15/2025 8:00 AM WIRELINE SUPERVISOR - 04/15/2025 8:30 AM WIRELINE SUPERVISOR Surgery [facility] Endo/[place] [address] Helder Willis MD [address] [address] COLONOSCOPY Scheduled Procedures Name Priority Associated Diagnoses Date/Ti me COLONOSCOPY Family history of colon cancer Personal history of colon polyps, unspecified Encounter for screening colonoscopy 04/15/2025 8:00 AM WIRELINE SUPERVISOR documented as of this encounter Visit Diagnoses Not on filedocumented in this encounter Additional Health Concerns Infection Onset Date Last Indicated Resolved Time COVID-19 Rule Out 07/05/2024 07/05/2024 07/05/2024 2:49 AM WIRELINE SUPERVISOR Influenza - Seasonal 07/05/2024 07/05/2024 documented as of this encounter Care Teams Vehicle Delivery Worker Relationship Specialty Start Date End Date Kam Varghese MD [address] [place] [address] [address] [place] [address] PCP - General INTERNAL MEDICINE 03/26/22 Minerva eRyes, RN [address] [place] [address] Anthropology Department Chair (Ambulatory) REGISTERED NURSE 07/05/24 documented as of this encounter
--- OUTSIDE RECORDS SUMMARY | 2024-07-10 16:37 | XMS_ITS | Encounter Summary ---
Author Organization [facility] Address [address] [place] [address] Care Team Providers Care Control Integration Engineer Name Role Phone Kam Varghese MD Primary Care Provider Minerva Reyes RN Unavailable [phone] Encounter Details Date Type Department Care Team (Latest Contact Info) Description 04/10/2022 [employer] Message Enc [facility] Medical Group Multispecialty Care - [place] [address] [address] [place] [address] Kam Varghese MD [address] [place] [address] [address] [place] [address] Restless leg syndrome Social History Tobacco Use Types Packs/Day Years [...] Sex Assigned at Female 07/04/2024 10:42 PM ORACLE WMS CONSULTANT Legal Sex Female 9:48 AM ORACLE WMS CONSULTANT Gender Identity Not on file Sexual Orientation Not on file COVID-19 Exposure Response Date Recorded In the last 10 days, have yo u been in contact with someone who was confirmed or suspected to have Coronavirus/COVID-19? No / Unsure 04/07/2022 6:22 AM CDT documented as of this encounter Plan of Treatment Upcoming Encounters Date Type Department Care Team (Latest Contact Info) Description 07/11/2024 10:40 AM ORACLE WMS CONSULTANT Office Visit [facility] Medical [facility] Multispecialty Care - [place] [address] [address] [place] [address] Kam Varghese MD [address] [address] 08/06/2024 10:40 AM ORACLE WMS CONSULTANT Office Visit [facility] [address] [address] Kam Varghese MD [address] [address] 04/15/2025 8:00 AM ORACLE WMS CONSULTANT Hospital Encounter Health system [place] [address] Helder Willis MD [address] [address] 04/15/2025 8:00 AM ORACLE WMS CONSULTANT - 04/15/2025 8:30 AM ORACLE WMS CONSULTANT Surgery Health system [place]o/[place] [address] Helder Willis MD [address] [address] COLONOSCOPY Scheduled Procedures Name Priority Associated Diagnoses Date/Ti me COLONOSCOPY Family history of colon cancer Personal history of colon polyps, unspecified Encounter for screening colonoscopy 04/15/2025 8:00 AM ORACLE WMS CONSULTANT documented as of this encounter Visit Diagnoses Not on filedocumented in this encounter Additional Health Concerns Infection Onset Date Last Indicated Resolved Time COVID-19 Rule Out 07/05/2024 07/05/2024 07/05/2024 2:49 AM ORACLE WMS CONSULTANT Influenza - Seasonal 07/05/2024 07/05/2024 documented as of this encounter Care Teams Control Integration Engineer Relationship Specialty Start Date End Date Kam Varghese MD 1188 [facility] 157 [place] [address] PCP - General INTERNAL MEDICINE 03/26/22 Minerva Reyes RN [address] [place], [place] [address] Floor Covering Printer (Ambulatory) REGISTERED NURSE 07/05/24 documented as of this encounter
--- OUTSIDE RECORDS SUMMARY | 2024-07-10 16:37 | XMS_ITS | Encounter Summary ---
Author Organization [facility] Address [facility] [place] [address] Care Team Providers Care Loss Claim Clerk Name Role Phone Kam Varghese MD Primary Care Provider [phone] Minerva Reyes RN Unavailable [phone] Reason for Visit * Reason Onset Date Comments TCM 07/09/2024 LAY 07/04-07/07 Encounter Details Date Type Department Care Team (Late st Contact Info) Description 07/09/2024 Patient Outreach [facility] Multispecialty Care - [address] [place] [address] Minerva Reyes, RN [address] [place] [address] TCM (LAY 07/04-07/07) Social History Tobacco Use Types Packs/Day Years Used Date Smoking Tobacco: Every Day Cigarettes 0.8 50 Passive Smoke Exposure: Past Smokeless Tobacco: Never Comments:counseled by Dr Olya cota Alcohol Use Standard Drinks/Week Comments Not Currently 0 (1 standard drink = 0.6 oz pur e alcohol) rarely [facility] Utilities Answer Date Recorded In [...] any time in the past 12 m [facility], were you homeless or living in a [place] facility (including now)? No 07/05/2024 Comments No Sex and Gender Information Value Date Recorded Sex Assigned at Female 07/04/2024 10:42 PM TELEVISION SPECIALIST Legal Sex Female 9:48 AM TELEVISION SPECIALIST Gender Identity Not on file Sexual [...] Author Status Yes 07/05/2024 1:26 PM Kath Pariknson RN Active * Do you have difficulty [...] Notes * Minerva Reyes RN - 07/09/2024 6:18 AM CST Follow up call to patient post hospitalization Patient admitted to [facility] on 07/04/24 with discharge diagnosis of Acute respiratory failure with hypoxemia. Discharge date: 07/07/24 Date of Contact: 07/09/24 Patient Status: (Including education, discharge instructions, s/sx to infection, and when to seek medical attn) Contacted patient today and introduced self. Reviewed D/C instructions and confirmed appointment on07/11/24 at 10:40 am. Reconciled medication list in Epic with AVS. Patient denies any issues with wheezing, diarrhea, chills or body aches at this time. Stated she continues to have some sob contributing this to congestion in her lungs. Reports BS have been all over the place since she's been sick.Stated she just finished prednisone and this will increase BS levels. She is unaware of BMP in 1 week. CC will send a message to PCP. Patient is aware. Opportunity provided to answer questions. No further needs noted at this time. According to D/C summary it states the following: Improved. Na up to 132 at discharge Patient appears to be on chronic trimethoprim (UTI PPx) which might be contributing to hyponatremia. Recommend repeat BMP in 1 week. Consider alternative agent if sodium is not stable or improving. Discontinue HCTZ upon discharge. Pertinent Labs: Ref Range & Units 07/07/24 0513 PHOSPHORUS 2.5 - 4.9 MG/DL 2.3 Low 07/07/24 0513 GLUCOSE 70 - 99 MG/DL 193 High BUN 7 - 18 MG/DL 26 High CREATININE S/P/B 0.55 - 1.02 MG/DL 0.98 SODIUM S/P/B 136 - 145 MMOL/L 132 Low POTASSIUM S/P/B 3.5 - 5.1 MMOL/L 3.6 CHLORIDE S/P/B 97 - 115 MMOL/L 100 CO2 21 - 32 MMOL/L 30.9 CALCIUM S/P/B 8.5 - 10.1 MG/DL 7.9 Low BILIRUBIN TOTAL S/P/B 0.2 - 1.2 MG/DL 0.9 Comment: THIS ASSAY IS NOT RECOMMENDED FOR PATIENTS UNDERGOING TREATMENT WITH ELTROMBOPAG DUE TO THE POTENTIAL FOR FALSELY ELEVATED RESULTS. TOTAL PROTEIN S/P/B 6.4 - 8.2 G/DL 6.2 Low ALBUMIN S/P/B 3.4 - 5.0 G/DL 2.4 Low AST 15 - 37 U/L 115 High ALT 14 - 55 U/L 65 High ALKALINE PHOSPHATASE S/P/B 50 - 136 U/L 101 ANION GAP 2 - 10 MMOL/L 1.1 Low BUN CREATININE RATIO 6 - 26 26.6 High A/G RATIO 1.0 - 2.0 RATIO 0.6 Low GFR ESTIMATE >90 ML/MIN/1.73 M2 64 Low 07/07/24 0513 WBC 4.5 - 11.0 x10'3/uL 6.45 RBC 4.20 - 5.40 x10'6/uL 3.04 Low HGB 12.0 - 16.0 G/DL 11.8 Low HCT 38.0 - 48.0 % 33.4 Low MCV 81.0 - 99.0 FL 109.9 High MCH 27.0 - 31.0 PG 38.8 High MCHC 32.0 - 36.0 G/DL 35.3 RDW 11.5 - 14.5 % 17.8 High PLT 130 - 400 x10'3/uL 278 MPV 9.3 - 12.2 FL 11.3 DIFFERENTIAL TYPE MANUAL DIFFERENTIAL SEG NEUTROPHILS % 89 LYMPHOCYTES % 4 MONOCYTES % 7 NRBC 0 /100 WBC 3 High ABS. NEUTROPHILS 1.80 - 7.70 x10'3/uL 5.74 ABS. LYMPHOCYTES 1.00 - 4.80 x10'3/uL 0.26 Low ABS. MONOCYTES 0.24 - 0.86 x10'3/uL 0.45 ABS. NUCLEATED RBC'S 0.00 - 0.01 x10'3/uL 0.19 High RBC MORPHOLOGY SLIDE REVIEWED MACRO 1+ BASOPHIIC STIPPLING 1+ ROTH JOLLY BODIES 1+ PLT EST. ADEQUATE Pertinent Procedures/Imaging performed while inpatient: EXAMINATION: XR CHEST PORTABLE, 07/04/2024 11:19 PM: From ER: IMPRESSION: 1. Prominence of the pulmonary vascular pattern which may be seen with pulmonary vascular congestion and/or pneumonia. 2. Peripheral reticular opacities within the upper lung mcgowan as well as the periphery of the leftlung base that may be seen with pneumonia and/or chronic peripheral reticular opacities that may indicate presence of chronic fibrosis, possibly with superimposed acute parenchymal thickening. Vaccines Given While Inpatient: no Discharge Disposition: Home Any follow up appointments needed to be scheduled: yes - F/U with PCP within 7 to 10 days. Future Appointments Date Time Provider Department Center 07/11/2024 10:40 AM Kam Varghese MD [id number] 08/06/2024 10:40 AM Kam Varghese MD [id number] [id number] Referrals needed: no Any follow up labs/imaging needed: BMP in 1 week. Have lab/imaging orders been placed: Message sent to PCP. Allergies: Review of patient's allergies indicates: Allergen Reactions Guanfacine Other (see comment) Had side effects -patient cannot recall Januvia [Sitagliptin] Other (see comment) pancreatitis Morphine Headache Sulfa Antibiotics Hives Topiramate Other (see comment) She recalls not feeling right Varenicline Other (see comment) depression Canagliflozin GI Upset and Unknown Medications: Outpatient medications have been reconciled with hospital discharge list. See below for changes. Current Outpatient Medications Medication Sig Note Dispense Refill amoxicillin-clavulanate (AUGMENTIN) 875-125 MG tablet Take 1 tablet (875 mg total) by mouth 2 (two)times daily for 2 days. 07/09/2024: Completed 4 tablet 0 oseltamivir (TAMIFLU) 30 MG capsule Take 1 capsule (30 mg total) by mouth 2 (two) times daily for 2days. 07/09/2024: Completed 4 capsule 0 predniSONE (DELTASONE) 20 MG tablet Take 2 tablets (40 mg total) by mouth daily for 2 days. 07/09/2024: Completed 4 tablet 0 albuterol sulfate HFA 108 (90 Base) MCG/ACT inhaler Inhale 2 puffs into the lungs every 6 (six) hours as needed for Wheezing. amLODIPine (NORVASC) 10 MG tablet Take 0.5 tablets (5 mg total) by mouth daily. 30 tablet 0 aspirin EC (ECOTRIN) 81 MG tablet Take 1 tablet (81 mg total) by mouth daily. atorvastatin (LIPITOR) 20 MG tablet Take 1 tablet (20 mg total) by mouth nightly at bedtime. 90 tablet 1 azaTHIOprine (IMURAN) 50 MG tablet Take 1 tablet (50 mg total) by mouth daily. 3TABS IN AM AND 2TABS IN PM folic acid (FOLVITE) 1 MG tablet Take 1 tablet (1 mg total) by mouth daily. hydroCHLOROthiazide (HYDRODIURIL) 25 MG tablet Take 1 tablet (25 mg total) by mouth every morning. 90 tablet 1 insulin aspart (NOVOLOG) 100 UNIT/ML injection (PEN) Use three times daily 30 minutes before main meals. If blood sugars 60-150= 0 units 151-200= 3 units 201- 250= 5 units 251-300= 8 units 301-350= 10units 351-400= 12 units >400 call provider. Max for day: 36 units in 24 hours. (Patient taking differently: Inject 0-12 Units into the skin 3 (three) times daily before meals. Use three times daily 30 minutes before main meals. If blood sugars 60-150= 0 units 151-200= 3 units 201-250= 5 units 251-300= 8 units 301-350= 10 units 351-400= 12 units >400 call provider. Max for day: 36 units in 24 hours.) 15 mL 11 Insulin Glargine, 1 Unit Dial, (JENNIFER VANG) 300 UNIT/ML Solution Pen- injector Inject 57 Units into the skin 2 (two) times a day. 12 mL 11 metFORMIN ER (GLUCOPHAGE-XR) 500 MG 24 hr tablet Take 3 tablets (1,500 mg total) by mouth daily with breakfast. 270 tablet 1 pramipexole (MIRAPEX) 0.5 MG tablet Take 1 tablet (0.5 mg total) by mouth daily. 270 tablet 1 rOPINIRole (REQUIP) 4 MG tablet Take 1 tablet (4 mg total) by mouth nightly at bedtime. at bedtime 90 tablet 1 trimethoprim (TRIMPEX) 100 MG tablet Take 1 tablet (100 mg total) by mouth nightly at bedtime. at bedtime. 90 tablet 0 vitamin D2, ergocalciferol, (DRISDOL) 1.25 mg capsule Take 1 capsule (1.25 mg total) by mouth once a week. (Patient taking differently: Take 1 capsule (1.25 mg total) by mouth once a week. Fridays) 12 capsule 3 No current facility-administered medications for this visit. Medication Changes or Discontinued Medications: START taking: amoxicillin-clavulanate (AUGMENTIN) oseltamivir (TAMIFLU) predniSONE (DELTASONE) CHANGE how you take: amLODIPine (NORVASC) Review your updated medication Does patient have difficulty affording medication: No Do any medications need refilled: No Does patient have access to care and services (rides, etc)? Yes Patient Goals: Establish regular f/u with PCP. Monitor signs and symptoms. Report the onset of any changes. Plan of Care: Follow up with on 07/11/24 or call before that time if needed. VISION SPECIALIST documented in this encounter Plan of Treatment Upcoming Encounters Date Type Department Care Team (Latest Contact Info) Description 07/11/2024 10:40 AM TELEVISION SPECIALIST Office Visit [facility] Medical [facility] Multispecialty Care - [place] [address] [address] [place] [address] Kam Varghese MD [address] [place] [address] 08/06/2024 10:40 AM TELEVISION SPECIALIST Office Visit [facility] Multispecialty Care - [place] [address] [address] [place] [address] Kam Varghese MD [address] [facility] [address] [place] [address] 04/15/2025 8:00 AM TELEVISION SPECIALIST Hospital Encounter [facility] [place] [address] Helder Willis MD 3 [facility] [address] [place] [address] 04/15/2025 8:00 AM TELEVISION SPECIALIST - 04/15/2025 8:30 AM TELEVISION SPECIALIST Surgery [facility] End[place] [address] Helder Willis MD [address] [address] COLONOSCOPY Scheduled Procedures Name Priority Associated Diagnoses Date/Ti me COLONOSCOPY Family history of colon cancer Personal history of colon polyps, unspecified Encounter for screening colonoscopy 04/15/2025 8:00 AM TELEVISION SPECIALIST documented as of this encounter Visit Diagnoses Not on filedocumented in this encounter Additional Health Concerns Infection Onset Date Last Indicated Resolved Time Influenza - Seasonal 07/05/2024 07/05/2024 Assessment Noted Time PHQ-9 Depression Total Score: 1 02/07/20 24 9:26 AM CDT documented as of this encounter Care Teams Loss Claim Clerk Relationship Specialty Start Date End Date Kam Varghese MD [address] [place] [address] PCP - General INTERNAL MEDICINE 03/26/22 Minerva Reyes RN [address] [place] [address] Nut Cracker (Ambulatory) REGISTERED NURSE 07/05/24 documented as of this encounter
--- OUTSIDE RECORDS SUMMARY | 2024-07-10 16:37 | XMS_ITS | Encounter Summary ---
Author Organization [facility] Address [facility] [place] [address] Care Team Providers Care Meat Press Operator Name Role Phone Kam Varghese MD Primary Care Provider [phone] Minerva Reyes RN Unavailable [phone] Reason for Visit * Reason Onset Date Comments Follow Up Call 07/04/2024 LAY 07/04-07/07/24 Encounter Details Date Type Department Care Team (Latest Contact Info) Description 07/09/2024 Hospital Follow-up Call [facility] [place] [address] Susan Scott LPN Follow Up Call (LAY 07/04-07/07/24) Social History Tobacco Use Types Packs/Day Years Used Date Smoking Tobacco: Every Day Cigarettes 0.8 50 Passive Smoke Exposure: Past Smokeless Tobacco: Never Comments:counseled by Dr Olya cota Alcohol Use Standard Drinks/Week Comments Not Currently 0 (1 standard drink = 0.6 oz pur e alcohol) rarely [facility] Utilities Answer Date Recorded In the past 12 months has e [employer], gas, oil, or water [employer] threatened to shut off services in your [...] any time in the past 12 m [facility], were you homeless or living in a fpc (including now)? No 07/05/2024 Comments No Sex and Gender Information Value Date Recorded Sex Assigned at Female 07/04/2024 10:42 PM CHEMISTRY FACULTY MEMBER Legal Sex Female 9:48 AM CHEMISTRY FACULTY MEMBER Gender Identity Not on file Sexual Orientation Not on file documented as of this encounter Functional Status * Are you deaf or do you have serious difficulty hearing Answer Date of Assessment Author Status No 07/05/2024 1:26 PM CHEMISTRY FACULTY MEMBER Kath Chapman RN Active * Are you [...] (Latest Contact Info) Description 07/11/2024 10:40 AM CHEMISTRY FACULTY MEMBER [facility] [address] [address] Kam Varghese MD [facility] [address] [address] 08/06/2024 10:40 AM CHEMISTRY FACULTY MEMBER [facility] [address] [address] Kam Varghese MD [facility] [address] [address] 04/15/2025 8:00 AM CHEMISTRY FACULTY MEMBER Hospital Encounter [facility] [place] [address] Helder Willis MD [address] [address] 04/15/2025 8:00 AM CHEMISTRY FACULTY MEMBER - 04/15/2025 8:30 AM CHEMISTRY FACULTY MEMBER Surgery [facility] [place] [address] Helder Willis MD 3 [facility] [address] [place] [address] COLONOSCOPY Scheduled Procedures Name Priority Associated Diagnoses Date/Ti me COLONOSCOPY Family history of colon cancer Personal history of colon polyps, unspecified Encounter for screening colonoscopy 04/15/2025 8:00 AM CHEMISTRY FACULTY MEMBER documented as of this encounter Visit Diagnoses Not on filedocumented in this encounter Additional Health Concerns Infection Onset Date Last Indicated Resolved Time Influenza - Seasonal 07/05/2024 07/05/2024 Assessment Noted Time PHQ-9 Depression Total Score: 1 02/07/20 24 9:26 AM CDT documented as of this encounter Care Teams Meat Press Operator Relationship Specialty Start Date End Date Kam Varghese MD [address] [facility] [address] [place] [address] PCP - General INTERNAL MEDICINE 03/26/22 Minerva Reyes, RN [address] [place] [address] Office Workforce Planner (Ambulatory) REGISTERED NURSE 07/05/24 documented as of this encounter
--- OUTSIDE RECORDS SUMMARY | 2024-07-10 16:37 | XMS_ITS | Encounter Summary ---
Author Organization [facility] Address [address] [place] [address] Care Team Providers Care Potato Picker Name Role Phone Kam Varghese MD Primary Care Provider [phone] Minerva Reyes RN Unavailable [phone] Encounter Details Date Type Department Care Team (Late Contact Info) Description 03/29/2022 Indelsul Message Enc [place] [address] [facility] [address] [place] [address] [facility] Provider results Social History Tobacco Use Types Packs/Day [...] Sex Assigned at Female 07/04/2024 10:42 PM MEDICAL LABORATORY MANAGER Legal Sex Female 9:48 AM MEDICAL LABORATORY MANAGER Gender Identity Not on file Sexual Orientation Not on file COVID-19 Exposure Response Date Recorded In the last 10 days, have yo u been in contact with someone who was confirmed or suspected to have Coronavirus/COVID-19? No / Unsure 03/25/2022 3:51 PM CDT documented as of this encounter Plan of Treatment Upcoming Encounters Date Type Department Care Team (Latest Contact Info) Description 07/11/2024 10:40 AM MEDICAL LABORATORY MANAGER Office Visit [place] [address] [facility] [address] [place] [address] Kam Varghese MD [address] [place] [address] 08/06/2024 10:40 AM MEDICAL LABORATORY MANAGER Office Visit [facility] Group Multispecialty Care - [place] [address] [address] [place] [address] Kam Varghese MD [facility] [address] [address] 04/15/2025 8:00 AM MEDICAL LABORATORY MANAGER Hospital Encounter [facility] [place] [address] Helder Willis MD [address] [address] 04/15/2025 8:00 AM MEDICAL LABORATORY MANAGER - 04/15/2025 8:30 AM MEDICAL LABORATORY MANAGER Surgery [facility] [place] [address] Helder Willis MD [address] [address] COLONOSCOPY Scheduled Procedures Name Priority Associated Diagnoses Date/Ti me COLONOSCOPY Family history of colon cancer Personal history of colon polyps, unspecified Encounter for screening colonoscopy 04/15/2025 8:00 AM MEDICAL LABORATORY MANAGER documented as of this encounter Visit Diagnoses Not on filedocumented in this encounter Additional Health Concerns Infection Onset Date Last Indicated Resolved Time COVID-19 Rule Out 07/05/2024 07/05/2024 07/05/2024 2:49 AM MEDICAL LABORATORY MANAGER Influenza - Seasonal 07/05/2024 07/05/2024 documented as of this encounter Care Teams Potato Picker Relationship Specialty Start Date End Date Kam Varghese MD [address] [place] [address] [address] [place] [address] PCP - General INTERNAL MEDICINE 03/26/22 Minerva Reyes, RN [address] [place] [address] Ice Cream Man (Ambulatory) REGISTERED NURSE 07/05/24 documented as of this encounter
--- OUTSIDE RECORDS SUMMARY | 2024-07-10 16:37 | XMS_ITS | Clinical Summary ---
Author Organization Megan sol Address [address] [place] [address] Care Team Providers Care Handle Maker Name Role Phone Vladimir Colorado MD Primary Care Provider [phone] Allergies Active Allergy Reactions Criticality Noted Date Comments Canagliflozin Abdominal Pain Low 05/04/2018 Morphine Headache High 07/27/2013 Sulfa (Sulfonamide Antibiotics) Hives High 02/05 Sulfamethoxazole-Trimethoprim Hives High 2015 Medications aspirin (ASPIRIN LOW DOSE) 81 mg Tablet, Delayed Release (E.C.)Indication s:Diabetes mellitus type II, uncontrolled Take 1 Tablet (81 mg) by mouth daily. 30 Tablet 0 6 Active cyclobenzaprine (FLEXERIL) 10 mg tablet Take 1 Tablet (10 mg) by mouth 2 times daily. 60 Tablet 1 05/01/2019 12:28 PM BANK OFFICER 9 Active TURMERIC ORAL Take by mouth. A ctive Blood-Glucose Meter (FREESTYLE LITE METER) Kit Glucose testing 3 times daily 1 Each 1 05/24/2019 10:34 AM BANK OFFICER 9 Active lisinopril-hydro CHLOROthiazide (ZESTORETIC) 20-25 mg tablet Take 1 Tablet by mouth daily. 90 Tablet 3 03/31/2020 1:55 PM CDT 0 Active blood sugar diagnostic StripIndications :Diabetes mellitus type II, uncontrolled Use 1 strip three times daily 300 Each 3 01/21/2020 12:22 PM CDT 0 Active albuterol HFA 90 mcg inhaler Take 2 Puffs by inhalation every 8 hours as needed for shortness of breath. 8.5 Gram 2 12/03/2019 11:33 AM CDT 0 Active metFORMIN (GLUCOPHAGE XR) 500 mg Extended Release 24 hour tablet Take 3 Tablets (1,500 mg) by mouth daily. 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 450 Tablet 12/11/2019 11:41 AM CDT 0 Active furosemide (LASIX) 20 mg tablet Take 1 Tablet (20 mg) by mouth 1 time daily as needed (swelling). 30 Tablet 12/11/2019 11:41 AM CDT 0 Active atorvastatin (LIPITOR) 40 mg tablet Take 1 Tablet by mouth daily at bedtime. 90 Tablet 3 04/17/2020 12:32 PM [facility] 0 Active rOPINIRole (REQUIP) 4 mg Tablet Take 1 Tablet (4 mg) by mouth daily at bedtime. 90 Tablet 3 04/28/2020 9:54 AM [facility] 0 Active pramipexole (MIRAPEX) 0.25 mg tabletIndication s:RLS (restless legs syndrome) Take 1 Tablet (0.25 mg) by mouth 3 times daily. 270 Tablet 3 04/17/2020 12:32 PM [facility] 0 Active methenamine hippurate (HIPREX) 1 gram Tablet Take 1 Tablet (1,000 mg) by mouth 2 times daily. 60 Tablet 2 05/02/2020 11:26 AM BANK OFFICER 0 Active flash glucose sensor (FreeStyle Michael 2 Sensor) Kit Apply to arm, change every 14 days 2 Kit 5 0 Active insulin glargine (Lantus Solostar U-100 Insulin) 100 unit/mL pen syringe Inject 30 Units by subcutaneous injection daily at bedtime. 30 mL 1 05/02/2020 11:26 AM BANK OFFICER 0 Active trimethoprim (TRIMPEX) 100 mg tablet Take 1 Tablet (100 mg) by mouth 2 times daily. 28 Tablet 1 05/02/2020 11:26 AM BANK OFFICER 0 Active estradioL (Estrace) 0.01% (0.1 mg/g) vaginal cream Apply a pea sized amount of cream to anterior vagina twice weekly 42.5 Gram 3 04/11/2020 3:50 PM BANK OFFICER 0 Active ondansetron (Zofran) 4 mg Tablet Take 1 Tablet (4 mg) by mouth every 8 hours as needed for Nausea/Emesis. 20 Tablet 1 04/17/2020 12:32 PM BANK OFFICER 0 Active azaTHIOprine (IMURAN) 50 mg tablet Take 3 Tablets (150 mg) by mouth daily in the morning AND 2 Tablets (100 mg) late in the day. 450 Tablet 0 Active oxyCODONE (ROXICODONE) 5 mg tabletIndication s:Seropositive rheumatoid arthritis of multiple sites (CMS/HCC) Take 1-1.5 Tablets (5-7.5 mg) by mouth every 8 hours as needed for Pain or Severe RLS. Max Daily Amount: 22.5 mg 125 Tablet 0 Active Insulin [place], Disposable, (BD Ultra-Fine Short Pen Needle) 31 gauge x 5/16 Needle Use with insulin 4x daily 400 Each 4 1 Active insulin aspart U-100 (NovoLOG Flexpen U-100 Insulin) 100 unit/mL pen syringe INJECT THREE TIMES A DAY PER SCALE, MAX DAILY DOSE IS 40 UNITS 30 mL 2 Active Active Problems Patient Care Coordination No te Formatting of this note migh t be different from the original. Endocrine: Dr. Winkler/Dahiana Rodríguez Rheumatology: Dr. Sung Neurology: Dr. Andrei STOKES: Dr. Velez ID: Dr. Pablo Problem Noted Date Diagnosed Date Recurrent UTI 03/03/2020 Severe obesity (BMI 35.0-39.9) with comorbidity 06/28/2019 Overview (04/10/2020): Normal BMI Range: 18 & older: > or = 18.5 and < 25 Body mass index is 36.48 kg/m??. Abnormal high BMI: BMI between 35-40 with 2 or more comorbid conditions: Comorbid conditions related to her obesity include hypertension and diabetes mellitus. We talked about her diagnosis of morbid obesity: it's role in her current health conditions; risk of future morbidity/mortality and the importance of weight loss in improving these conditions as well as her overall health. Counseled regarding the benefits of a low calorie, well-balanced diet, and daily exercise. Weight management options discussed. Split S2 (second heart sound) 06/28/2019 Overview (06/28/2019): SUMMARY: ?? - Left ventricle: The cavity size was normal. Wall thickness was normal. Global systolic function was normal. Wall motion was normal; there were no regional wall motion abnormalities. Diastolic function assessment consistent with abnormal left ventricular relaxation (grade 1 diastolic dysfunction). Ejection fraction (MOD, 2-plane): 60%. - Left atrium: The atrium was normal in size. - Right ventricle: The cavity size was normal. Systolic function was normal. - Atrial septum: Agitated saline contrast study showed no [id number] shunt, at baseline or with provocation. Essential hypertension 05/24/2019 Overview (04/10/2020): BP Readings from Last 3 Encounters: 04/10/20 (!) 140/70 04/10/20 (!) 145/68 03/31/20 110/65 04/10/2020 Increase lisinopril to 20 mg No side effects. Does not check home blood pressures. Given a loaner blood pressure cuff today. Microalbuminuria 04/13/2018 History of transient ischemic attack (TIA) 01/20 Pure hypercholesterolemia 01/04/2018 Overview (09/26/2019): The ASCVD Risk score ([place] INGA Jr., et al., 2013) failed to calculate for the following reasons: The valid total cholesterol range is 130 to 320 mg/dL Lab Results Component Value Date/Time CHOLTOT 109 07/24/2019 10:49 AM HDL 53 07/24/2019 10:49 AM LDLCALC 45 07/24/2019 10:49 AM TRIGLYCERIDE 55 07/24/2019 10:49 AM lipitor 40mg No significant side effects Assessment & Plan (01/23/2018 8:53 PM CDT): Continue lipitor. Continue aspirin 81mg Elevated C-reactive protein (CRP) 09/26/2017 Uncomplicated alcohol abuse 09/26/2017 Seropositive rheumatoid arthritis of multiple si akil 09/08/2017 Overview (04/10/2020): Dr. Sung Still in pain. meloxicam 15mg Oxycodone 5mg Prednisone as needed for flares Azathioprine Assessment & Plan (01/23/2018 8:53 PM CDT): stable. Continue with rheumatology Assessment & Plan (12/30/2017 2:24 PM CDT): Improving. The current medical regimen is effective; continue present plan and medications. Assessment & Plan (10/28/2017 3:06 PM CDT): Pain not controlled. Will refill meloxicam and short course of hydrocodone. Her office manager is out of the office for indefinite amount of time. She understands the risks associated. Assessment & Plan (10/14/2017 3:14 PM CDT): Symptomatic. Acute exacerbation. Continue plaquenil. She declines systemic steroid due to prior worsening of anxiety. Reviewed PDMP (last Rx from me on 09/02). Add meloxicam and hydrocodone for 1 week. Follow up with rheumatology. Call Tuesday with update. Right hand pain 09/08/2017 Left hand pain 09/08/2017 Chronic midline low back pain without sciatica 0 09/08/2017 Neck pain 09/08/2017 Dry eye 09/08/2017 Dry mouth 09/08/2017 Fatty liver 09/08/2017 Intractable migraine without aura and with status migrainosus 06/13/2017 Overview (09/26/2019): Dr. Forbes Pulmonary nodules/lesions, multiple 07/16/2016 Synovial cyst of popliteal space ([place]), left k nee 02/16/2016 Tobacco dependency 07/16/2015 Assessment & Plan (01/23/2018 8:54 PM CDT): Now trying patches. Encouraged cessation Assessment & Plan (12/30/2017 2:25 PM CDT): Smoker: Encouraged patient to quit. Discussed options including nicotine replacement, varenicline, bupropion, counseling, and auricular therapy/acupuncture. Patient chooses: willpower. TOBACCO COUNSELING: time spent: 3-10 min She was counseled to discontinue tobacco use. Restless legs syndrome (RLS) 07/27/2013 Overview (09/26/2019): Neuro: Dr. Andrei pacheco Oxycodone Ropinirole Assessment & Plan (01/23/2018 8:53 PM CDT): Improving. Continue current plan of care.. Type 2 diabetes mellitus wit h microalbuminuria, without long-term current use of insulin 07/27/2013 Overview (04/10/2020): Onset -. On insulin since 201006/28/2019 Increase humalog to 7 units TID lantus 26units daily Metformin Has some symptoms consistent with diabetes gastroparesis. Declines imaging. Lab Results Component Value Date/Time HGBA1C 8.3 (H) 11/20/2019 10:04 AM [id number] 8.8 (A) 03/31/2020 01:32 PM Reports she gets pancreatitis on some diabetes drugs. Intolerant of Invokana 04/10/2020 Home numbers improving, but reported as not controlled. Follows with Dahiana Rodríguez 11/20/2019 Assessment & Plan (01/23/2018 8:52 PM CDT): Diabetes: Stable. Continue current plan of care. Medications reviewed and refilled/adjusted as indicated. See medication orders. Labs ordered/reviewed. Reminded to get yearly retinal exam. Hold insulin. Send me weekly updates on home glucose. Assessment & Plan (12/30/2017 2:25 PM CDT): Diabetes: . Labs ordered/reviewed. Needs to get labs to decide on next steps. Assessment & Plan (10/28/2017 3:07 PM CDT): Diabetes: borderline control. Continue current plan of care. Medications reviewed and refilled/adjusted as indicated. See medication orders. Labs ordered/reviewed. Reminded to get yearly retinal exam. Addressed ADA/low CHO diet. Attention deficit hyperactiv ity disorder (ADHD), predominantly inattentive type 07/27/2013 Overview (09/26/2019): Had been on Adderall for 3 years Currently lifestyle management History of stroke without residual deficits Assessment & Plan (01/23/2018 8:54 PM CDT): Improving. Physical/Occupational therapy Not Indicated . Continue current level of support, including management of risks for recurrent neurological event. This is a new stroke event that resolved with TPA. Needs to quit smoking. Agree with aspirin and statin. Follow up with neurology. Hold meloxicam. Hemispheric carotid artery syndrome Resolved Problems Problem Noted Date Diagnosed Date Resolved Date Obesity (BMI 35.0-39.9 without comorbidity) 06/28/2019 08/08/2019 Cataract, left 05/21/2019 05/23/2019 Cataract, right 04/16/2019 05/23/2019 Ischemic stroke without residual deficits 01/20/2018 01/23/2018 Status post administration o f tPA (rtPA) in a different facility within the last 24 hours prior to admission to current facility 01/20/2018 0 01/23/2018 Prehypertension 06/28/2014 05/24/2019 Assessment & Plan (12/30/2017 2:25 PM CDT): borderline control. . See me 1 mo Immunizations Immunization Administration Dates Next Due (ADACEL/BOOSTRIX)(10 YR UP) TDAP VACCINE, 0.5ML, IM 11/05/2013 (PNEUMOVAX 23)(50 YRS UP) PN EUMOCOCCAL POLYSACCHARIDE (PPV23) 0.5 ML, IM 05/02/2019 (PREVNAR 13)(6 WKS UP) PNEUM OCOCCAL CONJUGATE (PCV13) 0.5 ML, IM 05/23/2013 INFLUENZA VACCINE QUADRIVALE NT 6 MOS UP PF IM 04/10/2020,05/02/2019,03/02/2018,02/21 Influenza Seasonal Unspecifi ed Formulation IM 03/14/2015 Influenza Vaccine Quad Split 3+ Yrs Im 6 Family History Medical History Relation Name Comments Coronary Artery Disease Father Rohit Fritz Heart Disease Father Rohit Fritz Heart Failure Father Rohit Fritz Melanoma Father Rohit Fritz Macular Degen Maternal Aunt Cancer Maternal Grandfather Darius Mortensen esaphag us Lung Cancer Maternal Grandfather Darius Mortensen Colon Cancer Maternal Uncle Bronchitis Mother Meena Cancer Mother Meena pancreatic canc er Diabetes Mother Meena Emphysema Mother Meena Hypertension Mother Meena Cancer Paternal Grandfather Devin Diabetes Sister Melly Asthma Neg Hx Fuchs' dystrophy Neg Hx Glaucoma Neg Hx Mesothelioma Neg Hx Relation Name Status Comments Father Rohit Fritz Alive Maternal Aunt Maternal Grandfather Darius Mortensen Maternal Grandmother Maternal Uncle Mother Meena Paternal Grandfather Yakelinent Sister Melly Alive Social History Tobacco Use Types Packs/Day Years Used Date Smoking Tobacco: Every Day Cigarettes 1 40 Smokeless Tobacco: Never Tobacco Cessation:Counseling Given: Yes Comments:nicotine gum Alcohol Use Standard Drinks/Week Comments Not Currently 0 (1 standard drink = 0.6 oz pur e alcohol) Rarely Comments No Sex and Gender Information Value Date Recorded Sex Assigned at Not on file Legal Sex Female 1:10 PM BANK OFFICER Gender Identity Not on file Sexual Orientation Not on file 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 Not on file Not on file Not on file Last Filed Vital Signs Vital Sign Reading Time Taken Comments Blood Pressure 140/70 04/10/2020 1:28 PM BANK OFFICER Pulse 86 04/10/2020 1:28 PM BANK OFFICER Temperature 37.2 ??C (99 ??F) 04/10/2020 9:27 AM BANK OFFICER Respiratory Rate 17 04/22/2020 7:34 AM BANK OFFICER Oxygen Saturation 96% 04/10/2020 1:28 PM BANK OFFICER Inhaled Oxygen Concentration - - Weight 113.9 kg (251 lb) 04/22/2020 7:34 AM BANK OFFICER Height 175.3 cm (5' 9 ) 04/22/2020 7:34 AM BANK OFFICER Body Mass Index 37.07 04/22/2020 7:34 AM BANK OFFICER Plan of Treatment Health Maintenance Due Date Last Done Comments FIT/ DNA Q 3 YEARS (AUTO ORDER) 02/03/1976 FIT/FOBT Q 1 YEAR (AUTO ORDER) 02/03/1976 FIT-DNA Q 3 years 2003 FIT/FOBT Q 1 year 2003 Flex Sig/CT Colonography Q 5 years 2003 ZOSTER VACCINE (1 of 2) 02/03/2008 RSV VACCINE (60+ or ) (1 - Risk 60-74 years 1-dose series) 2018 DIABETES ANNUAL FOOT EXAM 08/07/20202019, 08/29/2018, 02/19/2016, Additional history exists DIABETES ANNUAL RETINAL EXAM 10/23/2020, 10/24/2019, 10/24/2019, Additional history exists DIABETES MICROALBUMIN ANNUAL SCREEN 11/19/2020 11/20/2019, 08/08/2019, 04/12/2018, Additional history exists LDL CHOLESTEROL ANNUAL 11/19/2020 0, 07/24/2019, 04/12/2018, Additional history exists BREAST CANCER SCREENING 05/05/2023 05/05/20 22, 08/11/2020, 12/27/2017, Additional history exists DIABETES HBA1C Q 6 MONTHS 07/01/20232022, 11/24/2022, 12/10/2021, Additional history exists DTAP/TDAP/TD VACCINES (2 - T d or Tdap) 11/06/2023 11/05/2013 INFLUENZA VACCINE (#1) 2024 , 04/10/2020, 04/07/2020, Additional history exists COVID-19 Vaccine (2023-2 5 season) 2024 03/20/2022, 03/20/2022, 09/15/2021, Additional history exists Preventative Visit- Commercial 06/06/2024 1 , 02/19/2016, 11/02/2013, Additional history exists PNEUMOCOCCAL VACCINE 65+ YEA RS (3 of 3 - PCV20 or PCV21) 05/27/2025 05/27/2020, 05/02/2019, 05/23/2013 COLORECTAL CANCER SCREENING (AUTO ORDER) 05/10/2026 05/10/2016 COLORECTAL SCREENING 05/10/2026 05/10/2016 Colorectal Cancer Screening 05/10/2026 Colorectal Cancer Screening (AUTO ORDER) 04/07/2027 FLEX SIG/CT COLONOGRAPHY Q 5 YEARS (AUTO ORDER) 04/07/2027 04/07/2022, 04/07/2022 OSTEOPOROSIS SCREENING Completed 08/11/2020 Medical Devices Implanted Type Area Caddy Device Identifier Shelf Expiration Date Model / Serial / Lot Lens Io Sn60wf 22.0 - [id number] Implanted:Qty: 1 on 04/17/2019 by Traci Coker [place] [facility] [place]: Eye [facility] 12/04/2023 [id number].220 / [id number] / Lens Io Sn60wf 22.5 - [id number] Implanted:Qty: 1 on 05/22/2019 by Traci Coker [place] [facility] [place]: Eye [facility] 01/04/2024 [id number] / [id number] / Procedures Procedure Name Priority Date/Time Associated Diagnosis Comments POC HEMOGLOBIN A1C Routine 03/31/2020 1: 32 PM CDT Type 2 diabetes mellitus with microalbuminuria, without long-term current use of insulin ([facility]/HCC) MICROALBUMIN/CREATI NINE RATIO, RANDOM UR Routine 11/20/2019 10:17 AM CDT Diabetes mellitus type II, uncontrolled Seropositive rheumatoid arthritis of multiple sites (CMS/HCC) Type 2 diabetes mellitus with microalbuminuria, without long-term current use of insulin (CMS/HCC) Severe obesity (BMI 35.0-39.9) with comorbidity (CMS/HCC) Pure hypercholesterolemia Intractable migraine without aura and with status migrainosus Essential hypertension Attention deficit hyperactivity disorder (ADHD), predominantly inattentive type Tobacco dependency Restless legs syndrome (RLS) LIPID PANEL Routine 11/20/2019 10:04 AM CDT Diabetes mellitus type II, uncontrolled Seropositive rheumatoid arthritis of multiple sites (CMS/HCC) Type 2 diabetes mellitus with microalbuminuria, without long-term current use of insulin (CMS/HCC) Severe obesity (BMI 35.0-39.9) with comorbidity (CMS/HCC) Pure hypercholesterolemia Intractable migraine without aura and with status migrainosus Essential hypertension Attention deficit hyperactivity disorder (ADHD), predominantly inattentive type Tobacco dependency Restless legs syndrome (RLS) MAMMO 3D ROSIO SCREEN BILAT W OR WO CAD Routine 12/27/2017 2:17 PM CDT Screening for breast cancer from Last 3 Months or Most Recently Relevant to Health Maintenance Results * (ABNORMAL) POC HEMOGLOBIN A1C (03/31/2020 1:32 PM CDT) HGB A1C POC 8.8(A) <=5.7 % [facility] Blood, capillary 03/31/2020 1:32 PM CDT us Dahiana Rodríguez GAS APPLIANCE REPAIRER POINT OF CARE TESTING Final Result [facility] CLIA# [id number] [address] [facility] [place] [address] * (ABNORMAL) MICROALBUMIN/CREATININE RATIO, RANDOM UR (11/20/2019 10:17 AM CDT) [facility] MICROALBUMIN, URINE 1.6 No Reference Range mg/dL 11/20/2019 3:52 PM CDT [facility] CREATININE, URINE 60.9 29.0 - 226.0 mg/dL 11/20/2019 3:52 PM CDT [facility] Comment:Reference Range vari es with fluid intake and diet. MICROALBUMIN/ CREAT RATIO, UR 26.3(H) <25.0 mg/g 11/20/2019 3:52 PM CDT [facility] Urine URINE SPECIMEN OBTAINED BY CLEAN CATCH PROCEDURE / Unknown Collection / Unknown 11/20/2019 10:17 AM CDT 11/20/2019 10:17 AM CDT Narrative [facility] - 11/20/2019 3:52 PM CDT Condition ? Microalbumin/Creat ratio Normal Males ? <17 Normal Females ? <25 Microalbuminuria Males ?17-299 Microalbuminuria Females ?25-299 Overt proteinuria ? >=300 Vladimir Colorado MD URINE ORDERABLES Final Result [facility] CLIA# [id number] [address] [place] [address] * (ABNORMAL) LIPID PANEL (11/20/2019 10:04 AM CDT) CHOLESTEROL 97 <200 mg/dL 11/20/2019 4:20 PM CDT [facility] TRIGLYCERIDE 150(H) <150 mg/dL 11/20/2019 4:20 PM CDT [facility] HDL 36(L) 40 - 59 mg/dL 11/20/2019 4:20 PM CDT [facility] LDL CALCULATED 31 <100 mg/dL 11/20/2019 4:20 PM CDT [facility] NON-HDL CHOLESTEROL 61 <130 mg/dL 11/20/2019 4:20 PM CDT [facility] Blood Venipuncture / Unknown 11/20/2019 10:04 AM CDT 11/20/2019 10:04 AM CDT [facility] - 11/20/2019 4:20 PM CDT TOTAL CHOLESTEROL ??mg/dL ??Desirable <200 ??Borderline high 200-239 ??High >=240 TRIGLYCERIDES ??mg/dL ??Normal <150 ??Borderline high 150-199 ??High 200-499 ??Very high >=500 HDL CHOLESTEROL ??mg/dL ??Low <40 ??Normal 40-59 ??Desirable >=60 NON HDL CHOLESTEROL mg/dL ??Optimal <130 ??Near Optimal 130-159 ??Borderline High 160-189 ??Very High >=190 CALCULATED LDL mg/dL ??LDL <70, OPTIMAL if have Atherosclerotic cardiovascular disease (ASCVD) ??or intermediate or higher (>7.5%) 10 year risk of ASCVD including most adults ??with diabetes. ??LDL <100, Optimal in adult patients with low (<7.5%) 10 year ASCVD risk ??LDL 100-160, Suboptimal ??LDL >160, High ??LDL >190, Very high ATPIII Guidelines Reference Ranges for Lipid Panels (NCEP/AMA) . us Vladimir Colorado MD CHEMISTRY ORDERABLES Final Resu lt [facility] CLIA# [id number] [address] [place] [address] * MAMMO SCRN BILAT 3D ROSIO W OR WO CAD (12/27/2017 2:17 PM CDT) Anatomical Region Laterality Modality Breast Bilateral Mammography 12/27/2017 2:17 PM CDT Impressions 12/28/2017 2:06 PM CDT IMPRESSION: No mammographic evidence of malignancy. RECOMMENDATIONS: Routine screening mammogram in one year. DICTATION LOCATION: [facility] Narrative 12/28/2017 2:06 PM CDT BILATERAL FULL-FIELD DIGITAL SCREENING MAMMOGRAM WITH CAD WITH 3D TOMOSYNTHESIS DATE: 12/27/2017 2:17 PM HISTORY: Routine screening. TECHNIQUE: Full-field digital craniocaudal and mediolateral oblique projections of both breasts were obtained. Low-dose full-field digital breast tomosynthesis examination was performed with 2D and 3D acquisitions. Examination is read in conjunction with computer aided detection. COMPARISON: March 2016, April 2016. BREAST COMPOSITION: Heterogeneously dense, which limits the sensitivity of mammography. FINDINGS: No suspicious mass, suspicious microcalcifications, or architectural distortion in either breast is identified. Since the prior study, there has been no significant interval change. The computer aided diagnosis detects no significant abnormality. OVERALL ASSESSMENT: BI-RADS Category 1 - Negative. Procedure Note Kristopher Tavarez MD - 12/28/2017 BILATERAL FULL-FIELD DIGITAL SCREENING MAMMOGRAM WITH CAD WITH 3D TOMOSYNTHESIS DATE: 12/27/2017 2:17 PM HISTORY: Routine screening. TECHNIQUE: Full-field digital craniocaudal and mediolateral oblique projections of both breasts were obtained. Low-dose full-field digital breast tomosynthesis examination was performed with 2D and 3D acquisitions. Examination is read in conjunction with computer aided detection. COMPARISON: March 2016, April 2016. BREAST COMPOSITION: Heterogeneously dense, which limits the sensitivity of mammography. FINDINGS: No suspicious mass, suspicious microcalcifications, or architectural distortion in either breast is identified. Since the prior study, there has been no significant interval change. The computer aided diagnosis detects no significant abnormality. OVERALL ASSESSMENT: BI-RADS Category 1 - Negative. IMPRESSION: No mammographic evidence of malignancy. RECOMMENDATIONS: Routine screening mammogram in one year. DICTATION LOCATION: [facility] Vladimir Colorado MD MAMMO ORDERABLES Final Result from Last 3 Months or Most Recently Relevant to Health Maintenance Insurance RX RELAYHEALTH Commercial RX RELAYHEALTH Commercial RX RELAYHEALTH Commercial RX [facility] Commercial RX [employer] (INTERNAL) [facility] [employer] [facility] Commercial RX RELAYHEALTH Commercial RX RELAY[employer]ALTH Commercial RX MEDIMPACT Member Subscriber Plan / Payer (Ef fective 2021-Present) Name:Kathya Murphy Relation to Subscriber:Self Name:Kathya Murphy Subscriber ID:Not on file Payer ID:Not on file Group ID:[id number] Type:RX Medicare Part D Address[facility] [address] [facility] [address] [id number] Advance Directives For more information, please contact: [phone] * Full Code (Latest Code Status on File) Date Activated Date Inactivated Comments 05/22/2019 7:04 AM 05/22/2019 11:27 AM * Full Code Date Activated Date Inactivated Comments 04/17/2019 11:04 AM 04/17/2019 3:57 PM * Full Code Date Activated Date Inactivated Comments 01/20/2018 10:13 PM 01/22/2018 1:33 PM * Full Code Date Activated Date Inactivated Comments 05/10/2016 12:06 PM 05/10/2016 3:54 PM Care Teams Handle Maker Relationship Specialty Start Date End Date Vladimir Colorado MD [address] [place] [address] PCP - General Family Practice 07/15/16
--- OUTSIDE RECORDS SUMMARY | 2024-07-10 16:37 | XMS_ITS | Encounter Summary ---
Author Organization [facility] Address [address] [place] [id number] Care Team Providers Care Insulation Worker Furnace Installer Name Role Phone Kam Varghese MD Primary Care Provider [phone] Minerva Reyes RN Unavailable [phone] Encounter Details Date Type Department Care Team (Latest Contact Info) Description 04/16/2022 MyChart Message Enc [facility] Multispecialty Care - [place] [address] [address] [place] [address] Kam Varghese MD [address] [place] [address] [address] [place] [address] Referral for RLS Social History Tobacco Use Types Packs/Day Years [...] Sex Assigned at Female 07/04/2024 10:42 PM HAT BLOCKING MACHINE OPERATOR Legal Sex Female 9:48 AM HAT BLOCKING MACHINE OPERATOR Gender Identity Not on file Sexual [...] (Latest Contact Info) Description 07/11/2024 10:40 AM HAT BLOCKING MACHINE OPERATOR Office Visit [facility] Medical [facility] Multispecialty Care - [place] [address] [address] [place] [address] Kam Varghese MD [address] [address] 08/06/2024 10:40 AM HAT BLOCKING MACHINE OPERATOR Office Visit [facility] [address] [place] [address] Kam Varghese MD [address] [address] 04/15/2025 8:00 AM HAT BLOCKING MACHINE OPERATOR Hospital Encounter [facility] [place] [address] Helder Willis MD [address] [address] 04/15/2025 8:00 AM HAT BLOCKING MACHINE OPERATOR - 04/15/2025 8:30 AM HAT BLOCKING MACHINE OPERATOR Surgery [facility] [place] [address] Helder Willis MD [address] [address] COLONOSCOPY Scheduled Procedures Name Priority Associated Diagnoses Date/Ti me COLONOSCOPY Family history of colon cancer Personal history of colon polyps, unspecified Encounter for screening colonoscopy 04/15/2025 8:00 AM HAT BLOCKING MACHINE OPERATOR documented as of this encounter Visit Diagnoses Not on filedocumented in this encounter Additional Health Concerns Infection Onset Date Last Indicated Resolved Time COVID-19 Rule Out 07/05/2024 07/05/2024 07/05/2024 2:49 AM HAT BLOCKING MACHINE OPERATOR Influenza - Seasonal 07/05/2024 07/05/2024 documented as of this encounter Care Teams Insulation Worker Furnace Installer Relationship Specialty Start Date End Date Kam Varghese MD [address] [facility] [address] [place] [address] PCP - General INTERNAL MEDICINE 03/26/22 Minerva Reyes, RN [address] [place] [address] Carpenter Apprentice (Ambulatory) REGISTERED NURSE 07/05/24 documented as of this encounter
[2024-07-10] MEDS: TRANEXAMIC ACID 1,000MG/ISO100 1,000 MG/100 ML BAG 200 MG IVPB (17:04)
[2024-07-10] MEDS: SODIUM CHLORIDE 0.9% IV 250 ML 30 ML IV CONT ×3 (17:06→20:34)
--- NOTE | 2024-07-10 17:20 | PC.NURSE ---
Pt had moderate sized bowel movement. EDP aware. Bowel movement consisted of dark red blood with clots present
--- NOTE | 2024-07-10 17:31 | PC.NURSE ---
Pt had moderate sized bowel movement. EDP aware. Bowel movement consisted of dark red blood with clots present
[2024-07-10] MEDS: TUBING, BLOOD PLUM PUMP TUBING 1 EACH XX (17:45)
[2024-07-10 18:33] LABS: Reflex Lactic Acid Yes or No Add Lactic
[2024-07-10] MEDS: TUBING, BLOOD SET 1 EACH XX ×2 (18:35→20:34)
--- NOTE | 2024-07-10 18:52 | PC.NURSE ---
Pt had her third moderate bowel movement, dark red blood with clots present. EDP aware
[2024-07-10 18:59] LABS: Hematocrit 25.4 % (37.0-47.0); Hemoglobin 8.6 g/dL (12.0-15.0)
[2024-07-10] MEDS: NOREPINEPHRINE 8 MG/D5W 250 ML 8 MG/250 ML BAG 9.38 MG IV CONT (19:01)
[2024-07-10 19:19] LABS: Lactic Acid 7.5 mmol/L (0.7-2.0)
--- NOTE | 2024-07-10 19:37 | ED.GIBLEED ---
HPI - GI Bleed General Chief complaint: GI Bleed <Melquiades Sandoval MD - Last Filed: 07/10/24 19:53> Stated complaint: gi bleed with low BP <Melquiades Sandoval MD - Last Filed: 07/10/24 19:53> Time Seen by Provider: 07/10/24 15:52 <Melquiades Sandoval MD - Last Filed: 07/10/24 19:53> Source: patient <Melquiades Sandoval MD - Last Filed: 07/10/24 19:53> Mode of arrival: EMS <Melquiades Sandoval MD - Last Filed: 07/10/24 19:53> Limitations: no limitations <Melquiades Sandoval MD - Last Filed: 07/10/24 19:53> History of Present Illness HPI Narrative: 64-year-old with a history of hypertension, diabetes, hyperlipidemia here with the complaints of not feeling well since this morning. Patient states that she had dark maroonish color bowel movement earlier this evening. She also complains of intense pain in the left lower abdomen. She is presently not on any anticoagulant. No previous history of diverticulosis or diverticulitis. She denies any fever or chills. She also states that she feels dizzy. Denies any chest pain or shortness of breath <Melquiades Sandoval MD - Last Filed: 07/10/24 19:53> MD complaint: gross hematochezia <Melquiades Sandoval MD - Last Filed: 07/10/24 19:53> Onset (ago): hour(s) (4) <Melquiades Sandoval MD - Last Filed: 07/10/24 19:53> Severity: severe <Melquiades Sandoval MD - Last Filed: 07/10/24 19:53> Relieving factors: none <Melquiades Sandoval MD - Last Filed: 07/10/24 19:53> Exacerbating factors: none <Melquiades Sandoval MD - Last Filed: 07/10/24 19:53> Associated symptoms: denies other symptoms <Melquiades Sandoval MD - Last Filed: 07/10/24 19:53> Related Data Home medications: Home Medications ?Medication ?Instructions ?Recorded ?Confirmed ?Last Taken ?Type aspirin 81 mg capsule 81 mg PO DAILY 09/25/21 07/10/24 07/10/24 History azathioprine 50 mg tablet 50 mg PO BID 09/25/21 07/10/24 07/10/24 History metformin 500 mg tablet,extended 1,500 mg PO DAILY 09/25/21 07/10/24 07/10/24 History release 24 hr ropinirole 4 mg tablet 4 mg PO QHS RLS 09/25/21 07/10/24 07/09/24 History trimethoprim 100 mg tablet 100 mg PO DAILY 09/25/21 07/10/24 07/09/24 History hydrochlorothiazide 25 mg tablet 25 mg PO DAILY 05/21/22 07/10/24 07/10/24 History amlodipine 10 mg tablet 10 mg PO DAILY 07/28/23 07/10/24 07/10/24 History atorvastatin 20 mg tablet 20 mg PO QHS 07/28/23 07/10/24 07/09/24 History insulin glargine U-300 conc 300 57 unit subcut BID 07/28/23 07/10/24 07/10/24 History unit/mL (3 mL) subcutaneous pen (Toujeo Max U-300 SoloStar) pramipexole 0.5 mg tablet 0.5 mg PO TID 07/28/23 07/10/24 07/09/24 History upadacitinib 15 mg tablet,extended 15 mg PO DAILY 07/28/23 07/10/24 07/10/24 History release 24 hr (Rinvoq) folic acid 1 mg tablet 1 mg PO HS 07/10/24 07/10/24 07/09/24 History <Melquiades Sandoval MD - Last Filed: 07/10/24 19:53> Allergies/Adverse reactions: Allergies Allergy/AdvReac Type Severity Reaction Status Date / Time Sulfa (Sulfonamide Allergy Intermediate Hives Verified 07/10/24 15:33 Antibiotics) morphine AdvReac Intermediate Headache Verified 07/10/24 15:33 <Melquiades Sandoval MD - Last Filed: 07/10/24 19:53> Review of Systems Review of Systems: All systems reviewed & are unremarkable except as noted in HPI and below <Melquiades Sandoval MD - Last Filed: 07/10/24 19:53> Constitutional: Constitutional: Reports no additional constitutional complaints <Melquiades Sandoval MD - Last Filed: 07/10/24 19:53> Eyes: Eyes: Reports no additional eye complaints <Melquiades Sandoval MD - Last Filed: 07/10/24 19:53> ENT: Reports system reviewed and no additional complaints, except as documented <Melquiades Sandoval MD - Last Filed: 07/10/24 19:53> Cardiovascular: Cardiovascular: Reports no additional cardiovascular complaints <Melquiades Sandoval MD - Last Filed: 07/10/24 19:53> Respiratory: Respiratory: Reports no additional respiratory complaints <Melquiades Sandoval MD - Last Filed: 07/10/24 19:53> Gastrointestinal: Gastrointestinal: Reports as per HPI <Melquiades Sandoval MD - Last Filed: 07/10/24 19:53> Genitourinary: Genitourinary: Reports no additional female genitourinary complaints <Melquiades Sandoval MD - Last Filed: 07/10/24 19:53> Musculoskeletal: Musculoskeletal: Reports no additional musculoskeletal complaints <Melquiades Sandoval MD - Last Filed: 07/10/24 19:53> Integumentary/Breasts: Skin/Breast: Reports system reviewed and no additional complaints, except as docu <Melquiades Sandoval MD - Last Filed: 07/10/24 19:53> PMFSH Past Medical History Medical History: Medical History (Updated 07/11/24 @ 13:56 by Latasha Potter MD) CKD (chronic kidney disease) stage 3, GFR 30-59 ml/min Chronic narcotic use COPD (chronic obstructive pulmonary disease) PATO (obstructive sleep apnea) TIA (transient ischemic attack) Diabetes Left bundle branch block Followed by cardiology Decreased GFR History of GFR of 42 Recent GFR of 62 Former smoker Rheumatoid aortitis Obesity BALBUENA (dyspnea on exertion) Preop cardiovascular exam Hypertension Dyslipidemia Right knee DJD <Melquiades Sandoval MD - Last Filed: 07/10/24 19:53> Surgical History Surgical History: Surgical History History of laparoscopic cholecystectomy History of partial hysterectomy History of splenectomy 2020 Hx of arthroscopy of left knee 2008 <Melquiades Sandoval MD - Last Filed: 07/10/24 19:53> Social History Social History: Social History Social History: [place] her is her surrogate, she has 2 kids one daughter and one son. She does live in a house that is one story, however there are 5 steps to get into the house. 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 HEAD: Normocephalic, atraumatic. EYES: PERRLA and EOMI. NECK: Supple. CHEST: Clear to auscultation. No respiratory distress. HEART: Tachycardia. No murmur heard. Normal peripheral pulses. ABDOMEN: Soft, nontender, nondistended, normal active bowel sounds. bloody stool EXTREMITIES: Normal range of motion. No edema. SKIN: Warm, dry, no rash. NEURO: No focal deficits. Alert and oriented x3. PSYCH: Normal mood and affect. <Melquiades Sandoval MD - Last Filed: 07/10/24 19:53> Course Course Emergency Course: Notified patient and family about her lab work. Patient had 2 large melanotic stool , she still remained hypotensive after 3 L of IV fluids and 2 units of PRBC. I did start her on Levophed through a right femoral did I discussed with Dr. Potter and Dr> Andre recommended to transfer to [facility] or [facility] Discussed with Dr. Suazo at [facility] will accept the pt ,but they are in [place] , no transfers at this time Discussed with Dr Reeves ICU at [facility] will accept the pt in transfer ,also discussed with GI and IR will consult. <Melquiaeds Sandoval MD - Last Filed: 07/10/24 19:53> Vital Signs Vital signs: Vital Signs Temperature 98.3 F 07/10/24 15:06 Pulse Rate 115 H 07/10/24 15:06 Respiratory Rate 23 H 07/10/24 15:06 Blood Pressure 70/42 L 07/10/24 15:06 Pulse Oximetry 99 07/10/24 15:06 Oxygen Delivery Room Air 07/10/24 15:06 Temperature 98.2 F 07/11/24 17:57 Pulse Rate 115 H 07/11/24 19:01 Respiratory Rate 31 H 07/11/24 18:15 Blood Pressure 107/38 L 07/11/24 19:01 Pulse Oximetry 97 07/11/24 17:57 Oxygen Delivery Mechanical Ventilation 07/11/24 16:54 Fraction of Inspired Oxygen 55 07/11/24 16:54 <Melquiades Sandoval MD - Last Filed: 07/10/24 19:53> Vital Signs Temperature 98.3 F 07/10/24 15:06 Pulse Rate 115 H 07/10/24 15:06 Respiratory Rate 23 H 07/10/24 15:06 Blood Pressure 70/42 L 07/10/24 15:06 Pulse Oximetry 99 07/10/24 15:06 Oxygen Delivery Room Air 07/10/24 15:06 Temperature 98.2 F 07/11/24 17:57 Pulse Rate 115 H 07/11/24 19:01 Respiratory Rate 31 H 07/11/24 18:15 Blood Pressure 107/38 L 07/11/24 19:01 Pulse Oximetry 97 07/11/24 17:57 Oxygen Delivery Mechanical Ventilation 07/11/24 16:54 Fraction of Inspired Oxygen 55 07/11/24 16:54 <Dana Aguilar MD - Last Filed: 07/11/24 19:13> Procedures Central Line Placement Right IJ: Central Line Date: 07/10/24 <Melquiades Sandoval MD - Last Filed: 07/10/24 19:53> Performed Emergently - Given emergent patient condition, temporal constraints may have precluded informed consent.: Yes <Melquiades Sandoval MD - Last Filed: 07/10/24 19:53> Time Out Performed: Yes <Melquiades Sandoval MD - Last Filed: 07/10/24 19:53> Patient Placed on Monitor/Pulse Ox: Yes <Melquiades Sandoval MD - Last Filed: 07/10/24 19:53> Max. Sterile Barrier Technique: Caps, large sterile sheet and hand hygiene <Melquiades Sandoval MD - Last Filed: 07/10/24 19:53> Central Line Prep: 2% chlorhexidine scrub <Melquiades Sandoval MD - Last Filed: 07/10/24 19:53> Emergently Placed, Full Sterile: prep not done <Melquiades Sandoval MD - Last Filed: 07/10/24 19:53> Technique: sterile prep/drape <Melquiades Sandoval MD - Last Filed: 07/10/24 19:53> Local Anesthetic: lidocaine 1% <Melquiades Sandoval MD - Last Filed: 07/10/24 19:53> Ultrasound Used for Placement: Yes <Melquiades Sandoval MD - Last Filed: 07/10/24 19:53> Central Line Lumen Inserted: triple <Melquiades Sandoval MD - Last Filed: 07/10/24 19:53> Post Procedure: sutured in place <Melquiades Sandoval MD - Last Filed: 07/10/24 19:53> Post Procedure X-Ray: other (not in the position) <Melquiades Sandoval MD - Last Filed: 07/10/24 19:53> Patient Tolerated Procedure: no complications <MD Dereck Brody Last Filed: 07/10/24 19:53> Additional Comments: Line removed <MD Dereck Brody Last Filed: 07/10/24 19:53> Right Femoral: Central Line Date: 07/10/24 <Melquiades Sandoval MD - Last Filed: 07/10/24 19:53> Discussed w/ the patient/family/POA,the placement of a central venous catheter, including its clinical necessity/indication & associated potential risks, benifits and alternatives.: Yes <Melquiades Sandoval MD - Last Filed: 07/10/24 19:53> The patient/family/POA understand(s) and acknowledge(s) the need to proceed with central venous catheter insertion as an important element of the patient's clinical management.: Yes <Melquiades Sandoval MD - Last Filed: 07/10/24 19:53> Performed Emergently - Given emergent patient condition, temporal constraints may have precluded informed consent.: Yes <Melquiades Sandoval MD - Last Filed: 07/10/24 19:53> Time Out Performed: Yes <Melquiades Sandoval MD - Last Filed: 07/10/24 19:53> Patient Placed on Monitor/Pulse Ox: Yes <Melquiades Sandoval MD - Last Filed: 07/10/24 19:53> Max. Sterile Barrier Technique: Caps <Melquiades Sandoval MD - Last Filed: 07/10/24 19:53> Central Line Prep: 2% chlorhexidine scrub and sterile drapes applied <Melquiades Sandoval MD - Last Filed: 07/10/24 19:53> Technique: US-Guided <Melquiades Sandoval MD - Last Filed: 07/10/24 19:53> Local Anesthetic: lidocaine 1% <Melquiades Sandoval MD - Last Filed: 07/10/24 19:53> Amount of anesthesia used (mL): 5 <Melquiades Sandoval MD - Last Filed: 07/10/24 19:53> Ultrasound Used for Placement: Yes <Melquiades Sandoval MD - Last Filed: 07/10/24 19:53> Central Line Lumen Inserted: triple <Melquiades Sandoval MD - Last Filed: 07/10/24 19:53> Post Procedure: sutured in place, good blood return and all ports aspirated, flushed, capped <Melquiades Sandoval MD - Last Filed: 07/10/24 19:53> Patient Tolerated Procedure: well <Melquiades Sandoval MD - Last Filed: 07/10/24 19:53> Complications: none <Melquiades Sandoval MD - Last Filed: 07/10/24 19:53> Intubation Intubation #1: Intubation Date: 07/11/24 <Dana Aguilar MD - Last Filed: 07/11/24 19:13> sedative: Etomidate <Dana Aguilar MD - Last Filed: 07/11/24 19:13> Mg Given: 30 <Dana Aguilar MD - Last Filed: 07/11/24 19:13> paralytic: Rocuronium <Dana Aguilar MD - Last Filed: 07/11/24 19:13> Mg Given: 70 <Dana Aguilar MD - Last Filed: 07/11/24 19:13> Laryngoscope: Bonita (4) <Dana Aguilar MD - Last Filed: 07/11/24 19:13> Tube Size (cm): 7.5 <Dana Aguilar MD - Last Filed: 07/11/24 19:13> Method of Intubation: orotracheal <Dana Aguilar MD - Last Filed: 07/11/24 19:13> Number of Attempts: 1 <Dana Aguilar MD - Last Filed: 07/11/24 19:13> Tube Secured Depth (cm): 21 <Dana Aguilar MD - Last Filed: 07/11/24 19:13> Tube Secured Location: lips <Dana Aguilar MD - Last Filed: 07/11/24 19:13> Tube Placement Confirmation: visualized tube passing through cords, equal breath sounds bilaterally and confirmation by capnometry <Dana Aguilar MD - Last Filed: 07/11/24 19:13> Patient Tolerated Procedure: well and no complications <Dana Aguilar MD - Last Filed: 07/11/24 19:13> MDM - GI Bleed MDM Narrative Medical decision making narrative: [facility] transfer called at 20:27 and told me [facility] and IR state not appropriate for that location. They will reach out to ICU at [facility]. I am informed by the nurse approximately 20 35 the patient is maxed out on nor epi at 30 but still hypotensive. Evaluated at bedside. Continues to appear pale, critically ill. Hypotensive. RBC infusing. Vasopressin ordered and I did reach back out to [facility] to update them so that the conversation with ICU included this update. (Ronald Velazquez as accepting physician at [facility] per Dr Maki). Spoke with Dr Maki filtering machine tender of medical ICU; would take her but still pending a Bed and notes that space is tight. I did call U transfer center to provide them an update on her pressor requirements at this time to see if that indicated a status change at 23:25 given that she is maxed out on norepi (30 /min) and on vasopressin (0.04/min). Notified at 1:25 a.m. patient is having difficulty breathing. Her respiratory rate is 55. She maintained her saturations at 97% on room air but continues to be tachycardic in the 120s and 130s and her blood pressure remains significantly hypotensive at 84/50. Daughter informs me that she was recently diagnosed with pneumonia. Stat chest x-ray, EKG ordered. A troponin was also ordered given that it appears she had not had 1 initially obtained. CXR does show cardiomegaly and bilateral infiltrates. She is not hypoxic and pressures are actually improved but rectal temp 102. She had recently been given acetaminophen and ondansetron. She has bilateral lower extremity edema although the our nurse states that this was present initially. Per review of the initial CXR, these infiltrates were slightly seen previously. Thus, she has features of TRALI versus TACO. However, also recently diagnosed with Flu A per daughter. Intubation performed as above. Sue-intubation phenylephrine pushes given for hypotension and tachycardia. ABG perfomed by me at bedside under US guidance as RT unable to obtain. She does test positive for flu again Post intubation ABG shows pH 6.937 / pCO2 40.8 / PO2 405. HCO3 8.5. Will give bicarb push and change vent settings to increase RR and decrease FiO2. Patient's CMP shows a nearly doubling of the creatinine, to nearly 1.4. She has marked hypoalbuminemia. This causes calcium to correct 7.9; still low. Will give calcium and albumin. Her LFTs are all elevated, likely shock liver. Phenylephrine drip started. Continued to give updates to [facility] and [facility], no beds. Discussed with filtering machine tender who recommends adding epinephrine. Dr Dumont did discuss again with filtering machine tender who does now agree to accept patient to the ICU rather than keeping patient in the ED while await beds at tertiary care centers. He then discussed with Dr Ellis. CRITICAL CARE: 90 minutes spent reassessing, discussing with family, calling consultants/receiving facilities, interpreting studies due to multiple organ involvement with high probability and deterioration. Independent of separately billable procedures. <Dana Aguilar MD - Last Filed: 07/11/24 19:13> Lab Data Result diagrams: 07/11/24 17:44 07/11/24 17:44 <Melquiades Sandoval MD - Last Filed: 07/10/24 19:53> Labs: Lab Results 07/10/24 07/10/24 07/10/24 Range/Units 15:15 15:31 18:53 WBC 8.9 (4.5-10.0) K/mm3 RBC 1.89 L (4.2-5.4) M/mm3 Hgb 7.4 L (12.0-15.0) g/dL Hct 21.7 L (37.0-47.0) % MCV 114.8 H (80-100) fl MCH 39.2 H (26-34) pg MCHC 34.1 (32-36) g/dl RDW 17.4 H (11.5-14.5) % Plt Count 244 (150-375) k/mm3 MPV 11.5 H (7.4-10.4) fl Immature Gran % (Auto) 4.8 H (0-0.5) % Neut % (Auto) 75.6 H (45.5-73.1) % Lymph % (Auto) 15.1 L (18.3-44.2) % [place] % (Auto) 3.5 (2.6-8.5) % Eos % (Auto) 0.8 (0-4.4) % Baso % (Auto) 0.2 (0.2-1.2) % Lymph # (Auto) 1.35 (0.9-3.2) K/mm3 [place] # (Auto) 0.3 (0.1-0.6) K/mm3 Eos # (Auto) 0.1 (0-0.3) K/mm3 Baso # (Auto) 0.0 (0.0-0.1) K/mm3 Abs Immat Gran (auto) 0.43 H (0.00-0.031) K/mm3 Absolute Neuts (auto) 6.8 H (1.3-6.7) K/mm3 Absolute Nucleated RBC 0.070 H (0.0-0.012) K/mm3 Total Counted Neutrophils % (Manual) (46-73) % Band Neutrophils % (0-6) % Lymphocytes % (Manual) (18-44) % Monocytes % (Manual) (3-9) % Nucleated RBC % 0.8 H (0.0-0.2) % Abs Neuts (Manual) (1.7-7.2) K/mm3 Abs Lymphs (Manual) (1.1-4.5) K/mm3 Abs Monocytes (Manual) (0.1-0.90) K/mm3 Nucleated RBCs % Smudge Cells Platelet Estimate Adequate (Adequate) Hypochromasia 1+ Anisocytosis 1+ Macrocytosis 1+ (NORMAL) Ovalocytes [place] Cells 1+ Schistocytes None seen PT 15.5 H (11.1-14.7) Seconds INR 1.2 APTT 26.2 (22.3-36.8) Seconds Fibrinogen (215-510) mg/dl D-Dimer (<0.48) ug/mL Minute Volume Vent Mode Tidal Volume ml PEEP cmH2O Peak Inspir Pressure Pressure Support Sodium 130 L (137-145) mmol/L Potassium 3.9 (3.4-5.0) mmol/L Chloride 93 L (98-107) mmol/L Carbon Dioxide 29 (22-30) mmol/L Anion Gap 8 (4-12) mmol/L BUN 23 H (7-17) mg/dL Creatinine 0.77 (0.7-1.0) mg/dL Estim Creat Clear Calc 84 ml/min Estimated GFR > 60 (59 - ) Glucose 320 H (65-110) mg/dL POC Capillary Glucose 354 H (65-105) mg/dl Lactic Acid 6.7 H* 7.5 H* (0.7-2.0) mmol/L Calcium 7.2 L (8.4-10.2) mg/dL Phosphorus (2.5-4.5) mg/dL Magnesium (1.6-2.3) mg/dL Total Bilirubin 1.2 (0.2-1.3) mg/dL AST 48 H (14-36) U/L ALT 43 H (6-35) U/L Alkaline Phosphatase 92 (38-126) U/L Ammonia (9-30) umol/L Total Creatine Kinase (30-135) U/L Troponin I (0.000-0.034) ng/mL NT-Pro-B Natriuret Pep (19.9-100) pg/mL Total Protein 5.0 L (6.3-8.2) g/dL Albumin 2.1 L (3.5-5.1) g/dL Lipase (23-300) U/L Procalcitonin ng/mL Urine Color (Yellow) Urine Appearance (Clear) Urine pH (5.0-9.0) Ur Specific [place] (1.001-1.035) Urine Protein (Negative) mg/dL Urine Glucose (UA) (Negative) mg/dL Urine Ketones (Negative) mg/dL Ur Blood (Man) (Negative) Urine Nitrate (Negative) Urine Bilirubin (Negative) Urine Urobilinogen (<2.0) mg/dL Leukocyte Esterase Rfl (Negative) LANETTE/UL Urine RBC (0-2) /hpf Urine WBC (0-3) /hpf Ur Squamous Epith Cells (Few) /hpf Urine Bacteria /hpf Urine Casts Nasal MRSA (PCR) (NOT DETECTE) Influenza A (RT-PCR) (Negative) Influenza B (RT-PCR) (Negative) RSV (RT-PCR) (Negative) SARS-CoV-2 RNA (RT-PCR) (Negative) Blood Type A Positive Antibody Screen Negative Crossmatch See Detail 07/10/24 07/10/24 07/10/24 Range/Units 18:54 20:09 23:50 WBC (4.5-10.0) K/mm3 RBC (4.2-5.4) M/mm3 Hgb 8.6 L 8.4 L 9.9 L (12.0-15.0) g/dL Hct 25.4 L 24.6 L 29.2 L (37.0-47.0) % MCV (80-100) fl MCH (26-34) pg MCHC (32-36) g/dl RDW (11.5-14.5) % Plt Count (150-375) k/mm3 MPV (7.4-10.4) fl Immature Gran % (Auto) (0-0.5) % Neut % (Auto) (45.5-73.1) % Lymph % (Auto) (18.3-44.2) % [place] % (Auto) (2.6-8.5) % Eos % (Auto) (0-4.4) % Baso % (Auto) (0.2-1.2) % Lymph # (Auto) (0.9-3.2) K/mm3 [place] # (Auto) (0.1-0.6) K/mm3 Eos # (Auto) (0-0.3) K/mm3 Baso # (Auto) (0.0-0.1) K/mm3 Abs Immat Gran (auto) (0.00-0.031) K/mm3 Absolute Neuts (auto) (1.3-6.7) K/mm3 Absolute Nucleated RBC (0.0-0.012) K/mm3 Total Counted Neutrophils % (Manual) (46-73) % Band Neutrophils % (0-6) % Lymphocytes % (Manual) (18-44) % Monocytes % (Manual) (3-9) % Nucleated RBC % (0.0-0.2) % Abs Neuts (Manual) (1.7-7.2) K/mm3 Abs Lymphs (Manual) (1.1-4.5) K/mm3 Abs Monocytes (Manual) (0.1-0.90) K/mm3 Nucleated RBCs % Smudge Cells Platelet Estimate (Adequate) Hypochromasia Anisocytosis Macrocytosis (NORMAL) Ovalocytes [place] Cells Schistocytes PT (11.1-14.7) Seconds INR APTT (22.3-36.8) Seconds Fibrinogen (215-510) mg/dl D-Dimer (<0.48) ug/mL Minute Volume Vent Mode Tidal Volume ml PEEP cmH2O Peak Inspir Pressure Pressure Support Sodium (137-145) mmol/L Potassium (3.4-5.0) mmol/L Chloride (98-107) mmol/L Carbon Dioxide (22-30) mmol/L Anion Gap (4-12) mmol/L BUN (7-17) mg/dL Creatinine (0.7-1.0) mg/dL Estim Creat Clear Calc ml/min Estimated GFR (59 - ) Glucose (65-110) mg/dL POC Capillary Glucose (65-105) mg/dl Lactic Acid 11.3 H* (0.7-2.0) mmol/L Calcium (8.4-10.2) mg/dL Phosphorus (2.5-4.5) mg/dL Magnesium (1.6-2.3) mg/dL Total Bilirubin (0.2-1.3) mg/dL AST (14-36) U/L ALT (6-35) U/L Alkaline Phosphatase (38-126) U/L Ammonia (9-30) umol/L Total Creatine Kinase (30-135) U/L Troponin I (0.000-0.034) ng/mL NT-Pro-B Natriuret Pep (19.9-100) pg/mL Total Protein (6.3-8.2) g/dL Albumin (3.5-5.1) g/dL Lipase (23-300) U/L Procalcitonin ng/mL Urine Color (Yellow) Urine Appearance (Clear) Urine pH (5.0-9.0) Ur Specific [place] (1.001-1.035) Urine Protein (Negative) mg/dL Urine Glucose (UA) (Negative) mg/dL Urine Ketones (Negative) mg/dL Ur Blood (Man) (Negative) Urine Nitrate (Negative) Urine Bilirubin (Negative) Urine Urobilinogen (<2.0) mg/dL Leukocyte Esterase Rfl (Negative) LANETTE/UL Urine RBC (0-2) /hpf Urine WBC (0-3) /hpf Ur Squamous Epith Cells (Few) /hpf Urine Bacteria /hpf Urine Casts Nasal MRSA (PCR) (NOT DETECTE) Influenza A (RT-PCR) (Negative) Influenza B (RT-PCR) (Negative) RSV (RT-PCR) (Negative) SARS-CoV-2 RNA (RT-PCR) (Negative) Blood Type Antibody Screen Crossmatch 07/11/24 07/11/24 07/11/24 Range/Units 01:36 01:42 03:18 WBC (4.5-10.0) K/mm3 RBC (4.2-5.4) M/mm3 Hgb (12.0-15.0) g/dL Hct (37.0-47.0) % MCV (80-100) fl MCH (26-34) pg MCHC (32-36) g/dl RDW (11.5-14.5) % Plt Count (150-375) k/mm3 MPV (7.4-10.4) fl Immature Gran % (Auto) (0-0.5) % Neut % (Auto) (45.5-73.1) % Lymph % (Auto) (18.3-44.2) % [place] % (Auto) (2.6-8.5) % Eos % (Auto) (0-4.4) % Baso % (Auto) (0.2-1.2) % Lymph # (Auto) (0.9-3.2) K/mm3 [place] # (Auto) (0.1-0.6) K/mm3 Eos # (Auto) (0-0.3) K/mm3 Baso # (Auto) (0.0-0.1) K/mm3 Abs Immat Gran (auto) (0.00-0.031) K/mm3 Absolute Neuts (auto) (1.3-6.7) K/mm3 Absolute Nucleated RBC (0.0-0.012) K/mm3 Total Counted Neutrophils % (Manual) (46-73) % Band Neutrophils % (0-6) % Lymphocytes % (Manual) (18-44) % Monocytes % (Manual) (3-9) % Nucleated RBC % (0.0-0.2) % Abs Neuts (Manual) (1.7-7.2) K/mm3 Abs Lymphs (Manual) (1.1-4.5) K/mm3 Abs Monocytes (Manual) (0.1-0.90) K/mm3 Nucleated RBCs % Smudge Cells Platelet Estimate (Adequate) Hypochromasia Anisocytosis Macrocytosis (NORMAL) Ovalocytes [place] Cells Schistocytes PT (11.1-14.7) Seconds INR APTT (22.3-36.8) Seconds Fibrinogen (215-510) mg/dl D-Dimer (<0.48) ug/mL Minute Volume Not Reportable Vent Mode Cmv Tidal Volume 450 ml PEEP 5 cmH2O Peak Inspir Pressure Not Reportable Pressure Support Not Reportable Sodium (137-145) mmol/L Potassium (3.4-5.0) mmol/L Chloride (98-107) mmol/L Carbon Dioxide (22-30) mmol/L Anion Gap (4-12) mmol/L BUN (7-17) mg/dL Creatinine (0.7-1.0) mg/dL Estim Creat Clear Calc ml/min Estimated GFR (59 - ) Glucose (65-110) mg/dL POC Capillary Glucose (65-105) mg/dl Lactic Acid (0.7-2.0) mmol/L Calcium (8.4-10.2) mg/dL Phosphorus (2.5-4.5) mg/dL Magnesium (1.6-2.3) mg/dL Total Bilirubin (0.2-1.3) mg/dL AST (14-36) U/L ALT (6-35) U/L Alkaline Phosphatase (38-126) U/L Ammonia (9-30) umol/L Total Creatine Kinase (30-135) U/L Troponin I 0.161 H* (0.000-0.034) ng/mL NT-Pro-B Natriuret Pep 553 H (19.9-100) pg/mL Total Protein (6.3-8.2) g/dL Albumin (3.5-5.1) g/dL Lipase (23-300) U/L Procalcitonin 1.6 ng/mL Urine Color Dark yellow (Yellow) Urine Appearance Clear (Clear) Urine pH 5.5 (5.0-9.0) Ur Specific [place] > 1.045 H (1.001-1.035) Urine Protein Negative (Negative) mg/dL Urine Glucose (UA) 2+ H (Negative) mg/dL Urine Ketones Trace H (Negative) mg/dL Ur Blood (Man) Negative (Negative) Urine Nitrate Negative (Negative) Urine Bilirubin 1+ H (Negative) Urine Urobilinogen 1.0 (<2.0) mg/dL Leukocyte Esterase Rfl Trace H (Negative) LANETTE/UL Urine RBC 0-2 (0-2) /hpf Urine WBC 6-10 H (0-3) /hpf Ur Squamous Epith Cells Occasional (Few) /hpf Urine Bacteria None seen /hpf Urine Casts 3-5 Nasal MRSA (PCR) (NOT DETECTE) Influenza A (RT-PCR) Positive A (Negative) Influenza B (RT-PCR) Negative (Negative) RSV (RT-PCR) Negative (Negative) SARS-CoV-2 RNA (RT-PCR) Negative (Negative) Blood Type Antibody Screen Crossmatch 07/11/24 07/11/24 07/11/24 Range/Units 04:26 06:50 09:23 WBC (4.5-10.0) K/mm3 RBC (4.2-5.4) M/mm3 Hgb (12.0-15.0) g/dL Hct (37.0-47.0) % MCV (80-100) fl MCH (26-34) pg MCHC (32-36) g/dl RDW (11.5-14.5) % Plt Count (150-375) k/mm3 MPV (7.4-10.4) fl Immature Gran % (Auto) (0-0.5) % Neut % (Auto) (45.5-73.1) % Lymph % (Auto) (18.3-44.2) % [place] % (Auto) (2.6-8.5) % Eos % (Auto) (0-4.4) % Baso % (Auto) (0.2-1.2) % Lymph # (Auto) (0.9-3.2) K/mm3 [place] # (Auto) (0.1-0.6) K/mm3 Eos # (Auto) (0-0.3) K/mm3 Baso # (Auto) (0.0-0.1) K/mm3 Abs Immat Gran (auto) (0.00-0.031) K/mm3 Absolute Neuts (auto) (1.3-6.7) K/mm3 Absolute Nucleated RBC (0.0-0.012) K/mm3 Total Counted Neutrophils % (Manual) (46-73) % Band Neutrophils % (0-6) % Lymphocytes % (Manual) (18-44) % Monocytes % (Manual) (3-9) % Nucleated RBC % (0.0-0.2) % Abs Neuts (Manual) (1.7-7.2) K/mm3 Abs Lymphs (Manual) (1.1-4.5) K/mm3 Abs Monocytes (Manual) (0.1-0.90) K/mm3 Nucleated RBCs % Smudge Cells Platelet Estimate (Adequate) Hypochromasia Anisocytosis Macrocytosis (NORMAL) Ovalocytes [place] Cells Schistocytes PT (11.1-14.7) Seconds INR APTT (22.3-36.8) Seconds Fibrinogen (215-510) mg/dl D-Dimer (<0.48) ug/mL Minute Volume Not Reportable Not Reportable Vent Mode Cmv Cmv Tidal Volume 450 450 ml PEEP 5 5 cmH2O Peak Inspir Pressure Not Reportable Not Reportable Pressure Support Not Reportable Not Reportable Sodium 146 H (137-145) mmol/L Potassium 4.7 (3.4-5.0) mmol/L Chloride 102 (98-107) mmol/L Carbon Dioxide 25 (22-30) mmol/L Anion Gap 19 H (4-12) mmol/L BUN 24 H (7-17) mg/dL Creatinine 1.37 H (0.7-1.0) mg/dL Estim Creat Clear Calc 49 ml/min Estimated GFR 39 L (59 - ) Glucose 94 (65-110) mg/dL POC Capillary Glucose (65-105) mg/dl Lactic Acid (0.7-2.0) mmol/L Calcium 6.1 L (8.4-10.2) mg/dL Phosphorus (2.5-4.5) mg/dL Magnesium (1.6-2.3) mg/dL Total Bilirubin 2.2 H (0.2-1.3) mg/dL AST 811 H (14-36) U/L ALT 337 H (6-35) U/L Alkaline Phosphatase 95 (38-126) U/L Ammonia (9-30) umol/L Total Creatine Kinase (30-135) U/L Troponin I (0.000-0.034) ng/mL NT-Pro-B Natriuret Pep (19.9-100) pg/mL Total Protein 4.0 L (6.3-8.2) g/dL Albumin 1.7 L (3.5-5.1) g/dL Lipase (23-300) U/L Procalcitonin ng/mL Urine Color (Yellow) Urine Appearance (Clear) Urine pH (5.0-9.0) Ur Specific [place] (1.001-1.035) Urine Protein (Negative) mg/dL Urine Glucose (UA) (Negative) mg/dL Urine Ketones (Negative) mg/dL Ur Blood (Man) (Negative) Urine Nitrate (Negative) Urine Bilirubin (Negative) Urine Urobilinogen (<2.0) mg/dL Leukocyte Esterase Rfl (Negative) [place]/UL Urine RBC (0-2) /hpf Urine WBC (0-3) /hpf Ur Squamous Epith Cells (Few) /hpf Urine Bacteria /hpf Urine Casts Nasal MRSA (PCR) (NOT DETECTE) Influenza A (RT-PCR) (Negative) Influenza B (RT-PCR) (Negative) RSV (RT-PCR) (Negative) SARS-CoV-2 RNA (RT-PCR) (Negative) Blood Type Antibody Screen Crossmatch 07/11/24 07/11/24 07/11/24 Range/Units 09:35 09:35 09:35 WBC 22.1 H 22.1 H (4.5-10.0) K/mm3 RBC 2.24 L 2.24 L (4.2-5.4) M/mm3 Hgb 7.5 L (12.0-15.0) g/dL Hct (37.0-47.0) % MCV (80-100) fl MCH (26-34) pg MCHC (32-36) g/dl RDW (11.5-14.5) % Plt Count (150-375) k/mm3 MPV (7.4-10.4) fl Immature Gran % (Auto) (0-0.5) % Neut % (Auto) (45.5-73.1) % Lymph % (Auto) (18.3-44.2) % [place] % (Auto) (2.6-8.5) % Eos % (Auto) (0-4.4) % Baso % (Auto) (0.2-1.2) % Lymph # (Auto) (0.9-3.2) K/mm3 [place] # (Auto) (0.1-0.6) K/mm3 Eos # (Auto) (0-0.3) K/mm3 Baso # (Auto) (0.0-0.1) K/mm3 Abs Immat Gran (auto) (0.00-0.031) K/mm3 Absolute Neuts (auto) (1.3-6.7) K/mm3 Absolute Nucleated RBC (0.0-0.012) K/mm3 Total Counted Neutrophils % (Manual) (46-73) % Band Neutrophils % (0-6) % Lymphocytes % (Manual) (18-44) % Monocytes % (Manual) (3-9) % Nucleated RBC % (0.0-0.2) % Abs Neuts (Manual) (1.7-7.2) K/mm3 Abs Lymphs (Manual) (1.1-4.5) K/mm3 Abs Monocytes (Manual) (0.1-0.90) K/mm3 Nucleated RBCs % Smudge Cells Platelet Estimate (Adequate) Hypochromasia Anisocytosis Macrocytosis (NORMAL) Ovalocytes [place] Cells Schistocytes PT (11.1-14.7) Seconds INR APTT (22.3-36.8) Seconds Fibrinogen (215-510) mg/dl D-Dimer (<0.48) ug/mL Minute Volume Vent Mode Tidal Volume ml PEEP cmH2O Peak Inspir Pressure Pressure Support Sodium (137-145) mmol/L Potassium (3.4-5.0) mmol/L Chloride (98-107) mmol/L Carbon Dioxide (22-30) mmol/L Anion Gap (4-12) mmol/L BUN (7-17) mg/dL Creatinine (0.7-1.0) mg/dL Estim Creat Clear Calc ml/min Estimated GFR (59 - ) Glucose (65-110) mg/dL POC Capillary Glucose (65-105) mg/dl Lactic Acid (0.7-2.0) mmol/L Calcium (8.4-10.2) mg/dL Phosphorus (2.5-4.5) mg/dL Magnesium (1.6-2.3) mg/dL Total Bilirubin (0.2-1.3) mg/dL AST (14-36) U/L ALT (6-35) U/L Alkaline Phosphatase (38-126) U/L Ammonia (9-30) umol/L Total Creatine Kinase (30-135) U/L Troponin I (0.000-0.034) ng/mL NT-Pro-B Natriuret Pep (19.9-100) pg/mL Total Protein (6.3-8.2) g/dL Albumin (3.5-5.1) g/dL Lipase (23-300) U/L Procalcitonin ng/mL Urine Color (Yellow) Urine Appearance (Clear) Urine pH (5.0-9.0) Ur Specific [place] (1.001-1.035) Urine Protein (Negative) mg/dL Urine Glucose (UA) (Negative) mg/dL Urine Ketones (Negative) mg/dL Ur Blood (Man) (Negative) Urine Nitrate (Negative) Urine Bilirubin (Negative) Urine Urobilinogen (<2.0) mg/dL Leukocyte Esterase Rfl (Negative) [place]/UL Urine RBC (0-2) /hpf Urine WBC (0-3) /hpf Ur Squamous Epith Cells (Few) /hpf Urine Bacteria /hpf Urine Casts Nasal MRSA (PCR) (NOT DETECTE) Influenza A (RT-PCR) (Negative) Influenza B (RT-PCR) (Negative) RSV (RT-PCR) (Negative) SARS-CoV-2 RNA (RT-PCR) (Negative) Blood Type Antibody Screen Crossmatch 07/11/24 07/11/24 07/11/24 Range/Units 09:35 09:35 09:35 WBC (4.5-10.0) K/mm3 RBC (4.2-5.4) M/mm3 Hgb 7.5 L (12.0-15.0) g/dL Hct 24.1 L 24.1 L (37.0-47.0) % MCV 107.6 H D 107.6 H (80-100) fl MCH 33.5 D (26-34) pg MCHC (32-36) g/dl RDW (11.5-14.5) % Plt Count (150-375) k/mm3 MPV (7.4-10.4) fl Immature Gran % (Auto) (0-0.5) % Neut % (Auto) (45.5-73.1) % Lymph % (Auto) (18.3-44.2) % [place] % (Auto) (2.6-8.5) % Eos % (Auto) (0-4.4) % Baso % (Auto) (0.2-1.2) % Lymph # (Auto) (0.9-3.2) K/mm3 [place] # (Auto) (0.1-0.6) K/mm3 Eos # (Auto) (0-0.3) K/mm3 Baso # (Auto) (0.0-0.1) K/mm3 Abs Immat Gran (auto) (0.00-0.031) K/mm3 Absolute Neuts (auto) (1.3-6.7) K/mm3 Absolute Nucleated RBC (0.0-0.012) K/mm3 Total Counted Neutrophils % (Manual) (46-73) % Band Neutrophils % (0-6) % Lymphocytes % (Manual) (18-44) % Monocytes % (Manual) (3-9) % Nucleated RBC % (0.0-0.2) % Abs Neuts (Manual) (1.7-7.2) K/mm3 Abs Lymphs (Manual) (1.1-4.5) K/mm3 Abs Monocytes (Manual) (0.1-0.90) K/mm3 Nucleated RBCs % Smudge Cells Platelet Estimate (Adequate) Hypochromasia Anisocytosis Macrocytosis (NORMAL) Ovalocytes [place] Cells Schistocytes PT (11.1-14.7) Seconds INR APTT (22.3-36.8) Seconds Fibrinogen (215-510) mg/dl D-Dimer (<0.48) ug/mL Minute Volume Vent Mode Tidal Volume ml PEEP cmH2O Peak Inspir Pressure Pressure Support Sodium (137-145) mmol/L Potassium (3.4-5.0) mmol/L Chloride (98-107) mmol/L Carbon Dioxide (22-30) mmol/L Anion Gap (4-12) mmol/L BUN (7-17) mg/dL Creatinine (0.7-1.0) mg/dL Estim Creat Clear Calc ml/min Estimated GFR (59 - ) Glucose (65-110) mg/dL POC Capillary Glucose (65-105) mg/dl Lactic Acid (0.7-2.0) mmol/L Calcium (8.4-10.2) mg/dL Phosphorus (2.5-4.5) mg/dL Magnesium (1.6-2.3) mg/dL Total Bilirubin (0.2-1.3) mg/dL AST (14-36) U/L ALT (6-35) U/L Alkaline Phosphatase (38-126) U/L Ammonia (9-30) umol/L Total Creatine Kinase (30-135) U/L Troponin I (0.000-0.034) ng/mL NT-Pro-B Natriuret Pep (19.9-100) pg/mL Total Protein (6.3-8.2) g/dL Albumin (3.5-5.1) g/dL Lipase (23-300) U/L Procalcitonin ng/mL Urine Color (Yellow) Urine Appearance (Clear) Urine pH (5.0-9.0) Ur Specific [place] (1.001-1.035) Urine Protein (Negative) mg/dL Urine Glucose (UA) (Negative) mg/dL Urine Ketones (Negative) mg/dL Ur Blood (Man) (Negative) Urine Nitrate (Negative) Urine Bilirubin (Negative) Urine Urobilinogen (<2.0) mg/dL Leukocyte Esterase Rfl (Negative) [place]/UL Urine RBC (0-2) /hpf Urine WBC (0-3) /hpf Ur Squamous Epith Cells (Few) /hpf Urine Bacteria /hpf Urine Casts Nasal MRSA (PCR) (NOT DETECTE) Influenza A (RT-PCR) (Negative) Influenza B (RT-PCR) (Negative) RSV (RT-PCR) (Negative) SARS-CoV-2 RNA (RT-PCR) (Negative) Blood Type Antibody Screen Crossmatch 07/11/24 07/11/24 07/11/24 Range/Units 09:35 09:35 09:35 WBC (4.5-10.0) K/mm3 RBC (4.2-5.4) M/mm3 Hgb (12.0-15.0) g/dL Hct (37.0-47.0) % MCV (80-100) fl MCH 33.5 (26-34) pg MCHC 31.1 L 31.1 L (32-36) g/dl RDW 24.8 H 24.8 H (11.5-14.5) % Plt Count 160 (150-375) k/mm3 MPV (7.4-10.4) fl Immature Gran % (Auto) (0-0.5) % Neut % (Auto) (45.5-73.1) % Lymph % (Auto) (18.3-44.2) % [place] % (Auto) (2.6-8.5) % Eos % (Auto) (0-4.4) % Baso % (Auto) (0.2-1.2) % Lymph # (Auto) (0.9-3.2) K/mm3 [place] # (Auto) (0.1-0.6) K/mm3 Eos # (Auto) (0-0.3) K/mm3 Baso # (Auto) (0.0-0.1) K/mm3 Abs Immat Gran (auto) (0.00-0.031) K/mm3 Absolute Neuts (auto) (1.3-6.7) K/mm3 Absolute Nucleated RBC (0.0-0.012) K/mm3 Total Counted Neutrophils % (Manual) (46-73) % Band Neutrophils % (0-6) % Lymphocytes % (Manual) (18-44) % Monocytes % (Manual) (3-9) % Nucleated RBC % (0.0-0.2) % Abs Neuts (Manual) (1.7-7.2) K/mm3 Abs Lymphs (Manual) (1.1-4.5) K/mm3 Abs Monocytes (Manual) (0.1-0.90) K/mm3 Nucleated RBCs % [place] Cells Platelet Estimate (Adequate) Hypochromasia Anisocytosis Macrocytosis (NORMAL) Ovalocytes [place] Cells Schistocytes PT (11.1-14.7) Seconds INR APTT (22.3-36.8) Seconds Fibrinogen (215-510) mg/dl D-Dimer (<0.48) ug/mL Minute Volume Vent Mode Tidal Volume ml PEEP cmH2O Peak Inspir Pressure Pressure Support Sodium (137-145) mmol/L Potassium (3.4-5.0) mmol/L Chloride (98-107) mmol/L Carbon Dioxide (22-30) mmol/L Anion Gap (4-12) mmol/L BUN (7-17) mg/dL Creatinine (0.7-1.0) mg/dL Estim Creat Clear Calc ml/min Estimated GFR (59 - ) Glucose (65-110) mg/dL POC Capillary Glucose (65-105) mg/dl Lactic Acid (0.7-2.0) mmol/L Calcium (8.4-10.2) mg/dL Phosphorus (2.5-4.5) mg/dL Magnesium (1.6-2.3) mg/dL Total Bilirubin (0.2-1.3) mg/dL AST (14-36) U/L ALT (6-35) U/L Alkaline Phosphatase (38-126) U/L Ammonia (9-30) umol/L Total Creatine Kinase (30-135) U/L Troponin I (0.000-0.034) ng/mL NT-Pro-B Natriuret Pep (19.9-100) pg/mL Total Protein (6.3-8.2) g/dL Albumin (3.5-5.1) g/dL Lipase (23-300) U/L Procalcitonin ng/mL Urine Color (Yellow) Urine Appearance (Clear) Urine pH (5.0-9.0) Ur Specific [place] (1.001-1.035) Urine Protein (Negative) mg/dL Urine Glucose (UA) (Negative) mg/dL Urine Ketones (Negative) mg/dL Ur Blood (Man) (Negative) Urine Nitrate (Negative) Urine Bilirubin (Negative) Urine Urobilinogen (<2.0) mg/dL Leukocyte Esterase Rfl (Negative) [place]/UL Urine RBC (0-2) /hpf Urine WBC (0-3) /hpf Ur Squamous Epith Cells (Few) /hpf Urine Bacteria /hpf Urine Casts Nasal MRSA (PCR) (NOT DETECTE) Influenza A (RT-PCR) (Negative) Influenza B (RT-PCR) (Negative) RSV (RT-PCR) (Negative) SARS-CoV-2 RNA (RT-PCR) (Negative) Blood Type Antibody Screen Crossmatch 07/11/24 07/11/24 07/11/24 Range/Units 09:35 09:35 09:35 WBC (4.5-10.0) K/mm3 RBC (4.2-5.4) M/mm3 Hgb (12.0-15.0) g/dL Hct (37.0-47.0) % MCV (80-100) fl MCH (26-34) pg MCHC (32-36) g/dl RDW (11.5-14.5) % Plt Count 160 (150-375) k/mm3 MPV 11.8 H 11.8 H (7.4-10.4) fl Immature Gran % (Auto) Not Reportable (0-0.5) % Neut % (Auto) Not Reportable (45.5-73.1) % Lymph % (Auto) Not Reportable (18.3-44.2) % [place] % (Auto) Not Reportable (2.6-8.5) % Eos % (Auto) Not Reportable (0-4.4) % Baso % (Auto) Not Reportable (0.2-1.2) % Lymph # (Auto) Not Reportable (0.9-3.2) K/mm3 [place] # (Auto) Not Reportable (0.1-0.6) K/mm3 Eos # (Auto) Not Reportable (0-0.3) K/mm3 Baso # (Auto) Not Reportable (0.0-0.1) K/mm3 Abs Immat Gran (auto) Not Reportable (0.00-0.031) K/mm3 Absolute Neuts (auto) Not Reportable (1.3-6.7) K/mm3 Absolute Nucleated RBC Not Reportable (0.0-0.012) K/mm3 Total Counted 100 Neutrophils % (Manual) 66 (46-73) % Band Neutrophils % 10 H (0-6) % Lymphocytes % (Manual) 13 L (18-44) % Monocytes % (Manual) 6 (3-9) % Nucleated RBC % Not Reportable (0.0-0.2) % Abs Neuts (Manual) 16.79 H (1.7-7.2) K/mm3 Abs Lymphs (Manual) 2.87 (1.1-4.5) K/mm3 Abs Monocytes (Manual) 1.32 H (0.1-0.90) K/mm3 Nucleated RBCs 4 % Smudge Cells Few Platelet Estimate Adequate (Adequate) Hypochromasia Anisocytosis 1+ Macrocytosis 1+ (NORMAL) Ovalocytes 1+ [place] Cells 1+ Schistocytes None seen PT 36.7 H D (11.1-14.7) Seconds INR 3.7 APTT 61.7 H (22.3-36.8) Seconds Fibrinogen 110 L (215-510) mg/dl D-Dimer 3.93 H (<0.48) ug/mL Minute Volume Vent Mode Tidal Volume ml PEEP cmH2O Peak Inspir Pressure Pressure Support Sodium 136 L (137-145) mmol/L Potassium 4.8 (3.4-5.0) mmol/L Chloride 100 (98-107) mmol/L Carbon Dioxide 10 L (22-30) mmol/L Anion Gap 26 H (4-12) mmol/L BUN 23 H (7-17) mg/dL Creatinine 2.03 H (0.7-1.0) mg/dL Estim Creat Clear Calc 33 ml/min Estimated GFR 25 L (59 - ) Glucose 81 (65-110) mg/dL POC Capillary Glucose (65-105) mg/dl Lactic Acid 21.5 H* (0.7-2.0) mmol/L Calcium 6.4 L (8.4-10.2) mg/dL Phosphorus 9.7 H (2.5-4.5) mg/dL Magnesium 2.1 2.1 (1.6-2.3) mg/dL Total Bilirubin 2.6 H (0.2-1.3) mg/dL AST 4491 H (14-36) U/L ALT 1870 H (6-35) U/L Alkaline Phosphatase 102 (38-126) U/L Ammonia < 9 L (9-30) umol/L Total Creatine Kinase 262 H (30-135) U/L Troponin I (0.000-0.034) ng/mL NT-Pro-B Natriuret Pep (19.9-100) pg/mL Total Protein 4.0 L (6.3-8.2) g/dL Albumin 1.8 L (3.5-5.1) g/dL Lipase 420 H (23-300) U/L Procalcitonin ng/mL Urine Color (Yellow) Urine Appearance (Clear) Urine pH (5.0-9.0) Ur Specific [place] (1.001-1.035) Urine Protein (Negative) mg/dL Urine Glucose (UA) (Negative) mg/dL Urine Ketones (Negative) mg/dL Ur Blood (Man) (Negative) Urine Nitrate (Negative) Urine Bilirubin (Negative) Urine Urobilinogen (<2.0) mg/dL Leukocyte Esterase Rfl (Negative) [place]/UL Urine RBC (0-2) /hpf Urine WBC (0-3) /hpf Ur Squamous Epith Cells (Few) /hpf Urine Bacteria /hpf Urine Casts Nasal MRSA (PCR) (NOT DETECTE) Influenza A (RT-PCR) (Negative) Influenza B (RT-PCR) (Negative) RSV (RT-PCR) (Negative) SARS-CoV-2 RNA (RT-PCR) (Negative) Blood Type Antibody Screen Crossmatch 07/11/24 Range/Units 09:39 WBC (4.5-10.0) K/mm3 RBC (4.2-5.4) M/mm3 Hgb (12.0-15.0) g/dL Hct (37.0-47.0) % MCV (80-100) fl MCH (26-34) pg MCHC (32-36) g/dl RDW (11.5-14.5) % Plt Count (150-375) k/mm3 MPV (7.4-10.4) fl Immature Gran % (Auto) (0-0.5) % Neut % (Auto) (45.5-73.1) % Lymph % (Auto) (18.3-44.2) % [place] % (Auto) (2.6-8.5) % Eos % (Auto) (0-4.4) % Baso % (Auto) (0.2-1.2) % Lymph # (Auto) (0.9-3.2) K/mm3 [place] # (Auto) (0.1-0.6) K/mm3 Eos # (Auto) (0-0.3) K/mm3 Baso # (Auto) (0.0-0.1) K/mm3 Abs Immat Gran (auto) (0.00-0.031) K/mm3 Absolute Neuts (auto) (1.3-6.7) K/mm3 Absolute Nucleated RBC (0.0-0.012) K/mm3 Total Counted Neutrophils % (Manual) (46-73) % Band Neutrophils % (0-6) % Lymphocytes % (Manual) (18-44) % Monocytes % (Manual) (3-9) % Nucleated RBC % (0.0-0.2) % Abs Neuts (Manual) (1.7-7.2) K/mm3 Abs Lymphs (Manual) (1.1-4.5) K/mm3 Abs Monocytes (Manual) (0.1-0.90) K/mm3 Nucleated RBCs % Smudge Cells Platelet Estimate (Adequate) Hypochromasia Anisocytosis Macrocytosis (NORMAL) Ovalocytes [place] Cells Schistocytes PT (11.1-14.7) Seconds INR APTT (22.3-36.8) Seconds Fibrinogen (215-510) mg/dl D-Dimer (<0.48) ug/mL Minute Volume Vent Mode Tidal Volume ml PEEP cmH2O Peak Inspir Pressure Pressure Support Sodium (137-145) mmol/L Potassium (3.4-5.0) mmol/L Chloride (98-107) mmol/L Carbon Dioxide (22-30) mmol/L Anion Gap (4-12) mmol/L BUN (7-17) mg/dL Creatinine (0.7-1.0) mg/dL Estim Creat Clear Calc ml/min Estimated GFR (59 - ) Glucose (65-110) mg/dL POC Capillary Glucose (65-105) mg/dl Lactic Acid (0.7-2.0) mmol/L Calcium (8.4-10.2) mg/dL Phosphorus (2.5-4.5) mg/dL Magnesium (1.6-2.3) mg/dL Total Bilirubin (0.2-1.3) mg/dL AST (14-36) U/L ALT (6-35) U/L Alkaline Phosphatase (38-126) U/L Ammonia (9-30) umol/L Total Creatine Kinase (30-135) U/L Troponin I (0.000-0.034) ng/mL NT-Pro-B Natriuret Pep (19.9-100) pg/mL Total Protein (6.3-8.2) g/dL Albumin (3.5-5.1) g/dL Lipase (23-300) U/L Procalcitonin ng/mL Urine Color (Yellow) Urine Appearance (Clear) Urine pH (5.0-9.0) Ur Specific [place] (1.001-1.035) Urine Protein (Negative) mg/dL Urine Glucose (UA) (Negative) mg/dL Urine Ketones (Negative) mg/dL Ur Blood (Man) (Negative) Urine Nitrate (Negative) Urine Bilirubin (Negative) Urine Urobilinogen (<2.0) mg/dL Leukocyte Esterase Rfl (Negative) [place]/UL Urine RBC (0-2) /hpf Urine WBC (0-3) /hpf Ur Squamous Epith Cells (Few) /hpf Urine Bacteria /hpf Urine Casts Nasal MRSA (PCR) Not detected (NOT DETECTE) Influenza A (RT-PCR) (Negative) Influenza B (RT-PCR) (Negative) RSV (RT-PCR) (Negative) SARS-CoV-2 RNA (RT-PCR) (Negative) Blood Type Antibody Screen Crossmatch <Melquiades Sandoval MD - Last Filed: 07/10/24 19:53> Lab Results 07/10/24 07/10/24 07/10/24 Range/Units 15:15 15:31 18:53 WBC 8.9 (4.5-10.0) K/mm3 RBC 1.89 L (4.2-5.4) M/mm3 Hgb 7.4 L (12.0-15.0) g/dL Hct 21.7 L (37.0-47.0) % MCV 114.8 H (80-100) fl MCH 39.2 H (26-34) pg MCHC 34.1 (32-36) g/dl RDW 17.4 H (11.5-14.5) % Plt Count 244 (150-375) k/mm3 MPV 11.5 H (7.4-10.4) fl Immature Gran % (Auto) 4.8 H (0-0.5) % Neut % (Auto) 75.6 H (45.5-73.1) % Lymph % (Auto) 15.1 L (18.3-44.2) % [place] % (Auto) 3.5 (2.6-8.5) % Eos % (Auto) 0.8 (0-4.4) % Baso % (Auto) 0.2 (0.2-1.2) % Lymph # (Auto) 1.35 (0.9-3.2) K/mm3 [place] # (Auto) 0.3 (0.1-0.6) K/mm3 Eos # (Auto) 0.1 (0-0.3) K/mm3 Baso # (Auto) 0.0 (0.0-0.1) K/mm3 Abs Immat Gran (auto) 0.43 H (0.00-0.031) K/mm3 Absolute Neuts (auto) 6.8 H (1.3-6.7) K/mm3 Absolute Nucleated RBC 0.070 H (0.0-0.012) K/mm3 Total Counted Neutrophils % (Manual) (46-73) % Band Neutrophils % (0-6) % Lymphocytes % (Manual) (18-44) % Monocytes % (Manual) (3-9) % Nucleated RBC % 0.8 H (0.0-0.2) % Abs Neuts (Manual) (1.7-7.2) K/mm3 Abs Lymphs (Manual) (1.1-4.5) K/mm3 Abs Monocytes (Manual) (0.1-0.90) K/mm3 Nucleated RBCs % Smudge Cells Platelet Estimate Adequate (Adequate) Hypochromasia 1+ Anisocytosis 1+ Macrocytosis 1+ (NORMAL) Ovalocytes [place] Cells 1+ Schistocytes None seen PT 15.5 H (11.1-14.7) Seconds INR 1.2 APTT 26.2 (22.3-36.8) Seconds Fibrinogen (215-510) mg/dl D-Dimer (<0.48) ug/mL Minute Volume Vent Mode Tidal Volume ml PEEP cmH2O Peak Inspir Pressure Pressure Support Sodium 130 L (137-145) mmol/L Potassium 3.9 (3.4-5.0) mmol/L Chloride 93 L (98-107) mmol/L Carbon Dioxide 29 (22-30) mmol/L Anion Gap 8 (4-12) mmol/L BUN 23 H (7-17) mg/dL Creatinine 0.77 (0.7-1.0) mg/dL Estim Creat Clear Calc 84 ml/min Estimated GFR > 60 (59 - ) Glucose 320 H (65-110) mg/dL POC Capillary Glucose 354 H (65-105) mg/dl Lactic Acid 6.7 H* 7.5 H* (0.7-2.0) mmol/L Calcium 7.2 L (8.4-10.2) mg/dL Phosphorus (2.5-4.5) mg/dL Magnesium (1.6-2.3) mg/dL Total Bilirubin 1.2 (0.2-1.3) mg/dL AST 48 H (14-36) U/L ALT 43 H (6-35) U/L Alkaline Phosphatase 92 (38-126) U/L Ammonia (9-30) umol/L Total Creatine Kinase (30-135) U/L Troponin I (0.000-0.034) ng/mL NT-Pro-B Natriuret Pep (19.9-100) pg/mL Total Protein 5.0 L (6.3-8.2) g/dL Albumin 2.1 L (3.5-5.1) g/dL Lipase (23-300) U/L Procalcitonin ng/mL Urine Color (Yellow) Urine Appearance (Clear) Urine pH (5.0-9.0) Ur Specific [place] (1.001-1.035) Urine Protein (Negative) mg/dL Urine Glucose (UA) (Negative) mg/dL Urine Ketones (Negative) mg/dL Ur Blood (Man) (Negative) Urine Nitrate (Negative) Urine Bilirubin (Negative) Urine Urobilinogen (<2.0) mg/dL Leukocyte Esterase Rfl (Negative) [place]/UL Urine RBC (0-2) /hpf Urine WBC (0-3) /hpf Ur Squamous Epith Cells (Few) /hpf Urine Bacteria /hpf Urine Casts Nasal MRSA (PCR) (NOT DETECTE) Influenza A (RT-PCR) (Negative) Influenza B (RT-PCR) (Negative) RSV (RT-PCR) (Negative) SARS-CoV-2 RNA (RT-PCR) (Negative) Blood Type A Positive Antibody Screen Negative Crossmatch See Detail 07/10/24 07/10/24 07/10/24 Range/Units 18:54 20:09 23:50 WBC (4.5-10.0) K/mm3 RBC (4.2-5.4) M/mm3 Hgb 8.6 L 8.4 L 9.9 L (12.0-15.0) g/dL Hct 25.4 L 24.6 L 29.2 L (37.0-47.0) % MCV (80-100) fl MCH (26-34) pg MCHC (32-36) g/dl RDW (11.5-14.5) % Plt Count (150-375) k/mm3 MPV (7.4-10.4) fl Immature Gran % (Auto) (0-0.5) % Neut % (Auto) (45.5-73.1) % Lymph % (Auto) (18.3-44.2) % [place] % (Auto) (2.6-8.5) % Eos % (Auto) (0-4.4) % Baso % (Auto) (0.2-1.2) % Lymph # (Auto) (0.9-3.2) K/mm3 [place] # (Auto) (0.1-0.6) K/mm3 Eos # (Auto) (0-0.3) K/mm3 Baso # (Auto) (0.0-0.1) K/mm3 Abs Immat Gran (auto) (0.00-0.031) K/mm3 Absolute Neuts (auto) (1.3-6.7) K/mm3 Absolute Nucleated RBC (0.0-0.012) K/mm3 Total Counted Neutrophils % (Manual) (46-73) % Band Neutrophils % (0-6) % Lymphocytes % (Manual) (18-44) % Monocytes % (Manual) (3-9) % Nucleated RBC % (0.0-0.2) % Abs Neuts (Manual) (1.7-7.2) K/mm3 Abs Lymphs (Manual) (1.1-4.5) K/mm3 Abs Monocytes (Manual) (0.1-0.90) K/mm3 Nucleated RBCs % Smudge Cells Platelet Estimate (Adequate) Hypochromasia Anisocytosis Macrocytosis (NORMAL) Ovalocytes [place] Cells Schistocytes PT (11.1-14.7) Seconds INR APTT (22.3-36.8) Seconds Fibrinogen (215-510) mg/dl D-Dimer (<0.48) ug/mL Minute Volume Vent Mode Tidal Volume ml PEEP cmH2O Peak Inspir Pressure Pressure Support Sodium (137-145) mmol/L Potassium (3.4-5.0) mmol/L Chloride (98-107) mmol/L Carbon Dioxide (22-30) mmol/L Anion Gap (4-12) mmol/L BUN (7-17) mg/dL Creatinine (0.7-1.0) mg/dL Estim Creat Clear Calc ml/min Estimated GFR (59 - ) Glucose (65-110) mg/dL POC Capillary Glucose (65-105) mg/dl Lactic Acid 11.3 H* (0.7-2.0) mmol/L Calcium (8.4-10.2) mg/dL Phosphorus (2.5-4.5) mg/dL Magnesium (1.6-2.3) mg/dL Total Bilirubin (0.2-1.3) mg/dL AST (14-36) U/L ALT (6-35) U/L Alkaline Phosphatase (38-126) U/L Ammonia (9-30) umol/L Total Creatine Kinase (30-135) U/L Troponin I (0.000-0.034) ng/mL NT-Pro-B Natriuret Pep (19.9-100) pg/mL Total Protein (6.3-8.2) g/dL Albumin (3.5-5.1) g/dL Lipase (23-300) U/L Procalcitonin ng/mL Urine Color (Yellow) Urine Appearance (Clear) Urine pH (5.0-9.0) Ur Specific [place] (1.001-1.035) Urine Protein (Negative) mg/dL Urine Glucose (UA) (Negative) mg/dL Urine Ketones (Negative) mg/dL Ur Blood (Man) (Negative) Urine Nitrate (Negative) Urine Bilirubin (Negative) Urine Urobilinogen (<2.0) mg/dL Leukocyte Esterase Rfl (Negative) [place]/UL Urine RBC (0-2) /hpf Urine WBC (0-3) /hpf Ur Squamous Epith Cells (Few) /hpf Urine Bacteria /hpf Urine Casts Nasal MRSA (PCR) (NOT DETECTE) Influenza A (RT-PCR) (Negative) Influenza B (RT-PCR) (Negative) RSV (RT-PCR) (Negative) SARS-CoV-2 RNA (RT-PCR) (Negative) Blood Type Antibody Screen Crossmatch 07/11/24 07/11/24 07/11/24 Range/Units 01:36 01:42 03:18 WBC (4.5-10.0) K/mm3 RBC (4.2-5.4) M/mm3 Hgb (12.0-15.0) g/dL Hct (37.0-47.0) % MCV (80-100) fl MCH (26-34) pg MCHC (32-36) g/dl RDW (11.5-14.5) % Plt Count (150-375) k/mm3 MPV (7.4-10.4) fl Immature Gran % (Auto) (0-0.5) % Neut % (Auto) (45.5-73.1) % Lymph % (Auto) (18.3-44.2) % [place] % (Auto) (2.6-8.5) % Eos % (Auto) (0-4.4) % Baso % (Auto) (0.2-1.2) % Lymph # (Auto) (0.9-3.2) K/mm3 [place] # (Auto) (0.1-0.6) K/mm3 Eos # (Auto) (0-0.3) K/mm3 Baso # (Auto) (0.0-0.1) K/mm3 Abs Immat Gran (auto) (0.00-0.031) K/mm3 Absolute Neuts (auto) (1.3-6.7) K/mm3 Absolute Nucleated RBC (0.0-0.012) K/mm3 Total Counted Neutrophils % (Manual) (46-73) % Band Neutrophils % (0-6) % Lymphocytes % (Manual) (18-44) % Monocytes % (Manual) (3-9) % Nucleated RBC % (0.0-0.2) % Abs Neuts (Manual) (1.7-7.2) K/mm3 Abs Lymphs (Manual) (1.1-4.5) K/mm3 Abs Monocytes (Manual) (0.1-0.90) K/mm3 Nucleated RBCs % Smudge Cells Platelet Estimate (Adequate) Hypochromasia Anisocytosis Macrocytosis (NORMAL) Ovalocytes [place] Cells Schistocytes PT (11.1-14.7) Seconds INR APTT (22.3-36.8) Seconds Fibrinogen (215-510) mg/dl D-Dimer (<0.48) ug/mL Minute Volume Not Reportable Vent Mode Cmv Tidal Volume 450 ml PEEP 5 cmH2O Peak Inspir Pressure Not Reportable Pressure Support Not Reportable Sodium (137-145) mmol/L Potassium (3.4-5.0) mmol/L Chloride (98-107) mmol/L Carbon Dioxide (22-30) mmol/L Anion Gap (4-12) mmol/L BUN (7-17) mg/dL Creatinine (0.7-1.0) mg/dL Estim Creat Clear Calc ml/min Estimated GFR (59 - ) Glucose (65-110) mg/dL POC Capillary Glucose (65-105) mg/dl Lactic Acid (0.7-2.0) mmol/L Calcium (8.4-10.2) mg/dL Phosphorus (2.5-4.5) mg/dL Magnesium (1.6-2.3) mg/dL Total Bilirubin (0.2-1.3) mg/dL AST (14-36) U/L ALT (6-35) U/L Alkaline Phosphatase (38-126) U/L Ammonia (9-30) umol/L Total Creatine Kinase (30-135) U/L Troponin I 0.161 H* (0.000-0.034) ng/mL NT-Pro-B Natriuret Pep 553 H (19.9-100) pg/mL Total Protein (6.3-8.2) g/dL Albumin (3.5-5.1) g/dL Lipase (23-300) U/L Procalcitonin 1.6 ng/mL Urine Color Dark yellow (Yellow) Urine Appearance Clear (Clear) Urine pH 5.5 (5.0-9.0) Ur Specific [place] > 1.045 H (1.001-1.035) Urine Protein Negative (Negative) mg/dL Urine Glucose (UA) 2+ H (Negative) mg/dL Urine Ketones Trace H (Negative) mg/dL Ur Blood (Man) Negative (Negative) Urine Nitrate Negative (Negative) Urine Bilirubin 1+ H (Negative) Urine Urobilinogen 1.0 (<2.0) mg/dL Leukocyte Esterase Rfl Trace H (Negative) [place]/UL Urine RBC 0-2 (0-2) /hpf Urine WBC 6-10 H (0-3) /hpf Ur Squamous Epith Cells Occasional (Few) /hpf Urine Bacteria None seen /hpf Urine Casts 3-5 Nasal MRSA (PCR) (NOT DETECTE) Influenza A (RT-PCR) Positive A (Negative) Influenza B (RT-PCR) Negative (Negative) RSV (RT-PCR) Negative (Negative) SARS-CoV-2 RNA (RT-PCR) Negative (Negative) Blood Type Antibody Screen Crossmatch 07/11/24 07/11/24 07/11/24 Range/Units 04:26 06:50 09:23 WBC (4.5-10.0) K/mm3 RBC (4.2-5.4) M/mm3 Hgb (12.0-15.0) g/dL Hct (37.0-47.0) % MCV (80-100) fl MCH (26-34) pg MCHC (32-36) g/dl RDW (11.5-14.5) % Plt Count (150-375) k/mm3 MPV (7.4-10.4) fl Immature Gran % (Auto) (0-0.5) % Neut % (Auto) (45.5-73.1) % Lymph % (Auto) (18.3-44.2) % [place] % (Auto) (2.6-8.5) % Eos % (Auto) (0-4.4) % Baso % (Auto) (0.2-1.2) % Lymph # (Auto) (0.9-3.2) K/mm3 [place] # (Auto) (0.1-0.6) K/mm3 Eos # (Auto) (0-0.3) K/mm3 Baso # (Auto) (0.0-0.1) K/mm3 Abs Immat Gran (auto) (0.00-0.031) K/mm3 Absolute Neuts (auto) (1.3-6.7) K/mm3 Absolute Nucleated RBC (0.0-0.012) K/mm3 Total Counted Neutrophils % (Manual) (46-73) % Band Neutrophils % (0-6) % Lymphocytes % (Manual) (18-44) % Monocytes % (Manual) (3-9) % Nucleated RBC % (0.0-0.2) % Abs Neuts (Manual) (1.7-7.2) K/mm3 Abs Lymphs (Manual) (1.1-4.5) K/mm3 Abs Monocytes (Manual) (0.1-0.90) K/mm3 Nucleated RBCs % Smudge Cells Platelet Estimate (Adequate) Hypochromasia Anisocytosis Macrocytosis (NORMAL) Ovalocytes [place] Cells Schistocytes PT (11.1-14.7) Seconds INR APTT (22.3-36.8) Seconds Fibrinogen (215-510) mg/dl D-Dimer (<0.48) ug/mL Minute Volume Not Reportable Not Reportable Vent Mode Cmv Cmv Tidal Volume 450 450 ml PEEP 5 5 cmH2O Peak Inspir Pressure Not Reportable Not Reportable Pressure Support Not Reportable Not Reportable Sodium 146 H (137-145) mmol/L Potassium 4.7 (3.4-5.0) mmol/L Chloride 102 (98-107) mmol/L Carbon Dioxide 25 (22-30) mmol/L Anion Gap 19 H (4-12) mmol/L BUN 24 H (7-17) mg/dL Creatinine 1.37 H (0.7-1.0) mg/dL Estim Creat Clear Calc 49 ml/min Estimated GFR 39 L (59 - ) Glucose 94 (65-110) mg/dL POC Capillary Glucose (65-105) mg/dl Lactic Acid (0.7-2.0) mmol/L Calcium 6.1 L (8.4-10.2) mg/dL Phosphorus (2.5-4.5) mg/dL Magnesium (1.6-2.3) mg/dL Total Bilirubin 2.2 H (0.2-1.3) mg/dL AST 811 H (14-36) U/L ALT 337 H (6-35) U/L Alkaline Phosphatase 95 (38-126) U/L Ammonia (9-30) umol/L Total Creatine Kinase (30-135) U/L Troponin I (0.000-0.034) ng/mL NT-Pro-B Natriuret Pep (19.9-100) pg/mL Total Protein 4.0 L (6.3-8.2) g/dL Albumin 1.7 L (3.5-5.1) g/dL Lipase (23-300) U/L Procalcitonin ng/mL Urine Color (Yellow) Urine Appearance (Clear) Urine pH (5.0-9.0) Ur Specific [place] (1.001-1.035) Urine Protein (Negative) mg/dL Urine Glucose (UA) (Negative) mg/dL Urine Ketones (Negative) mg/dL Ur Blood (Man) (Negative) Urine Nitrate (Negative) Urine Bilirubin (Negative) Urine Urobilinogen (<2.0) mg/dL Leukocyte Esterase Rfl (Negative) [place]/UL Urine RBC (0-2) /hpf Urine WBC (0-3) /hpf Ur Squamous Epith Cells (Few) /hpf Urine Bacteria /hpf Urine Casts Nasal MRSA (PCR) (NOT DETECTE) Influenza A (RT-PCR) (Negative) Influenza B (RT-PCR) (Negative) RSV (RT-PCR) (Negative) SARS-CoV-2 RNA (RT-PCR) (Negative) Blood Type Antibody Screen Crossmatch 07/11/24 07/11/24 07/11/24 Range/Units 09:35 09:35 09:35 WBC 22.1 H 22.1 H (4.5-10.0) K/mm3 RBC 2.24 L 2.24 L (4.2-5.4) M/mm3 Hgb 7.5 L (12.0-15.0) g/dL Hct (37.0-47.0) % MCV (80-100) fl MCH (26-34) pg MCHC (32-36) g/dl RDW (11.5-14.5) % Plt Count (150-375) k/mm3 MPV (7.4-10.4) fl Immature Gran % (Auto) (0-0.5) % Neut % (Auto) (45.5-73.1) % Lymph % (Auto) (18.3-44.2) % [place] % (Auto) (2.6-8.5) % Eos % (Auto) (0-4.4) % Baso % (Auto) (0.2-1.2) % Lymph # (Auto) (0.9-3.2) K/mm3 [place] # (Auto) (0.1-0.6) K/mm3 Eos # (Auto) (0-0.3) K/mm3 Baso # (Auto) (0.0-0.1) K/mm3 Abs Immat Gran (auto) (0.00-0.031) K/mm3 Absolute Neuts (auto) (1.3-6.7) K/mm3 Absolute Nucleated RBC (0.0-0.012) K/mm3 Total Counted Neutrophils % (Manual) (46-73) % Band Neutrophils % (0-6) % Lymphocytes % (Manual) (18-44) % Monocytes % (Manual) (3-9) % Nucleated RBC % (0.0-0.2) % Abs Neuts (Manual) (1.7-7.2) K/mm3 Abs Lymphs (Manual) (1.1-4.5) K/mm3 Abs Monocytes (Manual) (0.1-0.90) K/mm3 Nucleated RBCs % Smudge Cells Platelet Estimate (Adequate) Hypochromasia Anisocytosis Macrocytosis (NORMAL) Ovalocytes [place] Cells Schistocytes PT (11.1-14.7) Seconds INR APTT (22.3-36.8) Seconds Fibrinogen (215-510) mg/dl D-Dimer (<0.48) ug/mL Minute Volume Vent Mode Tidal Volume ml PEEP cmH2O Peak Inspir Pressure Pressure Support Sodium (137-145) mmol/L Potassium (3.4-5.0) mmol/L Chloride (98-107) mmol/L Carbon Dioxide (22-30) mmol/L Anion Gap (4-12) mmol/L BUN (7-17) mg/dL Creatinine (0.7-1.0) mg/dL Estim Creat Clear Calc ml/min Estimated GFR (59 - ) Glucose (65-110) mg/dL POC Capillary Glucose (65-105) mg/dl Lactic Acid (0.7-2.0) mmol/L Calcium (8.4-10.2) mg/dL Phosphorus (2.5-4.5) mg/dL Magnesium (1.6-2.3) mg/dL Total Bilirubin (0.2-1.3) mg/dL AST (14-36) U/L ALT (6-35) U/L Alkaline Phosphatase (38-126) U/L Ammonia (9-30) umol/L Total Creatine Kinase (30-135) U/L Troponin I (0.000-0.034) ng/mL NT-Pro-B Natriuret Pep (19.9-100) pg/mL Total Protein (6.3-8.2) g/dL Albumin (3.5-5.1) g/dL Lipase (23-300) U/L Procalcitonin ng/mL Urine Color (Yellow) Urine Appearance (Clear) Urine pH (5.0-9.0) Ur Specific [place] (1.001-1.035) Urine Protein (Negative) mg/dL Urine Glucose (UA) (Negative) mg/dL Urine Ketones (Negative) mg/dL Ur Blood (Man) (Negative) Urine Nitrate (Negative) Urine Bilirubin (Negative) Urine Urobilinogen (<2.0) mg/dL Leukocyte Esterase Rfl (Negative) [place]/UL Urine RBC (0-2) /hpf Urine WBC (0-3) /hpf Ur Squamous Epith Cells (Few) /hpf Urine Bacteria /hpf Urine Casts Nasal MRSA (PCR) (NOT DETECTE) Influenza A (RT-PCR) (Negative) Influenza B (RT-PCR) (Negative) RSV (RT-PCR) (Negative) SARS-CoV-2 RNA (RT-PCR) (Negative) Blood Type Antibody Screen Crossmatch 07/11/24 07/11/24 07/11/24 Range/Units 09:35 09:35 09:35 WBC (4.5-10.0) K/mm3 RBC (4.2-5.4) M/mm3 Hgb 7.5 L (12.0-15.0) g/dL Hct 24.1 L 24.1 L (37.0-47.0) % MCV 107.6 H D 107.6 H (80-100) fl MCH 33.5 D (26-34) pg MCHC (32-36) g/dl RDW (11.5-14.5) % Plt Count (150-375) k/mm3 MPV (7.4-10.4) fl Immature Gran % (Auto) (0-0.5) % Neut % (Auto) (45.5-73.1) % Lymph % (Auto) (18.3-44.2) % [place] % (Auto) (2.6-8.5) % Eos % (Auto) (0-4.4) % Baso % (Auto) (0.2-1.2) % Lymph # (Auto) (0.9-3.2) K/mm3 [place] # (Auto) (0.1-0.6) K/mm3 Eos # (Auto) (0-0.3) K/mm3 Baso # (Auto) (0.0-0.1) K/mm3 Abs Immat Gran (auto) (0.00-0.031) K/mm3 Absolute Neuts (auto) (1.3-6.7) K/mm3 Absolute Nucleated RBC (0.0-0.012) K/mm3 Total Counted Neutrophils % (Manual) (46-73) % Band Neutrophils % (0-6) % Lymphocytes % (Manual) (18-44) % Monocytes % (Manual) (3-9) % Nucleated RBC % (0.0-0.2) % Abs Neuts (Manual) (1.7-7.2) K/mm3 Abs Lymphs (Manual) (1.1-4.5) K/mm3 Abs Monocytes (Manual) (0.1-0.90) K/mm3 Nucleated RBCs % Smudge Cells Platelet Estimate (Adequate) Hypochromasia Anisocytosis Macrocytosis (NORMAL) Ovalocytes [place] Cells Schistocytes PT (11.1-14.7) Seconds INR APTT (22.3-36.8) Seconds Fibrinogen (215-510) mg/dl D-Dimer (<0.48) ug/mL Minute Volume Vent Mode Tidal Volume ml PEEP cmH2O Peak Inspir Pressure Pressure Support Sodium (137-145) mmol/L Potassium (3.4-5.0) mmol/L Chloride (98-107) mmol/L Carbon Dioxide (22-30) mmol/L Anion Gap (4-12) mmol/L BUN (7-17) mg/dL Creatinine (0.7-1.0) mg/dL Estim Creat Clear Calc ml/min Estimated GFR (59 - ) Glucose (65-110) mg/dL POC Capillary Glucose (65-105) mg/dl Lactic Acid (0.7-2.0) mmol/L Calcium (8.4-10.2) mg/dL Phosphorus (2.5-4.5) mg/dL Magnesium (1.6-2.3) mg/dL Total Bilirubin (0.2-1.3) mg/dL AST (14-36) U/L ALT (6-35) U/L Alkaline Phosphatase (38-126) U/L Ammonia (9-30) umol/L Total Creatine Kinase (30-135) U/L Troponin I (0.000-0.034) ng/mL NT-Pro-B Natriuret Pep (19.9-100) pg/mL Total Protein (6.3-8.2) g/dL Albumin (3.5-5.1) g/dL Lipase (23-300) U/L Procalcitonin ng/mL Urine Color (Yellow) Urine Appearance (Clear) Urine pH (5.0-9.0) Ur Specific [place] (1.001-1.035) Urine Protein (Negative) mg/dL Urine Glucose (UA) (Negative) mg/dL Urine Ketones (Negative) mg/dL Ur Blood (Man) (Negative) Urine Nitrate (Negative) Urine Bilirubin (Negative) Urine Urobilinogen (<2.0) mg/dL Leukocyte Esterase Rfl (Negative) [place]/UL Urine RBC (0-2) /hpf Urine WBC (0-3) /hpf Ur Squamous Epith Cells (Few) /hpf Urine Bacteria /hpf Urine Casts Nasal MRSA (PCR) (NOT DETECTE) Influenza A (RT-PCR) (Negative) Influenza B (RT-PCR) (Negative) RSV (RT-PCR) (Negative) SARS-CoV-2 RNA (RT-PCR) (Negative) Blood Type Antibody Screen Crossmatch 07/11/24 07/11/24 07/11/24 Range/Units 09:35 09:35 09:35 WBC (4.5-10.0) K/mm3 RBC (4.2-5.4) M/mm3 Hgb (12.0-15.0) g/dL Hct (37.0-47.0) % MCV (80-100) fl MCH 33.5 (26-34) pg MCHC 31.1 L 31.1 L (32-36) g/dl RDW 24.8 H 24.8 H (11.5-14.5) % Plt Count 160 (150-375) k/mm3 MPV (7.4-10.4) fl Immature Gran % (Auto) (0-0.5) % Neut % (Auto) (45.5-73.1) % Lymph % (Auto) (18.3-44.2) % [place] % (Auto) (2.6-8.5) % Eos % (Auto) (0-4.4) % Baso % (Auto) (0.2-1.2) % Lymph # (Auto) (0.9-3.2) K/mm3 [place] # (Auto) (0.1-0.6) K/mm3 Eos # (Auto) (0-0.3) K/mm3 Baso # (Auto) (0.0-0.1) K/mm3 Abs Immat Gran (auto) (0.00-0.031) K/mm3 Absolute Neuts (auto) (1.3-6.7) K/mm3 Absolute Nucleated RBC (0.0-0.012) K/mm3 Total Counted Neutrophils % (Manual) (46-73) % Band Neutrophils % (0-6) % Lymphocytes % (Manual) (18-44) % Monocytes % (Manual) (3-9) % Nucleated RBC % (0.0-0.2) % Abs Neuts (Manual) (1.7-7.2) K/mm3 Abs Lymphs (Manual) (1.1-4.5) K/mm3 Abs Monocytes (Manual) (0.1-0.90) K/mm3 Nucleated RBCs % [place] Cells Platelet Estimate (Adequate) Hypochromasia Anisocytosis Macrocytosis (NORMAL) Ovalocytes [place] Cells Schistocytes PT (11.1-14.7) Seconds INR APTT (22.3-36.8) Seconds Fibrinogen (215-510) mg/dl D-Dimer (<0.48) ug/mL Minute Volume Vent Mode Tidal Volume ml PEEP cmH2O Peak Inspir Pressure Pressure Support Sodium (137-145) mmol/L Potassium (3.4-5.0) mmol/L Chloride (98-107) mmol/L Carbon Dioxide (22-30) mmol/L Anion Gap (4-12) mmol/L BUN (7-17) mg/dL Creatinine (0.7-1.0) mg/dL Estim Creat Clear Calc ml/min Estimated GFR (59 - ) Glucose (65-110) mg/dL POC Capillary Glucose (65-105) mg/dl Lactic Acid (0.7-2.0) mmol/L Calcium (8.4-10.2) mg/dL Phosphorus (2.5-4.5) mg/dL Magnesium (1.6-2.3) mg/dL Total Bilirubin (0.2-1.3) mg/dL AST (14-36) U/L ALT (6-35) U/L Alkaline Phosphatase (38-126) U/L Ammonia (9-30) umol/L Total Creatine Kinase (30-135) U/L Troponin I (0.000-0.034) ng/mL NT-Pro-B Natriuret Pep (19.9-100) pg/mL Total Protein (6.3-8.2) g/dL Albumin (3.5-5.1) g/dL Lipase (23-300) U/L Procalcitonin ng/mL Urine Color (Yellow) Urine Appearance (Clear) Urine pH (5.0-9.0) Ur Specific [place] (1.001-1.035) Urine Protein (Negative) mg/dL Urine Glucose (UA) (Negative) mg/dL Urine Ketones (Negative) mg/dL Ur Blood (Man) (Negative) Urine Nitrate (Negative) Urine Bilirubin (Negative) Urine Urobilinogen (<2.0) mg/dL Leukocyte Esterase Rfl (Negative) [place]/UL Urine RBC (0-2) /hpf Urine WBC (0-3) /hpf Ur Squamous Epith Cells (Few) /hpf Urine Bacteria /hpf Urine Casts Nasal MRSA (PCR) (NOT DETECTE) Influenza A (RT-PCR) (Negative) Influenza B (RT-PCR) (Negative) RSV (RT-PCR) (Negative) SARS-CoV-2 RNA (RT-PCR) (Negative) Blood Type Antibody Screen Crossmatch 07/11/24 07/11/24 07/11/24 Range/Units 09:35 09:35 09:35 WBC (4.5-10.0) K/mm3 RBC (4.2-5.4) M/mm3 Hgb (12.0-15.0) g/dL Hct (37.0-47.0) % MCV (80-100) fl MCH (26-34) pg MCHC (32-36) g/dl RDW (11.5-14.5) % Plt Count 160 (150-375) k/mm3 MPV 11.8 H 11.8 H (7.4-10.4) fl Immature Gran % (Auto) Not Reportable (0-0.5) % Neut % (Auto) Not Reportable (45.5-73.1) % Lymph % (Auto) Not Reportable (18.3-44.2) % [place] % (Auto) Not Reportable (2.6-8.5) % Eos % (Auto) Not Reportable (0-4.4) % Baso % (Auto) Not Reportable (0.2-1.2) % Lymph # (Auto) Not Reportable (0.9-3.2) K/mm3 [place] # (Auto) Not Reportable (0.1-0.6) K/mm3 Eos # (Auto) Not Reportable (0-0.3) K/mm3 Baso # (Auto) Not Reportable (0.0-0.1) K/mm3 Abs Immat Gran (auto) Not Reportable (0.00-0.031) K/mm3 Absolute Neuts (auto) Not Reportable (1.3-6.7) K/mm3 Absolute Nucleated RBC Not Reportable (0.0-0.012) K/mm3 Total Counted 100 Neutrophils % (Manual) 66 (46-73) % Band Neutrophils % 10 H (0-6) % Lymphocytes % (Manual) 13 L (18-44) % Monocytes % (Manual) 6 (3-9) % Nucleated RBC % Not Reportable (0.0-0.2) % Abs Neuts (Manual) 16.79 H (1.7-7.2) K/mm3 Abs Lymphs (Manual) 2.87 (1.1-4.5) K/mm3 Abs Monocytes (Manual) 1.32 H (0.1-0.90) K/mm3 Nucleated RBCs 4 % Smudge Cells Few Platelet Estimate Adequate (Adequate) Hypochromasia Anisocytosis 1+ Macrocytosis 1+ (NORMAL) Ovalocytes 1+ [place] Cells 1+ Schistocytes None seen PT 36.7 H D (11.1-14.7) Seconds INR 3.7 APTT 61.7 H (22.3-36.8) Seconds Fibrinogen 110 L (215-510) mg/dl D-Dimer 3.93 H (<0.48) ug/mL Minute Volume Vent Mode Tidal Volume ml PEEP cmH2O Peak Inspir Pressure Pressure Support Sodium 136 L (137-145) mmol/L Potassium 4.8 (3.4-5.0) mmol/L Chloride 100 (98-107) mmol/L Carbon Dioxide 10 L (22-30) mmol/L Anion Gap 26 H (4-12) mmol/L BUN 23 H (7-17) mg/dL Creatinine 2.03 H (0.7-1.0) mg/dL Estim Creat Clear Calc 33 ml/min Estimated GFR 25 L (59 - ) Glucose 81 (65-110) mg/dL POC Capillary Glucose (65-105) mg/dl Lactic Acid 21.5 H* (0.7-2.0) mmol/L Calcium 6.4 L (8.4-10.2) mg/dL Phosphorus 9.7 H (2.5-4.5) mg/dL Magnesium 2.1 2.1 (1.6-2.3) mg/dL Total Bilirubin 2.6 H (0.2-1.3) mg/dL AST 4491 H (14-36) U/L ALT 1870 H (6-35) U/L Alkaline Phosphatase 102 (38-126) U/L Ammonia < 9 L (9-30) umol/L Total Creatine Kinase 262 H (30-135) U/L Troponin I (0.000-0.034) ng/mL NT-Pro-B Natriuret Pep (19.9-100) pg/mL Total Protein 4.0 L (6.3-8.2) g/dL Albumin 1.8 L (3.5-5.1) g/dL Lipase 420 H (23-300) U/L Procalcitonin ng/mL Urine Color (Yellow) Urine Appearance (Clear) Urine pH (5.0-9.0) Ur Specific [place] (1.001-1.035) Urine Protein (Negative) mg/dL Urine Glucose (UA) (Negative) mg/dL Urine Ketones (Negative) mg/dL Ur Blood (Man) (Negative) Urine Nitrate (Negative) Urine Bilirubin (Negative) Urine Urobilinogen (<2.0) mg/dL Leukocyte Esterase Rfl (Negative) [place]/UL Urine RBC (0-2) /hpf Urine WBC (0-3) /hpf Ur Squamous Epith Cells (Few) /hpf Urine Bacteria /hpf Urine Casts Nasal MRSA (PCR) (NOT DETECTE) Influenza A (RT-PCR) (Negative) Influenza B (RT-PCR) (Negative) RSV (RT-PCR) (Negative) SARS-CoV-2 RNA (RT-PCR) (Negative) Blood Type Antibody Screen Crossmatch 07/11/24 Range/Units 09:39 WBC (4.5-10.0) K/mm3 RBC (4.2-5.4) M/mm3 Hgb (12.0-15.0) g/dL Hct (37.0-47.0) % MCV (80-100) fl MCH (26-34) pg MCHC (32-36) g/dl RDW (11.5-14.5) % Plt Count (150-375) k/mm3 MPV (7.4-10.4) fl Immature Gran % (Auto) (0-0.5) % Neut % (Auto) (45.5-73.1) % Lymph % (Auto) (18.3-44.2) % [place] % (Auto) (2.6-8.5) % Eos % (Auto) (0-4.4) % Baso % (Auto) (0.2-1.2) % Lymph # (Auto) (0.9-3.2) K/mm3 [place] # (Auto) (0.1-0.6) K/mm3 Eos # (Auto) (0-0.3) K/mm3 Baso # (Auto) (0.0-0.1) K/mm3 Abs Immat Gran (auto) (0.00-0.031) K/mm3 Absolute Neuts (auto) (1.3-6.7) K/mm3 Absolute Nucleated RBC (0.0-0.012) K/mm3 Total Counted Neutrophils % (Manual) (46-73) % Band Neutrophils % (0-6) % Lymphocytes % (Manual) (18-44) % Monocytes % (Manual) (3-9) % Nucleated RBC % (0.0-0.2) % Abs Neuts (Manual) (1.7-7.2) K/mm3 Abs Lymphs (Manual) (1.1-4.5) K/mm3 Abs Monocytes (Manual) (0.1-0.90) K/mm3 Nucleated RBCs % Smudge Cells Platelet Estimate (Adequate) Hypochromasia Anisocytosis Macrocytosis (NORMAL) Ovalocytes [place] Cells Schistocytes PT (11.1-14.7) Seconds INR APTT (22.3-36.8) Seconds Fibrinogen (215-510) mg/dl D-Dimer (<0.48) ug/mL Minute Volume Vent Mode Tidal Volume ml PEEP cmH2O Peak Inspir Pressure Pressure Support Sodium (137-145) mmol/L Potassium (3.4-5.0) mmol/L Chloride (98-107) mmol/L Carbon Dioxide (22-30) mmol/L Anion Gap (4-12) mmol/L BUN (7-17) mg/dL Creatinine (0.7-1.0) mg/dL Estim Creat Clear Calc ml/min Estimated GFR (59 - ) Glucose (65-110) mg/dL POC Capillary Glucose (65-105) mg/dl Lactic Acid (0.7-2.0) mmol/L Calcium (8.4-10.2) mg/dL Phosphorus (2.5-4.5) mg/dL Magnesium (1.6-2.3) mg/dL Total Bilirubin (0.2-1.3) mg/dL AST (14-36) U/L ALT (6-35) U/L Alkaline Phosphatase (38-126) U/L Ammonia (9-30) umol/L Total Creatine Kinase (30-135) U/L Troponin I (0.000-0.034) ng/mL NT-Pro-B Natriuret Pep (19.9-100) pg/mL Total Protein (6.3-8.2) g/dL Albumin (3.5-5.1) g/dL Lipase (23-300) U/L Procalcitonin ng/mL Urine Color (Yellow) Urine Appearance (Clear) Urine pH (5.0-9.0) Ur Specific [place] (1.001-1.035) Urine Protein (Negative) mg/dL Urine Glucose (UA) (Negative) mg/dL Urine Ketones (Negative) mg/dL Ur Blood (Man) (Negative) Urine Nitrate (Negative) Urine Bilirubin (Negative) Urine Urobilinogen (<2.0) mg/dL Leukocyte Esterase Rfl (Negative) LANETTE/UL Urine RBC (0-2) /hpf Urine WBC (0-3) /hpf Ur Squamous Epith Cells (Few) /hpf Urine Bacteria /hpf Urine Casts Nasal MRSA (PCR) Not detected (NOT DETECTE) Influenza A (RT-PCR) (Negative) Influenza B (RT-PCR) (Negative) RSV (RT-PCR) (Negative) SARS-CoV-2 RNA (RT-PCR) (Negative) Blood Type Antibody Screen Crossmatch <Dana Aguilar MD - Last Filed: 07/11/24 19:13> ABG Data ABG results: 07/11/24 07/11/24 07/11/24 01:42 06:50 09:23 Puncture Site Left radial Right radial Artline ABG pH 6.937 L* 6.983 L* 7.008 L* ABG pCO2 40.8 35.4 42.4 ABG pO2 405.0 H 136.3 H 407.7 H ABG PO2/FiO2 Ratio 4.05 2.27 4.08 ABG HCO3 8.5 L 8.2 L 10.4 L ABG O2 Saturation 99.6 97.0 99.7 ABG O2 Content 16.7 13.3 L 12.4 L ABG Base Excess -23.0 -22.1 -19.5 A-a Gradient 267.2 252.6 262.9 Oxyhemoglobin 99.0 96.6 98.7 Total Hemoglobin 11.2 L 9.6 L 8.1 L O2 Delivery Device Ventilator Ventilator Ventilator O2 Liters/Min Not Reportable Not Reportable Not Reportable Vent Rate 16 22 28 FiO2 100 60 100 <Melquiades Sandoval MD - Last Filed: 07/10/24 19:53> 07/11/24 07/11/24 07/11/24 01:42 06:50 09:23 Puncture Site Left radial Right radial Artline ABG pH 6.937 L* 6.983 L* 7.008 L* ABG pCO2 40.8 35.4 42.4 ABG pO2 405.0 H 136.3 H 407.7 H ABG PO2/FiO2 Ratio 4.05 2.27 4.08 ABG HCO3 8.5 L 8.2 L 10.4 L ABG O2 Saturation 99.6 97.0 99.7 ABG O2 Content 16.7 13.3 L 12.4 L ABG Base Excess -23.0 -22.1 -19.5 A-a Gradient 267.2 252.6 262.9 Oxyhemoglobin 99.0 96.6 98.7 Total Hemoglobin 11.2 L 9.6 L 8.1 L O2 Delivery Device Ventilator Ventilator Ventilator O2 Liters/Min Not Reportable Not Reportable Not Reportable Vent Rate 16 22 28 FiO2 100 60 100 <Dana Aguilar MD - Last Filed: 07/11/24 19:13> Critical Care Time Critical Care Time Critical Care Time: Yes <Melquiades Sandoval MD - Last Filed: 07/10/24 19:53> Total Critical Care Time: 60 <Melquiades Sandoval MD - Last Filed: 07/10/24 19:53> Discharge Plan Discharge Clinical Impression: Acute GI bleeding, Hypotension due to blood loss, Hemorrhagic shock, Acute renal failure, Transaminitis, Influenza A, Airway intubation performed without difficulty, On mechanically assisted ventilation <Melquiades Sandoval MD - Last Filed: 07/10/24 19:53> Patient Disposition: Acute Care Hospital <Melquiades Sandoval MD - Last Filed: 07/10/24 19:53> Condition: Guarded Prognosis <Melquiades Sandoval MD - Last Filed: 07/10/24 19:53>
[2024-07-10] MEDS: ONDANSETRON INJ 4 MG/2 ML VIAL IV PUSH (20:12)
[2024-07-10] MEDS: PANTOPRAZOLE SODIUM IV 40 MG VIAL 80 MG IV PUSH (20:12)
[2024-07-10 20:14] LABS: Hematocrit 24.6 % (37.0-47.0); Hemoglobin 8.4 g/dL (12.0-15.0)
--- NOTE | 2024-07-10 20:37 | PC.NURSE ---
EDP- Dr. Aguilar made aware of max dose Levophed at 30 mcg/min being administered without systolic goals reached.
[2024-07-10] MEDS: VASOPRESSIN INJ 100 UNITS in DEXTROSE 5% 95 ML IV CONT ×2 (20:45→22:04)
--- NOTE | 2024-07-10 23:29 | PC.NURSE ---
EDP made aware of blood pressure.
[2024-07-11] VITALS (162 sets, daily range): BP systolic 32–137; BP diastolic 17–95; PULSE 80–162; RESP 15–58; TEMP 35.8–39.4; O2SAT 73–100; BMI 38.8
[2024-07-11 00:34] LABS: Lactic Acid Reflex 11.3 mmol/L (0.7-2.0)
[2024-07-11 00:36] LABS: Hematocrit 29.2 % (37.0-47.0); Hemoglobin 9.9 g/dL (12.0-15.0)
[2024-07-11] MEDS: ONDANSETRON INJ 4 MG/2 ML VIAL IV PUSH (01:14)
[2024-07-11] MEDS: ACETAMINOPHEN 500 MG TABLET 1000 MG PO (01:14)
[2024-07-11] MEDS: NOREPINEPHRINE 8 MG/D5W 250 ML 8 MG/250 ML BAG 56.25 MG IV CONT ×6 (01:17→23:52)
--- NOTE | 2024-07-11 01:25 | ECG_ITS ---
Test Date: 2024-07-11 01:29:33 Measurements Intervals [place] Rate: 131 P: 0 IN: 0 QRS: -26 QRSD: 110 T: 49 QT: 286 QTc: 423 Interpretive Statements SINUS TACHYCARDIA ATRIAL PREMATURE COMPLEX LEFT BUNDLE BRANCH BLOCK BASELINE ARTIFACT- II, III, AVR, AVL, AVF, V1 ABNORMAL ECG No previous ECG available for comparison Electronically Signed On 07-11-2024 07:45:17 SHIPPING CLERK CRATING by Mahendra Ledesma D.O.
[2024-07-11] MEDS: ETOMIDATE 20 MG/10 ML AMPUL 30 MG IV PUSH (01:57)
--- NOTE | 2024-07-11 01:57 | PC.NURSE ---
Time out for intubation airway protection and hemodynamic instability at 0157. 30 mg Etomidate and 70 mg of Rocuronium at 0158 via central line. 7.5ETT with 21 at the lips at 0158; colormetric change, condensation noted with clear bilateral breath sounds. 100 mcg Phenylephrine administered at 0200 and 0204 for hypotension (54/42 at 0157 and 74/40 at 0202). Improvement of pressure to 72/58 MAP of 64. EDP at bedside. At 0213 an OG 18 [place] sump was placed at 65 at the lips. VORB for Fentanyl drip for continuous sedation. Started at 0215 at 25 mcg/hour.
[2024-07-11] MEDS: ROCURONIUM BROMIDE 50 MG/5 ML VIAL 70 MG IV PUSH (01:58)
[2024-07-11 02:03] LABS: NT Pro B Type Natriuretic Pept 553 pg/mL (19.9-100)
[2024-07-11] MEDS: FENTANYL 2,500MCG/NS250ML(*CRX 2,500 MCG/250 ML BAG IV CONT (02:15)
[2024-07-11 02:28] LABS: Troponin I 0.161 ng/mL (0.000-0.034)
[2024-07-11] MEDS: RAPID SEQUENCE INTUBATION KIT 1 EACH (02:33)
[2024-07-11] MEDS: PHENYLEPHRINE 1,000 MCG/10 ML SYRINGE 100 MCG IV PUSH (02:33)
[2024-07-11 02:44] LABS: Alveolar/Arterial O2 Gradient 267.2 mmHg; Fractional Inspired Oxygen 100 %; HCO3 ABG 8.5 mEq/l (22.0-26.0); Oxygen Content ABG 16.7 %vol (16.0-22.0); Oxygen Saturation ABG 99.6 % (95.0-100.0); PCO2 ABG 40.8 mmHg (35.0-45.0); PO2 FiO2 Ratio Arterial Blood 4.05 %; Total Hemoglobin 11.2 g/dL (12.0-18.0)
[2024-07-11 02:46] LABS: Device VENTILATOR; Modified Allen's Test Pass; Site Drawn LEFT RADIAL; pH ABG 6.937 (7.350-7.450)
[2024-07-11 02:49] LABS: Arterial Blood Gas PEEP 5 cmH2O; Arterial Blood Gas Tidal Volume 450 ml; Arterial Blood Gas Vent Mode CMV; Arterial Blood Gas Ventilator rate 16 /MIN
[2024-07-11] MEDS: PHENYLEPHRINE HCL INJ 50 MG in DEXTROSE 5% IN WATER 250 ML/245 ML BAG 12 ML IV CONT (02:52)
[2024-07-11] MEDS: SODIUM BICARBONATE 8.4% 50 MEQ/50 ML SYRINGE IV PUSH ×2 (02:58→04:22)
[2024-07-11] MEDS: CEFEPIME 1 GM/NS 50 ML 1 GM/50 ML BAG IVPB (03:13)
[2024-07-11 03:30] LABS: Add Urine Microscopic? YES; Appearance Urine Clear (Clear); Bacteria Urine None Seen /hpf; Bilirubin Urine 1+ (Negative); Blood Urine Negative (Negative); Color Urine Dark Yellow (Yellow); Glucose Urine UA 2+ mg/dL (Negative); Ketones Urine Trace mg/dL (Negative); Leukocyte Esterase Ur Trace LEU/UL (Negative); Nitrate Urine Negative (Negative); Protein Urine Negative (Negative); RBC Urine 0-2 /hpf (0-2); Specific Grav Ur > 1.045 (1.001-1.035); Squamous Epithelial Cell Urine Occasional /hpf (Few); pH Urine 5.5 (5.0-9.0)
[2024-07-11] MEDS: PHENYLEPHRINE HCL INJ 50 MG in DEXTROSE 5% IN WATER 250 ML/245 ML BAG 18 ML IV CONT (03:30)
[2024-07-11 03:31] LABS: Procalcitonin 1.6 ng/mL
--- NOTE | 2024-07-11 03:31 | PCRCNOTE ---
Pt. had to be intubated and ABG was done after. Dr Aguilar was not able to cancel 214 ABG but she verbally told me that she does need it.
[2024-07-11] MEDS: VANCOMYCIN 1,250 MG/NS 250 ML 1,250 MG/250 ML BAG 166.67 MG IVPB ×2 (03:56→07:59)
[2024-07-11 04:00] LABS: Influenza A QL RT-PCR Positive (Negative); Influenza B QL RT-PCR Negative (Negative); RSV RNA, RT-PCR Negative (Negative); SARS-CoV-2 RNA PCR Negative (Negative)
--- NOTE | 2024-07-11 04:16 | PC.NURSE ---
EDP aware of hypotension.
[2024-07-11] MEDS: SODIUM CHLORIDE 0.9% IV 1,000 ML 999 ML IV CONT (04:23)
[2024-07-11 04:42] LABS: Albumin Level 1.7 g/dL (3.5-5.1)
[2024-07-11 04:49] LABS: Alanine Aminotransferase 337 U/L (6-35); Alkaline Phosphatase 95 U/L (38-126); Anion Gap 19 mmol/L (4-12); Bilirubin,Total 2.2 mg/dL (0.2-1.3); Blood Urea Nitrogen 24 mg/dL (7-17); Calcium 6.1 mg/dL (8.4-10.2); Carbon Dioxide 25 mmol/L (22-30); Chloride 102 mmol/L (98-107); Estimated CRCL calculation 49 ml/min; Estimated Glomerular Filt Rate 39; Glucose 94 mg/dL (65-110); Potassium 4.7 mmol/L (3.4-5.0); Sodium 146 mmol/L (137-145)
[2024-07-11 04:51] LABS: Aspartate Amino Transferase 811 U/L (14-36)
[2024-07-11] MEDS: NOREPINEPHRINE 8 MG/D5W 250 ML 8 MG/250 ML BAG 56.3 MG (05:00)
[2024-07-11] MEDS: CALCIUM GLUCONATE 1,000 MG/10 ML VIAL 1000 MG IV PUSH (05:07)
[2024-07-11] MEDS: ALBUMIN HUMAN 25% 25 GM/100 ML 100 ML IVPB ×4 (05:22→21:50)
[2024-07-11 06:53] LABS: Alveolar/Arterial O2 Gradient 252.6 mmHg; Base Excess ABG -22.1 mEq/l (+/-2.0); Fractional Inspired Oxygen 60 %; HCO3 ABG 8.2 mEq/l (22.0-26.0); Oxygen Content ABG 13.3 %vol (16.0-22.0); Oxyhemoglobin 96.6 % THb (90.0-100.0); PCO2 ABG 35.4 mmHg (35.0-45.0); PO2 ABG 136.3 mmHg (80.0-100.0); PO2 FiO2 Ratio Arterial Blood 2.27 %; Total Hemoglobin 9.6 g/dL (12.0-18.0)
[2024-07-11 06:54] LABS: Modified Allen's Test Pass; Site Drawn RIGHT RADIAL; pH ABG 6.983 (7.350-7.450)
[2024-07-11 06:55] LABS: Arterial Blood Gas PEEP 5 cmH2O; Arterial Blood Gas Tidal Volume 450 ml; Arterial Blood Gas Vent Mode CMV; Arterial Blood Gas Ventilator rate 22 /MIN; Device VENTILATOR
--- NOTE | 2024-07-11 08:12 | PC.NURSE ---
0806 - No ICU bed at [facility] pt remains on waitlist 0812 - No ICU bed at [facility] pt remains of waitlist
--- NOTE | 2024-07-11 08:33 | PC.NURSE ---
2 AMPS OF BICARB GIVEN IVP VORB DR [facility]UST ICU CLINICAL ASSOCIATE
[2024-07-11] MEDS: EPINEPHrine INJ 1 MG in DEXTROSE 5% IN WATER 250 ML 15.06 MG IV CONT (08:37)
[2024-07-11] MEDS: PHENYLEPHRINE HCL INJ 50 MG in DEXTROSE 5% IN WATER 250 ML/245 ML BAG 54 ML IV CONT ×3 (09:10→18:40)
--- NOTE | 2024-07-11 09:18 | ADMGEN ---
This patient, Kathya Murphy, was admitted to Intensive Care Unit-10. Patient/family oriented to hospital policies and general routines including ID bracelet, bed and alarms, visiting hours, pain management, procedures, bathroom and other care routines, personal items, smoking policy, room service/diet, and visiting hours. Information on how to activate the Rapid Response Team has been discussed. Patient/Family are encouraged to report perceived risks to care and to ask questions if they do not understand what they are told or what they should do.
[2024-07-11 09:30] LABS: Alveolar/Arterial O2 Gradient 262.9 mmHg; Base Excess ABG -19.5 mEq/l (+/-2.0); Fractional Inspired Oxygen 100 %; HCO3 ABG 10.4 mEq/l (22.0-26.0); Oxygen Content ABG 12.4 %vol (16.0-22.0); Oxygen Saturation ABG 99.7 % (95.0-100.0); Oxyhemoglobin 98.7 % THb (90.0-100.0); PCO2 ABG 42.4 mmHg (35.0-45.0); PO2 ABG 407.7 mmHg (80.0-100.0); PO2 FiO2 Ratio Arterial Blood 4.08 %; Total Hemoglobin 8.1 g/dL (12.0-18.0)
[2024-07-11 09:31] LABS: Device VENTILATOR; Site Drawn ARTLINE; pH ABG 7.008 (7.350-7.450)
[2024-07-11 09:32] LABS: Arterial Blood Gas PEEP 5 cmH2O; Arterial Blood Gas Tidal Volume 450 ml; Arterial Blood Gas Vent Mode CMV; Arterial Blood Gas Ventilator rate 28 /MIN
[2024-07-11] MEDS: SODIUM BICARBONATE 8.4% 50 MEQ/50 ML SYRINGE 100 MEQ IV PUSH ×3 (09:40→18:40)
[2024-07-11] MEDS: MEROPENEM 500 MG/NS 100 ML 500 MG/100 ML BAG 200 MG IVPB ×2 (09:41→23:54)
[2024-07-11 09:48] LABS: Hematocrit 24.1 % (37.0-47.0); Hemoglobin 7.5 g/dL (12.0-15.0); Mean Corpuscular HGB Conc 31.1 g/dl (32-36); Mean Corpuscular Hemoglobin 33.5 pg (26-34); Mean Corpuscular Volume 107.6 fl (80-100); Mean Platelet Volume 11.8 fl (7.4-10.4); Platelet Count Result 160 k/mm3 (150-375); Red Blood Count 2.24 M/mm3 (4.2-5.4); Red Cell Distribution Width 24.8 % (11.5-14.5); White Blood Count 22.1 K/mm3 (4.5-10.0)
[2024-07-11 09:57] LABS: Ammonia < 9 umol/L (9-30)
[2024-07-11 10:00] LABS: INR 3.7; Prothrombin Time 36.7 Seconds (11.1-14.7)
[2024-07-11 10:01] LABS: Partial Thromboplastin Time 61.7 Seconds (22.3-36.8)
[2024-07-11 10:06] LABS: Fibrinogen 110 mg/dl (215-510)
[2024-07-11] MEDS: SODIUM BICARBONATE 8.4% 150 MEQ in WATER, STERILE FOR INJECTION 950 ML 100 MEQ IV CONT ×2 (10:07→21:21)
[2024-07-11 10:30] LABS: D Dimer 3.93 ug/mL (<0.48)
[2024-07-11 10:37] LABS: Lactic Acid Reflex 21.5 mmol/L (0.7-2.0)
[2024-07-11 10:43] LABS: Band Neutrophils Percent 10 % (0-6); Lymphocytes Absolute Manual 2.87 K/mm3 (1.1-4.5); Lymphocytes Percent Manual 13 % (18-44); Monocytes Absolute Manual 1.32 K/mm3 (0.1-0.90); Monocytes Percent Manual 6 % (3-9); Neutrophils Absolute Manual 16.79 K/mm3 (1.7-7.2); Neutrophils Percent Manual 66 % (46-73); Total Cells Counted 100
[2024-07-11 10:44] LABS: Anisocytosis 1+; Macrocytosis 1+ (NORMAL); Nucleated Red Blood Cells 4 %; Ovalocytes 1+; Platelet Estimate Adequate (Adequate); Smudge Cells FEW
[2024-07-11 10:45] LABS: Burr Cells 1+; Schistocytes None Seen
[2024-07-11 10:47] LABS: Hematocrit 24.1 % (37.0-47.0); Hemoglobin 7.5 g/dL (12.0-15.0); Red Blood Count 2.24 M/mm3 (4.2-5.4); White Blood Count 22.1 K/mm3 (4.5-10.0)
[2024-07-11 10:48] LABS: Mean Corpuscular HGB Conc 31.1 g/dl (32-36); Mean Corpuscular Hemoglobin 33.5 pg (26-34); Mean Corpuscular Volume 107.6 fl (80-100); Platelet Count Result 160 k/mm3 (150-375); Red Cell Distribution Width 24.8 % (11.5-14.5)
[2024-07-11 10:49] LABS: Mean Platelet Volume 11.8 fl (7.4-10.4)
[2024-07-11 10:58] LABS: MRSA (PCR) NOT DETECTED (NOT DETECTE)
[2024-07-11 11:01] LABS: Magnesium 2.1 mg/dL (1.6-2.3)
[2024-07-11 11:07] LABS: Albumin Level 1.8 g/dL (3.5-5.1); Alkaline Phosphatase 102 U/L (38-126); Anion Gap 26 mmol/L (4-12); Bilirubin,Total 2.6 mg/dL (0.2-1.3); Blood Urea Nitrogen 23 mg/dL (7-17); Calcium 6.4 mg/dL (8.4-10.2); Carbon Dioxide 10 mmol/L (22-30); Chloride 100 mmol/L (98-107); Creatine Kinase 262 U/L (30-135); Estimated CRCL calculation 33 ml/min; Estimated Glomerular Filt Rate 25; Glucose 81 mg/dL (65-110); Lipase 420 U/L (23-300); Magnesium 2.1 mg/dL (1.6-2.3); Phosphorus 9.7 mg/dL (2.5-4.5); Potassium 4.8 mmol/L (3.4-5.0); Sodium 136 mmol/L (137-145)
[2024-07-11 11:08] LABS: Alanine Aminotransferase 1870 U/L (6-35)
--- NOTE | 2024-07-11 11:55 | P.CONGS_ITS ---
Assessment and Plan Assessment and plan (1) Lactic acidosis: Code(s): E87.20 - Acidosis, unspecified Status: Acute Assessment and Plan: Patient presented with GI bleed and CTA abdomen and pelvis showing small focus of active extravasation within the jejunum in the left abdomen. Attempts were made to transfer the patient where IR is available without success given full capacity at all the facilities. She received 3 units of PRBCs and IV fluid resuscitation in the ER, but she remained hypotensive and required ICU transfer, central line placement, and vasopressor support. She now has evidence of shock with multi-organ failure and appears to be in DIC. She is currently on 4 different vasopressors to maintain a stable blood pressure. She has not had anymore melanotic stools this morning, but her lactic acid has climbed to 21.5. There is certainly concern for bowel ischemia, but at this time she would not be an operative candidate given her hemodynamic instability and critical illness as mentioned above. We would recommend to continue attempting to transfer the patient to a tertiary care facility with IR capabilities. I discussed our recommendations and plan with the patient's daughter who is at the bedside. They are waiting for the patient's son to arrive from out of state. We will continue to follow along for any changes. (2) Acute GI bleeding: Code(s): K92.2 - Gastrointestinal hemorrhage, unspecified Status: Acute (3) DIC (disseminated intravascular coagulation): Code(s): D65 - Disseminated intravascular coagulation [defibrination syndrome] Status: Acute (4) Acute respiratory failure: Code(s): J96.00 - Acute respiratory failure, unspecified whether with hypoxia or hypercapnia Status: Acute (5) Hemorrhagic shock: Code(s): R57.8 - Other shock Status: Acute (6) Influenza A: Code(s): J10.1 - Influenza due to other identified influenza virus with other respiratory manifestations Status: Acute (7) COPD (chronic obstructive pulmonary disease): Code(s): J44.9 - Chronic obstructive pulmonary disease, unspecified Status: Acute (8) Diabetes: Code(s): E11.9 - Type 2 diabetes mellitus without complications Status: Acute Plan I have discussed the patient's case and plan of care with Dr. Mosqueda. Thank you for allowing us to see the patient in consultation and we will continue to follow along with you. History of Present Illness Consult details Consult date: 07/11/24 Reason for consult: other (Ischemic bowel) Requesting physician: Latasha Potter MD Narrative: This is a 64-year-old woman with PMH of hypertension, diabetes, RA, hyperlipidemia, remote history of splenectomy, who we have been asked to see in surgical consultation for ischemic bowel. She presented to the ED yesterday with complaints of generalized malaise, abdominal pain, and melena x1 yesterday evening. She is not on any anticoagulation. While in the ED she had 2 more large melanotic stools and was hypotensive. Labs initially showed a white blood cell count of 8900, hemoglobin 7.4, hematocrit 21.7, sodium 130, BUN 23, creatinine 0.7, glucose 320, lactic acid 6.7, mildly elevated AST and ALT. CTA of the abdomen and pelvis showed gastrointestinal bleed with small focus of active intraluminal contrast extravasation within a loop of jejunum in the left abdomen. She was also found to be influenza A positive. They called and discussed the case with the general surgeon on-call who recommended transfer to a tertiary care facility where IR would be available. They attempted multiple facilities and were unable to transfer the patient. Her hypotension progressed despite IV fluid resuscitation and she subsequently had a central line placed. She was transfused with 3 units of packed red blood cells in the ED. She appeared to be in hemorrhagic shock, and was transferred up to the ICU. She is now on 4 different vasopressors and was intubated earlier this morning. She has not had any more bowel movements since the ED. her hemoglobin went up to 9.9, but came down to 7.5 again this morning. This could be partially dilutional as she has received around at least 5 L of IV fluids, and she has not had any more melanotic stools this morning. Her trended labs showed her white blood cell count go up to 22,000, LFTs are going up, creatinine is rising to 2.03, lactic acid up to 21.5, and she appears to be in acute DIC. Blood gas shows pH of 7.008, HCO3 10.4. Given her significant lactic acidosis and concern for ischemic bowel, we have been consulted. It appears she was hypotensive around 1500 yesterday when presenting to the ED through the night. Her SBP was between 70- 90's and DBP between 40-60's. Into the post doctoral researcher, around 0300, her blood pressure dropped lower to 40/20's. Her blood pressure improved after starting on vasopressors and she is now on 4. She has cryo, FFP, and another unit of PRBCs ordered this morning. She is seen in the ICU, intubated, with her daughter and granddaughter at the bedside. She is unresponsive and not following commands. She does not track with her eyes. She appears to have agonal breathing on the mechanical ventilator. She is unarousable even to deep stimulation. When questioning her daughter, she does not have any additional information in the events leading up to her ER presentation. She denies any history of GI bleed or any anticoagulation. 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 She denies her having any MVA or injury that caused a laceration or bleed, but she believes the spleen was injured and they ultimately had to perform a splenectomy. Review of Systems 2 Review of Systems: ROS unobtainable: Yes unobtainable due to endotracheal tube PMFSH Past Medical History Medical History (Updated 07/11/24 @ 12:32 by SUZIE Reyna) CKD (chronic kidney disease) stage 3, GFR 30-59 ml/min Chronic narcotic use COPD (chronic obstructive pulmonary disease) PATO (obstructive sleep apnea) TIA (transient ischemic attack) Diabetes Left bundle branch block Followed by cardiology Decreased GFR History of GFR of 42 Recent GFR of 62 Former smoker Rheumatoid aortitis Obesity BALBUENA (dyspnea on exertion) Preop cardiovascular exam Hypertension Dyslipidemia Right knee DJD Surgical History Surgical History History of laparoscopic cholecystectomy History of partial hysterectomy History of splenectomy 2019 Hx of arthroscopy of left knee 2008 Social History Social History Social History: [place] her is her surrogate, she has 2 kids one daughter and one son. She does live in a house that is one story, however there are 5 steps to get into the house. 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 [employer] Gender identity (if verbalized by the patient): Female Sexual Orientation (if Verbalized by the Patient): Straight or Heterosexual Spiritual care concerns: No Agree to blood products: Yes Meds Home Medications and Allergies Home Medications ?Medication ?Instructions ?Recorded ?Confirmed ?Type aspirin 81 mg capsule 81 mg PO DAILY 09/25/21 07/10/24 History azathioprine 50 mg tablet 50 mg PO BID 09/25/21 07/10/24 History metformin 500 mg tablet,extended 1,500 mg PO DAILY 09/25/21 07/10/24 History release 24 hr ropinirole 4 mg tablet 4 mg PO QHS RLS 09/25/21 07/10/24 History trimethoprim 100 mg tablet 100 mg PO DAILY 09/25/21 07/10/24 History hydrochlorothiazide 25 mg tablet 25 mg PO DAILY 05/21/22 07/10/24 History amlodipine 10 mg tablet 10 mg PO DAILY 07/28/23 07/10/24 History atorvastatin 20 mg tablet 20 mg PO QHS 07/28/23 07/10/24 History insulin glargine U-300 conc 300 57 unit subcut BID 07/28/23 07/10/24 History unit/mL (3 mL) subcutaneous pen (Toujeo Max U-300 SoloStar) pramipexole 0.5 mg tablet 0.5 mg PO TID 07/28/23 07/10/24 History upadacitinib 15 mg tablet,extended 15 mg PO DAILY 07/28/23 07/10/24 History release 24 hr (Rinvoq) insulin aspart U-100 100 unit/mL 100 unit subcut DAILY #90 mL 11/09/23 07/10/24 Rx (3 mL) subcutaneous pen folic acid 1 mg tablet 1 mg PO HS 07/10/24 07/10/24 History Allergies Allergy/AdvReac Type Severity Reaction Status Date / Time Sulfa (Sulfonamide Allergy Intermediate Hives Verified 07/10/24 15:33 Antibiotics) morphine AdvReac Intermediate Headache Verified 07/10/24 15:33 Vital Signs Vital Signs - 24 hr 07/10/24 15:06 07/10/24 16:04 07/10/24 17:13 Temperature 98.3 F 97.8 F Pulse Rate 115 H 98 111 H Respiratory Rate 23 H 20 22 H Blood Pressure 70/42 L 80/39 L 81/57 L Pulse Oximetry 99 94 97 Oxygen Delivery Room Air Fraction of Inspired Oxygen 07/10/24 17:13 07/10/24 17:16 07/10/24 17:28 Temperature 97.8 F 98.3 F Pulse Rate 111 H 112 H 114 H Respiratory Rate 22 H 29 H 25 H Blood Pressure 81/57 L 87/41 L 79/51 L Pulse Oximetry 97 95 96 Oxygen Delivery Fraction of Inspired Oxygen 07/10/24 17:30 07/10/24 18:15 07/10/24 18:19 Temperature 98.2 F 98.2 F Pulse Rate 112 H 127 H 116 H Respiratory Rate 26 H 27 H 28 H Blood Pressure 79/51 L 87/63 L 87/63 L Pulse Oximetry 94 98 100 Oxygen Delivery Fraction of Inspired Oxygen 07/10/24 18:28 07/10/24 18:34 07/10/24 18:58 Temperature 97.6 F 97.7 F Pulse Rate 117 H 116 H 117 H Respiratory Rate 25 H 26 H 26 H Blood Pressure 87/63 L 83/63 L 87/57 L Pulse Oximetry 98 99 97 Oxygen Delivery Fraction of Inspired Oxygen 07/10/24 19:01 07/10/24 19:06 07/10/24 19:07 Temperature Pulse Rate 118 H 124 H 120 H Respiratory Rate 30 H Blood Pressure 87/54 L 80/53 L 80/53 L Pulse Oximetry 98 Oxygen Delivery Fraction of Inspired Oxygen 07/10/24 19:15 07/10/24 19:16 07/10/24 19:32 Temperature Pulse Rate 127 H 138 H 123 H Respiratory Rate 28 H 32 H Blood Pressure 91/61 L 73/59 L Pulse Oximetry 97 96 Oxygen Delivery Fraction of Inspired Oxygen 07/10/24 19:35 07/10/24 19:47 07/10/24 19:54 Temperature Pulse Rate 121 H 120 H 128 H Respiratory Rate Blood Pressure 86/56 L 84/54 L 52/51 L Pulse Oximetry Oxygen Delivery Fraction of Inspired Oxygen 07/10/24 20:03 07/10/24 20:07 07/10/24 20:09 Temperature Pulse Rate 132 H 132 H 130 H Respiratory Rate 39 H Blood Pressure 82/54 L 90/58 L Pulse Oximetry 98 Oxygen Delivery Fraction of Inspired Oxygen 07/10/24 20:10 07/10/24 20:14 07/10/24 20:15 Temperature Pulse Rate 128 H 126 H 127 H Respiratory Rate 38 H 30 H Blood Pressure 89/58 L 77/50 L Pulse Oximetry Oxygen Delivery Fraction of Inspired Oxygen 07/10/24 20:16 07/10/24 20:19 07/10/24 20:24 Temperature Pulse Rate 130 H 127 H 133 H Respiratory Rate 30 H Blood Pressure 77/50 L 80/50 L 68/46 L Pulse Oximetry Oxygen Delivery Fraction of Inspired Oxygen 07/10/24 20:27 07/10/24 20:32 07/10/24 20:34 Temperature 98.6 F 98.0 F Pulse Rate 130 H 133 H 129 H Respiratory Rate 30 H 32 H Blood Pressure 74/46 L 80/50 L 78/60 L Pulse Oximetry 95 97 Oxygen Delivery Fraction of Inspired Oxygen 07/10/24 20:37 07/10/24 20:45 07/10/24 20:45 Temperature 97.6 F Pulse Rate 132 H 131 H 128 H Respiratory Rate 32 H Blood Pressure 78/60 L 78/60 L 76/58 L Pulse Oximetry 95 Oxygen Delivery Fraction of Inspired Oxygen 07/10/24 20:49 07/10/24 21:00 07/10/24 21:18 Temperature Pulse Rate 131 H 140 H 127 H Respiratory Rate 31 H 42 H 30 H Blood Pressure Pulse Oximetry 97 Oxygen Delivery Fraction of Inspired Oxygen 07/10/24 21:31 07/10/24 21:32 07/10/24 21:47 Temperature Pulse Rate 125 H 125 H 131 H Respiratory Rate 27 H 32 H 15 Blood Pressure 79/70 L 84/53 L Pulse Oximetry 95 95 97 Oxygen Delivery Fraction of Inspired Oxygen 07/10/24 21:48 07/10/24 22:00 07/10/24 22:01 Temperature Pulse Rate 125 H 127 H 127 H Respiratory Rate 26 H 31 H 30 H Blood Pressure 79/51 L Pulse Oximetry 96 Oxygen Delivery Fraction of Inspired Oxygen 07/10/24 22:02 07/10/24 22:04 07/10/24 22:08 Temperature 98.1 F Pulse Rate 129 H 126 H 125 H Respiratory Rate 30 H Blood Pressure 80/52 L 80/52 L 80/52 L Pulse Oximetry 95 Oxygen Delivery Fraction of Inspired Oxygen 07/10/24 22:11 07/10/24 22:12 07/10/24 22:15 Temperature Pulse Rate 124 H 125 H 126 H Respiratory Rate 31 H 26 H Blood Pressure 84/58 L 83/57 L Pulse Oximetry 97 95 Oxygen Delivery Fraction of Inspired Oxygen 07/10/24 22:16 07/10/24 22:19 07/10/24 22:30 Temperature Pulse Rate 125 H 126 H 127 H Respiratory Rate 33 H 31 H 30 H Blood Pressure 83/60 L 84/60 L Pulse Oximetry 95 96 Oxygen Delivery Fraction of Inspired Oxygen 07/10/24 22:36 07/10/24 22:54 07/10/24 23:00 Temperature Pulse Rate 126 H 124 H 137 H Respiratory Rate 23 H 17 Blood Pressure 82/48 L Pulse Oximetry Oxygen Delivery Fraction of Inspired Oxygen 07/10/24 23:01 07/10/24 23:17 07/10/24 23:28 Temperature Pulse Rate 145 H 129 H 131 H Respiratory Rate 17 33 H 35 H Blood Pressure 80/50 L 74/46 L Pulse Oximetry 98 Oxygen Delivery Fraction of Inspired Oxygen 07/10/24 23:33 07/10/24 23:45 07/10/24 23:46 Temperature Pulse Rate 132 H 132 H 132 H Respiratory Rate 30 H 37 H 41 H Blood Pressure 76/51 L Pulse Oximetry Oxygen Delivery Fraction of Inspired Oxygen 07/11/24 00:00 07/11/24 00:02 07/11/24 00:05 Temperature Pulse Rate 134 H 136 H 135 H Respiratory Rate 36 H 44 H 40 H Blood Pressure 62/39 L 82/61 L Pulse Oximetry 97 73 L 97 Oxygen Delivery Fraction of Inspired Oxygen 07/11/24 00:17 07/11/24 00:21 07/11/24 00:30 Temperature Pulse Rate 131 H 131 H 127 H Respiratory Rate 23 H 37 H Blood Pressure 76/42 L Pulse Oximetry 97 Oxygen Delivery Fraction of Inspired Oxygen 07/11/24 00:31 07/11/24 01:02 07/11/24 01:15 Temperature Pulse Rate 128 H 129 H 130 H Respiratory Rate 37 H 44 H 28 H Blood Pressure 93/54 L Pulse Oximetry 97 Oxygen Delivery Fraction of Inspired Oxygen 07/11/24 01:16 07/11/24 01:17 07/11/24 01:17 Temperature Pulse Rate 129 H 130 H 131 H Respiratory Rate 30 H 45 H Blood Pressure 84/50 L 84/50 L 84/50 L Pulse Oximetry 95 100 Oxygen Delivery Fraction of Inspired Oxygen 07/11/24 01:30 07/11/24 01:32 07/11/24 01:39 Temperature 102.3 F H Pulse Rate 133 H 135 H Respiratory Rate 55 H 58 H Blood Pressure 102/88 Pulse Oximetry 98 97 Oxygen Delivery Fraction of Inspired Oxygen 07/11/24 01:45 07/11/24 01:55 07/11/24 01:59 Temperature Pulse Rate 136 H 162 H Respiratory Rate 41 H 26 H Blood Pressure 111/95 H 54/42 L Pulse Oximetry Oxygen Delivery Fraction of Inspired Oxygen 07/11/24 02:00 07/11/24 02:00 07/11/24 02:03 Temperature Pulse Rate 130 H 145 H 129 H Respiratory Rate 16 17 Blood Pressure 74/40 L Pulse Oximetry 100 Oxygen Delivery Mechanical Ventilation Fraction of Inspired Oxygen 100 07/11/24 02:05 07/11/24 02:15 07/11/24 02:15 Temperature Pulse Rate 129 H 131 H 131 H Respiratory Rate 15 19 16 Blood Pressure 72/57 L 90/64 L Pulse Oximetry Oxygen Delivery Fraction of Inspired Oxygen 07/11/24 02:16 07/11/24 02:17 07/11/24 02:22 Temperature Pulse Rate 132 H 132 H 134 H Respiratory Rate 16 16 16 Blood Pressure 90/64 L 102/65 Pulse Oximetry 100 Oxygen Delivery Fraction of Inspired Oxygen 07/11/24 02:30 07/11/24 02:45 07/11/24 02:46 Temperature 101.0 F H 102.0 F H 102.0 F H Pulse Rate 135 H 131 H 131 H Respiratory Rate 22 H 16 Blood Pressure Pulse Oximetry 91 Oxygen Delivery Fraction of Inspired Oxygen 07/11/24 02:47 07/11/24 02:52 07/11/24 03:00 Temperature 102.1 F H 102.4 F H Pulse Rate 131 H 130 H 133 H Respiratory Rate 16 16 Blood Pressure 71/30 L 72/30 L 66/40 L Pulse Oximetry 100 Oxygen Delivery Fraction of Inspired Oxygen 07/11/24 03:08 07/11/24 03:08 07/11/24 03:12 Temperature 102.5 F H 102.6 F H 102.6 F H Pulse Rate 130 H 129 H Respiratory Rate 16 16 Blood Pressure 66/40 L 66/40 L Pulse Oximetry 100 100 Oxygen Delivery Fraction of Inspired Oxygen 07/11/24 03:14 07/11/24 03:15 07/11/24 03:17 Temperature 102.6 F H 102.6 F H 102.6 F H Pulse Rate 128 H 128 H 127 H Respiratory Rate 16 16 16 Blood Pressure 76/57 L 67/44 L Pulse Oximetry 100 Oxygen Delivery Fraction of Inspired Oxygen 07/11/24 03:24 07/11/24 03:27 07/11/24 03:30 Temperature Pulse Rate 126 H 125 H 126 H Respiratory Rate Blood Pressure 68/44 L 68/44 L Pulse Oximetry 100 Oxygen Delivery Mechanical Ventilation Fraction of Inspired Oxygen 60 07/11/24 03:32 07/11/24 03:43 07/11/24 03:48 Temperature 102.8 F H 102.8 F H Pulse Rate 126 H 125 H 124 H Respiratory Rate 22 H 22 H Blood Pressure 62/50 L 45/29 L 46/30 L Pulse Oximetry 100 Oxygen Delivery Fraction of Inspired Oxygen 07/11/24 03:54 07/11/24 04:00 07/11/24 04:02 Temperature 102.8 F H 102.9 F H Pulse Rate 123 H 122 H 120 H Respiratory Rate 22 H 22 H Blood Pressure 51/41 L 48/33 L 50/42 L Pulse Oximetry 100 Oxygen Delivery Fraction of Inspired Oxygen 07/11/24 04:02 07/11/24 04:07 07/11/24 04:10 Temperature 102.9 F H 102.8 F H 102.8 F H Pulse Rate 121 H 120 H 120 H Respiratory Rate 22 H 22 H 22 H Blood Pressure 49/41 L 32/17 L 42/34 L Pulse Oximetry 100 100 100 Oxygen Delivery Fraction of Inspired Oxygen 07/11/24 04:15 07/11/24 04:17 07/11/24 04:17 Temperature 102.8 F H 102.8 F H Pulse Rate 119 H 120 H 119 H Respiratory Rate 22 H 22 H Blood Pressure 44/36 L 46/24 L Pulse Oximetry 100 Oxygen Delivery Fraction of Inspired Oxygen 02/05/25 04:18 07/11/24 04:19 07/11/24 04:22 Temperature 102.8 F H 102.8 F H Pulse Rate 128 H 118 H 118 H Respiratory Rate 22 H 19 22 H Blood Pressure 46/24 L 72/40 L Pulse Oximetry Oxygen Delivery Fraction of Inspired Oxygen 07/11/24 04:26 07/11/24 04:30 07/11/24 04:32 Temperature 102.8 F H 102.8 F H Pulse Rate 126 H 113 H 121 H Respiratory Rate Blood Pressure 69/54 L 124/58 L 76/42 L Pulse Oximetry Oxygen Delivery Fraction of Inspired Oxygen 07/11/24 04:32 07/11/24 04:35 07/11/24 04:37 Temperature 102.8 F H 102.7 F H 102.7 F H Pulse Rate 112 H 111 H 111 H Respiratory Rate 22 H 22 H 22 H Blood Pressure 123/57 L 127/63 136/52 L Pulse Oximetry 100 100 100 Oxygen Delivery Fraction of Inspired Oxygen 07/11/24 04:42 07/11/24 04:47 07/11/24 04:52 Temperature 102.4 F H 102.3 F H 102.1 F H Pulse Rate 110 H 113 H 112 H Respiratory Rate 22 H 22 H 22 H Blood Pressure 127/58 L 128/57 L 92/58 L Pulse Oximetry 100 100 100 Oxygen Delivery Fraction of Inspired Oxygen 07/11/24 04:56 07/11/24 04:57 07/11/24 04:58 Temperature 101.9 F H Pulse Rate 112 H 111 H 112 H Respiratory Rate 21 H Blood Pressure 76/48 L 76/47 L 82/50 L Pulse Oximetry 100 Oxygen Delivery Fraction of Inspired Oxygen 07/11/24 05:00 07/11/24 05:00 07/11/24 05:00 Temperature 101.9 F H Pulse Rate 112 H 112 H 112 H Respiratory Rate 22 H Blood Pressure 76/48 L 82/49 L 76/48 L Pulse Oximetry 100 Oxygen Delivery Fraction of Inspired Oxygen 07/11/24 05:02 07/11/24 05:06 07/11/24 05:06 Temperature 101.8 F H 101.7 F H Pulse Rate 113 H 112 H 112 H Respiratory Rate 22 H 22 H Blood Pressure 83/60 L 79/45 L Pulse Oximetry 100 98 100 Oxygen Delivery Mechanical Ventilation Fraction of Inspired Oxygen 60 07/11/24 05:11 07/11/24 05:13 07/11/24 05:16 Temperature 101.7 F H 101.6 F H Pulse Rate 113 H 111 H 114 H Respiratory Rate 22 H Blood Pressure 88/77 L 74/56 L 62/52 L Pulse Oximetry 97 Oxygen Delivery Fraction of Inspired Oxygen 07/11/24 05:21 07/11/24 05:25 07/11/24 05:31 Temperature 101.5 F H 101.4 F H 101.3 F H Pulse Rate 114 H 114 H 114 H Respiratory Rate 22 H 21 H 22 H Blood Pressure 68/50 L 74/56 L 72/43 L Pulse Oximetry 99 100 100 Oxygen Delivery Fraction of Inspired Oxygen 07/11/24 05:33 07/11/24 05:35 07/11/24 05:41 Temperature 101.3 F H 101.2 F H Pulse Rate 113 H 113 H 113 H Respiratory Rate 22 H 24 H Blood Pressure 72/44 L 85/72 L 60/48 L Pulse Oximetry 100 99 Oxygen Delivery Fraction of Inspired Oxygen 07/11/24 05:46 07/11/24 05:50 07/11/24 05:56 Temperature 101.1 F H 101.1 F H 101.0 F H Pulse Rate 112 H 113 H 112 H Respiratory Rate 24 H 26 H 25 H Blood Pressure 56/29 L 70/40 L 55/45 L Pulse Oximetry 97 97 97 Oxygen Delivery Fraction of Inspired Oxygen 07/11/24 06:00 07/11/24 06:06 07/11/24 06:11 Temperature 100.9 F H 100.8 F H 100.8 F H Pulse Rate 111 H 110 H 109 H Respiratory Rate 25 H 28 H 25 H Blood Pressure 67/47 L 74/53 L 55/28 L Pulse Oximetry 97 98 98 Oxygen Delivery Fraction of Inspired Oxygen 07/11/24 07:00 07/11/24 07:20 07/11/24 07:30 Temperature 100.3 F H 99.9 F H Pulse Rate 105 H 104 H 102 H Respiratory Rate 26 H 28 H Blood Pressure 71/60 L 67/47 L Pulse Oximetry 99 99 99 Oxygen Delivery Mechanical Ventilation Fraction of Inspired Oxygen 60 07/11/24 08:00 07/11/24 08:30 07/11/24 08:37 Temperature 99.5 F Pulse Rate 100 102 H Respiratory Rate 27 H Blood Pressure 63/38 L 89/50 L Pulse Oximetry 99 99 Oxygen Delivery Mechanical Ventilation Fraction of Inspired Oxygen 60 07/11/24 08:50 07/11/24 09:00 07/11/24 09:00 Temperature 99 F Pulse Rate 98 97 101 H Respiratory Rate 26 H Blood Pressure 70/43 L 75/31 L Pulse Oximetry 98 100 Oxygen Delivery Mechanical Ventilation Fraction of Inspired Oxygen 100 07/11/24 09:00 07/11/24 09:05 07/11/24 09:06 Temperature 98.5 F Pulse Rate 97 101 H Respiratory Rate 28 H Blood Pressure 75/31 L 75/31 L Pulse Oximetry 100 Oxygen Delivery Mechanical Ventilation Fraction of Inspired Oxygen 60 07/11/24 09:09 07/11/24 09:10 07/11/24 09:11 Temperature Pulse Rate 98 80 109 H Respiratory Rate Blood Pressure 84/52 L 84/52 L 75/31 L Pulse Oximetry Oxygen Delivery Fraction of Inspired Oxygen 07/11/24 09:13 07/11/24 09:13 07/11/24 09:14 Temperature Pulse Rate 101 H 101 H 100 Respiratory Rate Blood Pressure 90/47 L 90/47 L 91/47 L Pulse Oximetry Oxygen Delivery Fraction of Inspired Oxygen 07/11/24 09:14 07/11/24 09:16 07/11/24 09:18 Temperature 98.5 F Pulse Rate 100 103 H 104 H Respiratory Rate 28 H 30 H 29 H Blood Pressure 90/51 L Pulse Oximetry 100 Oxygen Delivery Fraction of Inspired Oxygen 07/11/24 09:21 07/11/24 09:30 07/11/24 09:30 Temperature Pulse Rate 101 H 101 H Respiratory Rate Blood Pressure 119/40 L 119/40 L Pulse Oximetry Oxygen Delivery Fraction of Inspired Oxygen 100 07/11/24 09:30 07/11/24 09:30 07/11/24 09:30 Temperature Pulse Rate 101 H 101 H 101 H Respiratory Rate 29 H Blood Pressure 119/40 L 119/40 L Pulse Oximetry Oxygen Delivery Fraction of Inspired Oxygen 07/11/24 09:35 07/11/24 10:00 07/11/24 10:00 Temperature Pulse Rate 102 H 104 H Respiratory Rate Blood Pressure 95/44 L Pulse Oximetry Oxygen Delivery Mechanical Ventilation Fraction of Inspired Oxygen 60 07/11/24 10:00 07/11/24 10:00 07/11/24 10:00 Temperature Pulse Rate 104 H 104 H 104 H Respiratory Rate Blood Pressure 95/44 L 95/44 L 95/44 L Pulse Oximetry Oxygen Delivery Fraction of Inspired Oxygen 07/11/24 11:12 Temperature Pulse Rate Respiratory Rate Blood Pressure Pulse Oximetry Oxygen Delivery Fraction of Inspired Oxygen 60 Exam 2 Const: General: ill appearing acutely Nutritional Appearance: overweight Orientation/consciousness: patient obtunded (unresponsive, intubated) HENMT: Head: normocephalic and atraumatic Eyes: Sclera: scleral abnormality bilateral (edema) Other: unable to follow commands Neck: Neck: normal visual inspection Resp: Effort & Inspection: other (agonal breathing on mechanical ventilator) Auscultation: diminished lung sounds Cardio: Rate: tachycardic Rhythm: regular rhythm GI: Inspection: non-distended, obesity, scar (large midline scar and few smaller scars that look like port scars) and no visible herniation GI Palp: Y es Soft to palpation and Yes Other GI palpation findings present (exam limited as patient is unresponsive ) Auscultation: Hypoactive bowel sounds present Rectal Exam: deferred Urinary Catheter: Urinary Catheter: patent and draining Skin: General skin exam: pallor Neuro: General: other (Unresponsive on mechanical ventilator) Gait exam (Neuro): Unable to assess gait Other: not following commands, no purposeful movement Extrem: General: no edema and other (Lower extremities cool to touch, not cyanotic, palpable weak pedal pulses) Psych: Insight: Limited insight present (Psych) Judgement: Limited judgement present (Psych) Results Labs 07/11/24 09:35 07/11/24 09:35 Labs: Abnormal lab results 07/10/24 07/10/24 07/10/24 Range/Units 15:15 15:31 18:53 WBC (4.5-10.0) K/mm3 RBC 1.89 L (4.2-5.4) M/mm3 Hgb 7.4 L (12.0-15.0) g/dL Hct 21.7 L (37.0-47.0) % MCV 114.8 H (80-100) fl MCH 39.2 H (26-34) pg MCHC (32-36) g/dl RDW 17.4 H (11.5-14.5) % MPV 11.5 H (7.4-10.4) fl Immature Gran % (Auto) 4.8 H (0-0.5) % Neut % (Auto) 75.6 H (45.5-73.1) % Lymph % (Auto) 15.1 L (18.3-44.2) % Abs Immat Gran (auto) 0.43 H (0.00-0.031) K/mm3 Absolute Neuts (auto) 6.8 H (1.3-6.7) K/mm3 Absolute Nucleated RBC 0.070 H (0.0-0.012) K/mm3 Band Neutrophils % (0-6) % Lymphocytes % (Manual) (18-44) % Nucleated RBC % 0.8 H (0.0-0.2) % Abs Neuts (Manual) (1.7-7.2) K/mm3 Abs Monocytes (Manual) (0.1-0.90) K/mm3 PT 15.5 H (11.1-14.7) Seconds APTT (22.3-36.8) Seconds Fibrinogen (215-510) mg/dl D-Dimer (<0.48) ug/mL ABG pH (7.350-7.450) ABG pO2 (80.0-100.0) mmHg ABG HCO3 (22.0-26.0) mEq/l ABG O2 Content (16.0-22.0) %vol Total Hemoglobin (12.0-18.0) g/dL Sodium 130 L (137-145) mmol/L Chloride 93 L (98-107) mmol/L Carbon Dioxide (22-30) mmol/L Anion Gap (4-12) mmol/L BUN 23 H (7-17) mg/dL Creatinine (0.7-1.0) mg/dL Estimated GFR (59 - ) Glucose 320 H (65-110) mg/dL POC Capillary Glucose 354 H (65-105) mg/dl Lactic Acid 6.7 H* 7.5 H* (0.7-2.0) mmol/L Calcium 7.2 L (8.4-10.2) mg/dL Phosphorus (2.5-4.5) mg/dL Total Bilirubin (0.2-1.3) mg/dL AST 48 H (14-36) U/L ALT 43 H (6-35) U/L Ammonia (9-30) umol/L Total Creatine Kinase (30-135) U/L Troponin I (0.000-0.034) ng/mL NT-Pro-B Natriuret Pep (19.9-100) pg/mL Total Protein 5.0 L (6.3-8.2) g/dL Albumin 2.1 L (3.5-5.1) g/dL Lipase (23-300) U/L Ur Specific Butler (1.001-1.035) Urine Glucose (UA) (Negative) mg/dL Urine Ketones (Negative) mg/dL Urine Bilirubin (Negative) Leukocyte Esterase Rfl (Negative) LANETTE/UL Urine WBC (0-3) /hpf Influenza A (RT-PCR) (Negative) Crossmatch See Detail 07/10/24 07/10/24 07/10/24 Range/Units 18:54 20:09 23:50 WBC (4.5-10.0) K/mm3 RBC (4.2-5.4) M/mm3 Hgb 8.6 L 8.4 L 9.9 L (12.0-15.0) g/dL Hct 25.4 L 24.6 L 29.2 L (37.0-47.0) % MCV (80-100) fl MCH (26-34) pg MCHC (32-36) g/dl RDW (11.5-14.5) % MPV (7.4-10.4) fl Immature Gran % (Auto) (0-0.5) % Neut % (Auto) (45.5-73.1) % Lymph % (Auto) (18.3-44.2) % Abs Immat Gran (auto) (0.00-0.031) K/mm3 Absolute Neuts (auto) (1.3-6.7) K/mm3 Absolute Nucleated RBC (0.0-0.012) K/mm3 Band Neutrophils % (0-6) % Lymphocytes % (Manual) (18-44) % Nucleated RBC % (0.0-0.2) % Abs Neuts (Manual) (1.7-7.2) K/mm3 Abs Monocytes (Manual) (0.1-0.90) K/mm3 PT (11.1-14.7) Seconds APTT (22.3-36.8) Seconds Fibrinogen (215-510) mg/dl D-Dimer (<0.48) ug/mL ABG pH (7.350-7.450) ABG pO2 (80.0-100.0) mmHg ABG HCO3 (22.0-26.0) mEq/l ABG O2 Content (16.0-22.0) %vol Total Hemoglobin (12.0-18.0) g/dL Sodium (137-145) mmol/L Chloride (98-107) mmol/L Carbon Dioxide (22-30) mmol/L Anion Gap (4-12) mmol/L BUN (7-17) mg/dL Creatinine (0.7-1.0) mg/dL Estimated GFR (59 - ) Glucose (65-110) mg/dL POC Capillary Glucose (65-105) mg/dl Lactic Acid 11.3 H* (0.7-2.0) mmol/L Calcium (8.4-10.2) mg/dL Phosphorus (2.5-4.5) mg/dL Total Bilirubin (0.2-1.3) mg/dL AST (14-36) U/L ALT (6-35) U/L Ammonia (9-30) umol/L Total Creatine Kinase (30-135) U/L Troponin I (0.000-0.034) ng/mL NT-Pro-B Natriuret Pep (19.9-100) pg/mL Total Protein (6.3-8.2) g/dL Albumin (3.5-5.1) g/dL Lipase (23-300) U/L Ur Specific Butler (1.001-1.035) Urine Glucose (UA) (Negative) mg/dL Urine Ketones (Negative) mg/dL Urine Bilirubin (Negative) Leukocyte Esterase Rfl (Negative) LANETTE/UL Urine WBC (0-3) /hpf Influenza A (RT-PCR) (Negative) Crossmatch 07/11/24 07/11/24 07/11/24 Range/Units 01:36 01:42 03:18 WBC (4.5-10.0) K/mm3 RBC (4.2-5.4) M/mm3 Hgb (12.0-15.0) g/dL Hct (37.0-47.0) % MCV (80-100) fl MCH (26-34) pg MCHC (32-36) g/dl RDW (11.5-14.5) % MPV (7.4-10.4) fl Immature Gran % (Auto) (0-0.5) % Neut % (Auto) (45.5-73.1) % Lymph % (Auto) (18.3-44.2) % Abs Immat Gran (auto) (0.00-0.031) K/mm3 Absolute Neuts (auto) (1.3-6.7) K/mm3 Absolute Nucleated RBC (0.0-0.012) K/mm3 Band Neutrophils % (0-6) % Lymphocytes % (Manual) (18-44) % Nucleated RBC % (0.0-0.2) % Abs Neuts (Manual) (1.7-7.2) K/mm3 Abs Monocytes (Manual) (0.1-0.90) K/mm3 PT (11.1-14.7) Seconds APTT (22.3-36.8) Seconds Fibrinogen (215-510) mg/dl D-Dimer (<0.48) ug/mL ABG pH 6.937 L* (7.350-7.450) ABG pO2 405.0 H (80.0-100.0) mmHg ABG HCO3 8.5 L (22.0-26.0) mEq/l ABG O2 Content (16.0-22.0) %vol Total Hemoglobin 11.2 L (12.0-18.0) g/dL Sodium (137-145) mmol/L Chloride (98-107) mmol/L Carbon Dioxide (22-30) mmol/L Anion Gap (4-12) mmol/L BUN (7-17) mg/dL Creatinine (0.7-1.0) mg/dL Estimated GFR (59 - ) Glucose (65-110) mg/dL POC Capillary Glucose (65-105) mg/dl Lactic Acid (0.7-2.0) mmol/L Calcium (8.4-10.2) mg/dL Phosphorus (2.5-4.5) mg/dL Total Bilirubin (0.2-1.3) mg/dL AST (14-36) U/L ALT (6-35) U/L Ammonia (9-30) umol/L Total Creatine Kinase (30-135) U/L Troponin I 0.161 H* (0.000-0.034) ng/mL NT-Pro-B Natriuret Pep 553 H (19.9-100) pg/mL Total Protein (6.3-8.2) g/dL Albumin (3.5-5.1) g/dL Lipase (23-300) U/L Ur Specific Butler > 1.045 H (1.001-1.035) Urine Glucose (UA) 2+ H (Negative) mg/dL Urine Ketones Trace H (Negative) mg/dL Urine Bilirubin 1+ H (Negative) Leukocyte Esterase Rfl Trace H (Negative) LANETTE/UL Urine WBC 6-10 H (0-3) /hpf Influenza A (RT-PCR) Positive A (Negative) Crossmatch 07/11/24 07/11/24 07/11/24 Range/Units 04:26 06:50 09:23 WBC (4.5-10.0) K/mm3 RBC (4.2-5.4) M/mm3 Hgb (12.0-15.0) g/dL Hct (37.0-47.0) % MCV (80-100) fl MCH (26-34) pg MCHC (32-36) g/dl RDW (11.5-14.5) % MPV (7.4-10.4) fl Immature Gran % (Auto) (0-0.5) % Neut % (Auto) (45.5-73.1) % Lymph % (Auto) (18.3-44.2) % Abs Immat Gran (auto) (0.00-0.031) K/mm3 Absolute Neuts (auto) (1.3-6.7) K/mm3 Absolute Nucleated RBC (0.0-0.012) K/mm3 Band Neutrophils % (0-6) % Lymphocytes % (Manual) (18-44) % Nucleated RBC % (0.0-0.2) % Abs Neuts (Manual) (1.7-7.2) K/mm3 Abs Monocytes (Manual) (0.1-0.90) K/mm3 PT (11.1-14.7) Seconds APTT (22.3-36.8) Seconds Fibrinogen (215-510) mg/dl D-Dimer (<0.48) ug/mL ABG pH 6.983 L* 7.008 L* (7.350-7.450) ABG pO2 136.3 H 407.7 H (80.0-100.0) mmHg ABG HCO3 8.2 L 10.4 L (22.0-26.0) mEq/l ABG O2 Content 13.3 L 12.4 L (16.0-22.0) %vol Total Hemoglobin 9.6 L 8.1 L (12.0-18.0) g/dL Sodium 146 H (137-145) mmol/L Chloride (98-107) mmol/L Carbon Dioxide (22-30) mmol/L Anion Gap 19 H (4-12) mmol/L BUN 24 H (7-17) mg/dL Creatinine 1.37 H (0.7-1.0) mg/dL Estimated GFR 39 L (59 - ) Glucose (65-110) mg/dL POC Capillary Glucose (65-105) mg/dl Lactic Acid (0.7-2.0) mmol/L Calcium 6.1 L (8.4-10.2) mg/dL Phosphorus (2.5-4.5) mg/dL Total Bilirubin 2.2 H (0.2-1.3) mg/dL AST 811 H (14-36) U/L ALT 337 H (6-35) U/L Ammonia (9-30) umol/L Total Creatine Kinase (30-135) U/L Troponin I (0.000-0.034) ng/mL NT-Pro-B Natriuret Pep (19.9-100) pg/mL Total Protein 4.0 L (6.3-8.2) g/dL Albumin 1.7 L (3.5-5.1) g/dL Lipase (23-300) U/L Ur Specific Butler (1.001-1.035) Urine Glucose (UA) (Negative) mg/dL Urine Ketones (Negative) mg/dL Urine Bilirubin (Negative) Leukocyte Esterase Rfl (Negative) LANETTE/UL Urine WBC (0-3) /hpf Influenza A (RT-PCR) (Negative) Crossmatch 07/11/24 07/11/24 07/11/24 Range/Units 09:35 09:35 09:35 WBC 22.1 H 22.1 H (4.5-10.0) K/mm3 RBC 2.24 L 2.24 L (4.2-5.4) M/mm3 Hgb 7.5 L (12.0-15.0) g/dL Hct (37.0-47.0) % MCV (80-100) fl MCH (26-34) pg MCHC (32-36) g/dl RDW (11.5-14.5) % MPV (7.4-10.4) fl Immature Gran % (Auto) (0-0.5) % Neut % (Auto) (45.5-73.1) % Lymph % (Auto) (18.3-44.2) % Abs Immat Gran (auto) (0.00-0.031) K/mm3 Absolute Neuts (auto) (1.3-6.7) K/mm3 Absolute Nucleated RBC (0.0-0.012) K/mm3 Band Neutrophils % (0-6) % Lymphocytes % (Manual) (18-44) % Nucleated RBC % (0.0-0.2) % Abs Neuts (Manual) (1.7-7.2) K/mm3 Abs Monocytes (Manual) (0.1-0.90) K/mm3 PT (11.1-14.7) Seconds APTT (22.3-36.8) Seconds Fibrinogen (215-510) mg/dl D-Dimer (<0.48) ug/mL ABG pH (7.350-7.450) ABG pO2 (80.0-100.0) mmHg ABG HCO3 (22.0-26.0) mEq/l ABG O2 Content (16.0-22.0) %vol Total Hemoglobin (12.0-18.0) g/dL Sodium (137-145) mmol/L Chloride (98-107) mmol/L Carbon Dioxide (22-30) mmol/L Anion Gap (4-12) mmol/L BUN (7-17) mg/dL Creatinine (0.7-1.0) mg/dL Estimated GFR (59 - ) Glucose (65-110) mg/dL POC Capillary Glucose (65-105) mg/dl Lactic Acid (0.7-2.0) mmol/L Calcium (8.4-10.2) mg/dL Phosphorus (2.5-4.5) mg/dL Total Bilirubin (0.2-1.3) mg/dL AST (14-36) U/L ALT (6-35) U/L Ammonia (9-30) umol/L Total Creatine Kinase (30-135) U/L Troponin I (0.000-0.034) ng/mL NT-Pro-B Natriuret Pep (19.9-100) pg/mL Total Protein (6.3-8.2) g/dL Albumin (3.5-5.1) g/dL Lipase (23-300) U/L Ur Specific Butler (1.001-1.035) Urine Glucose (UA) (Negative) mg/dL Urine Ketones (Negative) mg/dL Urine Bilirubin (Negative) Leukocyte Esterase Rfl (Negative) LANETTE/UL Urine WBC (0-3) /hpf Influenza A (RT-PCR) (Negative) Crossmatch 07/11/24 07/11/24 07/11/24 Range/Units 09:35 09:35 09:35 WBC (4.5-10.0) K/mm3 RBC (4.2-5.4) M/mm3 Hgb 7.5 L (12.0-15.0) g/dL Hct 24.1 L 24.1 L (37.0-47.0) % MCV 107.6 H D 107.6 H (80-100) fl MCH (26-34) pg MCHC 31.1 L (32-36) g/dl RDW (11.5-14.5) % MPV (7.4-10.4) fl Immature Gran % (Auto) (0-0.5) % Neut % (Auto) (45.5-73.1) % Lymph % (Auto) (18.3-44.2) % Abs Immat Gran (auto) (0.00-0.031) K/mm3 Absolute Neuts (auto) (1.3-6.7) K/mm3 Absolute Nucleated RBC (0.0-0.012) K/mm3 Band Neutrophils % (0-6) % Lymphocytes % (Manual) (18-44) % Nucleated RBC % (0.0-0.2) % Abs Neuts (Manual) (1.7-7.2) K/mm3 Abs Monocytes (Manual) (0.1-0.90) K/mm3 PT (11.1-14.7) Seconds APTT (22.3-36.8) Seconds Fibrinogen (215-510) mg/dl D-Dimer (<0.48) ug/mL ABG pH (7.350-7.450) ABG pO2 (80.0-100.0) mmHg ABG HCO3 (22.0-26.0) mEq/l ABG O2 Content (16.0-22.0) %vol Total Hemoglobin (12.0-18.0) g/dL Sodium (137-145) mmol/L Chloride (98-107) mmol/L Carbon Dioxide (22-30) mmol/L Anion Gap (4-12) mmol/L BUN (7-17) mg/dL Creatinine (0.7-1.0) mg/dL Estimated GFR (59 - ) Glucose (65-110) mg/dL POC Capillary Glucose (65-105) mg/dl Lactic Acid (0.7-2.0) mmol/L Calcium (8.4-10.2) mg/dL Phosphorus (2.5-4.5) mg/dL Total Bilirubin (0.2-1.3) mg/dL AST (14-36) U/L ALT (6-35) U/L Ammonia (9-30) umol/L Total Creatine Kinase (30-135) U/L Troponin I (0.000-0.034) ng/mL NT-Pro-B Natriuret Pep (19.9-100) pg/mL Total Protein (6.3-8.2) g/dL Albumin (3.5-5.1) g/dL Lipase (23-300) U/L Ur Specific Butler (1.001-1.035) Urine Glucose (UA) (Negative) mg/dL Urine Ketones (Negative) mg/dL Urine Bilirubin (Negative) Leukocyte Esterase Rfl (Negative) LANETTE/UL Urine WBC (0-3) /hpf Influenza A (RT-PCR) (Negative) Crossmatch 07/11/24 07/11/24 07/11/24 Range/Units 09:35 09:35 09:35 WBC (4.5-10.0) K/mm3 RBC (4.2-5.4) M/mm3 Hgb (12.0-15.0) g/dL Hct (37.0-47.0) % MCV (80-100) fl MCH (26-34) pg MCHC 31.1 L (32-36) g/dl RDW 24.8 H 24.8 H (11.5-14.5) % MPV 11.8 H 11.8 H (7.4-10.4) fl Immature Gran % (Auto) (0-0.5) % Neut % (Auto) (45.5-73.1) % Lymph % (Auto) (18.3-44.2) % Abs Immat Gran (auto) (0.00-0.031) K/mm3 Absolute Neuts (auto) (1.3-6.7) K/mm3 Absolute Nucleated RBC (0.0-0.012) K/mm3 Band Neutrophils % 10 H (0-6) % Lymphocytes % (Manual) 13 L (18-44) % Nucleated RBC % (0.0-0.2) % Abs Neuts (Manual) 16.79 H (1.7-7.2) K/mm3 Abs Monocytes (Manual) 1.32 H (0.1-0.90) K/mm3 PT 36.7 H D (11.1-14.7) Seconds APTT 61.7 H (22.3-36.8) Seconds Fibrinogen 110 L (215-510) mg/dl D-Dimer 3.93 H (<0.48) ug/mL ABG pH (7.350-7.450) ABG pO2 (80.0-100.0) mmHg ABG HCO3 (22.0-26.0) mEq/l ABG O2 Content (16.0-22.0) %vol Total Hemoglobin (12.0-18.0) g/dL Sodium 136 L (137-145) mmol/L Chloride (98-107) mmol/L Carbon Dioxide 10 L (22-30) mmol/L Anion Gap 26 H (4-12) mmol/L BUN 23 H (7-17) mg/dL Creatinine 2.03 H (0.7-1.0) mg/dL Estimated GFR 25 L (59 - ) Glucose (65-110) mg/dL POC Capillary Glucose (65-105) mg/dl Lactic Acid 21.5 H* (0.7-2.0) mmol/L Calcium 6.4 L (8.4-10.2) mg/dL Phosphorus 9.7 H (2.5-4.5) mg/dL Total Bilirubin 2.6 H (0.2-1.3) mg/dL AST (14-36) U/L ALT 1870 H (6-35) U/L Ammonia < 9 L (9-30) umol/L Total Creatine Kinase 262 H (30-135) U/L Troponin I (0.000-0.034) ng/mL NT-Pro-B Natriuret Pep (19.9-100) pg/mL Total Protein 4.0 L (6.3-8.2) g/dL Albumin 1.8 L (3.5-5.1) g/dL Lipase 420 H (23-300) U/L Ur Specific Butler (1.001-1.035) Urine Glucose (UA) (Negative) mg/dL Urine Ketones (Negative) mg/dL Urine Bilirubin (Negative) Leukocyte Esterase Rfl (Negative) LANETTE/UL Urine WBC (0-3) /hpf Influenza A (RT-PCR) (Negative) Crossmatch Diabetes panel 07/10/24 07/11/24 07/11/24 Range/Units 15:31 04:26 09:35 Sodium 130 L 146 H 136 L (137-145) mmol/L Potassium 3.9 4.7 4.8 (3.4-5.0) mmol/L Chloride 93 L 102 100 (98-107) mmol/L Carbon Dioxide 29 25 10 L (22-30) mmol/L BUN 23 H 24 H 23 H (7-17) mg/dL Creatinine 0.77 1.37 H 2.03 H (0.7-1.0) mg/dL Glucose 320 H 94 81 (65-110) mg/dL Calcium 7.2 L 6.1 L 6.4 L (8.4-10.2) mg/dL AST 48 H 811 H (14-36) U/L ALT 43 H 337 H 1870 H (6-35) U/L Alkaline Phosphatase 92 95 102 (38-126) U/L Total Protein 5.0 L 4.0 L 4.0 L (6.3-8.2) g/dL Albumin 2.1 L 1.7 L 1.8 L (3.5-5.1) g/dL Calcium panel 07/10/24 07/11/24 07/11/24 Range/Units 15:31 04:26 09:35 Calcium 7.2 L 6.1 L 6.4 L (8.4-10.2) mg/dL Phosphorus 9.7 H (2.5-4.5) mg/dL Albumin 2.1 L 1.7 L 1.8 L (3.5-5.1) g/dL Pituitary panel 07/10/24 07/11/24 07/11/24 Range/Units 15: 04: 09:35 Sodium 130 L 146 H 136 L (137-145) mmol/L Potassium 3.9 4.7 4.8 (3.4-5.0) mmol/L Chloride 93 L 102 100 (98-107) mmol/L Carbon Dioxide 29 25 10 L (22-30) mmol/L BUN 23 H 24 H 23 H (7-17) mg/dL Creatinine 0.77 1.37 H 2.03 H (0.7-1.0) mg/dL Glucose 320 H 94 81 (65-110) mg/dL Calcium 7.2 L 6.1 L 6.4 L (8.4-10.2) mg/dL Adrenal panel 07/10/24 07/11/24 07/11/24 Range/Units 15:31 04:26 09:35 Sodium 130 L 146 H 136 L (137-145) mmol/L Potassium 3.9 4.7 4.8 (3.4-5.0) mmol/L Chloride 93 L 102 100 (98-107) mmol/L Carbon Dioxide 29 25 10 L (22-30) mmol/L BUN 23 H 24 H 23 H (7-17) mg/dL Creatinine 0.77 1.37 H 2.03 H (0.7-1.0) mg/dL Glucose 320 H 94 81 (65-110) mg/dL Calcium 7.2 L 6.1 L 6.4 L (8.4-10.2) mg/dL Total Bilirubin 1.2 2.2 H 2.6 H (0.2-1.3) mg/dL AST 48 H 811 H (14-36) U/L ALT 43 H 337 H 1870 H (6-35) U/L Alkaline Phosphatase 92 95 102 (38-126) U/L Total Protein 5.0 L 4.0 L 4.0 L (6.3-8.2) g/dL Albumin 2.1 L 1.7 L 1.8 L (3.5-5.1) g/dL All other labs normal. Imaging Additional studies: ITS Impressions Abdomen/Pelvis CTA 07/10/24 16:28 IMPRESSION: 1. Gastrointestinal bleed with small focus of active intraluminal contrast extravasation within a loop of jejunum in the left abdomen. 2. UIP pattern chronic interstitial lung disease at the lung bases with a few nodular opacities in the visualized lower lungs including incompletely visualized 1.3 cm nodule in the right lower lobe. Recommend further evaluation with dedicated chest CT when clinically appropriate. 3. Indeterminate 1.4 cm cystic lesion at the tail of the pancreas. The differential diagnosis includes pseudocyst, intraductal papillary mucinous neoplasm (IPMN), mucinous cystic neoplasm (MCN), and the less common serous cystadenoma and neuroendocrine tumor. Correlate for history of pancreatitis and recommend further evaluation with pre and postcontrast MRI. Chest X-Ray 07/10/24 18:56 IMPRESSION: Central venous catheter extending cranially, off the submitted image. These findings were given to Amberly Kapoor at 6:45pm on 07/10/2024 Chest X-Ray 07/11/24 05:31 Impression: Support tubes in place, as above. Diffuse chronic interstitial disease. Mild left basilar haziness, nonspecific. Abdomen X-Ray 07/11/24 05:32 Impression: NG tube in satisfactory position. Chest X-Ray 07/11/24 06:21 Impression: Chronic interstitial pulmonary disease.
[2024-07-11 12:06] LABS: Aspartate Amino Transferase 4491 U/L (14-36)
[2024-07-11] MEDS: PHYTONADIONE ADULT INJ 10 MG in DEXTROSE 5% IN WATER 50 ML 100 MG IVPB (12:06)
[2024-07-11] MEDS: EPINEPHrine INJ 1 MG in DEXTROSE 5% IN WATER 250 ML 75.3 MG IV CONT (12:25)
[2024-07-11 12:44] LABS: Reflex Lactic Acid Yes or No Add Lactic
--- NOTE | 2024-07-11 12:49 | WPDPROCEDUR ---
Procedures Arterial Line Arterial Line Date: 07/11/24 Arterial Line Time: 09:25 Discussed with the patient/family/POA, the placement of an arterial catheter, including its clinical necessity/indication and associated potential risks, benefits and alternatives.: Yes Patient/family/POA and/or understands and acknowledges the need to proceed with the arterial catheter insertion as an important element of the patient's clinical management.: Yes Time Out Performed: Yes Patient Position: supine Entry Analyst Prep: sterile gown, sterile gloves, mask and hat Site: left and femoral Site Prep: chlorhexidine and sterile drape Skin Anesthesia: 1% lidocaine Technique used: ultrasound-guided Size (Gauge): 14 Length: 12 cm Closure/Dressing: suture, transparent dressing, hemostatic product, antimicrobial product and securement product Patient tolerated procedure: well Complications: none
--- NOTE | 2024-07-11 12:52 | WPDCNINT ---
Assessment and Plan Assessment and plan (1) Shock: Code(s): R57.9 - Shock, unspecified Status: Acute Assessment and Plan: Hemorrhagic versus septic versus hypovolemic shock -patient presented with melanotic stools CT abdomen pelvis showed small focus of active extravasation within the jejunum in the left abdomen -patient has been accepted and is on a waiting list to transfer to either [facility] or [facility] -significant hypotension through the night, was asked to see the patient in the ER as she awaits transfer to higher level of care -in the ER patient was on maximum doses of Levophed, Roderick-Synephrine and vasopressin. -ABG showed severe acidosis and lactic acidosis -I asked the ER bedside RN to give 2 amps of bicarb, may changes to the ventilator, ordered epinephrine infusion. Patient to be transferred to the ICU for further management at this time -upon arrival to the ICU on 07/08/2024 I placed a left femoral arterial line -will maintain MAP > 65 mm Hg or greater at all times for adequate end organ perfusion -patient has been started on meropenem and vancomycin (07/11) -blood cultures have been obtained and pending -she did receive adequate amount of IV fluids in the ER -started patient on stress dose steroids (2) Acute respiratory failure: Code(s): J96.00 - Acute respiratory failure, unspecified whether with hypoxia or hypercapnia Status: Acute Assessment and Plan: Patient was intubated in the ER secondary severe shock, metabolic acidosis due to lactic acidosis -currently on CMV mode of ventilation, 60% FiO2 and peep of 5 -chest x-ray and ABGs reviewed, ventilator adjusted -will obtain another set of ABGs -sedated with fentanyl infusion, maintain RASS is -2 (3) Acute renal failure: Code(s): N17.9 - Acute kidney failure, unspecified Status: Acute Assessment and Plan: Acute kidney injury likely related to shock hemorrhagic versus hypovolemic versus septic -received adequate amount of IV fluids -started patient on sodium bicarb infusion -lactic acidosis -nephrology has been consulted -decreased urine output with worsening renal function -continue to monitor renal function, electrolytes and urine output (4) DIC (disseminated intravascular coagulation): Code(s): D65 - Disseminated intravascular coagulation [defibrination syndrome] Status: Acute Assessment and Plan: DIC panel is positive, will transfuse packed FFP, cryoprecipitate and PRBC (5) Lactic acidosis: Code(s): E87.20 - Acidosis, unspecified Status: Acute Assessment and Plan: Significant elevation in lactic acid level, could be related to his ischemic bowel -surgery has been consulted -patient a very high risk for surgery, surgeon will be talking to the family (6) Acute GI bleeding: Code(s): K92.2 - Gastrointestinal hemorrhage, unspecified Status: Acute Assessment and Plan: Patient presented with melanotic stools, anemia with hemoglobin of 7.4 on admission, received 2 units of packed RBCs on 07/10/2024 in the ER -additional 1 unit of packed RBCs will be transfused in the ICU on 07/11/202407/10: Abdominal CTA showed gastrointestinal bleed with small focus of active intraluminal contrast extravasation within the loop of jejunum in the left abdomen. (7) Anemia due to acute blood loss: Code(s): D62 - Acute posthemorrhagic anemia Status: Acute Assessment and Plan: Anemia due to GI bleed -patient has received a total of 3 units of packed RBCs since admission -continue to monitor H&H -continue Protonix IV q.12 hours Plan DVT prophylaxis: SCDs, no chemoprophylaxis secondary to acute GI bleed, anemia, DIC Stress ulcer prophylaxis: Protonix IV q.12 hours Nutrition: NPO Code Status: Full code Critical Care Time Spent: 78 minutes Multiple discussions with family members especially and daughter and updated them with patient's condition and plan of care. They are aware that patient is on 4 blood pressure support medications, in acute renal failure, elevated lactic acids, acute respiratory failure. They are aware that a condition is guarded. I did have a discussion regarding code status, they wanted to be a full code at this time. Patient's son is traveling from [place]. They are aware that [facility] and [facility] have accepted the patient and we are awaiting bed for transfer. Due to a high probability of clinically significant, life threatening deterioration, the patient required my highest level of preparedness to intervene emergently and I personally spent this critical care time directly and personally managing the patient. This critical care time included obtaining a history; examining the patient; pulse oximetry; ordering and review of studies; arranging urgent treatment with development of a management plan; evaluation of patient's response to treatment; frequent reassessment; and discussions with other providers. It was exclusive of separately billable procedures and treating other patients and teaching time. Please see Assessment and Plan section and the rest of the note for further information on patient assessment and treatment This dictation may have been done utilizing a voice recognition system. Attempts have been made to correct errors. However, there may be uncorrected grammatical, spelling, and recognitions errors present. Patient Relations Liaison Consult Note Consult date: 07/11/24 Reason for consult: Shock, hemorrhagic versus septic versus hypovolemic requiring multiple vasopressors, acute kidney injury, lactic acidosis, acute respiratory failure HPI: Kathya Murphy is a 64 year old female with past medical history of CKD stage 3, chronic narcotic use, COPD, obstructive sleep apnea, transient ischemic attack, diabetes, related rheumatoid Aortitis, obesity, hypertension, dyslipidemia presented the ED on 07/10/2024 with complains of generalized malaise, abdominal pain, melena x1. According the family patient was not feeling well on the day of admission and had dark maroonish colored stool/diarrhea and complained of intense left lower quadrant abdominal pain. Patient had 2 large melanotic stools in the ER, was hypotensive, received 3 L IV fluids and 2 units of packed RBCs. Central line was inserted and started on Levophed. Abdominal CTA showed gastrointestinal bleed with small focus of active intraluminal contrast extravasation within the loop of jejunum in the left abdomen. UIP pattern chronic interstitial lung disease and lung bases. A few nodular opacities visualized. 1.4 cm cystic lesion of the tail of pancreas. For ER physician discussed with surgery and licensing and registration director and both of them felt that the patient needs to be transferred to higher level of care to either [facility] for possible embolization by Interventional Radiology or evaluated by surgery. Patient was accepted at [facility] and [facility]. Awaiting beds for transfer. During the course of stay in the ER, patient's condition worsened, requiring 3 pressors despite which her blood pressures remain in the 60s to 70s systolic through the night. Patient has been receiving sodium bicarb for a pH of 6.98. She was intubated in the ED. I was asked to see the patient. Went down to the ER, patient was severely acidotic, I asked the bedside RN to give 2 amps of bicarb, started epinephrine infusion as she was already maxed out on Levophed, vasopressin, Roderick-Synephrine and transfer the patient to the ICU until we have a bed at either site [facility] or [facility]. Patient did received tranexamic acid in the ER Upon arrival to the ICU, placed an arterial line emergently, had artery discussed and obtained consent from the patient's in the ER. Patient remains intubated on CMV mode of ventilation, 450, 28, 5, 100%. Maxed out on Levophed, Roderick-Synephrine, vasopressin. Started epinephrine infusion. Patient started on sodium bicarb infusion, lactic acid is 21.5 Review of Systems Review of Systems: ROS unobtainable: Yes unobtainable due to endotracheal tube, unobtainable due to medical condition and unobtainable due to mental status [facility] Past Medical History Medical History (Updated 07/11/24 @ 13:56 by Latasha Potter MD) CKD (chronic kidney disease) stage 3, GFR 30-59 ml/min Chronic narcotic use COPD (chronic obstructive pulmonary disease) PATO (obstructive sleep apnea) TIA (transient ischemic attack) Diabetes Left bundle branch block Followed by cardiology Decreased GFR History of GFR of 42 Recent GFR of 62 Former smoker Rheumatoid aortitis Obesity BALBUENA (dyspnea on exertion) Preop cardiovascular exam Hypertension Dyslipidemia Right knee DJD Surgical History Surgical History History of laparoscopic cholecystectomy History of partial hysterectomy History of splenectomy 2020 Hx of arthroscopy of left knee 2009 Social History Social History Social History: [place] her is her surrogate, she has 2 kids one daughter and one son. She does live in a house that is one story, however there are 5 steps to get into the house. 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 [employer] Gender identity (if verbalized by the patient): Female Sexual Orientation (if Verbalized by the Patient): Straight or Heterosexual Spiritual care concerns: No Agree to blood products: Yes Meds Home Medications and Allergies Home Medications ?Medication ?Instructions ?Recorded ?Confirmed ?Type aspirin 81 mg capsule 81 mg PO DAILY 09/25/21 07/10/24 History azathioprine 50 mg tablet 50 mg PO BID 09/25/21 07/10/24 History metformin 500 mg tablet,extended 1,500 mg PO DAILY 09/25/21 07/10/24 History release 24 hr ropinirole 4 mg tablet 4 mg PO QHS RLS 09/25/21 07/10/24 History trimethoprim 100 mg tablet 100 mg PO DAILY 09/25/21 07/10/24 History hydrochlorothiazide 25 mg tablet 25 mg PO DAILY 05/21/22 07/10/24 History amlodipine 10 mg tablet 10 mg PO DAILY 07/28/23 07/10/24 History atorvastatin 20 mg tablet 20 mg PO QHS 07/28/23 07/10/24 History insulin glargine U-300 conc 300 57 unit subcut BID 07/28/23 07/10/24 History unit/mL (3 mL) subcutaneous pen (Toujeo Max U-300 SoloStar) pramipexole 0.5 mg tablet 0.5 mg PO TID 07/28/23 07/10/24 History upadacitinib 15 mg tablet,extended 15 mg PO DAILY 07/28/23 07/10/24 History release 24 hr (Rinvoq) insulin aspart U-100 100 unit/mL 100 unit subcut DAILY #90 mL 11/09/23 07/10/24 Rx (3 mL) subcutaneous pen folic acid 1 mg tablet 1 mg PO HS 07/10/24 07/10/24 History Allergies Allergy/AdvReac Type Severity Reaction Status Date / Time Sulfa (Sulfonamide Allergy Intermediate Hives Verified 07/10/24 15:33 Antibiotics) morphine AdvReac Intermediate Headache Verified 07/10/24 15:33 Vital Signs Vital Signs - 24 hr 07/10/24 15:06 07/10/24 16:04 07/10/24 17:13 Temperature 98.3 F 97.8 F Pulse Rate 115 H 98 111 H Respiratory Rate 23 H 20 22 H Blood Pressure 70/42 L 80/39 L 81/57 L Pulse Oximetry 99 94 97 Oxygen Delivery Room Air Fraction of Inspired Oxygen 07/10/24 17:13 07/10/24 17:16 07/10/24 17:28 Temperature 97.8 F 98.3 F Pulse Rate 111 H 112 H 114 H Respiratory Rate 22 H 29 H 25 H Blood Pressure 81/57 L 87/41 L 79/51 L Pulse Oximetry 97 95 96 Oxygen Delivery Fraction of Inspired Oxygen 07/10/24 17:30 07/10/24 18:15 07/10/24 18:19 Temperature 98.2 F 98.2 F Pulse Rate 112 H 127 H 116 H Respiratory Rate 26 H 27 H 28 H Blood Pressure 79/51 L 87/63 L 87/63 L Pulse Oximetry 94 98 100 Oxygen Delivery Fraction of Inspired Oxygen 07/10/24 18:28 07/10/24 18:34 07/10/24 18:58 Temperature 97.6 F 97.7 F Pulse Rate 117 H 116 H 117 H Respiratory Rate 25 H 26 H 26 H Blood Pressure 87/63 L 83/63 L 87/57 L Pulse Oximetry 98 99 97 Oxygen Delivery Fraction of Inspired Oxygen 07/10/24 19:01 07/10/24 19:06 07/10/24 19:07 Temperature Pulse Rate 118 H 124 H 120 H Respiratory Rate 30 H Blood Pressure 87/54 L 80/53 L 80/53 L Pulse Oximetry 98 Oxygen Delivery Fraction of Inspired Oxygen 07/10/24 19:15 07/10/24 19:16 07/10/24 19:32 Temperature Pulse Rate 127 H 138 H 123 H Respiratory Rate 28 H 32 H Blood Pressure 91/61 L 73/59 L Pulse Oximetry 97 96 Oxygen Delivery Fraction of Inspired Oxygen 07/10/24 19:35 07/10/24 19:47 07/10/24 19:54 Temperature Pulse Rate 121 H 120 H 128 H Respiratory Rate Blood Pressure 86/56 L 84/54 L 52/51 L Pulse Oximetry Oxygen Delivery Fraction of Inspired Oxygen 07/10/24 20:03 07/10/24 20:07 07/10/24 20:09 Temperature Pulse Rate 132 H 132 H 130 H Respiratory Rate 39 H Blood Pressure 82/54 L 90/58 L Pulse Oximetry 98 Oxygen Delivery Fraction of Inspired Oxygen 07/10/24 20:10 07/10/24 20:14 07/10/24 20:15 Temperature Pulse Rate 128 H 126 H 127 H Respiratory Rate 38 H 30 H Blood Pressure 89/58 L 77/50 L Pulse Oximetry Oxygen Delivery Fraction of Inspired Oxygen 07/10/24 20:16 07/10/24 20:19 07/10/24 20:24 Temperature Pulse Rate 130 H 127 H 133 H Respiratory Rate 30 H Blood Pressure 77/50 L 80/50 L 68/46 L Pulse Oximetry Oxygen Delivery Fraction of Inspired Oxygen 07/10/24 20:27 07/10/24 20:32 07/10/24 20:34 Temperature 98.6 F 98.0 F Pulse Rate 130 H 133 H 129 H Respiratory Rate 30 H 32 H Blood Pressure 74/46 L 80/50 L 78/60 L Pulse Oximetry 95 97 Oxygen Delivery Fraction of Inspired Oxygen 07/10/24 20:37 07/10/24 20:45 07/10/24 20:45 Temperature 97.6 F Pulse Rate 132 H 131 H 128 H Respiratory Rate 32 H Blood Pressure 78/60 L 78/60 L 76/58 L Pulse Oximetry 95 Oxygen Delivery Fraction of Inspired Oxygen 07/10/24 20:49 07/10/24 21:00 07/10/24 21:18 Temperature Pulse Rate 131 H 140 H 127 H Respiratory Rate 31 H 42 H 30 H Blood Pressure Pulse Oximetry 97 Oxygen Delivery Fraction of Inspired Oxygen 07/10/24 21:31 07/10/24 21:32 07/10/24 21:47 Temperature Pulse Rate 125 H 125 H 131 H Respiratory Rate 27 H 32 H 15 Blood Pressure 79/70 L 84/53 L Pulse Oximetry 95 95 97 Oxygen Delivery Fraction of Inspired Oxygen 07/10/24 21:48 07/10/24 22:00 07/10/24 22:01 Temperature Pulse Rate 125 H 127 H 127 H Respiratory Rate 26 H 31 H 30 H Blood Pressure 79/51 L Pulse Oximetry 96 Oxygen Delivery Fraction of Inspired Oxygen 07/10/24 22:02 07/10/24 22:04 07/10/24 22:08 Temperature 98.1 F Pulse Rate 129 H 126 H 125 H Respiratory Rate 30 H Blood Pressure 80/52 L 80/52 L 80/52 L Pulse Oximetry 95 Oxygen Delivery Fraction of Inspired Oxygen 07/10/24 22:11 07/10/24 22:12 07/10/24 22:15 Temperature Pulse Rate 124 H 125 H 126 H Respiratory Rate 31 H 26 H Blood Pressure 84/58 L 83/57 L Pulse Oximetry 97 95 Oxygen Delivery Fraction of Inspired Oxygen 07/10/24 22:16 07/10/24 22:19 07/10/24 22:30 Temperature Pulse Rate 125 H 126 H 127 H Respiratory Rate 33 H 31 H 30 H Blood Pressure 83/60 L 84/60 L Pulse Oximetry 95 96 Oxygen Delivery Fraction of Inspired Oxygen 07/10/24 22:36 07/10/24 22:54 07/10/24 23:00 Temperature Pulse Rate 126 H 124 H 137 H Respiratory Rate 23 H 17 Blood Pressure 82/48 L Pulse Oximetry Oxygen Delivery Fraction of Inspired Oxygen 07/10/24 23:01 07/10/24 23:17 07/10/24 23:28 Temperature Pulse Rate 145 H 129 H 131 H Respiratory Rate 17 33 H 35 H Blood Pressure 80/50 L 74/46 L Pulse Oximetry 98 Oxygen Delivery Fraction of Inspired Oxygen 07/10/24 23:33 07/10/24 23:45 07/10/24 23:46 Temperature Pulse Rate 132 H 132 H 132 H Respiratory Rate 30 H 37 H 41 H Blood Pressure 76/51 L Pulse Oximetry Oxygen Delivery Fraction of Inspired Oxygen 07/11/24 00:00 07/11/24 00:02 07/11/24 00:05 Temperature Pulse Rate 134 H 136 H 135 H Respiratory Rate 36 H 44 H 40 H Blood Pressure 62/39 L 82/61 L Pulse Oximetry 97 73 L 97 Oxygen Delivery Fraction of Inspired Oxygen 07/11/24 00:17 07/11/24 00:21 07/11/24 00:30 Temperature Pulse Rate 131 H 131 H 127 H Respiratory Rate 23 H 37 H Blood Pressure 76/42 L Pulse Oximetry 97 Oxygen Delivery Fraction of Inspired Oxygen 07/11/24 00:31 07/11/24 01:02 07/11/24 01:15 Temperature Pulse Rate 128 H 129 H 130 H Respiratory Rate 37 H 44 H 28 H Blood Pressure 93/54 L Pulse Oximetry 97 Oxygen Delivery Fraction of Inspired Oxygen 07/11/24 01:16 07/11/24 01:17 07/11/24 01:17 Temperature Pulse Rate 129 H 130 H 131 H Respiratory Rate 30 H 45 H Blood Pressure 84/50 L 84/50 L 84/50 L Pulse Oximetry 95 100 Oxygen Delivery Fraction of Inspired Oxygen 07/11/24 01:30 07/11/24 01:32 07/11/24 01:39 Temperature 102.3 F H Pulse Rate 133 H 135 H Respiratory Rate 55 H 58 H Blood Pressure 102/88 Pulse Oximetry 98 97 Oxygen Delivery Fraction of Inspired Oxygen 07/11/24 01:45 07/11/24 01:55 07/11/24 01:59 Temperature Pulse Rate 136 H 162 H Respiratory Rate 41 H 26 H Blood Pressure 111/95 H 54/42 L Pulse Oximetry Oxygen Delivery Fraction of Inspired Oxygen 07/11/24 02:00 07/11/24 02:00 07/11/24 02:03 Temperature Pulse Rate 130 H 145 H 129 H Respiratory Rate 16 17 Blood Pressure 74/40 L Pulse Oximetry 100 Oxygen Delivery Mechanical Ventilation Fraction of Inspired Oxygen 100 07/11/24 02:05 07/11/24 02:15 07/11/24 02:15 Temperature Pulse Rate 129 H 131 H 131 H Respiratory Rate 15 19 16 Blood Pressure 72/57 L 90/64 L Pulse Oximetry Oxygen Delivery Fraction of Inspired Oxygen 07/11/24 02:16 07/11/24 02:17 07/11/24 02:22 Temperature Pulse Rate 132 H 132 H 134 H Respiratory Rate 16 16 16 Blood Pressure 90/64 L 102/65 Pulse Oximetry 100 Oxygen Delivery Fraction of Inspired Oxygen 07/11/24 02:30 07/11/24 02:45 07/11/24 02:46 Temperature 101.0 F H 102.0 F H 102.0 F H Pulse Rate 135 H 131 H 131 H Respiratory Rate 22 H 16 Blood Pressure Pulse Oximetry 91 Oxygen Delivery Fraction of Inspired Oxygen 07/11/24 02:47 07/11/24 02:52 07/11/24 03:00 Temperature 102.1 F H 102.4 F H Pulse Rate 131 H 130 H 133 H Respiratory Rate 16 16 Blood Pressure 71/30 L 72/30 L 66/40 L Pulse Oximetry 100 Oxygen Delivery Fraction of Inspired Oxygen 07/11/24 03:08 07/11/24 03:08 07/11/24 03:12 Temperature 102.5 F H 102.6 F H 102.6 F H Pulse Rate 130 H 129 H Respiratory Rate 16 16 Blood Pressure 66/40 L 66/40 L Pulse Oximetry 100 100 Oxygen Delivery Fraction of Inspired Oxygen 07/11/24 03:14 07/11/24 03:15 07/11/24 03:17 Temperature 102.6 F H 102.6 F H 102.6 F H Pulse Rate 128 H 128 H 127 H Respiratory Rate 16 16 16 Blood Pressure 76/57 L 67/44 L Pulse Oximetry 100 Oxygen Delivery Fraction of Inspired Oxygen 07/11/24 03:24 07/11/24 03:27 07/11/24 03:30 Temperature Pulse Rate 126 H 125 H 126 H Respiratory Rate Blood Pressure 68/44 L 68/44 L Pulse Oximetry 100 Oxygen Delivery Mechanical Ventilation Fraction of Inspired Oxygen 60 07/11/24 03:32 07/11/24 03:43 07/11/24 03:48 Temperature 102.8 F H 102.8 F H Pulse Rate 126 H 125 H 124 H Respiratory Rate 22 H 22 H Blood Pressure 62/50 L 45/29 L 46/30 L Pulse Oximetry 100 Oxygen Delivery Fraction of Inspired Oxygen 07/11/24 03:54 07/11/24 04:00 07/11/24 04:02 Temperature 102.8 F H 102.9 F H Pulse Rate 123 H 122 H 120 H Respiratory Rate 22 H 22 H Blood Pressure 51/41 L 48/33 L 50/42 L Pulse Oximetry 100 Oxygen Delivery Fraction of Inspired Oxygen 07/11/24 04:02 07/11/24 04:07 07/11/24 04:10 Temperature 102.9 F H 102.8 F H 102.8 F H Pulse Rate 121 H 120 H 120 H Respiratory Rate 22 H 22 H 22 H Blood Pressure 49/41 L 32/17 L 42/34 L Pulse Oximetry 100 100 100 Oxygen Delivery Fraction of Inspired Oxygen 07/11/24 04:15 07/11/24 04:17 07/11/24 04:17 Temperature 102.8 F H 102.8 F H Pulse Rate 119 H 120 H 119 H Respiratory Rate 22 H 22 H Blood Pressure 44/36 L 46/24 L Pulse Oximetry 100 Oxygen Delivery Fraction of Inspired Oxygen 07/11/24 04:18 07/11/24 04:19 07/11/24 04:22 Temperature 102.8 F H 102.8 F H Pulse Rate 128 H 118 H 118 H Respiratory Rate 22 H 19 22 H Blood Pressure 46/24 L 72/40 L Pulse Oximetry Oxygen Delivery Fraction of Inspired Oxygen 07/11/24 04:26 07/11/24 04:30 07/11/24 04:32 Temperature 102.8 F H 102.8 F H Pulse Rate 126 H 113 H 121 H Respiratory Rate Blood Pressure 69/54 L 124/58 L 76/42 L Pulse Oximetry Oxygen Delivery Fraction of Inspired Oxygen 07/11/24 04:32 07/11/24 04:35 07/11/24 04:37 Temperature 102.8 F H 102.7 F H 102.7 F H Pulse Rate 112 H 111 H 111 H Respiratory Rate 22 H 22 H 22 H Blood Pressure 123/57 L 127/63 136/52 L Pulse Oximetry 100 100 100 Oxygen Delivery Fraction of Inspired Oxygen 07/11/24 04:42 07/11/24 04:47 07/11/24 04:52 Temperature 102.4 F H 102.3 F H 102.1 F H Pulse Rate 110 H 113 H 112 H Respiratory Rate 22 H 22 H 22 H Blood Pressure 127/58 L 128/57 L 92/58 L Pulse Oximetry 100 100 100 Oxygen Delivery Fraction of Inspired Oxygen 07/11/24 04:56 07/11/24 04:57 07/11/24 04:58 Temperature 101.9 F H Pulse Rate 112 H 111 H 112 H Respiratory Rate 21 H Blood Pressure 76/48 L 76/47 L 82/50 L Pulse Oximetry 100 Oxygen Delivery Fraction of Inspired Oxygen 07/11/24 05:00 07/11/24 05:00 07/11/24 05:00 Temperature 101.9 F H Pulse Rate 112 H 112 H 112 H Respiratory Rate 22 H Blood Pressure 76/48 L 82/49 L 76/48 L Pulse Oximetry 100 Oxygen Delivery Fraction of Inspired Oxygen 07/11/24 05:02 07/11/24 05:06 07/11/24 05:06 Temperature 101.8 F H 101.7 F H Pulse Rate 113 H 112 H 112 H Respiratory Rate 22 H 22 H Blood Pressure 83/60 L 79/45 L Pulse Oximetry 100 98 100 Oxygen Delivery Mechanical Ventilation Fraction of Inspired Oxygen 60 07/11/24 05:11 07/11/24 05:13 07/11/24 05:16 Temperature 101.7 F H 101.6 F H Pulse Rate 113 H 111 H 114 H Respiratory Rate 22 H Blood Pressure 88/77 L 74/56 L 62/52 L Pulse Oximetry 97 Oxygen Delivery Fraction of Inspired Oxygen 07/11/24 05:21 07/11/24 05:25 07/11/24 05:31 Temperature 101.5 F H 101.4 F H 101.3 F H Pulse Rate 114 H 114 H 114 H Respiratory Rate 22 H 21 H 22 H Blood Pressure 68/50 L 74/56 L 72/43 L Pulse Oximetry 99 100 100 Oxygen Delivery Fraction of Inspired Oxygen 07/11/24 05:33 07/11/24 05:35 07/11/24 05:41 Temperature 101.3 F H 101.2 F H Pulse Rate 113 H 113 H 113 H Respiratory Rate 22 H 24 H Blood Pressure 72/44 L 85/72 L 60/48 L Pulse Oximetry 100 99 Oxygen Delivery Fraction of Inspired Oxygen 07/11/24 05:46 07/11/24 05:50 07/11/24 05:56 Temperature 101.1 F H 101.1 F H 101.0 F H Pulse Rate 112 H 113 H 112 H Respiratory Rate 24 H 26 H 25 H Blood Pressure 56/29 L 70/40 L 55/45 L Pulse Oximetry 97 97 97 Oxygen Delivery Fraction of Inspired Oxygen 07/11/24 06:00 07/11/24 06:06 07/11/24 06:11 Temperature 100.9 F H 100.8 F H 100.8 F H Pulse Rate 111 H 110 H 109 H Respiratory Rate 25 H 28 H 25 H Blood Pressure 67/47 L 74/53 L 55/28 L Pulse Oximetry 97 98 98 Oxygen Delivery Fraction of Inspired Oxygen 07/11/24 07:00 07/11/24 07:20 07/11/24 07:30 Temperature 100.3 F H 99.9 F H Pulse Rate 105 H 104 H 102 H Respiratory Rate 26 H 28 H Blood Pressure 71/60 L 67/47 L Pulse Oximetry 99 99 99 Oxygen Delivery Mechanical Ventilation Fraction of Inspired Oxygen 60 07/11/24 08:00 07/11/24 08:30 07/11/24 08:37 Temperature 99.5 F Pulse Rate 100 102 H Respiratory Rate 27 H Blood Pressure 63/38 L 89/50 L Pulse Oximetry 99 99 Oxygen Delivery Mechanical Ventilation Fraction of Inspired Oxygen 60 07/11/24 08:50 07/11/24 09:00 07/11/24 09:00 Temperature 99 F Pulse Rate 98 97 101 H Respiratory Rate 26 H Blood Pressure 70/43 L 75/31 L Pulse Oximetry 98 100 Oxygen Delivery Mechanical Ventilation Fraction of Inspired Oxygen 100 07/11/24 09:00 07/11/24 09:05 07/11/24 09:06 Temperature 98.5 F Pulse Rate 97 101 H Respiratory Rate 28 H Blood Pressure 75/31 L 75/31 L Pulse Oximetry 100 Oxygen Delivery Mechanical Ventilation Fraction of Inspired Oxygen 60 07/11/24 09:09 07/11/24 09:10 07/11/24 09:11 Temperature Pulse Rate 98 80 109 H Respiratory Rate Blood Pressure 84/52 L 84/52 L 75/31 L Pulse Oximetry Oxygen Delivery Fraction of Inspired Oxygen 07/11/24 09:13 07/11/24 09:13 07/11/24 09:14 Temperature Pulse Rate 101 H 101 H 100 Respiratory Rate Blood Pressure 90/47 L 90/47 L 91/47 L Pulse Oximetry Oxygen Delivery Fraction of Inspired Oxygen 07/11/24 09:14 07/11/24 09:16 07/11/24 09:18 Temperature 98.5 F Pulse Rate 100 103 H 104 H Respiratory Rate 28 H 30 H 29 H Blood Pressure 90/51 L Pulse Oximetry 100 Oxygen Delivery Fraction of Inspired Oxygen 07/11/24 09:21 07/11/24 09:30 07/11/24 09:30 Temperature Pulse Rate 101 H 101 H Respiratory Rate Blood Pressure 119/40 L 119/40 L Pulse Oximetry Oxygen Delivery Fraction of Inspired Oxygen 100 07/11/24 09:30 07/11/24 09:30 07/11/24 09:30 Temperature Pulse Rate 101 H 101 H 101 H Respiratory Rate 29 H Blood Pressure 119/40 L 119/40 L Pulse Oximetry Oxygen Delivery Fraction of Inspired Oxygen 07/11/24 09:35 07/11/24 10:00 07/11/24 10:00 Temperature Pulse Rate 102 H 104 H Respiratory Rate Blood Pressure 95/44 L Pulse Oximetry Oxygen Delivery Mechanical Ventilation Fraction of Inspired Oxygen 60 07/11/24 10:00 07/11/24 10:00 07/11/24 10:00 Temperature Pulse Rate 104 H 104 H 104 H Respiratory Rate Blood Pressure 95/44 L 95/44 L 95/44 L Pulse Oximetry Oxygen Delivery Fraction of Inspired Oxygen 07/11/24 11:12 07/11/24 12:00 07/11/24 12:00 Temperature Pulse Rate Respiratory Rate Blood Pressure Pulse Oximetry Oxygen Delivery Mechanical Ventilation Fraction of Inspired Oxygen 60 60 60 07/11/24 12:00 07/11/24 12:00 07/11/24 12:00 Temperature 97.4 F L Pulse Rate 102 H 102 H 102 H Respiratory Rate 28 H Blood Pressure 134/42 L Pulse Oximetry 100 Oxygen Delivery Fraction of Inspired Oxygen 07/11/24 12:00 07/11/24 12:00 07/11/24 12:22 Temperature Pulse Rate 102 H 102 H 102 H Respiratory Rate 28 H Blood Pressure 134/42 L 134/42 L Pulse Oximetry Oxygen Delivery Fraction of Inspired Oxygen 07/11/24 12:25 07/11/24 12:25 07/11/24 12:29 Temperature Pulse Rate 102 H 102 H 102 H Respiratory Rate Blood Pressure 136/43 L Pulse Oximetry 100 Oxygen Delivery Mechanical Ventilation Fraction of Inspired Oxygen 60 Exam Narrative: General: Intubated and sedated HEENT:? Pupils equal and reactive, sclerae is clear, ETT in place Neck:? Supple Respiratory:? Coarse breath sounds bilaterally, no wheezing, adequate air entry Cardiac:? S1-S2 is normal, mild tachycardia Abdomen:? Soft, nontender, nondistended, hypoactive bowel sound Extremities:? Decreased pedal pulses, 1+ edema, Neuro:? Intubated, sedated, opens her eyes to name but does not follow simple commands Skin:? Mottling noted in lower extremities bilateral Psych:? Unable to assess Results Labs 07/11/24 09:35 07/11/24 09:35 Labs: Short CBC 07/10/24 07/10/24 07/10/24 Range/Units 15:31 18:54 20:09 WBC 8.9 (4.5-10.0) K/mm3 Hgb 7.4 L 8.6 L 8.4 L (12.0-15.0) g/dL Hct 21.7 L 25.4 L 24.6 L (37.0-47.0) % Plt Count 244 (150-375) k/mm3 07/10/24 07/11/24 07/11/24 Range/Units 23:50 09:35 09:35 WBC 22.1 H 22.1 H (4.5-10.0) K/mm3 Hgb 9.9 L 7.5 L (12.0-15.0) g/dL Hct 29.2 L (37.0-47.0) % Plt Count (150-375) k/mm3 07/11/24 07/11/24 07/11/24 Range/Units 09:35 09:35 09:35 WBC (4.5-10.0) K/mm3 Hgb 7.5 L (12.0-15.0) g/dL Hct 24.1 L 24.1 L (37.0-47.0) % Plt Count 160 160 (150-375) k/mm3 BMP 07/10/24 07/11/24 07/11/24 15:31 04:26 09:35 Sodium 130 L 146 H 136 L Potassium 3.9 4.7 4.8 Chloride 93 L 102 100 Carbon Dioxide 29 25 10 L BUN 23 H 24 H 23 H Creatinine 0.77 1.37 H 2.03 H Glucose 320 H 94 81 Calcium 7.2 L 6.1 L 6.4 L Cardiac Enzymes 07/11/24 07/11/24 Range/Units 01:36 09:35 Total Creatine Kinase 262 H (30-135) U/L Troponin I 0.161 H* (0.000-0.034) ng/mL Liver Function 07/10/24 07/11/24 07/11/24 Range/Units 15:31 04:26 09:35 Total Bilirubin 1.2 2.2 H 2.6 H (0.2-1.3) mg/dL AST 48 H 811 H 4491 H (14-36) U/L ALT 43 H 337 H 1870 H (6-35) U/L Alkaline Phosphatase 92 95 102 (38-126) U/L Albumin 2.1 L 1.7 L 1.8 L (3.5-5.1) g/dL Urine 07/11/24 Range/Units 03:18 Urine Color Dark yellow (Yellow) Urine Appearance Clear (Clear) Urine pH 5.5 (5.0-9.0) Ur Specific [place] > 1.045 H (1.001-1.035) Urine Protein Negative (Negative) mg/dL Urine Glucose (UA) 2+ H (Negative) mg/dL
--- NOTE | 2024-07-11 13:32 | P.CONNP_ITS ---
History of Present Illness Reason for Consult Consult date: 07/11/24 Reason for consult: acute renal failure Chief Complaint Chief complaint: GI bleed, sepsis, influenza Review of Systems 2 Review of Systems: As per HPI. [facility] Past Medical History Medical History (Updated 07/11/24 @ 13:56 by Latasha Potter MD) CKD (chronic kidney disease) stage 3, GFR 30-59 ml/min Chronic narcotic use COPD (chronic obstructive pulmonary disease) PATO (obstructive sleep apnea) TIA (transient ischemic attack) Diabetes Left bundle branch block Followed by cardiology Decreased GFR History of GFR of 42 Recent GFR of 62 Former smoker Rheumatoid aortitis Obesity BALBUENA (dyspnea on exertion) Preop cardiovascular exam Hypertension Dyslipidemia Right knee DJD Surgical History Surgical History History of laparoscopic cholecystectomy History of partial hysterectomy History of splenectomy 2020 Hx of arthroscopy of left knee 2008 Social History Social History Social History: [place] her is her surrogate, she has 2 kids one daughter and one son. She does live in a house that is one story, however there are 5 steps to get into the house. 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 [employer] Gender identity (if verbalized by the patient): Female Sexual Orientation (if Verbalized by the Patient): Straight or Heterosexual Spiritual care concerns: No Agree to blood products: Yes Meds Home Medications and Allergies Home Medications ?Medication ?Instructions ?Recorded ?Confirmed ?Type aspirin 81 mg capsule 81 mg PO DAILY 09/25/21 07/10/24 History azathioprine 50 mg tablet 50 mg PO BID 09/25/21 07/10/24 History metformin 500 mg tablet,extended 1,500 mg PO DAILY 09/25/21 07/10/24 History release 24 hr ropinirole 4 mg tablet 4 mg PO QHS RLS 09/25/21 07/10/24 History trimethoprim 100 mg tablet 100 mg PO DAILY 09/25/21 07/10/24 History hydrochlorothiazide 25 mg tablet 25 mg PO DAILY 05/21/22 07/10/24 History amlodipine 10 mg tablet 10 mg PO DAILY 07/28/23 07/10/24 History atorvastatin 20 mg tablet 20 mg PO QHS 07/28/23 07/10/24 History insulin glargine U-300 conc 300 57 unit subcut BID 07/28/23 07/10/24 History unit/mL (3 mL) subcutaneous pen (Toujeo Max U-300 SoloStar) pramipexole 0.5 mg tablet 0.5 mg PO TID 07/28/23 07/10/24 History upadacitinib 15 mg tablet,extended 15 mg PO DAILY 07/28/23 07/10/24 History release 24 hr (Rinvoq) insulin aspart U-100 100 unit/mL 100 unit subcut DAILY #90 mL 11/09/23 07/10/24 Rx (3 mL) subcutaneous pen folic acid 1 mg tablet 1 mg PO HS 07/10/24 07/10/24 History Allergies Allergy/AdvReac Type Severity Reaction Status Date / Time Sulfa (Sulfonamide Allergy Intermediate Hives Verified 07/10/24 15:33 Antibiotics) morphine AdvReac Intermediate Headache Verified 07/10/24 15:33 Vital Signs Vital Signs Temp Pulse Resp BP Pulse Ox O2 Del Method FiO2 07/11/24 13:21 97.2 F L 103 H 28 H 103/46 L 100 07/11/24 12:56 97.3 F L 102 H 28 H 137/43 L 100 07/11/24 12:29 102 H 100 Mechanical Ventilation 60 07/11/24 12:25 102 H 136/43 L 07/11/24 12:25 102 H 07/11/24 12:22 102 H 134/42 L 07/11/24 12:00 102 H 07/11/24 12:00 102 H 28 H 07/11/24 12:00 102 H 134/42 L 07/11/24 12:00 102 H 07/11/24 12:00 102 H 02/05/25 12:00 97.4 F L 102 H 28 H 134/42 L 100 07/11/24 12:00 60 07/11/24 12:00 Mechanical Ventilation 60 07/11/24 11:12 60 07/11/24 10:00 104 H 95/44 L 07/11/24 10:00 104 H 95/44 L 07/11/24 10:00 104 H 95/44 L 07/11/24 10:00 104 H 95/44 L 07/11/24 10:00 102 H 07/11/24 09:35 Mechanical Ventilation 60 07/11/24 09:30 101 H 119/40 L 07/11/24 09:30 101 H 29 H 07/11/24 09:30 101 H 119/40 L 07/11/24 09:30 101 H 119/40 L 07/11/24 09:30 101 H 119/40 L 07/11/24 09:21 100 07/11/24 09:18 98.5 F 104 H 29 H 90/51 L 100 07/11/24 09:16 103 H 30 H 07/11/24 09:14 100 28 H 07/11/24 09:14 100 91/47 L 07/11/24 09:13 101 H 90/47 L 07/11/24 09:13 101 H 90/47 L 07/11/24 09:11 109 H 75/31 L 07/11/24 09:10 80 84/52 L 07/11/24 09:09 98 84/52 L 07/11/24 09:06 98.5 F 101 H 28 H 75/31 L 100 07/11/24 09:05 97 75/31 L 07/11/24 09:00 Mechanical Ventilation 60 07/11/24 09:00 101 H 100 Mechanical Ventilation 100 07/11/24 09:00 97 75/31 L 07/11/24 08:50 99 F 98 26 H 70/43 L 98 07/11/24 08:37 102 H 89/50 L 07/11/24 08:30 99 Mechanical Ventilation 60 07/11/24 08:00 99.5 F 100 27 H 63/38 L 99 07/11/24 07:30 99.9 F H 102 H 28 H 67/47 L 99 07/11/24 07:20 104 H 99 Mechanical Ventilation 60 07/11/24 07:00 100.3 F H 105 H 26 H 71/60 L 99 07/11/24 06:11 100.8 F H 109 H 25 H 55/28 L 98 07/11/24 06:06 100.8 F H 110 H 28 H 74/53 L 98 07/11/24 06:00 100.9 F H 111 H 25 H 67/47 L 97 07/11/24 05:56 101.0 F H 112 H 25 H 55/45 L 97 07/11/24 05:50 101.1 F H 113 H 26 H 70/40 L 97 07/11/24 05:46 101.1 F H 112 H 24 H 56/29 L 97 07/11/24 05:41 101.2 F H 113 H 24 H 60/48 L 99 07/11/24 05:35 101.3 F H 113 H 22 H 85/72 L 100 07/11/24 05:33 113 H 72/44 L 07/11/24 05:31 101.3 F H 114 H 22 H 72/43 L 100 07/11/24 05:25 101.4 F H 114 H 21 H 74/56 L 100 07/11/24 05:21 101.5 F H 114 H 22 H 68/50 L 99 07/11/24 05:16 101.6 F H 114 H 22 H 62/52 L 97 07/11/24 05:13 111 H 74/56 L 07/11/24 05:11 101.7 F H 113 H 88/77 L 07/11/24 05:06 101.7 F H 112 H 22 H 79/45 L 100 07/11/24 05:06 112 H 98 Mechanical Ventilation 60 07/11/24 05:02 101.8 F H 113 H 22 H 83/60 L 100 07/11/24 05:00 112 H 76/48 L 07/11/24 05:00 101.9 F H 112 H 22 H 82/49 L 100 07/11/24 05:00 112 H 76/48 L 07/11/24 04:58 112 H 82/50 L 07/11/24 04:57 101.9 F H 111 H 21 H 76/47 L 100 07/11/24 04:56 112 H 76/48 L 07/11/24 04:52 102.1 F H 112 H 22 H 92/58 L 100 07/11/24 04:47 102.3 F H 113 H 22 H 128/57 L 100 07/11/24 04:42 102.4 F H 110 H 22 H 127/58 L 100 07/11/24 04:37 102.7 F H 111 H 22 H 136/52 L 100 07/11/24 04:35 102.7 F H 111 H 22 H 127/63 100 07/11/24 04:32 102.8 F H 112 H 22 H 123/57 L 100 07/11/24 04:32 121 H 76/42 L 07/11/24 04:30 102.8 F H 113 H 124/58 L 07/11/24 04:26 102.8 F H 126 H 69/54 L 07/11/24 04:22 102.8 F H 118 H 22 H 72/40 L 07/11/24 04:19 102.8 F H 118 H 19 46/24 L 07/11/24 04:18 128 H 22 H 07/11/24 04:17 102.8 F H 119 H 22 H 07/11/24 04:17 120 H 46/24 L 07/11/24 04:15 102.8 F H 119 H 22 H 44/36 L 100 07/11/24 04:10 102.8 F H 120 H 22 H 42/34 L 100 07/11/24 04:07 102.8 F H 120 H 22 H 32/17 L 100 07/11/24 04:02 102.9 F H 121 H 22 H 49/41 L 100 07/11/24 04:02 120 H 50/42 L 07/11/24 04:00 102.9 F H 122 H 22 H 48/33 L 07/11/24 03:54 102.8 F H 123 H 22 H 51/41 L 100 07/11/24 03:48 124 H 46/30 L 07/11/24 03:43 102.8 F H 125 H 22 H 45/29 L 100 07/11/24 03:32 102.8 F H 126 H 22 H 62/50 L 07/11/24 03:30 126 H 68/44 L 07/11/24 03:27 125 H 100 Mechanical Ventilation 60 07/11/24 03:24 126 H 68/44 L 07/11/24 03:17 102.6 F H 127 H 16 67/44 L 07/11/24 03:15 102.6 F H 128 H 16 07/11/24 03:14 102.6 F H 128 H 16 76/57 L 100 07/11/24 03:12 102.6 F H 129 H 16 66/40 L 100 07/11/24 03:08 102.6 F H 130 H 16 66/40 L 100 07/11/24 03:08 102.5 F H 07/11/24 03:00 102.4 F H 133 H 16 66/40 L 100 07/11/24 02:52 130 H 72/30 L 07/11/24 02:47 102.1 F H 131 H 16 71/30 L 07/11/24 02:46 102.0 F H 131 H 16 91 07/11/24 02:45 102.0 F H 131 H 22 H 07/11/24 02:30 101.0 F H 135 H 07/11/24 02:22 134 H 16 102/65 07/11/24 02:17 132 H 16 90/64 L 100 07/11/24 02:16 132 H 16 07/11/24 02:15 131 H 16 90/64 L 07/11/24 02:15 131 H 19 07/11/24 02:05 129 H 15 72/57 L 07/11/24 02:03 129 H 17 74/40 L 07/11/24 02:00 145 H 16 07/11/24 02:00 130 H 100 Mechanical Ventilation 100 07/11/24 01:59 162 H 26 H 54/42 L 07/11/24 01:55 111/95 H 07/11/24 01:45 136 H 41 H 07/11/24 01:39 102.3 F H 07/11/24 01:32 135 H 58 H 102/88 97 07/11/24 01:30 133 H 55 H 98 07/11/24 01:17 131 H 45 H 84/50 L 100 07/11/24 01:17 130 H 84/50 L 07/11/24 01:16 129 H 30 H 84/50 L 95 07/11/24 01:15 130 H 28 H 07/11/24 01:02 129 H 44 H 97 07/11/24 00:31 128 H 37 H 93/54 L 07/11/24 00:30 127 H 37 H 07/11/24 00:21 131 H 76/42 L 07/11/24 00:17 131 H 23 H 97 07/11/24 00:05 135 H 40 H 82/61 L 97 07/11/24 00:02 136 H 44 H 62/39 L 73 L 07/11/24 00:00 134 H 36 H 97 07/10/24 23:46 132 H 41 H 76/51 L 07/10/24 23:45 132 H 37 H 07/10/24 23:33 132 H 30 H 07/10/24 23:28 131 H 35 H 74/46 L 98 07/10/24 23:17 129 H 33 H 07/10/24 23:01 145 H 17 80/50 L 07/10/24 23:00 137 H 17 07/10/24 22:54 124 H 23 H 07/10/24 22:36 126 H 82/48 L 07/10/24 22:30 127 H 30 H 07/10/24 22:19 126 H 31 H 84/60 L 96 07/10/24 22:16 125 H 33 H 83/60 L 95 07/10/24 22:15 126 H 26 H 95 07/10/24 22:12 125 H 31 H 83/57 L 97 07/10/24 22:11 124 H 84/58 L 07/10/24 22:08 98.1 F 125 H 30 H 80/52 L 95 07/10/24 22:04 126 H 80/52 L 07/10/24 22:02 129 H 80/52 L 07/10/24 22:01 127 H 30 H 79/51 L 07/10/24 22:00 127 H 31 H 96 07/10/24 21:48 125 H 26 H 07/10/24 21:47 131 H 15 84/53 L 97 07/10/24 21:32 125 H 32 H 95 07/10/24 21:31 125 H 27 H 79/70 L 95 07/10/24 21:18 127 H 30 H 97 07/10/24 21:00 140 H 42 H 07/10/24 20:49 131 H 31 H 07/10/24 20:45 97.6 F 128 H 32 H 76/58 L 95 07/10/24 20:45 131 H 78/60 L 07/10/24 20:37 132 H 78/60 L 07/10/24 20:34 98.0 F 129 H 32 H 78/60 L 97 07/10/24 20:32 133 H 80/50 L 07/10/24 20:27 98.6 F 130 H 30 H 74/46 L 95 07/10/24 20:24 133 H 68/46 L 07/10/24 20:19 127 H 80/50 L 07/10/24 20:16 130 H 30 H 77/50 L 07/10/24 20:15 127 H 30 H 07/10/24 20:14 126 H 77/50 L 07/10/24 20:10 128 H 38 H 89/58 L 07/10/24 20:09 130 H 90/58 L 07/10/24 20:07 132 H 39 H 98 07/10/24 20:03 132 H 82/54 L 07/10/24 19:54 128 H 52/51 L 07/10/24 19:47 120 H 84/54 L 07/10/24 19:35 121 H 86/56 L 07/10/24 19:32 123 H 73/59 L 07/10/24 19:16 138 H 32 H 91/61 L 96 07/10/24 19:15 127 H 28 H 97 Results Lab Results 07/11/24 17:44 07/11/24 17:44 Lab results: Most recent lab results ABG pH 6.955 (7.350-7.450) L* 07/11/24 14:00 ABG pCO2 38.5 mmHg (35.0-45.0) 07/11/24 14:00 ABG pO2 180.5 mmHg (80.0-100.0) H 07/11/24 14:00 ABG HCO3 8.4 mEq/l (22.0-26.0) L 07/11/24 14:00 ABG O2 Saturation 98.3 % (95.0-100.0) 07/11/24 14:00 Calcium 6.1 mg/dL (8.4-10.2) L 07/11/24 17:44 Phosphorus 11.7 mg/dL (2.5-4.5) H 07/11/24 17:44 Phosphorus Cancelled 07/11/24 17:44 Magnesium 2.0 mg/dL (1.6-2.3) 07/11/24 17:44 Magnesium 2.1 mg/dL (1.6-2.3) 07/11/24 17:44
--- NOTE | 2024-07-11 13:34 | P.HP_ITS ---
H&P: HPI History of Present Illness Date/Time: 07/11/24 13:34 Chief Complaint: 64-year-old with a history of hypertension, diabetes, hyperlipidemia here with the complaints of not feeling well Narrative: 64-year-old female past medical history of hypertension, type 2 diabetes, hyperlipidemia, COPD, PATO, TIA, CKD stage 3 and rheumatoid arthritis, obesity, hypertension presented to the ER on July with malaise. Patient was intubated at the time of this encounter. History was gathered from ED documentation. Of the chart family member stated the patient had 1 episode of black stool and did complain of abdominal pain. She ended up having a to large melenic stool in the vault hypertensive. She received 2 units of PRBCs central line was inserted and patient was started on Levophed. CT abdomen showed GI bleed with small source of bleed in the jejunum. Also showed 1.4 cm cystic lesion of the tail of pancreas. Therefore this transfer was initiated to [facility], the patient was within t he bed availability when she started tolerating requiring more persons hypertension does trigger admission to the ICU for critical care while awaiting transfer. WBC 22.1, hemoglobin 7.5, MCV 107.6, INR is 3.7, APTT 61.7, fibrinogen 110, D- dimer 3.93, ABG sees 0.983/35.4/130 assessment/8 2. Creatinine 2.03 lactic acid 21 custom shoes AST 4491 ALT 1870 total bilirubin is 2.6, albumin 1.8. Patient was intubated at time of this encounter on Levophed, Roderick-Synephrine, vasopressin and epinephrine. Also by confusion with lactic acid of 21.5. Review of Systems Review of Systems: Unable to do review of systems as patient was intubated and sedated. [facility] Past Medical History Medical History (Updated 07/11/24 @ 13:56 by Latasha Potter MD) CKD (chronic kidney disease) stage 3, GFR 30-59 ml/min Chronic narcotic use COPD (chronic obstructive pulmonary disease) PATO (obstructive sleep apnea) TIA (transient ischemic attack) Diabetes Left bundle branch block Followed by cardiology Decreased GFR History of GFR of 42 Recent GFR of 62 Former smoker Rheumatoid aortitis Obesity BALBUENA (dyspnea on exertion) Preop cardiovascular exam Hypertension Dyslipidemia Right knee DJD Surgical History Surgical History History of laparoscopic cholecystectomy History of partial hysterectomy History of splenectomy 2020 Hx of arthroscopy of left knee 2008 Social History Social History Social History: [place] her is her surrogate, she has 2 kids one daughter and one son. She does live in a house that is one story, however there are 5 steps to get into the house. 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 [employer] Gender identity (if verbalized by the patient): Female Sexual Orientation (if Verbalized by the Patient): Straight or Heterosexual Spiritual care concerns: No Agree to blood products: Yes Meds Home Medications and Allergies Home Medications ?Medication ?Instructions ?Recorded ?Confirmed ?Type aspirin 81 mg capsule 81 mg PO DAILY 09/25/21 07/10/24 History azathioprine 50 mg tablet 50 mg PO BID 09/25/21 07/10/24 History metformin 500 mg tablet,extended 1,500 mg PO DAILY 09/25/21 07/10/24 History release 24 hr ropinirole 4 mg tablet 4 mg PO QHS RLS 09/25/21 07/10/24 History trimethoprim 100 mg tablet 100 mg PO DAILY 09/25/21 07/10/24 History hydrochlorothiazide 25 mg tablet 25 mg PO DAILY 05/21/22 07/10/24 History amlodipine 10 mg tablet 10 mg PO DAILY 07/28/23 07/10/24 History atorvastatin 20 mg tablet 20 mg PO QHS 07/28/23 07/10/24 History insulin glargine U-300 conc 300 57 unit subcut BID 07/28/23 07/10/24 History unit/mL (3 mL) subcutaneous pen (Toujeo Max U-300 SoloStar) pramipexole 0.5 mg tablet 0.5 mg PO TID 07/28/23 07/10/24 History upadacitinib 15 mg tablet,extended 15 mg PO DAILY 07/28/23 07/10/24 History release 24 hr (Rinvoq) insulin aspart U-100 100 unit/mL 100 unit subcut DAILY #90 mL 11/09/23 07/10/24 Rx (3 mL) subcutaneous pen folic acid 1 mg tablet 1 mg PO HS 07/10/24 07/10/24 History Allergies Allergy/AdvReac Type Severity Reaction Status Date / Time Sulfa (Sulfonamide Allergy Intermediate Hives Verified 07/10/24 15:33 Antibiotics) morphine AdvReac Intermediate Headache Verified 07/10/24 15:33 Vital Signs Vital Signs - 24 hr 07/10/24 15:06 07/10/24 16:04 07/10/24 17:13 Temperature 98.3 F 97.8 F Pulse Rate 115 H 98 111 H Respiratory Rate 23 H 20 22 H Blood Pressure 70/42 L 80/39 L 81/57 L Pulse Oximetry 99 94 97 Oxygen Delivery Room Air Fraction of Inspired Oxygen 07/10/24 17:13 07/10/24 17:16 07/10/24 17:28 Temperature 97.8 F 98.3 F Pulse Rate 111 H 112 H 114 H Respiratory Rate 22 H 29 H 25 H Blood Pressure 81/57 L 87/41 L 79/51 L Pulse Oximetry 97 95 96 Oxygen Delivery Fraction of Inspired Oxygen 07/10/24 17:30 07/10/24 18:15 07/10/24 18:19 Temperature 98.2 F 98.2 F Pulse Rate 112 H 127 H 116 H Respiratory Rate 26 H 27 H 28 H Blood Pressure 79/51 L 87/63 L 87/63 L Pulse Oximetry 94 98 100 Oxygen Delivery Fraction of Inspired Oxygen 07/10/24 18:28 07/10/24 18:34 07/10/24 18:58 Temperature 97.6 F 97.7 F Pulse Rate 117 H 116 H 117 H Respiratory Rate 25 H 26 H 26 H Blood Pressure 87/63 L 83/63 L 87/57 L Pulse Oximetry 98 99 97 Oxygen Delivery Fraction of Inspired Oxygen 07/10/24 19:01 07/10/24 19:06 07/10/24 19:07 Temperature Pulse Rate 118 H 124 H 120 H Respiratory Rate 30 H Blood Pressure 87/54 L 80/53 L 80/53 L Pulse Oximetry 98 Oxygen Delivery Fraction of Inspired Oxygen 07/10/24 19:15 07/10/24 19:16 07/10/24 19:32 Temperature Pulse Rate 127 H 138 H 123 H Respiratory Rate 28 H 32 H Blood Pressure 91/61 L 73/59 L Pulse Oximetry 97 96 Oxygen Delivery Fraction of Inspired Oxygen 07/10/24 19:35 07/10/24 19:47 07/10/24 19:54 Temperature Pulse Rate 121 H 120 H 128 H Respiratory Rate Blood Pressure 86/56 L 84/54 L 52/51 L Pulse Oximetry Oxygen Delivery Fraction of Inspired Oxygen 07/10/24 20:03 07/10/24 20:07 07/10/24 20:09 Temperature Pulse Rate 132 H 132 H 130 H Respiratory Rate 39 H Blood Pressure 82/54 L 90/58 L Pulse Oximetry 98 Oxygen Delivery Fraction of Inspired Oxygen 07/10/24 20:10 07/10/24 20:14 07/10/24 20:15 Temperature Pulse Rate 128 H 126 H 127 H Respiratory Rate 38 H 30 H Blood Pressure 89/58 L 77/50 L Pulse Oximetry Oxygen Delivery Fraction of Inspired Oxygen 07/10/24 20:16 07/10/24 20:19 07/10/24 20:24 Temperature Pulse Rate 130 H 127 H 133 H Respiratory Rate 30 H Blood Pressure 77/50 L 80/50 L 68/46 L Pulse Oximetry Oxygen Delivery Fraction of Inspired Oxygen 07/10/24 20:27 07/10/24 20:32 07/10/24 20:34 Temperature 98.6 F 98.0 F Pulse Rate 130 H 133 H 129 H Respiratory Rate 30 H 32 H Blood Pressure 74/46 L 80/50 L 78/60 L Pulse Oximetry 95 97 Oxygen Delivery Fraction of Inspired Oxygen 07/10/24 20:37 07/10/24 20:45 07/10/24 20:45 Temperature 97.6 F Pulse Rate 132 H 131 H 128 H Respiratory Rate 32 H Blood Pressure 78/60 L 78/60 L 76/58 L Pulse Oximetry 95 Oxygen Delivery Fraction of Inspired Oxygen 07/10/24 20:49 07/10/24 21:00 07/10/24 21:18 Temperature Pulse Rate 131 H 140 H 127 H Respiratory Rate 31 H 42 H 30 H Blood Pressure Pulse Oximetry 97 Oxygen Delivery Fraction of Inspired Oxygen 07/10/24 21:31 07/10/24 21:32 07/10/24 21:47 Temperature Pulse Rate 125 H 125 H 131 H Respiratory Rate 27 H 32 H 15 Blood Pressure 79/70 L 84/53 L Pulse Oximetry 95 95 97 Oxygen Delivery Fraction of Inspired Oxygen 07/10/24 21:48 07/10/24 22:00 07/10/24 22:01 Temperature Pulse Rate 125 H 127 H 127 H Respiratory Rate 26 H 31 H 30 H Blood Pressure 79/51 L Pulse Oximetry 96 Oxygen Delivery Fraction of Inspired Oxygen 07/10/24 22:02 07/10/24 22:04 07/10/24 22:08 Temperature 98.1 F Pulse Rate 129 H 126 H 125 H Respiratory Rate 30 H Blood Pressure 80/52 L 80/52 L 80/52 L Pulse Oximetry 95 Oxygen Delivery Fraction of Inspired Oxygen 07/10/24 22:11 07/10/24 22:12 07/10/24 22:15 Temperature Pulse Rate 124 H 125 H 126 H Respiratory Rate 31 H 26 H Blood Pressure 84/58 L 83/57 L Pulse Oximetry 97 95 Oxygen Delivery Fraction of Inspired Oxygen 07/10/24 22:16 07/10/24 22:19 07/10/24 22:30 Temperature Pulse Rate 125 H 126 H 127 H Respiratory Rate 33 H 31 H 30 H Blood Pressure 83/60 L 84/60 L Pulse Oximetry 95 96 Oxygen Delivery Fraction of Inspired Oxygen 07/10/24 22:36 07/10/24 22:54 07/10/24 23:00 Temperature Pulse Rate 126 H 124 H 137 H Respiratory Rate 23 H 17 Blood Pressure 82/48 L Pulse Oximetry Oxygen Delivery Fraction of Inspired Oxygen 07/10/24 23:01 07/10/24 23:17 07/10/24 23:28 Temperature Pulse Rate 145 H 129 H 131 H Respiratory Rate 17 33 H 35 H Blood Pressure 80/50 L 74/46 L Pulse Oximetry 98 Oxygen Delivery Fraction of Inspired Oxygen 07/10/24 23:33 07/10/24 23:45 07/10/24 23:46 Temperature Pulse Rate 132 H 132 H 132 H Respiratory Rate 30 H 37 H 41 H Blood Pressure 76/51 L Pulse Oximetry Oxygen Delivery Fraction of Inspired Oxygen 07/11/24 00:00 07/11/24 00:02 07/11/24 00:05 Temperature Pulse Rate 134 H 136 H 135 H Respiratory Rate 36 H 44 H 40 H Blood Pressure 62/39 L 82/61 L Pulse Oximetry 97 73 L 97 Oxygen Delivery Fraction of Inspired Oxygen 07/11/24 00:17 07/11/24 00:21 07/11/24 00:30 Temperature Pulse Rate 131 H 131 H 127 H Respiratory Rate 23 H 37 H Blood Pressure 76/42 L Pulse Oximetry 97 Oxygen Delivery Fraction of Inspired Oxygen 07/11/24 00:31 07/11/24 01:02 07/11/24 01:15 Temperature Pulse Rate 128 H 129 H 130 H Respiratory Rate 37 H 44 H 28 H Blood Pressure 93/54 L Pulse Oximetry 97 Oxygen Delivery Fraction of Inspired Oxygen 07/11/24 01:16 07/11/24 01:17 07/11/24 01:17 Temperature Pulse Rate 129 H 130 H 131 H Respiratory Rate 30 H 45 H Blood Pressure 84/50 L 84/50 L 84/50 L Pulse Oximetry 95 100 Oxygen Delivery Fraction of Inspired Oxygen 07/11/24 01:30 07/11/24 01:32 07/11/24 01:39 Temperature 102.3 F H Pulse Rate 133 H 135 H Respiratory Rate 55 H 58 H Blood Pressure 102/88 Pulse Oximetry 98 97 Oxygen Delivery Fraction of Inspired Oxygen 07/11/24 01:45 07/11/24 01:55 07/11/24 01:59 Temperature Pulse Rate 136 H 162 H Respiratory Rate 41 H 26 H Blood Pressure 111/95 H 54/42 L Pulse Oximetry Oxygen Delivery Fraction of Inspired Oxygen 07/11/24 02:00 07/11/24 02:00 07/11/24 02:03 Temperature Pulse Rate 130 H 145 H 129 H Respiratory Rate 16 17 Blood Pressure 74/40 L Pulse Oximetry 100 Oxygen Delivery Mechanical Ventilation Fraction of Inspired Oxygen 100 07/11/24 02:05 07/11/24 02:15 07/11/24 02:15 Temperature Pulse Rate 129 H 131 H 131 H Respiratory Rate 15 19 16 Blood Pressure 72/57 L 90/64 L Pulse Oximetry Oxygen Delivery Fraction of Inspired Oxygen 07/11/24 02:16 07/11/24 02:17 07/11/24 02:22 Temperature Pulse Rate 132 H 132 H 134 H Respiratory Rate 16 16 16 Blood Pressure 90/64 L 102/65 Pulse Oximetry 100 Oxygen Delivery Fraction of Inspired Oxygen 07/11/24 02:30 07/11/24 02:45 07/11/24 02:46 Temperature 101.0 F H 102.0 F H 102.0 F H Pulse Rate 135 H 131 H 131 H Respiratory Rate 22 H 16 Blood Pressure Pulse Oximetry 91 Oxygen Delivery Fraction of Inspired Oxygen 07/11/24 02:47 07/11/24 02:52 07/11/24 03:00 Temperature 102.1 F H 102.4 F H Pulse Rate 131 H 130 H 133 H Respiratory Rate 16 16 Blood Pressure 71/30 L 72/30 L 66/40 L Pulse Oximetry 100 Oxygen Delivery Fraction of Inspired Oxygen 07/11/24 03:08 07/11/24 03:08 07/11/24 03:12 Temperature 102.5 F H 102.6 F H 102.6 F H Pulse Rate 130 H 129 H Respiratory Rate 16 16 Blood Pressure 66/40 L 66/40 L Pulse Oximetry 100 100 Oxygen Delivery Fraction of Inspired Oxygen 07/11/24 03:14 07/11/24 03:15 07/11/24 03:17 Temperature 102.6 F H 102.6 F H 102.6 F H Pulse Rate 128 H 128 H 127 H Respiratory Rate 16 16 16 Blood Pressure 76/57 L 67/44 L Pulse Oximetry 100 Oxygen Delivery Fraction of Inspired Oxygen 07/11/24 03:24 07/11/24 03:27 07/11/24 03:30 Temperature Pulse Rate 126 H 125 H 126 H Respiratory Rate Blood Pressure 68/44 L 68/44 L Pulse Oximetry 100 Oxygen Delivery Mechanical Ventilation Fraction of Inspired Oxygen 60 07/11/24 03:32 07/11/24 03:43 07/11/24 03:48 Temperature 102.8 F H 102.8 F H Pulse Rate 126 H 125 H 124 H Respiratory Rate 22 H 22 H Blood Pressure 62/50 L 45/29 L 46/30 L Pulse Oximetry 100 Oxygen Delivery Fraction of Inspired Oxygen 07/11/24 03:54 07/11/24 04:00 07/11/24 04:02 Temperature 102.8 F H 102.9 F H Pulse Rate 123 H 122 H 120 H Respiratory Rate 22 H 22 H Blood Pressure 51/41 L 48/33 L 50/42 L Pulse Oximetry 100 Oxygen Delivery Fraction of Inspired Oxygen 07/11/24 04:02 07/11/24 04:07 07/11/24 04:10 Temperature 102.9 F H 102.8 F H 102.8 F H Pulse Rate 121 H 120 H 120 H Respiratory Rate 22 H 22 H 22 H Blood Pressure 49/41 L 32/17 L 42/34 L Pulse Oximetry 100 100 100 Oxygen Delivery Fraction of Inspired Oxygen 07/11/24 04:15 07/11/24 04:17 07/11/24 04:17 Temperature 102.8 F H 102.8 F H Pulse Rate 119 H 120 H 119 H Respiratory Rate 22 H 22 H Blood Pressure 44/36 L 46/24 L Pulse Oximetry 100 Oxygen Delivery Fraction of Inspired Oxygen 07/11/24 04:18 07/11/24 04:19 07/11/24 04:22 Temperature 102.8 F H 102.8 F H Pulse Rate 128 H 118 H 118 H Respiratory Rate 22 H 19 22 H Blood Pressure 46/24 L 72/40 L Pulse Oximetry Oxygen Delivery Fraction of Inspired Oxygen 07/11/24 04:26 07/11/24 04:30 07/11/24 04:32 Temperature 102.8 F H 102.8 F H Pulse Rate 126 H 113 H 121 H Respiratory Rate Blood Pressure 69/54 L 124/58 L 76/42 L Pulse Oximetry Oxygen Delivery Fraction of Inspired Oxygen 07/11/24 04:32 07/11/24 04:35 07/11/24 04:37 Temperature 102.8 F H 102.7 F H 102.7 F H Pulse Rate 112 H 111 H 111 H Respiratory Rate 22 H 22 H 22 H Blood Pressure 123/57 L 127/63 136/52 L Pulse Oximetry 100 100 100 Oxygen Delivery Fraction of Inspired Oxygen 07/11/24 04:42 07/11/24 04:47 07/11/24 04:52 Temperature 102.4 F H 102.3 F H 102.1 F H Pulse Rate 110 H 113 H 112 H Respiratory Rate 22 H 22 H 22 H Blood Pressure 127/58 L 128/57 L 92/58 L Pulse Oximetry 100 100 100 Oxygen Delivery Fraction of Inspired Oxygen 07/11/24 04:56 07/11/24 04:57 07/11/24 04:58 Temperature 101.9 F H Pulse Rate 112 H 111 H 112 H Respiratory Rate 21 H Blood Pressure 76/48 L 76/47 L 82/50 L Pulse Oximetry 100 Oxygen Delivery Fraction of Inspired Oxygen 07/11/24 05:00 07/11/24 05:00 07/11/24 05:00 Temperature 101.9 F H Pulse Rate 112 H 112 H 112 H Respiratory Rate 22 H Blood Pressure 76/48 L 82/49 L 76/48 L Pulse Oximetry 100 Oxygen Delivery Fraction of Inspired Oxygen 07/11/24 05:02 07/11/24 05:06 07/11/24 05:06 Temperature 101.8 F H 101.7 F H Pulse Rate 113 H 112 H 112 H Respiratory Rate 22 H 22 H Blood Pressure 83/60 L 79/45 L Pulse Oximetry 100 98 100 Oxygen Delivery Mechanical Ventilation Fraction of Inspired Oxygen 60 07/11/24 05:11 07/11/24 05:13 07/11/24 05:16 Temperature 101.7 F H 101.6 F H Pulse Rate 113 H 111 H 114 H Respiratory Rate 22 H Blood Pressure 88/77 L 74/56 L 62/52 L Pulse Oximetry 97 Oxygen Delivery Fraction of Inspired Oxygen 07/11/24 05:21 07/11/24 05:25 07/11/24 05:31 Temperature 101.5 F H 101.4 F H 101.3 F H Pulse Rate 114 H 114 H 114 H Respiratory Rate 22 H 21 H 22 H Blood Pressure 68/50 L 74/56 L 72/43 L Pulse Oximetry 99 100 100 Oxygen Delivery Fraction of Inspired Oxygen 07/11/24 05:33 07/11/24 05:35 07/11/24 05:41 Temperature 101.3 F H 101.2 F H Pulse Rate 113 H 113 H 113 H Respiratory Rate 22 H 24 H Blood Pressure 72/44 L 85/72 L 60/48 L Pulse Oximetry 100 99 Oxygen Delivery Fraction of Inspired Oxygen 07/11/24 05:46 07/11/24 05:50 07/11/24 05:56 Temperature 101.1 F H 101.1 F H 101.0 F H Pulse Rate 112 H 113 H 112 H Respiratory Rate 24 H 26 H 25 H Blood Pressure 56/29 L 70/40 L 55/45 L Pulse Oximetry 97 97 97 Oxygen Delivery Fraction of Inspired Oxygen 07/11/24 06:00 07/11/24 06:06 07/11/24 06:11 Temperature 100.9 F H 100.8 F H 100.8 F H Pulse Rate 111 H 110 H 109 H Respiratory Rate 25 H 28 H 25 H Blood Pressure 67/47 L 74/53 L 55/28 L Pulse Oximetry 97 98 98 Oxygen Delivery Fraction of Inspired Oxygen 07/11/24 07:00 07/11/24 07:20 07/11/24 07:30 Temperature 100.3 F H 99.9 F H Pulse Rate 105 H 104 H 102 H Respiratory Rate 26 H 28 H Blood Pressure 71/60 L 67/47 L Pulse Oximetry 99 99 99 Oxygen Delivery Mechanical Ventilation Fraction of Inspired Oxygen 60 07/11/24 08:00 07/11/24 08:30 07/11/24 08:37 Temperature 99.5 F Pulse Rate 100 102 H Respiratory Rate 27 H Blood Pressure 63/38 L 89/50 L Pulse Oximetry 99 99 Oxygen Delivery Mechanical Ventilation Fraction of Inspired Oxygen 60 07/11/24 08:50 07/11/24 09:00 07/11/24 09:00 Temperature 99 F Pulse Rate 98 97 101 H Respiratory Rate 26 H Blood Pressure 70/43 L 75/31 L Pulse Oximetry 98 100 Oxygen Delivery Mechanical Ventilation Fraction of Inspired Oxygen 100 07/11/24 09:00 07/11/24 09:05 07/11/24 09:06 Temperature 98.5 F Pulse Rate 97 101 H Respiratory Rate 28 H Blood Pressure 75/31 L 75/31 L Pulse Oximetry 100 Oxygen Delivery Mechanical Ventilation Fraction of Inspired Oxygen 60 07/11/24 09:09 07/11/24 09:10 07/11/24 09:11 Temperature Pulse Rate 98 80 109 H Respiratory Rate Blood Pressure 84/52 L 84/52 L 75/31 L Pulse Oximetry Oxygen Delivery Fraction of Inspired Oxygen 07/11/24 09:13 07/11/24 09:13 07/11/24 09:14 Temperature Pulse Rate 101 H 101 H 100 Respiratory Rate Blood Pressure 90/47 L 90/47 L 91/47 L Pulse Oximetry Oxygen Delivery Fraction of Inspired Oxygen 07/11/24 09:14 07/11/24 09:16 07/11/24 09:18 Temperature 98.5 F Pulse Rate 100 103 H 104 H Respiratory Rate 28 H 30 H 29 H Blood Pressure 90/51 L Pulse Oximetry 100 Oxygen Delivery Fraction of Inspired Oxygen 07/11/24 09:21 07/11/24 09:30 07/11/24 09:30 Temperature Pulse Rate 101 H 101 H Respiratory Rate Blood Pressure 119/40 L 119/40 L Pulse Oximetry Oxygen Delivery Fraction of Inspired Oxygen 100 07/11/24 09:30 07/11/24 09:30 07/11/24 09:30 Temperature Pulse Rate 101 H 101 H 101 H Respiratory Rate 29 H Blood Pressure 119/40 L 119/40 L Pulse Oximetry Oxygen Delivery Fraction of Inspired Oxygen 07/11/24 09:35 07/11/24 10:00 07/11/24 10:00 Temperature Pulse Rate 102 H 104 H Respiratory Rate Blood Pressure 95/44 L Pulse Oximetry Oxygen Delivery Mechanical Ventilation Fraction of Inspired Oxygen 60 07/11/24 10:00 07/11/24 10:00 07/11/24 10:00 Temperature Pulse Rate 104 H 104 H 104 H Respiratory Rate Blood Pressure 95/44 L 95/44 L 95/44 L Pulse Oximetry Oxygen Delivery Fraction of Inspired Oxygen 07/11/24 11:12 07/11/24 12:00 07/11/24 12:00 Temperature Pulse Rate Respiratory Rate Blood Pressure Pulse Oximetry Oxygen Delivery Mechanical Ventilation Fraction of Inspired Oxygen 60 60 60 07/11/24 12:00 07/11/24 12:00 07/11/24 12:00 Temperature 97.4 F L Pulse Rate 102 H 102 H 102 H Respiratory Rate 28 H Blood Pressure 134/42 L Pulse Oximetry 100 Oxygen Delivery Fraction of Inspired Oxygen 07/11/24 12:00 07/11/24 12:00 07/11/24 12:00 Temperature Pulse Rate 102 H 102 H 102 H Respiratory Rate 28 H Blood Pressure 134/42 L Pulse Oximetry Oxygen Delivery Fraction of Inspired Oxygen 07/11/24 12:22 07/11/24 12:25 07/11/24 12:25 Temperature Pulse Rate 102 H 102 H 102 H Respiratory Rate Blood Pressure 134/42 L 136/43 L Pulse Oximetry Oxygen Delivery Fraction of Inspired Oxygen 07/11/24 12:29 07/11/24 12:56 07/11/24 13:21 Temperature 97.3 F L 97.2 F L Pulse Rate 102 H 102 H 103 H Respiratory Rate 28 H 28 H Blood Pressure 137/43 L 103/46 L Pulse Oximetry 100 100 100 Oxygen Delivery Mechanical Ventilation Fraction of Inspired Oxygen 60 Exam Narrative: General: Intubated and sedated. Eyes: PERRLA ENNT External ears normal, Neck is supple, no masses, Respiratory systems: Clear to auscultation Cardiovascular S1, S2, normal rhythm, no murmur, rub, or gallop; no thrill or palpable murmurs on palpation. Gastrointestinal: soft, non-distended abdomen with no masses; BS present Skin: no rash, lesions, ulcerations, subcutaneous nodules or induration Musculoskeletal: no abnormality and no tenderness, normal ROM Neurologic: intubated and sedated H&P: Results Labs Labs: Short CBC 07/10/24 07/10/24 07/10/24 Range/Units 15:31 18:54 20:09 WBC 8.9 (4.5-10.0) K/mm3 Hgb 7.4 L 8.6 L 8.4 L (12.0-15.0) g/dL Hct 21.7 L 25.4 L 24.6 L (37.0-47.0) % Plt Count 244 (150-375) k/mm3 07/10/24 07/11/24 07/11/24 Range/Units 23:50 09:35 09:35 WBC 22.1 H 22.1 H (4.5-10.0) K/mm3 Hgb 9.9 L 7.5 L (12.0-15.0) g/dL Hct 29.2 L (37.0-47.0) % Plt Count (150-375) k/mm3 07/11/24 07/11/24 07/11/24 Range/Units 09:35 09:35 09:35 WBC (4.5-10.0) K/mm3 Hgb 7.5 L (12.0-15.0) g/dL Hct 24.1 L 24.1 L (37.0-47.0) % Plt Count 160 160 (150-375) k/mm3 BMP 07/10/24 07/11/24 07/11/24 15:31 04:26 09:35 Sodium 130 L 146 H 136 L Potassium 3.9 4.7 4.8 Chloride 93 L 102 100 Carbon Dioxide 29 25 10 L BUN 23 H 24 H 23 H Creatinine 0.77 1.37 H 2.03 H Glucose 320 H 94 81 Calcium 7.2 L 6.1 L 6.4 L Cardiac Enzymes 07/11/24 07/11/24 Range/Units 01:36 09:35 Total Creatine Kinase 262 H (30-135) U/L Troponin I 0.161 H* (0.000-0.034) ng/mL Liver Function 07/10/24 07/11/24 07/11/24 Range/Units 15:31 04:26 09:35 Total Bilirubin 1.2 2.2 H 2.6 H (0.2-1.3) mg/dL AST 48 H 811 H 4491 H (14-36) U/L ALT 43 H 337 H 1870 H (6-35) U/L Alkaline Phosphatase 92 95 102 (38-126) U/L Albumin 2.1 L 1.7 L 1.8 L (3.5-5.1) g/dL Urine 07/11/24 Range/Units 03:18 Urine Color Dark yellow (Yellow) Urine Appearance Clear (Clear) Urine pH 5.5 (5.0-9.0) Ur Specific [place] > 1.045 H (1.001-1.035) Urine Protein Negative (Negative) mg/dL Urine Glucose (UA) 2+ H (Negative) mg/dL Assessment and Plan Assessment and plan (1) Diabetes: Code(s): E11.9 - Type 2 diabetes mellitus without complications Status: Acute (2) Transaminitis: Code(s): R74.01 - Elevation of levels of liver transaminase levels Status: Acute (3) Acute GI bleeding: Code(s): K92.2 - Gastrointestinal hemorrhage, unspecified Status: Acute (4) Lactic acidosis: Code(s): E87.20 - Acidosis, unspecified Status: Acute (5) Acute respiratory failure: Code(s): J96.00 - Acute respiratory failure, unspecified whether with hypoxia or hypercapnia Status: Acute (6) Acute renal failure: Code(s): N17.9 - Acute kidney failure, unspecified Status: Acute Plan Acute GI bleed with severe anemia Patient presented with family does a history with a history of 1 episode of dizziness to Had 2 large melanotic stool her bowel movement in the ER Received 2 units of pRBC near. CT abdomen showed possible source in the jejunum without contrast extravasation was noted. monitor H and H, transfuse as appropriate s/p Tranexamic acid septic shock vs Hypovolemic shock From GI bleed and/or infection WBC 22, lactic acid 21.5 continue IVF, pressors and Blood transfusion as needed CT no pneumonia Estrella culture and continue Antibiotics per tile and marble installer Manager Part on board DIC Elevated ddimer, low fibrinogen and elevated APTT and INR S/p Vit K Fibrinogen per tile and marble installer monitor Severe hepatitis AST 4491, ALT 1870, bili 2.6, Albumin 1.8 Continue albumin infusion. hepatitis panel contineu above care SOUTH From shock Cr 2.03 continue above care monitor DVT prophylaxis on SCDs, no Anticoagulation due to GI bleed Full code Hospitalist MIPS Advance Care Plan I have confirmed that the patient's Advanced Care Plan is present, code status is documented, or surrogate decision maker is listed in patient medical record.: Yes Medication Reconciliation I have utilized all available resources to obtain, update and review the patients current medications (includes all prescriptions, OTC, herbals, cannabis, and nutritional supplements).: Yes
[2024-07-11 13:38] LABS: Glucose Point of Care 147 mg/dl (65-105)
[2024-07-11] MEDS: HYDROCORTISONE SODIUM SUCCINATE 100 MG/2 ML VIAL IV PUSH ×2 (13:54→21:21)
[2024-07-11 14:04] LABS: Base Excess ABG -21.7 mEq/l (+/-2.0); Fractional Inspired Oxygen 60 %; HCO3 ABG 8.4 mEq/l (22.0-26.0); Oxygen Saturation ABG 98.3 % (95.0-100.0); Oxyhemoglobin 97.6 % THb (90.0-100.0); PCO2 ABG 38.5 mmHg (35.0-45.0); PO2 ABG 180.5 mmHg (80.0-100.0); PO2 FiO2 Ratio Arterial Blood 3.01 %
[2024-07-11 14:13] LABS: Site Drawn ARTLINE; Total Hemoglobin 6.2 g/dL (12.0-18.0); pH ABG 6.955 (7.350-7.450)
[2024-07-11 14:14] LABS: Arterial Blood Gas PEEP 5 cmH2O; Arterial Blood Gas Tidal Volume 450 ml; Arterial Blood Gas Vent Mode CMV; Arterial Blood Gas Ventilator rate 28 /MIN; Device VENTILATOR
[2024-07-11] MEDS: PANTOPRAZOLE SODIUM IV 40 MG VIAL IV PUSH ×2 (14:24→21:21)
[2024-07-11] MEDS: EPINEPHrine INJ 1 MG in DEXTROSE 5% IN WATER 250 ML 150.6 MG IV CONT ×2 (15:51→17:35)
[2024-07-11 18:00] LABS: Mean Corpuscular HGB Conc 31.3 g/dl (32-36); Mean Corpuscular Hemoglobin 33.5 pg (26-34); Mean Corpuscular Volume 106.9 fl (80-100); Mean Platelet Volume 11.5 fl (7.4-10.4); Platelet Count Result 129 k/mm3 (150-375); Red Blood Count 1.88 M/mm3 (4.2-5.4); Red Cell Distribution Width 23.8 % (11.5-14.5); White Blood Count 19.1 K/mm3 (4.5-10.0)
[2024-07-11 18:10] LABS: Mean Corpuscular HGB Conc 31.3 g/dl (32-36); Mean Corpuscular Hemoglobin 33.7 pg (26-34); Mean Corpuscular Volume 107.5 fl (80-100); Mean Platelet Volume 11.8 fl (7.4-10.4); Platelet Count Result 132 k/mm3 (150-375); Red Blood Count 1.87 M/mm3 (4.2-5.4); Red Cell Distribution Width 23.3 % (11.5-14.5); White Blood Count 18.8 K/mm3 (4.5-10.0)
[2024-07-11 18:13] LABS: Hematocrit 20.1 % (37.0-47.0); Hemoglobin 6.3 g/dL (12.0-15.0); INR 3.2; Prothrombin Time 32.7 Seconds (11.1-14.7)
[2024-07-11 18:14] LABS: Fibrinogen 158 mg/dl (215-510); Partial Thromboplastin Time 53.1 Seconds (22.3-36.8)
[2024-07-11 18:19] LABS: Albumin Level 2.5 g/dL (3.5-5.1); Alkaline Phosphatase 78 U/L (38-126); Blood Urea Nitrogen 23 mg/dL (7-17); Calcium 6.1 mg/dL (8.4-10.2); Carbon Dioxide < 5 mmol/L (22-30); Chloride 92 mmol/L (98-107); Estimated CRCL calculation 26 ml/min; Estimated Glomerular Filt Rate 19; Glucose 192 mg/dL (65-110); Magnesium 2.1 mg/dL (1.6-2.3); Potassium 4.6 mmol/L (3.4-5.0)
[2024-07-11 18:20] LABS: Bilirubin,Total 2.8 mg/dL (0.2-1.3); Phosphorus 11.7 mg/dL (2.5-4.5); Sodium 136 mmol/L (137-145)
[2024-07-11 18:24] LABS: D Dimer 1.85 ug/mL (<0.48)
[2024-07-11 18:28] LABS: Lactic Acid > 24.0 mmol/L (0.7-2.0)
[2024-07-11 18:29] LABS: Alanine Aminotransferase 2631 U/L (6-35)
[2024-07-11 18:30] LABS: Hemoglobin 6.3 g/dL (12.0-15.0)
[2024-07-11 18:31] LABS: Hematocrit 20.1 % (37.0-47.0)
[2024-07-11 18:35] LABS: Band Neutrophils Percent 13 % (0-6); Monocytes Absolute Manual 0.75 K/mm3 (0.1-0.90); Monocytes Percent Manual 4 % (3-9); Neutrophils Absolute Manual 15.04 K/mm3 (1.7-7.2); Neutrophils Percent Manual 67 % (46-73); Nucleated Red Blood Cells 2 %; Total Cells Counted 100
[2024-07-11 18:36] LABS: Platelet Estimate Decreased (Adequate)
[2024-07-11 18:37] LABS: Anisocytosis 3+; Schistocytes Rare
[2024-07-11 18:38] LABS: Hypochromasia 1+
[2024-07-11] MEDS: MIDAZOLAM HCL (*CRX) 2 MG/2 ML VIAL IV PUSH (18:40)
[2024-07-11 18:45] LABS: Aspartate Amino Transferase > 7500 U/L (14-36)
[2024-07-11 19:02] LABS: Hepatitis B Surface Antigen Negative (Negative)
[2024-07-11 19:08] LABS: HAV RESULT Negative (Negative); Hepatitis B Core IgM Result Negative (Negative)
[2024-07-11 19:20] LABS: Hepatitis C Virus Antibody Negative (Negative)
[2024-07-11] MEDS: SODIUM CHLORIDE 0.9% IV 250 ML 30 ML IV CONT (19:45)
[2024-07-11] MEDS: EPINEPHrine INJ 4 MG in DEXTROSE 5% IN WATER 250 ML 38.1 MG IV CONT (20:50)
[2024-07-11] MEDS: MIDAZOLAM 100MG/NS 100ML(*CRX) 100 MG/100 ML BAG IV CONT (21:15)
[2024-07-11] MEDS: MINERAL OIL/WHITE PETROLATUM OINTMENT 1 APPLIC EACH EYE (21:21)
[2024-07-11 23:54] LABS: Glucose Point of Care 241 mg/dl (65-105)
[2024-07-12] VITALS (23 sets, daily range): BP systolic 94–119; BP diastolic 25–48; PULSE 99–115; RESP 8–32; TEMP 38–38.1; O2SAT 90–100
[2024-07-12] MEDS: PHENYLEPHRINE HCL INJ 50 MG in DEXTROSE 5% IN WATER 250 ML/245 ML BAG 54 ML IV CONT ×2 (00:20→05:13)
--- NOTE | 2024-07-12 02:49 | PCRCNOTE ---
0211 ABG not done because RETORT UNLOADER Fredrick Bear said to hold off and just do the 0511 gas with the other morning labs.
[2024-07-12] MEDS: ALBUMIN HUMAN 25% 25 GM/100 ML 100 ML IVPB (03:12)
[2024-07-12] MEDS: EPINEPHrine INJ 4 MG in DEXTROSE 5% IN WATER 250 ML 38.1 MG IV CONT (03:23)
[2024-07-12] MEDS: VASOPRESSIN INJ 100 UNITS in DEXTROSE 5% 95 ML IV CONT (03:24)
[2024-07-12] MEDS: NOREPINEPHRINE 8 MG/D5W 250 ML 8 MG/250 ML BAG 56.25 MG IV CONT ×2 (04:25→09:05)
[2024-07-12 05:19] LABS: Alveolar/Arterial O2 Gradient 258.4 mmHg; Base Excess ABG -22.7 mEq/l (+/-2.0); Carboxyhemoglobin 1.1 % THb (0-2.0); Fractional Inspired Oxygen 55 %; HCO3 ABG 7.4 mEq/l (22.0-26.0); Methemoglobin ABG 0.5 %THb (0-1.5); Oxygen Content ABG 10.1 %vol (16.0-22.0); Oxygen Saturation ABG 92.7 % (95.0-100.0); Oxyhemoglobin 94.3 % THb (90.0-100.0); PCO2 ABG 32.9 mmHg (35.0-45.0); PO2 ABG 97.2 mmHg (80.0-100.0); PO2 FiO2 Ratio Arterial Blood 1.77 %; Reduced Hemoglobin 4.1 %THb (0-5.0)
[2024-07-12 05:25] LABS: Hematocrit 24.1 % (37.0-47.0); Hemoglobin 7.2 g/dL (12.0-15.0); Mean Corpuscular HGB Conc 29.9 g/dl (32-36); Mean Corpuscular Hemoglobin 31.4 pg (26-34); Mean Corpuscular Volume 105.2 fl (80-100); Mean Platelet Volume 11.2 fl (7.4-10.4); Platelet Count Result 117 k/mm3 (150-375); Red Blood Count 2.29 M/mm3 (4.2-5.4); Red Cell Distribution Width 21.2 % (11.5-14.5); White Blood Count 15.9 K/mm3 (4.5-10.0)
[2024-07-12 05:26] LABS: Hematocrit 23.3 % (37.0-47.0); Hemoglobin 7.2 g/dL (12.0-15.0); Mean Corpuscular HGB Conc 30.9 g/dl (32-36); Mean Corpuscular Hemoglobin 32.4 pg (26-34); Mean Platelet Volume 11.2 fl (7.4-10.4); Platelet Count Result 115 k/mm3 (150-375); Red Blood Count 2.22 M/mm3 (4.2-5.4); Red Cell Distribution Width 21.2 % (11.5-14.5); White Blood Count 15.5 K/mm3 (4.5-10.0)
[2024-07-12 05:37] LABS: Estimated CRCL calculation 19 ml/min; Estimated Glomerular Filt Rate 13
[2024-07-12 05:40] LABS: Albumin Level 2.9 g/dL (3.5-5.1); Alkaline Phosphatase 92 U/L (38-126); Anion Gap 39 mmol/L (4-12); Bilirubin,Total 3.2 mg/dL (0.2-1.3); Blood Urea Nitrogen 22 mg/dL (7-17); Carbon Dioxide 6 mmol/L (22-30); Chloride 86 mmol/L (98-107); Estimated CRCL calculation 19 ml/min; Estimated Glomerular Filt Rate 13; Glucose 197 mg/dL (65-110); Potassium 5.7 mmol/L (3.4-5.0); Sodium 131 mmol/L (137-145)
[2024-07-12 05:47] LABS: Device VENTILATOR; Site Drawn ARTLINE; Total Hemoglobin 7.5 g/dL (12.0-18.0); pH ABG 6.968 (7.350-7.450)
[2024-07-12 05:48] LABS: Arterial Blood Gas PEEP 5 cmH2O; Arterial Blood Gas Tidal Volume 450 ml; Arterial Blood Gas Vent Mode CMV; Arterial Blood Gas Ventilator rate 30 /MIN; Band Neutrophils Percent 12 % (0-6); Lymphocytes Absolute Manual 2.01 K/mm3 (1.1-4.5); Neutrophils Absolute Manual 13.48 K/mm3 (1.7-7.2); Neutrophils Percent Manual 75 % (46-73); Nucleated Red Blood Cells 4 %; Total Cells Counted 100
[2024-07-12 05:50] LABS: Anisocytosis 1+; Platelet Estimate Decreased (Adequate); Schistocytes Rare
[2024-07-12 05:51] LABS: Prothrombin Time 39.3 Seconds (11.1-14.7)
[2024-07-12 05:51] LABS: Burr Cells 1+; Macrocytosis 1+ (NORMAL)
[2024-07-12 05:52] LABS: Lactic Acid Reflex > 24.0 mmol/L (0.7-2.0)
[2024-07-12 05:56] LABS: Alanine Aminotransferase 2924 U/L (6-35)
[2024-07-12 05:58] LABS: Partial Thromboplastin Time 59.3 Seconds (22.3-36.8)
[2024-07-12 06:03] LABS: Fibrinogen 139 mg/dl (215-510)
[2024-07-12 06:14] LABS: Vancomycin Trough 16.3 ug/mL (10.0-20.0)
[2024-07-12 06:21] LABS: Aspartate Amino Transferase > 7500 U/L (14-36); Phosphorus 13.2 mg/dL (2.5-4.5)
[2024-07-12] MEDS: ALBUTEROL SULFATE NEB 2.5 MG/3 ML INH 10 MG INHALATION (06:22)
[2024-07-12] MEDS: SODIUM BICARBONATE 8.4% 50 MEQ/50 ML SYRINGE 100 MEQ IV PUSH (07:00)
[2024-07-12] MEDS: DEXTROSE 50% 25 GM/50 ML SYRINGE IV PUSH (07:00)
[2024-07-12] MEDS: INSULIN HUMAN REGULAR (*BKC) 100 UNITS/ML 10 UNITS IV PUSH (07:00)
[2024-07-12] MEDS: HYDROCORTISONE SODIUM SUCCINATE 100 MG/2 ML VIAL IV PUSH (07:00)
[2024-07-12] MEDS: CALCIUM GLUC 2,000 MG/NS 100ML 2,000 MG/100 ML BAG 100 MG IVPB (07:01)
[2024-07-12] MEDS: SODIUM ZIRCONIUM CYCLOSILICATE 10 GM POWD.PACK PO (07:01)
[2024-07-12 07:40] LABS: Glucose Point of Care 216 mg/dl (65-105)
[2024-07-12 08:20] LABS: Reflex Lactic Acid Yes or No Add Lactic
[2024-07-12 08:30] LABS: D Dimer 2.39 ug/mL (<0.48)
[2024-07-12] MEDS: LORazepam INJ (*CRX) 2 MG/ML VIAL IV PUSH (09:40)
[2024-07-12] MEDS: MORPHINE SULFATE INJ (*CRX) 10 MG/ML AMP 5 MG IV PUSH (09:41)
--- NOTE | 2024-07-12 11:30 | WPDINTPN ---
Progress Note: A&P Assessment and Plan (1) Shock: Code(s): R57.9 - Shock, unspecified Status: Acute Assessment and Plan: Hemorrhagic versus septic versus hypovolemic shock -patient presented with melanotic stools CT abdomen pelvis showed small focus of active extravasation within the jejunum in the left abdomen -patient has been accepted and is on a waiting list to transfer to either [facility] or [facility] -significant hypotension through the night, was asked to see the patient in the ER as she awaits transfer to higher level of care -in the ER patient was on maximum doses of Levophed, Roderick-Synephrine and vasopressin. -ABG showed severe acidosis and lactic acidosis -I asked the ER bedside RN to give 2 amps of bicarb, may changes to the ventilator, ordered epinephrine infusion. Patient to be transferred to the ICU for further management at this time -upon arrival to the ICU on 07/08/2024 I placed a left femoral arterial line -will maintain MAP > 65 mm Hg or greater at all times for adequate end organ perfusion -patient has been started on meropenem and vancomycin (07/11) -blood cultures have been obtained and pending -she did receive adequate amount of IV fluids in the ER -started patient on stress dose steroids 07/12: Maximum doses of epinephrine, Levophed, vasopressin and Roderick-Synephrine. Patient has received multiple IV push sodium bicarbonate . Lactic acid remains> 24. Patient with leukocytosis, hemoglobin of 7.2 (2) Acute respiratory failure: Code(s): J96.00 - Acute respiratory failure, unspecified whether with hypoxia or hypercapnia Status: Acute Assessment and Plan: Patient was intubated in the ER secondary severe shock, metabolic acidosis due to lactic acidosis -currently on CMV mode of ventilation, 60% FiO2 and peep of 5 -chest x-ray and ABGs reviewed, ventilator adjusted -ABGs reveals severe metabolic acidosis, patient has been oxygenating well, pCO2 levels have been normal -sedated with fentanyl infusion, maintain RASS is -2 (3) Acute renal failure: Code(s): N17.9 - Acute kidney failure, unspecified Status: Acute Assessment and Plan: Acute kidney injury likely related to shock hemorrhagic versus hypovolemic versus septic -received adequate amount of IV fluids -remains on sodium bicarb infusion -lactic acidosis with severe metabolic acidosis -nephrology has been consulted -02/06: Continues to have decreased urine output with worsening renal function -continue to monitor renal function, electrolytes and urine output (4) DIC (disseminated intravascular coagulation): Code(s): D65 - Disseminated intravascular coagulation [defibrination syndrome] Status: Acute Assessment and Plan: DIC panel is positive, status post FFP, cryoprecipitate and PRBC, vitamin K 07/12: Remains in DIC (5) Lactic acidosis: Code(s): E87.20 - Acidosis, unspecified Status: Acute Assessment and Plan: Significant elevation in lactic acid level, could be related to his ischemic bowel -surgery has been consulted -patient a very high risk for surgery, (6) Acute GI bleeding: Code(s): K92.2 - Gastrointestinal hemorrhage, unspecified Status: Acute Assessment and Plan: Patient presented with melanotic stools, anemia with hemoglobin of 7.4 on admission, received 2 units of packed RBCs on 07/10/2024 in the ER -additional 1 unit of packed RBCs will be transfused in the ICU on 07/11/202407/10: Abdominal CTA showed gastrointestinal bleed with small focus of active intraluminal contrast extravasation within the loop of jejunum in the left abdomen. (7) Anemia due to acute blood loss: Code(s): D62 - Acute posthemorrhagic anemia Status: Acute Assessment and Plan: Anemia due to GI bleed -patient has received a total of 3 units of packed RBCs since admission -continue to monitor H&H -continue Protonix IV q.12 hours Plan DVT prophylaxis: SCDs, no chemoprophylaxis secondary to acute GI bleed, anemia, DIC Stress ulcer prophylaxis: Protonix IV q.12 hours Nutrition: NPO Code Status: DNR, comfort measures Critical Care Time Spent: 55 minutes 07/12: Patient had a cardiac arrest, discussed with son, daughter and and conference room along with other family members and updated them with patient's condition and care. I explained to them that patient has multiorgan system failure, severe metabolic acidosis with elevated lactic acid > 24. Worsening renal function with decreased urine output. Family decided to withdraw support and make a comfort measures 07/11: Multiple discussions with family members especially and daughter and updated them with patient's condition and plan of care. They are aware that patient is on 4 blood pressure support medications, in acute renal failure, elevated lactic acids, acute respiratory failure. They are aware that a condition is guarded. I did have a discussion regarding code status, they wanted to be a full code at this time. Patient's son is traveling from [place]. They are aware that [facility] and [facility] have accepted the patient and we are awaiting bed for transfer. Due to a high probability of clinically significant, life threatening deterioration, the patient required my highest level of preparedness to intervene emergently and I personally spent this critical care time directly and personally managing the patient. This critical care time included obtaining a history; examining the patient; pulse oximetry; ordering and review of studies; arranging urgent treatment with development of a management plan; evaluation of patient's response to treatment; frequent reassessment; and discussions with other providers. It was exclusive of separately billable procedures and treating other patients and teaching time. Please see Assessment and Plan section and the rest of the note for further information on patient assessment and treatment This dictation may have been done utilizing a voice recognition system. Attempts have been made to correct errors. However, there may be uncorrected grammatical, spelling, and recognitions errors present. Subjective Date/time seen: 07/12/24 11:30 Interval history: Reason for consult: Shock, hemorrhagic versus septic versus hypovolemic requiring multiple vasopressors, acute kidney injury, lactic acidosis, acute respiratory failure, DIC 07/12/2024: A patient seen and examined the ICU, remains intubated on CMV mode of ventilation, peep of 5, 55% FiO2, sedated with fentanyl infusion. Patient did receive p.r.n. midazolam overnight. Lactic acid remains > 24. Worsening renal function, severe metabolic acidosis, leukocytosis, elevated LFTs. Hyperkalemia with potassium of 5.7. Minimal urine output. Remains on maximum doses of epinephrine, Levophed, Roderick-Synephrine, vasopressin Review of Systems Review of Systems: ROS unobtainable: Yes unobtainable due to endotracheal tube, unobtainable due to medical condition and unobtainable due to mental status Exam Narrative: General: Intubated and sedated HEENT:? Pupils equal and reactive, sclerae is clear, ETT in place Neck:? Supple Respiratory:? Coarse breath sounds bilaterally, no wheezing, adequate air entry Cardiac:? S1-S2 is normal, mild tachycardia Abdomen:? Soft, nontender, nondistended, hypoactive bowel sound Extremities:? Decreased pedal pulses, 1+ edema, Neuro:? Intubated, sedated, opens her eyes to name but does not follow simple commands Skin:? Mottling noted in lower extremities bilateral Psych:? Unable to assess Objective Data Vital Signs Vital Signs: Vital Signs - 24 hr 07/11/24 12:00 07/11/24 12:00 07/11/24 12:00 Temperature 97.4 F L Pulse Rate 102 H Respiratory Rate 28 H Blood Pressure 134/42 L Pulse Oximetry 100 Oxygen Delivery Mechanical Ventilation Fraction of Inspired Oxygen 60 60 07/11/24 12:00 07/11/24 12:00 07/11/24 12:00 Temperature Pulse Rate 102 H 102 H 102 H Respiratory Rate Blood Pressure 134/42 L Pulse Oximetry Oxygen Delivery Fraction of Inspired Oxygen 07/11/24 12:00 07/11/24 12:00 07/11/24 12:22 Temperature Pulse Rate 102 H 102 H 102 H Respiratory Rate 28 H Blood Pressure 134/42 L Pulse Oximetry Oxygen Delivery Fraction of Inspired Oxygen 07/11/24 12:25 07/11/24 12:25 07/11/24 12:29 Temperature Pulse Rate 102 H 102 H 102 H Respiratory Rate Blood Pressure 136/43 L Pulse Oximetry 100 Oxygen Delivery Mechanical Ventilation Fraction of Inspired Oxygen 60 07/11/24 12:56 07/11/24 13:21 07/11/24 13:36 Temperature 97.3 F L 97.2 F L 97.0 F L Pulse Rate 102 H 103 H 101 H Respiratory Rate 28 H 28 H 24 H Blood Pressure 137/43 L 103/46 L 135/43 L Pulse Oximetry 100 100 100 Oxygen Delivery Fraction of Inspired Oxygen 07/11/24 13:40 07/11/24 13:48 07/11/24 13:53 Temperature Pulse Rate 102 H 101 H 101 H Respiratory Rate Blood Pressure 110/43 L 137/43 L 137/43 L Pulse Oximetry Oxygen Delivery Fraction of Inspired Oxygen 07/11/24 13:53 07/11/24 13:53 07/11/24 13:56 Temperature 96.9 F L Pulse Rate 106 H 101 H 101 H Respiratory Rate 26 H 22 H Blood Pressure 137/43 L 136/43 L Pulse Oximetry 100 Oxygen Delivery Fraction of Inspired Oxygen 07/11/24 14:00 07/11/24 14:15 07/11/24 14:23 Temperature Pulse Rate 102 H 105 H 102 H Respiratory Rate Blood Pressure 110/43 L Pulse Oximetry 100 Oxygen Delivery Mechanical Ventilation Fraction of Inspired Oxygen 55 07/11/24 14:41 07/11/24 14:52 07/11/24 15:08 Temperature 96.6 F L 96.6 F L 96.5 F L Pulse Rate 104 H 101 H 103 H Respiratory Rate 23 H 30 H 30 H Blood Pressure 108/44 L 132/41 L 122/41 L Pulse Oximetry 99 100 100 Oxygen Delivery Fraction of Inspired Oxygen 07/11/24 15:18 07/11/24 15:25 07/11/24 15:31 Temperature 96.4 F L Pulse Rate 105 H 102 H Respiratory Rate Blood Pressure 98/37 L 102/45 L Pulse Oximetry Oxygen Delivery Fraction of Inspired Oxygen 07/11/24 15:37 07/11/24 15:47 07/11/24 15:49 Temperature 96.4 F L Pulse Rate 105 H Respiratory Rate Blood Pressure 105/41 L Pulse Oximetry Oxygen Delivery Fraction of Inspired Oxygen 55 07/11/24 15:50 07/11/24 15:51 07/11/24 16:00 Temperature Pulse Rate 105 H 105 H Respiratory Rate Blood Pressure 105/41 L Pulse Oximetry Oxygen Delivery Mechanical Ventilation Fraction of Inspired Oxygen 55 07/11/24 16:00 07/11/24 16:00 07/11/24 16:00 Temperature 96.9 F L Pulse Rate 106 H 106 H 106 H Respiratory Rate 20 Blood Pressure 119/46 L 110/44 L 110/44 L Pulse Oximetry 99 Oxygen Delivery Fraction of Inspired Oxygen 07/11/24 16:00 07/11/24 16:00 07/11/24 16:37 Temperature 96.8 F L Pulse Rate 106 H 106 H 109 H Respiratory Rate 28 H 30 H Blood Pressure 110/44 L 136/45 L Pulse Oximetry 97 Oxygen Delivery Fraction of Inspired Oxygen 07/11/24 16:54 07/11/24 16:59 07/11/24 17:25 Temperature 97.1 F L 97.6 F Pulse Rate 108 H Respiratory Rate Blood Pressure Pulse Oximetry 97 Oxygen Delivery Mechanical Ventilation Fraction of Inspired Oxygen 55 07/11/24 17:32 07/11/24 17:35 07/11/24 17:57 Temperature Pulse Rate 111 H 111 H 112 H Respiratory Rate Blood Pressure 132/43 L 132/43 L Pulse Oximetry Oxygen Delivery Fraction of Inspired Oxygen 07/11/24 17:57 07/11/24 18:15 07/11/24 18:15 Temperature 98.2 F Pulse Rate 112 H 117 H 113 H Respiratory Rate 30 H Blood Pressure 128/42 L 130/42 L 130/42 L Pulse Oximetry 97 Oxygen Delivery Fraction of Inspired Oxygen 07/11/24 18:15 07/11/24 18:15 07/11/24 18:15 Temperature Pulse Rate 113 H 103 H 111 H Respiratory Rate 31 H Blood Pressure 130/42 L 130/42 L Pulse Oximetry Oxygen Delivery Fraction of Inspired Oxygen 07/11/24 18:31 07/11/24 18:40 07/11/24 18:50 Temperature Pulse Rate 115 H 115 H 115 H Respiratory Rate Blood Pressure 128/42 L 128/42 L 107/38 L Pulse Oximetry Oxygen Delivery Fraction of Inspired Oxygen 07/11/24 19:00 07/11/24 19:01 07/11/24 19:30 Temperature 99.6 F 99.6 F Pulse Rate 115 H 114 H Respiratory Rate 19 Blood Pressure 107/38 L 117/39 L Pulse Oximetry 98 Oxygen Delivery Fraction of Inspired Oxygen 07/11/24 19:45 07/11/24 19:45 07/11/24 19:55 Temperature 99.7 F H 99.7 F H Pulse Rate 117 H 117 H 116 H Respiratory Rate 17 17 Blood Pressure 119/40 L 119/40 L Pulse Oximetry 98 98 97 Oxygen Delivery Mechanical Ventilation Fraction of Inspired Oxygen 55 07/11/24 20:00 07/11/24 20:00 07/11/24 20:00 Temperature 99.9 F H Pulse Rate 116 H 115 H 115 H Respiratory Rate 21 H 31 H Blood Pressure 102/39 L Pulse Oximetry 98 97 Oxygen Delivery Mechanical Ventilation Fraction of Inspired Oxygen 55 07/11/24 20:00 07/11/24 20:00 07/11/24 20:15 Temperature Pulse Rate 115 H 115 H Respiratory Rate 32 H Blood Pressure Pulse Oximetry Oxygen Delivery Fraction of Inspired Oxygen 55 07/11/24 20:30 07/11/24 20:45 07/11/24 20:45 Temperature 100.2 F H Pulse Rate 115 H 115 H 115 H Respiratory Rate 28 H Blood Pressure 124/40 L Pulse Oximetry 99 Oxygen Delivery Fraction of Inspired Oxygen 07/11/24 20:50 07/11/24 21:15 07/11/24 21:30 Temperature 100.3 F H Pulse Rate 114 H 115 H 114 H Respiratory Rate 20 21 H Blood Pressure 120/38 L 113/37 L Pulse Oximetry 98 Oxygen Delivery Fraction of Inspired Oxygen 07/11/24 21:52 07/11/24 21:53 07/11/24 21:59 Temperature 100.4 F H 100.4 F H 100.4 F H Pulse Rate 115 H 114 H 114 H Respiratory Rate 35 H 31 H 16 Blood Pressure 113/37 L 113/38 L 108/43 L Pulse Oximetry 97 97 97 Oxygen Delivery Fraction of Inspired Oxygen 07/11/24 22:00 07/11/24 22:08 07/11/24 22:15 Temperature 100.4 F H Pulse Rate 113 H 115 H 113 H Respiratory Rate 31 H 31 H Blood Pressure 122/40 L Pulse Oximetry 97 Oxygen Delivery Fraction of Inspired Oxygen 07/11/24 22:25 07/11/24 22:34 07/11/24 22:34 Temperature Pulse Rate 113 H 113 H 113 H Respiratory Rate Blood Pressure 125/42 L Pulse Oximetry 98 Oxygen Delivery Mechanical Ventilation Fraction of Inspired Oxygen 55 07/11/24 22:36 07/11/24 22:37 07/11/24 23:08 Temperature 100.3 F H Pulse Rate 113 H 113 H 112 H Respiratory Rate 32 H Blood Pressure 117/35 L Pulse Oximetry 97 Oxygen Delivery Fraction of Inspired Oxygen 07/11/24 23:52 07/11/24 23:52 07/11/24 23:53 Temperature Pulse Rate 111 H 111 H 110 H Respiratory Rate Blood Pressure 113/34 L Pulse Oximetry Oxygen Delivery Fraction of Inspired Oxygen 07/11/24 23:54 07/11/24 23:54 07/11/24 23:55 Temperature Pulse Rate 110 H 110 H 110 H Respiratory Rate 34 H 20 Blood Pressure Pulse Oximetry Oxygen Delivery Fraction of Inspired Oxygen 07/12/24 00:00 07/12/24 00:00 07/12/24 00:00 Temperature 100.5 F H Pulse Rate 111 H 115 H Respiratory Rate 16 31 H Blood Pressure 113/48 L Pulse Oximetry 98 97 Oxygen Delivery Mechanical Ventilation Fraction of Inspired Oxygen 55 55 07/12/24 00:00 07/12/24 00:08 07/12/24 00:20 Temperature 100.4 F H Pulse Rate 109 H 111 H 112 H Respiratory Rate 30 H Blood Pressure 115/35 L Pulse Oximetry 97 Oxygen Delivery Fraction of Inspired Oxygen 07/12/24 00:20 07/12/24 00:26 07/12/24 02:00 Temperature 100.4 F H Pulse Rate 112 H 110 H 109 H Respiratory Rate 31 H Blood Pressure 116/36 L Pulse Oximetry 97 Oxygen Delivery Fraction of Inspired Oxygen 07/12/24 02:00 07/12/24 02:00 07/12/24 02:00 Temperature Pulse Rate 110 H 110 H 110 H Respiratory Rate 32 H Blood Pressure Pulse Oximetry Oxygen Delivery Fraction of Inspired Oxygen 07/12/24 02:00 07/12/24 02:00 07/12/24 02:00 Temperature Pulse Rate 110 H 110 H 110 H Respiratory Rate 32 H Blood Pressure Pulse Oximetry Oxygen Delivery Fraction of Inspired Oxygen 07/12/24 02:00 07/12/24 02:15 07/12/24 03:23 Temperature Pulse Rate 109 H 110 H 108 H Respiratory Rate 8 L Blood Pressure 117/39 L Pulse Oximetry 98 100 Oxygen Delivery Mechanical Ventilation Fraction of Inspired Oxygen 55 07/12/24 03:23 07/12/24 03:24 07/12/24 03:24 Temperature Pulse Rate 108 H 108 H 108 H Respiratory Rate Blood Pressure 113/34 L Pulse Oximetry Oxygen Delivery Fraction of Inspired Oxygen 07/12/24 03:27 07/12/24 04:00 07/12/24 04:00 Temperature 100.6 F H Pulse Rate 109 H 108 H Respiratory Rate 32 H Blood Pressure 119/40 L Pulse Oximetry 98 Oxygen Delivery Fraction of Inspired Oxygen 55 07/12/24 04:00 07/12/24 04:00 07/12/24 04:00 Temperature Pulse Rate 108 H 107 H 107 H Respiratory Rate 32 H 32 H Blood Pressure Pulse Oximetry 98 Oxygen Delivery Mechanical Ventilation Fraction of Inspired Oxygen 55 07/12/24 04:00 07/12/24 04:25 07/12/24 04:25 Temperature Pulse Rate 107 H 108 H 108 H Respiratory Rate Blood Pressure Pulse Oximetry Oxygen Delivery Fraction of Inspired Oxygen 07/12/24 05:11 07/12/24 05:13 07/12/24 05:13 Temperature Pulse Rate 107 H 105 H 102 H Respiratory Rate Blood Pressure Pulse Oximetry 97 Oxygen Delivery Mechanical Ventilation Fraction of Inspired Oxygen 55 07/12/24 05:50 02/06/25 06:00 07/12/24 06:00 Temperature Pulse Rate 100 106 H 100 Respiratory Rate 32 H Blood Pressure Pulse Oximetry Oxygen Delivery Fraction of Inspired Oxygen 07/12/24 06:00 07/12/24 06:00 07/12/24 06:25 Temperature Pulse Rate 104 H 104 H 100 Respiratory Rate 31 H Blood Pressure 105/36 L Pulse Oximetry 99 Oxygen Delivery Fraction of Inspired Oxygen 07/12/24 06:29 07/12/24 07:10 07/12/24 07:34 Temperature Pulse Rate 104 H 115 H 104 H Respiratory Rate 30 H Blood Pressure Pulse Oximetry 91 Oxygen Delivery Mechanical Ventilation Fraction of Inspired Oxygen 80 07/12/24 07:35 07/12/24 08:00 07/12/24 08:00 Temperature Pulse Rate 104 H 102 H 102 H Respiratory Rate 32 H Blood Pressure 94/25 L 94/25 L Pulse Oximetry Oxygen Delivery Fraction of Inspired Oxygen 07/12/24 08:00 07/12/24 08:00 07/12/24 08:00 Temperature Pulse Rate 102 H 102 H 102 H Respiratory Rate 30 H 30 H Blood Pressure 94/25 L Pulse Oximetry Oxygen Delivery Fraction of Inspired Oxygen 07/12/24 08:00 07/12/24 08:00 07/12/24 08:00 Temperature 100.5 F H Pulse Rate 102 H 102 H Respiratory Rate 30 H Blood Pressure 94/25 L Pulse Oximetry 90 Oxygen Delivery Mechanical Ventilation Fraction of Inspired Oxygen 80 07/12/24 08:00 07/12/24 08:52 07/12/24 09:05 Temperature Pulse Rate 99 99 Respiratory Rate Blood Pressure 95/26 L 95/26 L Pulse Oximetry Oxygen Delivery Fraction of Inspired Oxygen 80 Intake/Output Intake/Output: Intake & Output 07/09/24 07/10/24 07/11/24 07/12/24 23:59 23:59 23:59 23:59 Intake Total 3694.4 7575.7 1800.4 Output Total 210 75 Balance 3694.4 7365.7 1725.4 Meds/Results Medications: Active Medications Generic Name Dose Route Start Last Admin Trade Name Freq PRN Reason Stop Dose Admin Hydrocortisone Sodium Succinate 100 mg 07/11/24 14:00 07/12/24 07:00 Hydrocortisone Sodium Succinate 100 Mg/2 Ml Vial IV PUSH 100 mg Q8HR NICOLE Administration Vasopressin 100 units/ 100 mls @ 1.2 mls/hr 07/10/24 22:00 07/12/24 06:00 Dextrose IV CONT 0.04 units/min .Q72H NICOLE 2.4 mls/hr Titration Protocol 0.02 UNITS/MIN Norepinephrine Bitartrate 8 mg in 250 mls @ 56.25 mls/hr 07/11/24 01:10 07/12/24 09:05 Levophed 8 Mg/D5w 250 Ml IV CONT 30 mcg/min .Q4H27M NICLOE 56.25 mls/hr Administration Protocol 30 MCG/MIN Fentanyl Citrate 2,500 mcg in 250 mls @ 7.5 mls/hr 07/11/24 02:35 07/12/24 08:00 Fentanyl 2,500 Mcg/Ns 250 Ml IV CONT 75 mcg/hr .[id number] NICOLE 7.5 mls/hr Infusion 75 MCG/HR Phenylephrine HCl 50 mg/ 250 ml in 250 mls @ 54 mls/hr 07/11/24 03:00 07/12/24 08:00 Dextrose IV CONT 180 mcg/min .Q4H38M NICOLE 54 mls/hr Titration Protocol 180 MCG/MIN Meropenem 500 mg in 100 mls @ 200 mls/hr 07/11/24 09:00 07/12/24 00:24 IVPB Infused Q12H [facility] Infusion Epinephrine HCl 4 mg/ Dextrose 254 mls @ 38.1 mls/hr 07/11/24 20:15 07/12/24 08:00 IV CONT 10 mcg/min .Q6H40M NICOLE 38.1 mls/hr Titration Protocol 10 MCG/MIN Midazolam HCl 100 mg in 100 mls @ 4 mls/hr 07/11/24 21:00 07/12/24 08:00 Versed 100 Mg/Ns 100 Ml IV CONT 4 mg/hr .Q25H NICOLE 4 mls/hr Titration Protocol 4 MG/HR Lorazepam 2 mg 07/12/24 09:26 Lorazepam Inj (*Crx) 2 Mg/Ml Vial IV PUSH Q2H PRN Anxiety/Comfort Morphine Sulfate 2 mg 07/12/24 09:26 Morphine Sulfate (*Crx) 2 Mg/Ml Inj IV PUSH Q30M PRN COMFORT Multi-Ingred Cream/Lotion/Oil/Oint 1 applic 07/11/24 21:00 07/11/24 21:21 Mineral Oil/White Petrolatum Ointment EACH EYE 1 applic Q12HR NICOLE Administration Pantoprazole Sodium 40 mg 07/11/24 21:00 07/11/24 21:21 Pantoprazole Sodium Iv 40 Mg Vial IV PUSH 40 mg Q12HR NICOLE Administration Vancomycin HCl 1 each 07/12/24 06:00 Vancomycin For Acute Kidney Injury IVPB PRN PRN Vancomycin Protocol Radiology Results: ITS Impressions Abdomen/Pelvis CTA 07/10/24 16:28 IMPRESSION: 1. Gastrointestinal bleed with small focus of active intraluminal contrast extravasation within a loop of jejunum in the left abdomen. 2. UIP pattern chronic interstitial lung disease at the lung bases with a few nodular opacities in the visualized lower lungs including incompletely visualized 1.3 cm nodule in the right lower lobe. Recommend further evaluation with dedicated chest CT when clinically appropriate. 3. Indeterminate 1.4 cm cystic lesion at the tail of the pancreas. The differential diagnosis includes pseudocyst, intraductal papillary mucinous neoplasm (IPMN), mucinous cystic neoplasm (MCN), and the less common serous cystadenoma and neuroendocrine tumor. Correlate for history of pancreatitis and recommend further evaluation with pre and postcontrast MRI. Abdomen X-Ray 07/11/24 05:32 Impression: NG tube in satisfactory position. Chest X-Ray 07/12/24 06:50 Impression: Diffuse chronic interstitial disease. Left basilar consolidation could represent atelectasis versus pneumonia. Support tubes, as above. Labs Labs: Laboratory Results - last 24 hr 07/10/24 07/11/24 07/11/24 15:31 09:35 13:35 WBC RBC Hgb Hct MCV MCH MCHC RDW Plt Count MPV Immature Gran % (Auto) Neut % (Auto) Lymph % (Auto) Upson % (Auto) Eos % (Auto) Baso % (Auto) Lymph # (Auto) Upson # (Auto) Eos # (Auto) Baso # (Auto) Abs Immat Gran (auto) Absolute Neuts (auto) Absolute Nucleated RBC Total Counted Neutrophils % (Manual) Band Neutrophils % Lymphocytes % (Manual) Monocytes % (Manual) Nucleated RBC % Abs Neuts (Manual) Abs Lymphs (Manual) Abs Monocytes (Manual) Nucleated RBCs Platelet Estimate Hypochromasia Anisocytosis Macrocytosis Lluvia Cells Schistocytes PT INR APTT Fibrinogen D-Dimer Puncture Site ABG pH ABG pCO2 ABG pO2 ABG PO2/FiO2 Ratio ABG HCO3 ABG O2 Saturation ABG O2 Content ABG Base Excess A-a Gradient Oxyhemoglobin Carboxyhemoglobin Methemoglobin Reduced Hemoglobin Total Hemoglobin O2 Delivery Device O2 Liters/Min Minute Volume Vent Rate Vent Mode FiO2 Tidal Volume PEEP Peak Inspir Pressure Pressure Support Sodium Potassium Chloride Carbon Dioxide Anion Gap BUN Creatinine Estim Creat Clear Calc Estimated GFR Glucose POC Capillary Glucose 147 H Lactic Acid Calcium Phosphorus Magnesium Total Bilirubin AST 4491 H ALT Alkaline Phosphatase Total Protein Albumin Vancomycin Trough Hepatitis A IgM Ab Hep Bs Antigen Hep B Core IgM Ab Hepatitis C Ab Screen Blood Type A Positive Antibody Screen Negative Crossmatch See Detail 07/11/24 07/11/24 07/11/24 14:00 17:44 17:44 WBC 19.1 H 18.8 H RBC 1.88 L Hgb Hct MCV MCH MCHC RDW Plt Count MPV Immature Gran % (Auto) Neut % (Auto) Lymph % (Auto) Upson % (Auto) Eos % (Auto) Baso % (Auto) Lymph # (Auto) Upson # (Auto) Eos # (Auto) Baso # (Auto) Abs Immat Gran (auto) Absolute Neuts (auto) Absolute Nucleated RBC Total Counted Neutrophils % (Manual) Band Neutrophils % Lymphocytes % (Manual) Monocytes % (Manual) Nucleated RBC % Abs Neuts (Manual) Abs Lymphs (Manual) Abs Monocytes (Manual) Nucleated RBCs Platelet Estimate Hypochromasia Anisocytosis Macrocytosis Lluvia Cells Schistocytes PT INR APTT Fibrinogen D-Dimer Puncture Site Artline ABG pH 6.955 L* ABG pCO2 38.5 ABG pO2 180.5 H ABG PO2/FiO2 Ratio 3.01 ABG HCO3 8.4 L ABG O2 Saturation 98.3 ABG O2 Content 9.0 L ABG Base Excess -21.7 A-a Gradient 205.0 Oxyhemoglobin 97.6 Carboxyhemoglobin Methemoglobin Reduced Hemoglobin Total Hemoglobin 6.2 L* O2 Delivery Device Ventilator O2 Liters/Min Not Reportable Minute Volume Not Reportable Vent Rate 28 Vent Mode Cmv FiO2 60 Tidal Volume 450 PEEP 5 Peak Inspir Pressure Not Reportable Pressure Support Not Reportable Sodium Potassium Chloride Carbon Dioxide Anion Gap BUN Creatinine Estim Creat Clear Calc Estimated GFR Glucose POC Capillary Glucose Lactic Acid Calcium Phosphorus Magnesium Total Bilirubin AST ALT Alkaline Phosphatase Total Protein Albumin Vancomycin Trough Hepatitis A IgM Ab Hep Bs Antigen Hep B Core IgM Ab Hepatitis C Ab Screen Blood Type Antibody Screen Crossmatch 07/11/24 07/11/24 07/11/24 17:44 17:44 17:44 WBC RBC 1.87 L Hgb 6.3 L* 6.3 L* Hct 20.1 L* 20.1 L* MCV 106.9 H MCH MCHC RDW Plt Count MPV Immature Gran % (Auto) Neut % (Auto) Lymph % (Auto) [place] % (Auto) Eos % (Auto) Baso % (Auto) Lymph # (Auto) [place] # (Auto) Eos # (Auto) Baso # (Auto) Abs Immat Gran (auto) Absolute Neuts (auto) Absolute Nucleated RBC Total Counted Neutrophils % (Manual) Band Neutrophils % Lymphocytes % (Manual) Monocytes % (Manual) Nucleated RBC % Abs Neuts (Manual) Abs Lymphs (Manual) Abs Monocytes (Manual) Nucleated RBCs Platelet Estimate Hypochromasia Anisocytosis Macrocytosis [place] Cells Schistocytes PT INR APTT Fibrinogen D-Dimer Puncture Site ABG pH ABG pCO2 ABG pO2 ABG PO2/FiO2 Ratio ABG HCO3 ABG O2 Saturation ABG O2 Content ABG Base Excess A-a Gradient Oxyhemoglobin Carboxyhemoglobin Methemoglobin Reduced Hemoglobin Total Hemoglobin O2 Delivery Device O2 Liters/Min Minute Volume Vent Rate Vent Mode FiO2 Tidal Volume PEEP Peak Inspir Pressure Pressure Support Sodium Potassium Chloride Carbon Dioxide Anion Gap BUN Creatinine Estim Creat Clear Calc Estimated GFR Glucose POC Capillary Glucose Lactic Acid Calcium Phosphorus Magnesium Total Bilirubin AST ALT Alkaline Phosphatase Total Protein Albumin Vancomycin Trough Hepatitis A IgM Ab Hep Bs Antigen Hep B Core IgM Ab Hepatitis C Ab Screen Blood Type Antibody Screen Crossmatch 07/11/24 07/11/24 07/11/24 17:44 17:44 17:44 WBC RBC Hgb Hct MCV 107.5 H MCH 33.5 33.7 MCHC 31.3 L 31.3 L RDW 23.8 H Plt Count MPV Immature Gran % (Auto) Neut % (Auto) Lymph % (Auto) [place] % (Auto) Eos % (Auto) Baso % (Auto) Lymph # (Auto) [place] # (Auto) Eos # (Auto) Baso # (Auto) Abs Immat Gran (auto) Absolute Neuts (auto) Absolute Nucleated RBC Total Counted Neutrophils % (Manual) Band Neutrophils % Lymphocytes % (Manual) Monocytes % (Manual) Nucleated RBC % Abs Neuts (Manual) Abs Lymphs (Manual) Abs Monocytes (Manual) Nucleated RBCs Platelet Estimate Hypochromasia Anisocytosis Macrocytosis [place] Cells Schistocytes PT INR APTT Fibrinogen D-Dimer Puncture Site ABG pH ABG pCO2 ABG pO2 ABG PO2/FiO2 Ratio ABG HCO3 ABG O2 Saturation ABG O2 Content ABG Base Excess A-a Gradient Oxyhemoglobin Carboxyhemoglobin Methemoglobin Reduced Hemoglobin Total Hemoglobin O2 Delivery Device O2 Liters/Min Minute Volume Vent Rate Vent Mode FiO2 Tidal Volume PEEP Peak Inspir Pressure Pressure Support Sodium Potassium Chloride Carbon Dioxide Anion Gap BUN Creatinine Estim Creat Clear Calc Estimated GFR Glucose POC Capillary Glucose Lactic Acid Calcium Phosphorus Magnesium Total Bilirubin AST ALT Alkaline Phosphatase Total Protein Albumin Vancomycin Trough Hepatitis A IgM Ab Hep Bs Antigen Hep B Core IgM Ab Hepatitis C Ab Screen Blood Type Antibody Screen Crossmatch 07/11/24 07/11/24 07/11/24 17:44 17:44 17:44 WBC RBC Hgb Hct MCV MCH MCHC RDW 23.3 H Plt Count 129 L 132 L MPV 11.5 H 11.8 H Immature Gran % (Auto) Not Reportable Neut % (Auto) Not Reportable Lymph % (Auto) Not Reportable [place] % (Auto) Not Reportable Eos % (Auto) Not Reportable Baso % (Auto) Not Reportable Lymph # (Auto) Not Reportable [place] # (Auto) Not Reportable Eos # (Auto) Not Reportable Baso # (Auto) Not Reportable Abs Immat Gran (auto) Not Reportable Absolute Neuts (auto) Not Reportable Absolute Nucleated RBC Not Reportable Total Counted 100 Neutrophils % (Manual) 67 Band Neutrophils % 13 H Lymphocytes % (Manual) 16.0 L Monocytes % (Manual) 4 Nucleated RBC % Not Reportable Abs Neuts (Manual) 15.04 H Abs Lymphs (Manual) 3.00 Abs Monocytes (Manual) 0.75 Nucleated RBCs 2 Platelet Estimate Decreased Hypochromasia 1+ Anisocytosis 3+ Macrocytosis [place] Cells Schistocytes Rare PT 32.7 H INR 3.2 APTT 53.1 H Fibrinogen 158 L D-Dimer 1.85 H Puncture Site ABG pH ABG pCO2 ABG pO2 ABG PO2/FiO2 Ratio ABG HCO3 ABG O2 Saturation ABG O2 Content ABG Base Excess A-a Gradient Oxyhemoglobin Carboxyhemoglobin Methemoglobin Reduced Hemoglobin Total Hemoglobin O2 Delivery Device O2 Liters/Min Minute Volume Vent Rate Vent Mode FiO2 Tidal Volume PEEP Peak Inspir Pressure Pressure Support Sodium 136 L Potassium 4.6 Chloride 92 L Carbon Dioxide < 5 L Anion Gap BUN 23 H Creatinine 2.56 H Estim Creat Clear Calc 26 Estimated GFR 19 L Glucose 192 H POC Capillary Glucose Lactic Acid > 24.0 H* Calcium 6.1 L Phosphorus 11.7 H Magnesium Total Bilirubin AST ALT Alkaline Phosphatase Total Protein Albumin Vancomycin Trough Hepatitis A IgM Ab Hep Bs Antigen Hep B Core IgM Ab Hepatitis C Ab Screen Blood Type Antibody Screen Crossmatch 07/11/24 07/11/24 07/11/24 17:44 17:44 23:41 WBC RBC Hgb Hct MCV MCH MCHC RDW Plt Count MPV Immature Gran % (Auto) Neut % (Auto) Lymph % (Auto) [place] % (Auto) Eos % (Auto) Baso % (Auto) Lymph # (Auto) [place] # (Auto) Eos # (Auto) Baso # (Auto) Abs Immat Gran (auto) Absolute Neuts (auto) Absolute Nucleated RBC Total Counted Neutrophils % (Manual) Band Neutrophils % Lymphocytes % (Manual) Monocytes % (Manual) Nucleated RBC % Abs Neuts (Manual) Abs Lymphs (Manual) Abs Monocytes (Manual) Nucleated RBCs Platelet Estimate Hypochromasia Anisocytosis Macrocytosis [place] Cells Schistocytes PT INR APTT Fibrinogen D-Dimer Puncture Site ABG pH ABG pCO2 ABG pO2 ABG PO2/FiO2 Ratio ABG HCO3 ABG O2 Saturation ABG O2 Content ABG Base Excess A-a Gradient Oxyhemoglobin Carboxyhemoglobin Methemoglobin Reduced Hemoglobin Total Hemoglobin O2 Delivery Device O2 Liters/Min Minute Volume Vent Rate Vent Mode FiO2 Tidal Volume PEEP Peak Inspir Pressure Pressure Support Sodium Potassium Chloride Carbon Dioxide Anion Gap BUN Creatinine Estim Creat Clear Calc Estimated GFR Glucose POC Capillary Glucose 241 H Lactic Acid Calcium Phosphorus Cancelled Magnesium 2.0 2.1 Total Bilirubin 2.8 H AST > 7500 H ALT 2631 H Alkaline Phosphatase 78 Total Protein 5.0 L Albumin 2.5 L Vancomycin Trough Hepatitis A IgM Ab Negative Hep Bs Antigen Negative Hep B Core IgM Ab Negative Hepatitis C Ab Screen Negative Blood Type Antibody Screen Crossmatch 07/12/24 07/12/24 07/12/24 05:11 05:15 05:15 WBC 15.9 H 15.5 H RBC 2.29 L 2.22 L Hgb 7.2 L 7.2 L Hct 24.1 L 23.3 L MCV 105.2 H 105.0 H MCH 31.4 D 32.4 MCHC 29.9 L 30.9 L RDW 21.2 H 21.2 H Plt Count 117 L 115 L MPV 11.2 H 11.2 H Immature Gran % (Auto) Not Reportable Neut % (Auto) Not Reportable Lymph % (Auto) Not Reportable [place] % (Auto) Not Reportable Eos % (Auto) Not Reportable Baso % (Auto) Not Reportable Lymph # (Auto) Not Reportable [place] # (Auto) Not Reportable Eos # (Auto) Not Reportable Baso # (Auto) Not Reportable Abs Immat Gran (auto) Not Reportable Absolute Neuts (auto) Not Reportable Absolute Nucleated RBC Not Reportable Total Counted 100 Neutrophils % (Manual) 75 H Band Neutrophils % 12 H Lymphocytes % (Manual) 13.0 L Monocytes % (Manual) Nucleated RBC % Not Reportable Abs Neuts (Manual) 13.48 H Abs Lymphs (Manual) 2.01 Abs Monocytes (Manual) Nucleated RBCs 4 Platelet Estimate Decreased Hypochromasia Anisocytosis 1+ Macrocytosis 1+ [place] Cells 1+ Schistocytes Rare PT 39.3 H D INR 4.0 APTT 59.3 H Fibrinogen 139 L D-Dimer 2.39 H Puncture Site [place] ABG pH 6.968 L* ABG pCO2 32.9 L ABG pO2 97.2 ABG PO2/FiO2 Ratio 1.77 ABG HCO3 7.4 L ABG O2 Saturation 92.7 L ABG O2 Content 10.1 L ABG Base Excess -22.7 A-a Gradient 258.4 Oxyhemoglobin 94.3 Carboxyhemoglobin 1.1 Methemoglobin 0.5 Reduced Hemoglobin 4.1 Total Hemoglobin 7.5 L* O2 Delivery Device Ventilator O2 Liters/Min Not Reportable Minute Volume Not Reportable Vent Rate 30 Vent Mode Cmv FiO2 55 Tidal Volume 450 PEEP 5 Peak Inspir Pressure Not Reportable Pressure Support Not Reportable Sodium 131 L Potassium 5.7 H Chloride 86 L Carbon Dioxide 6 L Anion Gap 39 H BUN 22 H Creatinine 3.60 H 3.60 H Estim Creat Clear Calc 19 Estimated GFR Glucose POC Capillary Glucose Lactic Acid Calcium Phosphorus Magnesium 2.0 Total Bilirubin AST ALT Alkaline Phosphatase Total Protein Albumin Vancomycin Trough Hepatitis A IgM Ab Hep Bs Antigen Hep B Core IgM Ab Hepatitis C Ab Screen Blood Type Antibody Screen Crossmatch 07/12/24 07/12/24 07/12/24 05:15 05:15 07:11 WBC RBC Hgb Hct MCV MCH MCHC RDW Plt Count MPV Immature Gran % (Auto) Neut % (Auto) Lymph % (Auto) [place] % (Auto) Eos % (Auto) Baso % (Auto) Lymph # (Auto) [place] # (Auto) Eos # (Auto) Baso # (Auto) Abs Immat Gran (auto) Absolute Neuts (auto) Absolute Nucleated RBC Total Counted Neutrophils % (Manual) Band Neutrophils % Lymphocytes % (Manual) Monocytes % (Manual) Nucleated RBC % Abs Neuts (Manual) Abs Lymphs (Manual) Abs Monocytes (Manual) Nucleated RBCs Platelet Estimate Hypochromasia Anisocytosis Macrocytosis [place] Cells Schistocytes PT INR APTT Fibrinogen D-Dimer Puncture Site ABG pH ABG pCO2 ABG pO2 ABG PO2/FiO2 Ratio ABG HCO3 ABG O2 Saturation ABG O2 Content ABG Base Excess A-a Gradient Oxyhemoglobin Carboxyhemoglobin Methemoglobin Reduced Hemoglobin Total Hemoglobin O2 Delivery Device O2 Liters/Min Minute Volume Vent Rate Vent Mode FiO2 Tidal Volume PEEP Peak Inspir Pressure Pressure Support Sodium Potassium Chloride Carbon Dioxide Anion Gap BUN Creatinine Estim Creat Clear Calc 19 Estimated GFR 13 L 13 L Glucose 197 H POC Capillary Glucose 216 H Lactic Acid > 24.0 H* Calcium 6.0 L Phosphorus 13.2 H Magnesium 2.0 Total Bilirubin 3.2 H AST > 7500 H ALT 2924 H Alkaline Phosphatase 92 Total Protein 5.0 L Albumin 2.9 L Vancomycin Trough 16.3 Hepatitis A IgM Ab Hep Bs Antigen Hep B Core IgM Ab Hepatitis C Ab Screen Blood Type Antibody Screen Crossmatch
--- NOTE | 2024-07-12 14:49 | P.CODEBLUE_ITS ---
Code Blue Note Code Blue Note Time Arrived at Code Blue: 0703 Initial Rhythm on Arrival: Asystole Airway Management: Initiated bagging pt on arrival (Patient was already intubated on mechanical ventilation) Chest Compressions: Initiated upon arrival Result of Code Blue: ROSC Cardiac Rhythm Post Code: Sinus tachycardia Code Blue Summary: Patient was in the ICU room 10, went into asystole and 7:03 a.m., ACLS protocol with CPR commenced immediately. Patient received 1 dose of epinephrine, re ceived calcium, sodium bicarbonate, dextrose since she was hyperkalemic this morning with a potassium of 5.7. ROSC achieved at 7:08 a.m. Family was outside the room, discussed with family in details, patient was made DNR
--- NOTE | 2024-07-12 15:01 | PM.DDS ---
Discharge Summary Date and Time Date of : 07/12/24 Time of : 09:52 Provider Pronounced By: 2 RNs Name of First RN That Pronounced: Soni Whittington Name of Second RN That Pronounced: Queenie Mcwilliams Probable Cause of Probable Cause of : -Cardiopulmonary arrest -severe metabolic acidosis -acute kidney injury Summary Hospital Course: Assessment and Plan (1) Shock: Code(s): R57.9 - Shock, unspecified Status: Acute Assessment and Plan: Hemorrhagic versus septic versus hypovolemic shock -patient presented with melanotic stools CT abdomen pelvis showed small focus of active extravasation within the jejunum in the left abdomen -patient has been accepted and is on a waiting list to transfer to either [facility] or [facility] -significant hypotension through the night, was asked to see the patient in the ER as she awaits transfer to higher level of care -in the ER patient was on maximum doses of Levophed, Roderick-Synephrine and vasopressin. -ABG showed severe acidosis and lactic acidosis -I asked the ER bedside RN to give 2 amps of bicarb, may changes to the ventilator, ordered epinephrine infusion. Patient to be transferred to the ICU for further management at this time -upon arrival to the ICU on 07/08/2024 I placed a left femoral arterial line -will maintain MAP > 65 mm Hg or greater at all times for adequate end organ perfusion -patient has been started on meropenem and vancomycin (07/11) -blood cultures have been obtained and pending -she did receive adequate amount of IV fluids in the ER -started patient on stress dose steroids 07/12: Maximum doses of epinephrine, Levophed, vasopressin and Roderick-Synephrine. Patient has received multiple IV push sodium bicarbonate . Lactic acid remains> 24. Patient with leukocytosis, hemoglobin of 7.2 (2) Acute respiratory failure: Code(s): J96.00 - Acute respiratory failure, unspecified whether with hypoxia or hypercapnia Status: Acute Assessment and Plan: Patient was intubated in the ER secondary severe shock, metabolic acidosis due to lactic acidosis -currently on CMV mode of ventilation, 60% FiO2 and peep of 5 -chest x-ray and ABGs reviewed, ventilator adjusted -ABGs reveals severe metabolic acidosis, patient has been oxygenating well, pCO2 levels have been normal -sedated with fentanyl infusion, maintain RASS is -2 (3) Acute renal failure: Code(s): N17.9 - Acute kidney failure, unspecified Status: Acute Assessment and Plan: Acute kidney injury likely related to shock hemorrhagic versus hypovolemic versus septic -received adequate amount of IV fluids -remains on sodium bicarb infusion -lactic acidosis with severe metabolic acidosis -nephrology has been consulted -07/12: Continues to have decreased urine output with worsening renal function -continue to monitor renal function, electrolytes and urine output (4) DIC (disseminated intravascular coagulation): Code(s): D65 - Disseminated intravascular coagulation [defibrination syndrome] Status: Acute Assessment and Plan: DIC panel is positive, status post FFP, cryoprecipitate and PRBC, vitamin K 07/12: Remains in DIC (5) Lactic acidosis: Code(s): E87.20 - Acidosis, unspecified Status: Acute Assessment and Plan: Significant elevation in lactic acid level, could be related to his ischemic bowel -surgery has been consulted -patient a very high risk for surgery, (6) Acute GI bleeding: Code(s): K92.2 - Gastrointestinal hemorrhage, unspecified Status: Acute Assessment and Plan: Patient presented with melanotic stools, anemia with hemoglobin of 7.4 on admission, received 2 units of packed RBCs on 07/10/2024 in the ER -additional 1 unit of packed RBCs will be transfused in the ICU on 07/11/202407/10: Abdominal CTA showed gastrointestinal bleed with small focus of active intraluminal contrast extravasation within the loop of jejunum in the left abdomen. (7) Anemia due to acute blood loss: Code(s): D62 - Acute posthemorrhagic anemia Status: Acute Assessment and Plan: Anemia due to GI bleed -patient has received a total of 3 units of packed RBCs since admission -continue to monitor H&H -continue Protonix IV q.12 hours Plan DVT prophylaxis: SCDs, no chemoprophylaxis secondary to acute GI bleed, anemia, DIC Stress ulcer prophylaxis: Protonix IV q.12 hours Nutrition: NPO Code Status: DNR, comfort measures Critical Care Time Spent: 55 minutes 07/12: Patient had a cardiac arrest, discussed with son, daughter and and conference room along with other family members and updated them with patient's condition and care. I explained to them that patient has multiorgan system failure, severe metabolic acidosis with elevated lactic acid > 24. Worsening renal function with decreased urine output. Family decided to withdraw support and make a comfort measures Additional Data Confirmation of as documented by pronouncing clinician: Pupillary Reflex, Palpable Pulses, Response to Stimuli, Heart Tones and Breath Sounds Name of Provider Notified: Dr. Latasha Potter Time Provider Notified: 09:53 Provider Requests Autopsy: No Dish Technician Notified: Yes Date [facility] Notified of : 07/12/24 Time [facility] Notified of : 10:11
== END 2024-07-12 09:52 | disposition expired | DRG 871 ==
LOC: ANHED 07-11 03:28 → ANHICU 07-11 08:38
PROVIDERS: Family Medicine; Internal Medicine; Admitting Provider Internal Medicine; Emergency Provider Student in an Organized Health Care Education/Training Program; PCP Internal Medicine; Visit Provider Internal Medicine
DX: A41.9 Sepsis, unspecified organism (principal); D65 Disseminated intravascular coagulation [defibrination syndrome]; J96.00 Acute respiratory failure, unspecified whether with hypoxia or hypercapnia; K72.00 Acute and subacute hepatic failure without coma; R65.21 Severe sepsis with septic shock; K92.2 Gastrointestinal hemorrhage, unspecified; N17.9 Acute kidney failure, unspecified; E87.21 Acute metabolic acidosis; D62 Acute posthemorrhagic anemia; T80.818A Extravasation of other vesicant agent, initial encounter; I46.9 Cardiac arrest, cause unspecified; I95.89 Other hypotension; R57.8 Other shock; R57.1 Hypovolemic shock; J10.1 Influenza due to other identified influenza virus with other respiratory manifestations; I12.9 Hypertensive chronic kidney disease with stage 1 through stage 4 chronic kidney disease, or unspecified chronic kidney disease; N18.30 Chronic kidney disease, stage 3 unspecified; E11.22 Type 2 diabetes mellitus with diabetic chronic kidney disease; E78.5 Hyperlipidemia, unspecified; G47.33 Obstructive sleep apnea (adult) (pediatric); J44.9 Chronic obstructive pulmonary disease, unspecified; F17.210 Nicotine dependence, cigarettes, uncomplicated; Z86.73 Personal history of transient ischemic attack (TIA), and cerebral infarction without residual deficits; Z90.49 Acquired absence of other specified parts of digestive tract; Z90.711 Acquired absence of uterus with remaining cervical stump; Z90.81 Acquired absence of spleen; E66.9 Obesity, unspecified; Z68.38 Body mass index [BMI] 38.0-38.9, adult; M06.9 Rheumatoid arthritis, unspecified
CPT/HCPCS: 31500; 36415; 36430; 36556; 36600; 71045; 74174; 80053; 80074; 80202; 81001; 82140; 82375; 82550; 82565; 82805; 82948; 83050; 83605; 83690; 83735; 83880; 84100; 84145; 84484; 85014; 85018; 85025; 85027; 85380; 85384; 85610; 85730; 86850; 86900; 86901; 86923; 87086; 87637; 87641; 93005; 94002; 94003; 94640; 96361; 96365; 96367; 96375; 96376; 99291; A9270; C1751; G0378; J0171; J0612; J0613; J0692; J1720; J1815; J2060; J2185; J2250; J2270; J2371; J2405; J2470; J3010; J3370; J3430; J7030; J7050; J7060; P9012; P9016; P9017; P9047; Q9967